=== PATIENT | female | born 1955 | race Caucasian/White ===

== ENCOUNTER 2016-06-13 21:23 | Emergency (ER) | payer OTHER ==
[2016-06-13] MEDS ORDERED: DEXTROSE 5%-0.45% NACL 1,000 ML IV ONE (21:33)
[2016-06-13 21:51] LABS: Basophils % (A) 0 %; CH 22.8; CHCM 28.3; Eosinophils # (A) 0.1 k/uL (0-0.7); Eosinophils % (A) 1 %; HCT 42.9 % (34.0-46.0); HDW 3.74; HGB 12.5 gm/dL (11.4-16.0); Hypochromasia Marked; Luc # (Auto) 0.28; Luc % (Auto) 3; Lymphocytes # (A) 0.9 k/uL (1.0-4.8); Lymphocytes % (A) 9 %; MCH 23.4 pg (25.0-35.0); MCV 80.8 fL (80.0-100.0); Mean Platelet Volume 6.8; Monocytes # (A) 0.5 k/uL (0-1.0); Monocytes % (A) 5 %; Neutrophils # (A) 8.1 k/uL (1.3-7.7); Neutrophils % (A) 81 %; Poikilocytosis Slight; RBC 5.31 m/uL (3.80-5.40); RDW 15.7 % (11.5-15.5); WBC (Perox) 9.88
[2016-06-13 21:53] VITALS: RESP 20
--- NOTE | 2016-06-13 21:55 | XR ---
EXAMINATION TYPE: XR chest 2V DATE OF EXAM: 06/13/2016 9:48 PM COMPARISON: None HISTORY: 61-year-old female with cough and hypoglycemia TECHNIQUE: AP and lateral views FINDINGS: Heart is borderline to mildly enlarged. Diffuse interstitial and vascular prominence. No uzair consol idation or significant pleural effusion. IMPRESSION: Borderline to mild cardiomegaly with interstitial prominence. Correlate to exclude mild CHF. Limited portable exam.
[2016-06-13 21:59] LABS: Calcium 9.3 mg/dL (8.4-10.2); Potassium 5.2 mmol/L (3.5-5.1); Total Bilirubin 0.3 mg/dL (0.2-1.3); Total Protein 6.4 g/dL (6.3-8.2)
--- NOTE | 2016-06-13 22:08 | ED ---
General Adult HPI - General Chief complaint: Recheck/Abnormal Lab/Rx Stated complaint: diabetic problems Time Seen by Provider: 06/13/16 21:27 Source: patient, EMS, RN notes reviewed Mode of arrival: EMS Limitations: no limitations - History of Present Illness Initial comments: Patient is a pleasant 61-year-old female presenting to the emergency Department with low blood sugar. Patient took 35 units of her apidra prior to dinner. After this patient felt lightheaded. Patient took her blood sugar and it was 60. Patient was given a small amount of glucose by EMS. Blood sugar went up to over 100. Patient feels only minimally lightheaded at this time. Patient has had similar symptoms previous a. Patient was just started on a Z-David 2 days ago for upper respiratory symptoms. Patient has had a mild sore throat and cough. - Related Data Home Medications Medication Instructions Recorded Confirmed Atorvastatin Calcium [Lipitor] 1 tab PO DAILY 06/13/16 06/13/16 Gabapentin [Neurontin] 1 tab PO TID 06/13/16 06/13/16 Insulin Glargine [Lantus] 120 unit SQ DAILY 06/13/16 06/13/16 Insulin Glulisine [Apidra] 35 unit SQ BID 06/13/16 06/13/16 Allergies Allergy/AdvReac Type Severity Reaction Status Date / Time Penicillins Allergy Rash/Hives Verified 06/13/16 21:53 Sulfa (Sulfonamide Allergy Rash/Hives Verified 06/13/16 21:53 Antibiotics) Review of Systems ROS Statement: Those systems with pertinent positive or pertinent negative responses have been documented in the HPI. ROS Other: All systems not noted in ROS Statement are negative. Constitutional: Denies: fever Eyes: Denies: eye pain ENT: Reports: throat pain Respiratory: Reports: cough. Denies: dyspnea Cardiovascular: Denies: chest pain Endocrine: Denies: fatigue Gastrointestinal: Denies: abdominal pain Genitourinary: Denies: dysuria Musculoskeletal: Denies: back pain Skin: Denies: rash Neurological: Denies: headache Past Medical History Past Medical History: Diabetes Mellitus, Hyperlipidemia History of Any Multi-Drug Resistant Organisms: None Reported Past Surgical History: Unable to Obtain Past Psychological History: No Psychological Hx Reported Smoking Status: Current every day smoker Past Alcohol Use History: None Reported Past Drug Use History: None Reported General Exam Limitations: no limitations General appearance: alert, in no apparent distress Head exam: Present: atraumatic Eye exam: Present: normal appearance, PERRL, EOMI. Absent: nystagmus ENT exam: Present: normal oropharynx Neck exam: Present: normal inspection Respiratory exam: Present: normal lung sounds bilaterally Cardiovascular Exam: Present: regular rate, normal rhythm GI/Abdominal exam: Present: soft. Absent: tenderness Extremities exam: Present: normal inspection Neurological exam: Present: alert, CN II-XII intact. Absent: motor sensory deficit Expanded Motor strength exam: RUE: 5, LUE: 5, RLE: 5, LLE: 5 Eye Response: (4) open spontaneously Motor Response: (6) obeys commands Verbal Response: (5) oriented Psychiatric exam: Present: normal affect, normal mood Skin exam: Absent: rash Course Vital Signs 06/13/16 06/13/16 21:43 22:38 Temperature 97 F L Pulse Rate 85 81 Respiratory 20 20 Rate Blood Pressure 156/63 156/63 O2 Sat by Pulse 94 L 94 L Oximetry - Reevaluation(s) Reevaluation #1: 06/13/16 22:51 Superficial devitalized skin removed from the proximal foot/ankle region with simple traction. Less than 2 minutes for procedure. EKG Findings - EKG Comments: EKG Findings:: Normal sinus rhythm 77. NC 144. QRS 90. QT 426. QTc 482. Left axis. Normal QRS. No acute ST change. Medical Decision Making - Medical Decision Making Patient examined and resting comfortably in bed. Patient is symptom-free and requests discharge. Patient updated on results and need for follow-up. Patient states she will skip her Lantus tonight. Patient advised she could take a lower dose if her sugar starts rising however if sugar is decreasing then she should hold her Lantus. - Lab Data Result diagrams: 06/13/16 21:38 06/13/16 21:38 Lab Results 06/13/16 06/13/16 06/13/16 Range/Units 21:38 21:38 22:15 WBC 10.0 (3.8-10.6) k/uL RBC 5.31 (3.80-5.40) m/uL Hgb 12.5 (11.4-16.0) gm/dL Hct 42.9 (34.0-46.0) % MCV 80.8 (80.0-100.0) fL MCH 23.4 L (25.0-35.0) pg MCHC 29.0 L (31.0-37.0) g/dL RDW 15.7 H (11.5-15.5) % Plt Count 268 (150-450) k/uL Neutrophils % 81 % Lymphocytes % 9 % Monocytes % 5 % Eosinophils % 1 % Basophils % 0 % Neutrophils # 8.1 H (1.3-7.7) k/uL Lymphocytes # 0.9 L (1.0-4.8) k/uL Monocytes # 0.5 (0-1.0) k/uL Eosinophils # 0.1 (0-0.7) k/uL Basophils # 0.0 (0-0.2) k/uL Hypochromasia Marked Poikilocytosis Slight Sodium 148 H (137-145) mmol/L Potassium 5.2 H (3.5-5.1) mmol/L Chloride 107 (98-107) mmol/L Carbon Dioxide 33 H (22-30) mmol/L Anion Gap 8 mmol/L BUN 18 H (7-17) mg/dL Creatinine 1.20 H (0.52-1.04) mg/dL Est GFR (MDRD) Af Amer 55 (>60 ml/min/1.73 sqM) Est GFR (MDRD) Non-Af 45 (>60 ml/min/1.73 sqM) Glucose 108 H (74-99) mg/dL POC Glucose (mg/dL) 124 H (75-99) mg/dL POC Glu [employer] ID Natividad Henao Calcium 9.3 (8.4-10.2) mg/dL Total Bilirubin 0.3 (0.2-1.3) mg/dL AST 24 (14-36) U/L ALT 31 (9-52) U/L Alkaline Phosphatase 105 (38-126) U/L Total Protein 6.4 (6.3-8.2) g/dL Albumin 3.6 (3.5-5.0) g/dL 06/13/16 Range/Units 23:04 WBC (3.8-10.6) k/uL RBC (3.80-5.40) m/uL Hgb (11.4-16.0) gm/dL Hct (34.0-46.0) % MCV (80.0-100.0) fL MCH (25.0-35.0) pg MCHC (31.0-37.0) g/dL RDW (11.5-15.5) % Plt Count (150-450) k/uL Neutrophils % % Lymphocytes % % Monocytes % % Eosinophils % % Basophils % % Neutrophils # (1.3-7.7) k/uL Lymphocytes # (1.0-4.8) k/uL Monocytes # (0-1.0) k/uL Eosinophils # (0-0.7) k/uL Basophils # (0-0.2) k/uL Hypochromasia Poikilocytosis Sodium (137-145) mmol/L Potassium (3.5-5.1) mmol/L Chloride (98-107) mmol/L Carbon Dioxide (22-30) mmol/L Anion Gap mmol/L BUN (7-17) mg/dL Creatinine (0.52-1.04) mg/dL Est GFR (MDRD) Af Amer (>60 ml/min/1.73 sqM) Est GFR (MDRD) Non-Af (>60 ml/min/1.73 sqM) Glucose (74-99) mg/dL POC Glucose (mg/dL) 196 H (75-99) mg/dL POC Glu [employer] Mechanic Natividad Oliva Calcium (8.4-10.2) mg/dL Total Bilirubin (0.2-1.3) mg/dL AST (14-36) U/L ALT (9-52) U/L Alkaline Phosphatase (38-126) U/L Total Protein (6.3-8.2) g/dL Albumin (3.5-5.0) g/dL - Radiology Data Radiology results: image reviewed (Chest x-ray shows cardiomegaly with interstitial prominence, mild.) Disposition Clinical Impression: Hypoglycemia Disposition: HOME SELF-CARE Condition: Stable Instructions: Hypoglycemia in a Person with Diabetes (ED) Additional Instructions: Please hold or decrease Lantus tonight. Please decrease your regular insulin by 5 units until follow-up on Wednesday with your doctor. Hold your insulin if blood sugar is low. Please check your blood sugar prior to taking insulin. Return for low blood sugar, confusion, weakness, worsening symptoms or other concerns. Referrals: Lilly Ruvalcaba MD [Primary Care Provider] - 1-2 days
[2016-06-13 22:29] LABS: Glucose,Whole Blood 124 mg/dL (75-99)
[2016-06-13 23:05] LABS: Glucose,Whole Blood 196 mg/dL (75-99)
[2016-06-13 23:39] VITALS: BP 140/78; PULSE 80; TEMP 98.4
[2016-06-16 07:58] LABS: Glucose,Whole Blood 88 mg/dL (75-99)
== END 2016-06-13 23:39 | disposition home or self-care (01) ==
LOC: EC 21:23
DX: E11.649 Type 2 diabetes mellitus with hypoglycemia without coma (principal); E78.5 Hyperlipidemia, unspecified; F17.200 Nicotine dependence, unspecified, uncomplicated; Z79.4 Long term (current) use of insulin; Z79.899 Other long term (current) drug therapy; Z88.0 Allergy status to penicillin; Z88.2 Allergy status to sulfonamides
CPT/HCPCS: 36415; 71020; 80053; 85025; 93005; 99285

== ENCOUNTER → 2016-11-25 | Outpatient (CLI) | payer OTHER ==
--- NOTE | 2016-11-26 08:14 | MM ---
Reason for exam: clinical finding. Last mammogram was performed 11 years and 5 months ago. History: Benign stereotactic core biopsy of the right breast, July 10, 2002. Benign stereotactic core biopsy of the left breast, April 19, 2000. Physical Findings: Nurse Summary: 3cm nodule in the right breast at 7 o'clock (nurse dw). MG Diagnostic Mammo w CAD NADIYA Bilateral CC and MLO view(s) were taken. Prior study comparison: July 07, 2005, bilateral screening mammogram w/CAD. June 12, 2002, right breast diagnostic mammogram. Finding: There is an intermediate concern, suspicious 2.2 x 2.7 mm high density, spiculated irregular mass in the right breast. Previous mammotome biopsy in the right breast. New finding since July 07, 2005 and June 12, 2002. These results were verbally communicated with the patient and result sheet given to the patient on 11/25/16. ASSESSMENT: Highly suggestive of malignancy, BI-RAD 5 RECOMMENDATION: Surgical consultation and ultrasound core biopsy of the right breast. Called Dr. Ruvalcaba with mammographic findings and has scheduled an appointment for the patient for 12/07/[address] Bello. Biopsy scheduled for 12/02/16 at 12:20. PRELIMINARY REPORT CALLED AND FAXED TO DR. BELLO ON 11/26/16 /TP.
--- NOTE | 2016-11-26 08:15 | USB ---
Reason for exam: clinical finding. History: Benign stereotactic core biopsy of the right breast, July 10, 2002. Benign stereotactic core biopsy of the left breast, April 19, 2000. US Breast RT Right breast ultrasound includes all four quadrants, the retroareolar region and axilla. Finding demonstrates a 1.9 x 2.8 x 1.7cm irregular, solid, vascular lesion at 4 o'clock. These results were verbally communicated with the patient and result sheet given to the patient on 11/25/16. ASSESSMENT: Highly suggestive of malignancy, BI-RAD 5 RECOMMENDATION: Ultrasound core biopsy of the right breast. Called Dr. Ruvalcaba with mammographic findings and has scheduled an appointment for the patient for 12/07/[address] Bello. Biopsy scheduled for 12/02/16 at 12:20. PRELIMINARY REPORT CALLED AND FAXED TO DR. BELLO ON 11/26/16 /TP.
== END | disposition home or self-care (01) ==
LOC: RADMAMWWP 14:19
PROVIDERS: ATTEND Family Medicine
DX: N63 Unspecified lump in breast (principal); R92.8 Other abnormal and inconclusive findings on diagnostic imaging of breast
CPT/HCPCS: 76641; G0204

== ENCOUNTER → 2016-12-02 | Day surgery (SDC) | payer OTHER ==
[2016-12-02 12:29] VITALS: RESP 16; BMI 38.9
[2016-12-02 14:02] VITALS: BP 174/82; PULSE 90; TEMP 98.8
--- NOTE | 2016-12-02 15:23 | USB ---
EXAMINATION TYPE: US biopsy breast VAD RT DATE OF EXAM: 12/02/2016 CLINICAL HISTORY: R92.8 Abnormal Mammogram. Abnormal ultrasound TECHNIQUE: Ultrasound guided core biopsy of right breast. COMPARISON: 11/25/2016 FINDINGS: The procedure of ultrasound guided core biopsy was explained to the patient. Benefits, alt ernatives, and risks were discussed. An informed consent was then obtained. The patient was placed in supine positioning for imaging and for the procedure. The overlying skin w as prepped and draped in usual sterile fashion. Lidocaine buffered with bicarbonate was used as anes thetic into the skin and subcutaneous tissue up to area of concern in the right breast. A annabella was m kwesi with surgical scalpel. Under ultrasound guidance, a 12-gauge vacuum assisted biopsy gun device was used to obtain 6 core chris ples. Following this, a biopsy clip was left in lesion. The patient tolerated the procedure well without any immediate complication. The patient was kept in the radiology department for short stay after the procedure and then discharged home in stable condi tion. IMPRESSION: Successful, uncomplicated ultrasound guided core biopsy of area of concern in the right b reast, full pathology results to follow.
--- NOTE | 2016-12-02 15:31 | MM ---
EXAMINATION TYPE: MG diagnostic mammo RT wo CAD DATE OF EXAM: 12/02/2016 COMPARISON: NONE HISTORY: Post procedure mammogram for clip placement TECHNIQUE: Craniocaudal and mediolateral views of the right breast were obtained FINDINGS: Metallic clip is within the biopsied mass in the inferior medial aspect right breast. Previ ous biopsy clip is stable in position. IMPRESSION: 1. Successful placement of a core marker at the biopsy site.
== END ==
LOC: RADUSWWP 11:48
PROVIDERS: ATTEND Surgery
DX: C50.911 Malignant neoplasm of unspecified site of right female breast (principal); Z88.0 Allergy status to penicillin; Z88.2 Allergy status to sulfonamides
CPT/HCPCS: 88305; 19083; G0206; A4648

== ENCOUNTER → 2016-12-16 | Outpatient (CLI) | payer OTHER ==
--- NOTE | 2016-12-21 08:51 | USB ---
Reason for exam: clinical finding. History: Patient has history of breast cancer at age 61. Malignant US biopsy breast VAD RT of the right breast, December 02, 2016. Benign stereotactic core biopsy of the right breast, July 10, 2002. Benign stereotactic core biopsy of the left breast, April 19, 2000. US Breast Limited RT Right breast ultrasound demonstrates a 2.4 x 1.5 x 1.2cm oval, thick cortex node at the axilla and a 2.6 x 2.9 x 1.3cm oval, thin cortex node at the axilla. These results were verbally communicated with the patient and result sheet given to the patient on 12/16/16. ASSESSMENT: Suspicious, BI-RAD 4 RECOMMENDATION: Surgical consultation of the right breast. Called with mammographic findings and has scheduled an appointment for the patient for 12/21/16 at 4:[address] Bello. PRELIMINARY REPORT CALLED AND FAXED TO DR. BELLO ON 12/21/16/TP.
== END | disposition home or self-care (01) ==
LOC: RADUSWWP 16:14
PROVIDERS: ATTEND Surgery
DX: Z08 Encounter for follow-up examination after completed treatment for malignant neoplasm (principal); Z85.3 Personal history of malignant neoplasm of breast

== ENCOUNTER → 2017-01-19 | Day surgery (SDC) | payer OTHER ==
[2017-01-19 12:28] VITALS: RESP 16; TEMP 98.5; BMI 43.7
[2017-01-19 13:35] VITALS: BP 157/88; PULSE 86
--- NOTE | 2017-01-19 13:35 | USB ---
EXAMINATION TYPE: US biopsy breast VAD RT DATE OF EXAM: 01/19/2017 CLINICAL HISTORY: C50.911 Breast Cancer. TECHNIQUE: Ultrasound guided core biopsy right axilla COMPARISON: NONE FINDINGS: The procedure of ultrasound guided core biopsy was explained to the patient. Benefits, alternatives, and risks were discussed. An informed consent was then obtained. The patient was placed in supine positioning for imaging and for the procedure. The overlying skin was prepped and draped in usual sterile fashion. Lidocaine was used as anesthetic into the skin and subcutaneous tissue up to area of concern in the right axilla. A annabella was made with surgical scalpel. Under ultrasound guidance, a 12-gauge vacuum assisted biopsy gun device was used to obtain 4 core samples. Following this, a biopsy clip was left in lesion. The patient tolerated the procedure well without any immediate complication. The patient was kept in the radiology department for short stay after the procedure and then discharged home in stable condition. IMPRESSION: Successful, uncomplicated ultrasound guided core biopsy of a thickened cortex lymph node right axilla. Remaining lymph nodes in the region appear to demonstrate fatty hilum. Full pathology results to follow. Pathology Results: Malignant BREAST, RIGHT AXILLA SITE A, CORE BIOPSY: HIGH GRADE INVASIVE DUCTAL CARCINOMA WITH ASSOCIATED LYMPHOID TISSUE, FAVOR LYMPH NODE INVOLVED BY METASTASIS AND FEATURES CONSISTENT WITH LYMPH/VASCULAR INVASION. SEE SURGICAL PATHOLOGY CANCER CASE SUMMARY AND COMMENT. Recommendation Surgical consult of the right breast. CLARA
== END ==
LOC: RADUSWWP 12:04
PROVIDERS: ATTEND Surgery
DX: C79.89 Secondary malignant neoplasm of other specified sites (principal); C50.911 Malignant neoplasm of unspecified site of right female breast; Z88.1 Allergy status to other antibiotic agents; Z88.0 Allergy status to penicillin; Z88.2 Allergy status to sulfonamides
CPT/HCPCS: 88305; 88342; 88341; 76942; 38505; A4648; J2001

== ENCOUNTER → 2017-01-22 | Outpatient (CLI) | payer OTHER ==
[2017-01-22 12:25] LABS: Blood Urea Nitrogen 17 mg/dL (7-17); Non-African American GFR(MDRD) 56 (>60 ml/min/1.73 sqM)
--- NOTE | 2017-01-22 14:44 | CT ---
EXAMINATION TYPE: CT ChestAbdPelvis w con DATE OF EXAM: 01/22/2017 COMPARISON: NONE HISTORY: Breast cancer CT DLP: 2089 mGycm CONTRAST: CT scan of the chest, abdomen and pelvis is performed with Oral Contrast and with IV Contrast, patien t injected with 100 ml mL of Omnipaque 300. CT Chest: LUNGS: The lungs are clear and free of infiltrate or atelectasis. No pulmonary nodule or mass is det ected. No pleural effusion or CT evidence of interstitial lung disease. MEDIASTINUM: Thoracic aorta is of normal caliber. The heart is not enlarged. No evidence for media stinal mass or adenopathy. HILAR STRUCTURES: No evidence for mass. No hilar adenopathy is appreciated. OTHER: Mildly prominent right axillary lymph node. Biopsy proven malignancy right breast. CONTRAST CT ABDOMEN AND PELVIS FINDINGS: LIVER/GB: No calcified gallstones. No space occupying hepatic lesion. Biliary tree is of normal ca liber. PANCREAS: No inflammation. No distinct mass. SPLEEN: No splenic enlargement. No lesion seen. ADRENALS: No nodule. No thickening. KIDNEYS/BLADDER: Atrophic changes of the left kidney. Several lower pole calculi seen involving the l eft kidney measuring up to 1 cm. The right kidney also demonstrates large lower pole calculus measuri ng 1.4 cm. There is a nonobstructing calculus within the right renal pelvis measuring 7.3 mm. There i s mild left-sided hydronephrosis may be related to left UPJ stricture. No renal masses identified. BOWEL: Normal appendix. Normal bowel caliber. No inflammation. Moderate sigmoid diverticulosis with out diverticulitis. GENITAL ORGANS: 10.1 x 8.7 cm cystic mass arising from the right ovary. The ultrasound correlation is advised to exclude the possibility of neoplasm. There is been prior hysterectomy. No left adnexal ma sses appreciated. LYMPH NODES: No greater than 1cm abdominal or pelvic lymph nodes are appreciated. AORTA: No significant abnormality. OSSEOUS STRUCTURES: Degenerative changes lumbar spine. OTHER: No significant additional abnormality is seen. IMPRESSION: 1. No evidence for metastatic disease to the chest abdomen or pelvis. 2. Biopsy-proven malignancy right breast with biopsy proven metastatic lymph node right axilla. 3. Atrophic changes of the left kidney. 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 B ilateral nephrolithiasis without obstructing calculus seen at this time. 4. Large cystic mass arising from the right ovary. Ultrasound correlation advised to exclude possibil ity of neoplasm.
--- NOTE | 2017-01-22 15:13 | NM ---
EXAMINATION TYPE: NM bone scan whole body DATE OF EXAM: 01/22/2017 COMPARISON: CT abdomen pelvis dated 01/22/2017 HISTORY: Breast cancer. Delayed whole-body scanning was performed following the injection of 24.6 mCi Tc 99m MDP. Images acq uired 3 hours post injection. FINDINGS: Generalized uptake within the right breast relates to the patient's known right breast cancer, biopsy proven metastatic to the axilla. No suspicious areas of uptake are seen to indicate osseous metastat ic disease. Symmetric uptake is seen of the joints in the appendicular skeleton such as the knees, acromioclavicu lar joints, and hip joints compatible with underlying arthropathy. Dilatation of the left renal collecting system when correlated with the CT may relate to chronic left ureteropelvic junction obstruction possibly related to underlying stricture as there is severe corti adore renal atrophy. IMPRESSION: 1. No findings suspicious for osseous metastatic disease. 2. Generalized uptake within the right breast related to the patient's known right breast cancer. 3. Symmetric uptake of the joints within the appendicular skeleton, related to underlying arthropathy . 4. Dilatation of the left renal collecting system that may relate to chronic left ureteropelvic junct ion obstruction, possibly underlying stricture.
== END | disposition home or self-care (01) ==
LOC: RADNMMAIN 11:05
PROVIDERS: ATTEND Surgery
DX: C50.911 Malignant neoplasm of unspecified site of right female breast (principal); C77.3 Secondary and unspecified malignant neoplasm of axilla and upper limb lymph nodes; N28.1 Cyst of kidney, acquired; N26.1 Atrophy of kidney (terminal); N83.8 Other noninflammatory disorders of ovary, fallopian tube and broad ligament; N28.89 Other specified disorders of kidney and ureter
CPT/HCPCS: 82565; 84520; 71260; 74177; 36415; 78306; A9503; Q9967

== ENCOUNTER → 2017-02-02 | Outpatient (CLI) | payer OTHER ==
--- NOTE | 2017-02-04 08:53 | ECHOF ---
Referral Reason:Breast Ca C50.311, Pre Chemo Z01.818 MEASUREMENTS -------- HEIGHT: 162.6 cm WEIGHT: 99.8 kg BP: 177/97 RVIDd: 4.8 cm (< 3.3) IVSd: 1.3 cm (0.6 - 1.1) LVIDd: 3.8 cm (3.9 - 5.3) LVPWd: 1.2 cm (0.6 - 1.1) IVSs: 1.5 cm LVIDs: 3.4 cm LVPWs: 1.4 cm LAESV Index (A-L): 9.67 ml/m Ao Diam: 3.4 cm (2.0 - 3.7) AV Cusp: 1.3 cm (1.5 - 2.6) LA Diam: 2.8 cm (2.7 - 3.8) MV EXCURSION: 16.963 mm (> 18.000) MV EF SLOPE: 45 mm/s (70 - 150) EPSS: 0.6 cm MV E Harsha: 0.52 m/s MV DecT: 215 ms MV A Harsha: 0.86 m/s MV E/A Ratio: 0.61 RAP: 15.00 mmHg RVSP: 77.35 mmHg FINDINGS -------- Sinus rhythm. This was a technically adequate study. The left ventricular size is normal. There is mild concentric left ventricular hypertrophy. Overall left ventricular systolic function is normal with, an EF between 55 - 60 %. The right ventricle is severely enlarged. The right ventricular septal wall is flattened in diastole and systole which is consistent with right ventricular volume and pressure overload. Normal LA size by volume 22+/-6 ml/m2. The right atrium is moderately enlarged. Aortic valve is trileaflet and is mildly thickened. There is no evidence of aortic regurgitation. There is no evidence of aortic stenosis. The mitral valve leaflets are mildly thickened. There is trace mitral regurgitation. Severe tricuspid regurgitation present. There is severe pulmonary hypertension. The right ventricular systolic pressure, as measured by Doppler, is 77.35mmHg. The pulmonic valve was not well visualized. The aortic root size is normal. The inferior vena cava is dilated with poor inspiratory collapse which is consistent with estimated right atrial pressure of 20 mmHg. The pericardium is normal. There is a trivial pericardial effusion present. CONCLUSIONS -------- 1. Sinus rhythm. 2. Aortic valve is trileaflet and is mildly thickened. 3. The mitral valve leaflets are mildly thickened. 4. There is trace mitral regurgitation. 5. Severe tricuspid regurgitation present. 6. There is severe pulmonary hypertension. 7. The right ventricular systolic pressure, as measured by Doppler, is 77.35mmHg. 8. The pulmonic valve was not well visualized. 9. The aortic root size is normal. 10. The inferior vena cava is dilated with poor inspiratory collapse which is consistent with estimated right atrial pressure of 20 mmHg. 11. There is a trivial pericardial effusion present. 12. This was a technically adequate study. 13. The left ventricular size is normal. 14. There is mild concentric left ventricular hypertrophy. 15. Overall left ventricular systolic function is normal with, an EF between 55 - 60 %. 16. The right ventricle is severely enlarged. 17. The right ventricular septal wall is flattened in diastole and systole which is consistent with right ventricular volume and pressure overload. 18. Normal LA size by volume 22+/-6 ml/m2. 19. The right atrium is moderately enlarged. RIVET PASSER: Milton Weeks RDCS
== END | disposition home or self-care (01) ==
LOC: RADECHMAIN 15:51
PROVIDERS: ATTEND Internal Medicine Hematology & Oncology
DX: Z01.810 Encounter for preprocedural cardiovascular examination (principal); I08.0 Rheumatic disorders of both mitral and aortic valves; I27.0 Primary pulmonary hypertension; I31.3 Pericardial effusion (noninflammatory); C50.311 Malignant neoplasm of lower-inner quadrant of right female breast
CPT/HCPCS: 93306

== ENCOUNTER 2017-03-08 04:34 | Inpatient (IN) | payer OTHER ==
--- NOTE | 2017-03-08 04:48 | ED ---
SOB HPI - General Stated Complaint: DARREN Time Seen by Provider: 03/08/17 04:37 Source: patient, EMS - History of Present Illness Initial Comments: This patient is a 62-year-old woman who is brought by EMS to be evaluated for a number of symptoms. The patient states that for about 3 days she has not been feeling well. She states that she has been having a lot of nausea that limited her oral intake. She has had a few episodes of vomiting. She is also having generalized fatigue and weakness and tonight she was feeling short of breath. MD Complaint: shortness of breath Onset/Timin -: days(s) Consistency: constant Worsens With: nothing Associated Symptoms: nausea/vomiting - Related Data Home Medications Medication Instructions Recorded Confirmed Atorvastatin Calcium [Lipitor] 20 mg PO HS 06/13/16 03/08/17 Insulin Glulisine [Apidra] 30 unit SQ AC-TID PRN 06/13/16 03/08/17 [id number] 1 - 2 tab PO HS PRN 01/19/17 03/08/17 [Excedrin] HYDROcodone/APAP 5-325MG [Pinckard 1 tab PO Q6H PRN 01/19/17 03/08/17 5-325] Insulin Glargine,Hum.rec.anlog 120 unit SQ HS 03/08/17 03/08/17 [Basaglar Kwikpen U-100] Zolpidem [Ambien] 10 mg PO HS 03/08/17 03/08/17 Allergies Allergy/AdvReac Type Severity Reaction Status Date / Time gentamicin [From Garamycin] Allergy Rash/Hives Verified 03/08/17 07:49 Penicillins Allergy Rash/Hives Verified 03/08/17 07:49 Sulfa (Sulfonamide Allergy Rash/Hives Verified 03/08/17 07:49 Antibiotics) Review of Systems ROS Statement: Those systems with pertinent positive or pertinent negative responses have been documented in the HPI. ROS Other: All systems not noted in ROS Statement are negative. Constitutional: Reports: chills, weakness. Denies: fever Respiratory: Reports: dyspnea. Denies: cough, wheezes Cardiovascular: Denies: chest pain, palpitations, edema, syncope Gastrointestinal: Reports: nausea, vomiting. Denies: abdominal pain, diarrhea, constipation, melena, hematochezia Genitourinary: Denies: dysuria, hematuria Musculoskeletal: Denies: back pain Skin: Denies: rash Neurological: Denies: headache, weakness, numbness Past Medical History Past Medical History: Diabetes Mellitus, Hyperlipidemia, Renal Disease Additional Past Medical History / Comment(s): frequent kidney stones History of Any Multi-Drug Resistant Organisms: None Reported Past Surgical History: Section, Cholecystectomy, Hernia Repair Additional Past Surgical History / Comment(s): x3, multiple lithotripsy Past Anesthesia/Blood Transfusion Reactions: No Reported Reaction Past Psychological History: Anxiety, Depression Smoking Status: Current every day smoker Past Alcohol Use History: None Reported Additional Past Alcohol Use History / Comment(s): 2 PPD PER PT Past Drug Use History: None Reported General Exam General appearance: alert, in no apparent distress Head exam: Present: atraumatic, normocephalic Eye exam: Present: normal appearance ENT exam: Present: mucous membranes dry Respiratory exam: Absent: respiratory distress, wheezes, rales, rhonchi, stridor Cardiovascular Exam: Present: regular rate, normal rhythm, normal heart sounds. Absent: systolic murmur, diastolic murmur, rubs, gallop GI/Abdominal exam: Present: soft. Absent: tenderness, guarding, rebound, mass Extremities exam: Present: normal inspection, normal capillary refill. Absent: pedal edema, calf tenderness Back exam: Present: normal inspection. Absent: CVA tenderness (R), CVA tenderness (L) Neurological exam: Present: alert Skin exam: Present: warm, dry, intact, normal color. Absent: rash Course Vital Signs 03/08/17 03/08/17 03/08/17 04:37 04:49 05:38 Temperature 102 F H 101.4 F H Pulse Rate 100 100 Respiratory 22 24 Rate Blood Pressure 167/79 187/87 O2 Sat by Pulse 77 L 92 L 95 Oximetry 03/08/17 03/08/17 03/08/17 06:06 06:12 07:00 Temperature Pulse Rate 99 99 99 Respiratory 24 Rate Blood Pressure 119/59 O2 Sat by Pulse 70 L Oximetry 03/08/17 03/08/17 07:07 07:18 Temperature Pulse Rate 90 Respiratory 24 Rate Blood Pressure O2 Sat by Pulse 91 L 95 Oximetry Medical Decision Making - Lab Data Result diagrams: 03/08/17 05:19 03/08/17 05:19 Lab Results 03/08/17 03/08/17 03/08/17 Range/Units 05:19 05:19 05:19 WBC 15.0 H (3.8-10.6) k/uL RBC 5.54 H (3.80-5.40) m/uL Hgb 13.0 (11.4-16.0) gm/dL Hct 43.9 (34.0-46.0) % MCV 79.3 L (80.0-100.0) fL MCH 23.4 L (25.0-35.0) pg MCHC 29.5 L (31.0-37.0) g/dL RDW 19.4 H (11.5-15.5) % Plt Count 221 (150-450) k/uL Neutrophils % 86 % Lymphocytes % 7 % Monocytes % 5 % Eosinophils % 1 % Basophils % 0 % Neutrophils # 12.9 H (1.3-7.7) k/uL Lymphocytes # 1.0 (1.0-4.8) k/uL Monocytes # 0.8 (0-1.0) k/uL Eosinophils # 0.1 (0-0.7) k/uL Basophils # 0.1 (0-0.2) k/uL Hypochromasia Moderate Anisocytosis Slight Microcytosis Slight PT (9.0-12.0) sec INR (<1.2) APTT (22.0-30.0) sec D-Dimer (<0.60) mg/L FEU Sodium 135 L (137-145) mmol/L Potassium 4.9 (3.5-5.1) mmol/L Chloride 98 (98-107) mmol/L Carbon Dioxide 27 (22-30) mmol/L Anion Gap 10 mmol/L BUN 33 H (7-17) mg/dL Creatinine 1.20 H (0.52-1.04) mg/dL Est GFR (MDRD) Af Amer 55 (>60 ml/min/1.73 sqM) Est GFR (MDRD) Non-Af 45 (>60 ml/min/1.73 sqM) Glucose 318 H (74-99) mg/dL POC Glucose (mg/dL) (75-99) mg/dL POC Glu Par[employer] Computing Software Engineer ID Plasma Lactic Acid Avery (0.7-2.0) mmol/L Calcium 10.0 (8.4-10.2) mg/dL Magnesium 2.0 (1.6-2.3) mg/dL Total Bilirubin 0.5 (0.2-1.3) mg/dL AST 16 (14-36) U/L ALT 32 (9-52) U/L Alkaline Phosphatase 153 H (38-126) U/L Total Creatine Kinase 54 (30-135) U/L CK-MB (CK-2) 0.8 (0.0-2.4) ng/mL CK-MB (CK-2) Rel Index 1.5 Troponin I 0.040 H* (0.000-0.034) ng/mL NT-Pro-B Natriuret Pep pg/mL Total Protein 6.5 (6.3-8.2) g/dL Albumin 3.5 (3.5-5.0) g/dL Urine Color Urine Appearance (Clear) Urine pH (5.0-8.0) Ur Specific [place] (1.001-1.035) Urine Protein (Negative) Urine Glucose (UA) (Negative) Urine Ketones (Negative) Urine Blood (Negative) Urine Nitrite (Negative) Urine Bilirubin (Negative) Urine Urobilinogen (<2.0) mg/dL Ur Leukocyte Esterase (Negative) Urine RBC (0-5) /hpf Urine WBC (0-5) /hpf Ur Squamous Epith Cells (0-4) /hpf Urine Bacteria (None) /hpf Hyaline Casts (0-2) /lpf Urine Mucus (None) /hpf 03/08/17 03/08/17 03/08/17 Range/Units 05:19 05:19 05:19 WBC (3.8-10.6) k/uL RBC (3.80-5.40) m/uL Hgb (11.4-16.0) gm/dL Hct (34.0-46.0) % MCV (80.0-100.0) fL MCH (25.0-35.0) pg MCHC (31.0-37.0) g/dL RDW (11.5-15.5) % Plt Count (150-450) k/uL Neutrophils % % Lymphocytes % % Monocytes % % Eosinophils % % Basophils % % Neutrophils # (1.3-7.7) k/uL Lymphocytes # (1.0-4.8) k/uL Monocytes # (0-1.0) k/uL Eosinophils # (0-0.7) k/uL Basophils # (0-0.2) k/uL Hypochromasia Anisocytosis Microcytosis PT 11.2 (9.0-12.0) sec INR 1.1 (<1.2) APTT 26.4 (22.0-30.0) sec D-Dimer 0.41 (<0.60) mg/L FEU Sodium (137-145) mmol/L Potassium (3.5-5.1) mmol/L Chloride (98-107) mmol/L Carbon Dioxide (22-30) mmol/L Anion Gap mmol/L BUN (7-17) mg/dL Creatinine (0.52-1.04) mg/dL Est GFR (MDRD) Af Amer (>60 ml/min/1.73 sqM) Est GFR (MDRD) Non-Af (>60 ml/min/1.73 sqM) Glucose (74-99) mg/dL POC Glucose (mg/dL) (75-99) mg/dL POC Glu Parallel Computing Software Engineer ID Plasma Lactic Acid Avery 1.2 (0.7-2.0) mmol/L Calcium (8.4-10.2) mg/dL Magnesium (1.6-2.3) mg/dL Total Bilirubin (0.2-1.3) mg/dL AST (14-36) U/L ALT (9-52) U/L Alkaline Phosphatase (38-126) U/L Total Creatine Kinase (30-135) U/L CK-MB (CK-2) (0.0-2.4) ng/mL CK-MB (CK-2) Rel Index Troponin I (0.000-0.034) ng/mL NT-Pro-B Natriuret Pep 26904 pg/mL Total Protein (6.3-8.2) g/dL Albumin (3.5-5.0) g/dL Urine Color Urine Appearance (Clear) Urine pH (5.0-8.0) Ur Specific [place] (1.001-1.035) Urine Protein (Negative) Urine Glucose (UA) (Negative) Urine Ketones (Negative) Urine Blood (Negative) Urine Nitrite (Negative) Urine Bilirubin (Negative) Urine Urobilinogen (<2.0) mg/dL Ur Leukocyte Esterase (Negative) Urine RBC (0-5) /hpf Urine WBC (0-5) /hpf Ur Squamous Epith Cells (0-4) /hpf Urine Bacteria (None) /hpf Hyaline Casts (0-2) /lpf Urine Mucus (None) /hpf 03/08/17 03/08/17 Range/Units 05:34 06:53 WBC (3.8-10.6) k/uL RBC (3.80-5.40) m/uL Hgb (11.4-16.0) gm/dL Hct (34.0-46.0) % MCV (80.0-100.0) fL MCH (25.0-35.0) pg MCHC (31.0-37.0) g/dL RDW (11.5-15.5) % Plt Count (150-450) k/uL Neutrophils % % Lymphocytes % % Monocytes % % Eosinophils % % Basophils % % Neutrophils # (1.3-7.7) k/uL Lymphocytes # (1.0-4.8) k/uL Monocytes # (0-1.0) k/uL Eosinophils # (0-0.7) k/uL Basophils # (0-0.2) k/uL Hypochromasia Anisocytosis Microcytosis PT (9.0-12.0) sec INR (<1.2) APTT (22.0-30.0) sec D-Dimer (<0.60) mg/L FEU Sodium (137-145) mmol/L Potassium (3.5-5.1) mmol/L Chloride (98-107) mmol/L Carbon Dioxide (22-30) mmol/L Anion Gap mmol/L BUN (7-17) mg/dL Creatinine (0.52-1.04) mg/dL Est GFR (MDRD) Af Amer (>60 ml/min/1.73 sqM) Est GFR (MDRD) Non-Af (>60 ml/min/1.73 sqM) Glucose (74-99) mg/dL POC Glucose (mg/dL) 283 H (75-99) mg/dL POC Glu Parallel Computing Software Engineer ID Brennan, Gwen Plasma Lactic Acid Avery (0.7-2.0) mmol/L Calcium (8.4-10.2) mg/dL Magnesium (1.6-2.3) mg/dL Total Bilirubin (0.2-1.3) mg/dL AST (14-36) U/L ALT (9-52) U/L Alkaline Phosphatase (38-126) U/L Total Creatine Kinase (30-135) U/L CK-MB (CK-2) (0.0-2.4) ng/mL CK-MB (CK-2) Rel Index Troponin I (0.000-0.034) ng/mL NT-Pro-B Natriuret Pep pg/mL Total Protein (6.3-8.2) g/dL Albumin (3.5-5.0) g/dL Urine Color Yellow Urine Appearance Turbid H (Clear) Urine pH 6.0 (5.0-8.0) Ur Specific [place] 1.013 (1.001-1.035) Urine Protein 2+ H (Negative) Urine Glucose (UA) Trace H (Negative) Urine Ketones Trace H (Negative) Urine Blood Moderate H (Negative) Urine Nitrite Negative (Negative) Urine Bilirubin Negative (Negative) Urine Urobilinogen <2.0 (<2.0) mg/dL Ur Leukocyte Esterase Moderate H (Negative) Urine RBC 34 H (0-5) /hpf Urine WBC 6 H (0-5) /hpf Ur Squamous Epith Cells 27 H (0-4) /hpf Urine Bacteria Occasional H (None) /hpf Hyaline Casts 5 H (0-2) /lpf Urine Mucus Rare H (None) /hpf - EKG Data -: EKG Interpreted by De EKG shows normal: sinus rhythm, axis (Left axis deviation), QRS complexes ( Incomplete right bundle branch block) Rate: tachycardia (Rate approximately 106 bpm) Interpretation: other (Possible left atrial enlargement) Disposition Clinical Impression: Congestive heart failure, Pulmonary hypertension Narrative: possible pneumonia Disposition: ADMITTED IP TO THIS [facility] Condition: Poor
--- NOTE | 2017-03-08 05:32 | XR ---
EXAM: XR Chest, 1 View CLINICAL HISTORY: Reason: dyspnea TECHNIQUE: Frontal view of the chest. COMPARISON: 06/13/16. FINDINGS: Lungs: Stable interstitial prominence. Mild basilar opacities, possible atelectasis, infiltrate, or edema. Pleural space: No pneumothorax. Heart: Stable enlarged cardiac silhouette. Mediastinum: Stable. Bones/joints: Stable. IMPRESSION: Stable interstitial prominence. Mild basilar opacities, possible atelectasis, infiltrate, or edema.
[2017-03-08 05:34] LABS: Anisocytosis Slight; Basophils # (A) 0.1 k/uL (0-0.2); Basophils % (A) 0 %; CH 24.3; CHCM 30.7; Eosinophils # (A) 0.1 k/uL (0-0.7); Eosinophils % (A) 1 %; HCT 43.9 % (34.0-46.0); HDW 3.23; Hypochromasia Moderate; Luc # (Auto) 0.17; Luc % (Auto) 1; Lymphocytes % (A) 7 %; MCH 23.4 pg (25.0-35.0); MCHC 29.5 g/dL (31.0-37.0); MCV 79.3 fL (80.0-100.0); Mean Platelet Volume 8.7; Microcytosis Slight; Monocytes # (A) 0.8 k/uL (0-1.0); Monocytes % (A) 5 %; Neutrophils # (A) 12.9 k/uL (1.3-7.7); Neutrophils % (A) 86 %; RBC 5.54 m/uL (3.80-5.40); RDW 19.4 % (11.5-15.5); WBC (Perox) 15.48
[2017-03-08] MEDS ORDERED: ACETAMINOPHEN TAB 325 MG TAB PO STA (05:39)
[2017-03-08] MEDS ORDERED: HYDROmorphone 1 MG/ML 1 ML SYRINGE IVP STA ×2 (05:39→07:36)
[2017-03-08 05:52] LABS: INR 1.1 (<1.2); Partial Thromboplastin Time 26.4 sec (22.0-30.0); Prothrombin Time 11.2 sec (9.0-12.0)
[2017-03-08 05:57] LABS: Potassium 4.9 mmol/L (3.5-5.1); Total Bilirubin 0.5 mg/dL (0.2-1.3); Total Protein 6.5 g/dL (6.3-8.2)
[2017-03-08] MEDS ORDERED: INSULIN REGULAR 100 UNIT/ML VIAL SQ STA (05:59)
[2017-03-08] MEDS ORDERED: IPRATROPIUM-ALBUTEROL 3 ML NEB INHALATION STA (05:59)
[2017-03-08 06:12] LABS: Appearance,Urine Turbid (Clear); Bacteria,Urine Occasional /hpf; Bilirubin,Urine Negative (Negative); Glucose,Urine (UA) Trace (Negative); Ketones,Urine Trace (Negative); Leukocyte Esterase,Urine Moderate (Negative); Mucus,Urine Rare /hpf; Nitrite,Urine Negative (Negative); Particle Count 19833; Protein,Urine 2+ (Negative); RBC,Urine 34 /hpf (0-5); Specific Gravity,Urine 1.013 (1.001-1.035); Squamous Epithelial Cell,Urine 27 /hpf (0-4); UA Billing (MACRO vs. MICRO) MICRO; Urobilinogen,Urine <2.0 mg/dL (<2.0); WBC,Urine 6 /hpf (0-5)
[2017-03-08 06:20] LABS: Creatine Kinase MB 0.8 ng/mL (0.0-2.4)
[2017-03-08 06:34] LABS: Troponin I 0.04 ng/mL (0.000-0.034)
[2017-03-08 06:55] LABS: Glucose,Whole Blood 283 mg/dL (75-99)
[2017-03-08] MEDS ORDERED: FUROSEMIDE 10 MG/ML 4 ML VIAL IV STA (06:57)
[2017-03-08] MEDS ORDERED: NITROGLYCERIN OINT 1 INCH/GM PACKET TOPICAL STA (06:57)
[2017-03-08] MEDS ORDERED: ASPIRIN-ACET-CAFF 250-250-65MG 1 EACH TAB PO PRN (07:01)
[2017-03-08] MEDS ORDERED: GABAPENTIN 300 MG CAP PO PRN (07:01)
[2017-03-08] MEDS ORDERED: AZITHROMYCIN 500 MG TAB PO STA (07:02)
[2017-03-08] MEDS: SODIUM CHLORIDE 0.9% 1,000 ML IV SCH (07:05)
[2017-03-08] MEDS: FUROSEMIDE 10 MG/ML 4 ML VIAL IV SCH ×2 (07:05→17:46)
[2017-03-08] MEDS ORDERED: INSULIN GLARGINE 100 UNIT/ML 10 ML VIAL SQ SCH (09:00)
[2017-03-08] MEDS: NITROGLYCERIN OINT 1 INCH/GM PACKET TOPICAL SCH ×3 (10:52→23:47)
[2017-03-08] MEDS: AZITHROMYCIN 500 MG TAB PO SCH (10:52)
[2017-03-08] MEDS ORDERED: ACETAMINOPHEN TAB 325 MG TAB PO PRN (11:08)
[2017-03-08] MEDS ORDERED: Potassium Replacement Protocol 1 EACH MISC MISCELLANE PRN (11:08)
--- NOTE | 2017-03-08 11:08 | P.HPIM ---
History of Present Illness H&P Date: 03/08/17 Chief Complaint: Shortness of breath This is a 62-year-old female with past medical history noted below significant for morbid obesity, type 2 diabetes mellitus, and tobacco abuse who presented to the hospital with shortness of breath and nonspecific complaints of weakness and nausea. Patient said that her symptoms started couple of days ago and is being getting progressively worse. She said that she has a chronic cough that is usually productive of clear sputum but recently has been productive of more yellowish sputum. She denies fevers or chills. She does not use oxygen at home. No flulike symptoms. She was evaluated in the emergency room and chest x -ray showed evidence of right basilar infiltrate concerning for pneumonia versus atelectasis. She was also noted to have a significantly elevated BNP. She was started on IV Lasix and admitted to telemetry floor. Review of Systems Review of system: 14 points review of systems were obtained and were negative except to what were mentioned in the HPI. Past Medical History Past Medical History: Cancer, Diabetes Mellitus, Hyperlipidemia, Renal Disease Additional Past Medical History / Comment(s): 12/02/16 diagnosed with R breast cancer with lymph node involvement then discovered R kidney mass (think it is benign) and also found cardiac "leaky valve" -which pt states is why she hasn't had any treatment yet for the breast cancer, recently bilateral ankle edema and wt gain-was placed on lasix and had good results then lasix discontinued per pt , IDDM type II, neuropathy bilateral feet at times, frequent kidney stones. History of Any Multi-Drug Resistant Organisms: None Reported Past Surgical History: Section, Cholecystectomy, Hernia Repair, Hysterectomy Additional Past Surgical History / Comment(s): R breast biopsy, x3, cystocscopies, multiple lithotripsies, percutaneous stone removals, double J stents (none in at this time per pt), umbilical hernia repairs x 2. Past Anesthesia/Blood Transfusion Reactions: No Reported Reaction Smoking Status: Current every day smoker - Past Family History Father Family Medical History: Renal Disease Additional Family Medical History / Comment(s): Father of renal failure in his 90's. Mother Family Medical History: COPD Additional Family Medical History / Comment(s): Mother of COPD at the age of 62 yrs. Medications and Allergies Home Medications Medication Instructions Recorded Confirmed Type Atorvastatin Calcium [Lipitor] 20 mg PO HS 06/13/16 03/08/17 History Insulin Glulisine [Apidra] 30 unit SQ AC-TID PRN 06/13/16 03/08/17 History [id number] 1 - 2 tab PO HS PRN 01/19/17 03/08/17 History [Excedrin] HYDROcodone/APAP 5-325MG [Salvo 1 tab PO Q6H PRN 01/19/17 03/08/17 History 5-325] Insulin Glargine,Hum.rec.anlog 120 unit SQ HS 03/08/17 03/08/17 History [Basaglar Kwikpen U-100] Zolpidem [Ambien] 10 mg PO HS 03/08/17 03/08/17 History Allergies Allergy/AdvReac Type Severity Reaction Status Date / Time gentamicin [From Garamycin] Allergy Rash/Hives Verified 03/08/17 07:49 Penicillins Allergy Rash/Hives Verified 03/08/17 07:49 Sulfa (Sulfonamide Allergy Rash/Hives Verified 03/08/17 07:49 Antibiotics) Physical Exam Vitals: Vital Signs Temp Pulse Pulse Resp BP BP Pulse Ox 03/08/17 10:48 98.9 F 94 16 141/64 96 03/08/17 10:24 98.1 F 99 16 166/74 90 L 03/08/17 08:36 99.5 F 88 22 145/75 93 L 03/08/17 07:18 90 24 95 03/08/17 07:07 91 L 03/08/17 07:00 99 24 119/59 70 L 03/08/17 06:12 99 03/08/17 06:06 99 03/08/17 05:38 101.4 F H 100 24 187/87 95 03/08/17 04:49 92 L 03/08/17 04:37 102 F H 100 22 167/79 77 L Intake and Output 03/07/17 03/08/17 03/08/17 22:59 06:59 14:59 Other: Weight 97.522 kg General: The patient is awake and alert, in no distress Eye: there is normal conjunctiva bilaterally. Neck: The neck is supple, there is no JVD. Cardiovascular: Normal S1-S2, no S3-S4, no murmurs. Respiratory: Lungs clear to auscultation bilaterally Gastrointestinal: Abdomen is soft, nontender Musculoskeletal: There is no pedal edema. Neurological:. Speech is normal. Skin: Skin is warm and dry Results CBC & Chem 7: 03/08/17 05:19 03/08/17 05:19 Labs: Abnormal Lab Results - Last 24 Hours (Table) 03/08/17 03/08/17 03/08/17 Range/Units 05:19 05:19 05:19 WBC 15.0 H (3.8-10.6) k/uL RBC 5.54 H (3.80-5.40) m/uL MCV 79.3 L (80.0-100.0) fL MCH 23.4 L (25.0-35.0) pg MCHC 29.5 L (31.0-37.0) g/dL RDW 19.4 H (11.5-15.5) % Neutrophils # 12.9 H (1.3-7.7) k/uL Sodium 135 L (137-145) mmol/L BUN 33 H (7-17) mg/dL Creatinine 1.20 H (0.52-1.04) mg/dL Glucose 318 H (74-99) mg/dL POC Glucose (mg/dL) (75-99) mg/dL Alkaline Phosphatase 153 H (38-126) U/L Troponin I 0.040 H* (0.000-0.034) ng/mL Urine Appearance (Clear) Urine Protein (Negative) Urine Glucose (UA) (Negative) Urine Ketones (Negative) Urine Blood (Negative) Ur Leukocyte Esterase (Negative) Urine RBC (0-5) /hpf Urine WBC (0-5) /hpf Ur Squamous Epith Cells (0-4) /hpf Urine Bacteria (None) /hpf Hyaline Casts (0-2) /lpf Urine Mucus (None) /hpf 03/08/17 03/08/17 Range/Units 05:34 06:53 WBC (3.8-10.6) k/uL RBC (3.80-5.40) m/uL MCV (80.0-100.0) fL MCH (25.0-35.0) pg MCHC (31.0-37.0) g/dL RDW (11.5-15.5) % Neutrophils # (1.3-7.7) k/uL Sodium (137-145) mmol/L BUN (7-17) mg/dL Creatinine (0.52-1.04) mg/dL Glucose (74-99) mg/dL POC Glucose (mg/dL) 283 H (75-99) mg/dL Alkaline Phosphatase (38-126) U/L Troponin I (0.000-0.034) ng/mL Urine Appearance Turbid H (Clear) Urine Protein 2+ H (Negative) Urine Glucose (UA) Trace H (Negative) Urine Ketones Trace H (Negative) Urine Blood Moderate H (Negative) Ur Leukocyte Esterase Moderate H (Negative) Urine RBC 34 H (0-5) /hpf Urine WBC 6 H (0-5) /hpf Ur Squamous Epith Cells 27 H (0-4) /hpf Urine Bacteria Occasional H (None) /hpf Hyaline Casts 5 H (0-2) /lpf Urine Mucus Rare H (None) /hpf Thrombosis Risk Factor Assmnt - Choose All That Apply Any of the Below Risk Factors Present?: Yes Each Factor Represents 1 point: Heart failure (<1month), Obesity (BMI >25) Other Risk Factors: Yes Each Risk Factor Represents 2 Points: Age 61-74 years, Malignancy Other congenital or acquired thrombophilia - If yes, enter type in comment: No Thrombosis Risk Factor Assessment Total Risk Factor Score: 6 Thrombosis Risk Factor Assessment Level: High Risk Assessment and Plan Plan: 1. Suspected bibasilar pneumonia currently on IV ceftriaxone and azithromycin. Pulmonology consulted. Would obtain sputum culture. 2. Suspected heart failure exacerbation with significantly elevated BNP awaiting echocardiogram. Cardiology consulted. 3. Progressive dyspnea 4. Type 2 diabetes mellitus continue home regimen of insulin. 5. DVT prophylaxis with subcu heparin Today, I reviewed her medication list lab work results. Continue current antibiotic regimen. IV diuresis with Lasix as ordered. Repeat lab work in the morning.
[2017-03-08 11:32] LABS: Hemoglobin A1C 7.7 % (4.2-6.1)
[2017-03-08 12:20] LABS: Glucose,Whole Blood 265 mg/dL (75-99)
[2017-03-08] MEDS: ATORVASTATIN 20 MG TAB PO SCH (12:20)
[2017-03-08] MEDS: INSULIN LISPRO (humaLOG) 300 UNIT/3 ML VIAL SQ SCH ×5 (12:20→23:47)
[2017-03-08] MEDS: HYDROcodone/APAP 5-325MG 1 EACH TAB PO PRN ×3 (12:26→23:46)
[2017-03-08 14:11] LABS: Creatine Kinase MB 0.6 ng/mL (0.0-2.4); Troponin I 0.033 ng/mL (0.000-0.034)
--- NOTE | 2017-03-08 14:51 | P.CNPUL ---
History of Present Illness Consult date: 03/08/17 Reason for consult: dyspnea History of present illness: 62-year-old female patient was recently diagnosed having breast cancer with right axillary lymph node involvement. She is in the process of being evaluated for a surgical resection followed by systemic chemotherapy. She came into the hospital yesterday because of worsening shortness of breath. In fact she had multitude of other complaints including generalized weakness and some vague abdominal pain and nausea. She also states that she was in significant fluid overload and she had gained around 15 pounds and she was treated with Lasix. She episodically gets edema in lower extremities bilaterally. As part of investigation for her breast cancer the patient had a CAT scan of the chest abdomen and pelvis that was done in January 2017 and the CAT scan of the chest did not show any acute abnormalities and there was no evidence of any metastatic disease of pleural effusion in the lungs bilaterally. The most recent chest x-ray that was done during this current hospitalization showed no evidence of any pneumonias. The patient has chronic lower extremity edema which on-off gets worse. Echocardiogram that was done in January 2017 showed severe pulmonary hypertension with a PA pressure above 70 mmHg and the patient' s ejection fraction was preserved at 55% without any significant valvular abnormalities. She is a chronic smoker. Probably she has an underlying COPD. She smokes on 2 pack of cigarettes a day and she's been doing that for the past 40 years. Addition, this patient has typical features of sleep breathing disorder/ obstructive sleep apnea. She is currently feeling better. She was given broad- spectrum antibiotics and she is also on Lasix. Review of Systems Constitutional: Reports fatigue, Reports weakness Eyes: denies blurred vision, denies bulging eye, denies decreased vision Ears, nose, mouth and throat: Denies headache, Denies sore throat Cardiovascular: Reports decreased exercise tolerance, Reports dyspnea on exertion, Reports leg edema, Reports shortness of breath, Denies chest pain Respiratory: Reports dyspnea Gastrointestinal: Denies abdominal pain, Denies diarrhea, Denies nausea, Denies vomiting Musculoskeletal: Denies myalgias Musculoskeletal: bilateral: ankle swelling, absent: ankle pain, ankle stiffness Integumentary: Denies pruritus, Denies rash Neurological: Denies numbness, Denies weakness Endocrine: Denies fatigue, Denies weight change Past Medical History Past Medical History: Cancer, Diabetes Mellitus, Hyperlipidemia, Renal Disease Additional Past Medical History / Comment(s): Breast cancer, large cystic mass arising from the right ovary, chronic left UPJ obstruction related to stricture , bilateral nephrolithiasis without obstructing calculus, obesity, severe pulmonary hypertension with PA pressure of around 70 with a normal LV function as reported from the echocardiogram from 02/02/2017, diabetes mellitus, diabetes mellitus type 2, peripheral neuropathy History of Any Multi-Drug Resistant Organisms: None Reported Past Surgical History: Section, Cholecystectomy, Hernia Repair, Hysterectomy Additional Past Surgical History / Comment(s): R breast biopsy, x3, cystocscopies, multiple lithotripsies, percutaneous stone removals, double J stents (none in at this time per pt), umbilical hernia repairs x 2. Past Anesthesia/Blood Transfusion Reactions: No Reported Reaction Smoking Status: Current every day smoker (2 PPD for the past 40 years) - Past Family History Father Family Medical History: Renal Disease Additional Family Medical History / Comment(s): Father of renal failure in his 90's. Mother Family Medical History: COPD Additional Family Medical History / Comment(s): Mother of COPD at the age of 62 yrs. Medications and Allergies Home Medications Medication Instructions Recorded Confirmed Type Atorvastatin Calcium [Lipitor] 20 mg PO HS 06/13/16 03/08/17 History Insulin Glulisine [Apidra] 30 unit SQ AC-TID PRN 06/13/16 03/08/17 History [id number] 1 - 2 tab PO HS PRN 01/19/17 03/08/17 History [Excedrin] HYDROcodone/APAP 5-325MG [[place] 1 tab PO Q6H PRN 01/19/17 03/08/17 History 5-325] Insulin Glargine,Hum.rec.anlog 120 unit SQ HS 03/08/17 03/08/17 History [Basaglar Kwikpen U-100] Zolpidem [Ambien] 10 mg PO HS 03/08/17 03/08/17 History Allergies Allergy/AdvReac Type Severity Reaction Status Date / Time gentamicin [From Garamycin] Allergy Rash/Hives Verified 03/08/17 07:49 Penicillins Allergy Rash/Hives Verified 03/08/17 07:49 Sulfa (Sulfonamide Allergy Rash/Hives Verified 03/08/17 07:49 Antibiotics) Physical Exam Vitals: Vital Signs Temp Pulse Pulse Resp BP BP Pulse Ox 03/08/17 10:48 98.9 F 94 16 141/64 96 03/08/17 10:24 98.1 F 99 16 166/74 90 L 03/08/17 08:36 99.5 F 88 22 145/75 93 L 03/08/17 07:18 90 24 95 03/08/17 07:07 91 L 03/08/17 07:00 99 24 119/59 70 L 03/08/17 06:12 99 03/08/17 06:06 99 03/08/17 05:38 101.4 F H 100 24 187/87 95 03/08/17 04:49 92 L 03/08/17 04:37 102 F H 100 22 167/79 77 L Intake and Output 03/07/17 03/08/17 03/08/17 22:59 06:59 14:59 Other: Weight 97.522 kg Obese, comfortable likely distress.Head exam was generally normal. There was no scleral icterus or corneal arcus. Mucous membranes were moist. Neck is short and supple and the patient is a Mallampati class IV. There is no goiter or neck masses. Lungs sounds are diminished bilaterally especially in the lung bases. No crackles or wheezes or rhonchi. Heart sounds shows accentuation of the second heart sound, without any significant murmurs. Abdomen is soft and there is no direct tenderness or rebound tenderness or guarding. Organs cannot be accurately palpated. Extremities shows trace edema and there is no cyanosis or clubbing.Examination of the skin revealed no evidence of significant rashes, suspicious appearing nevi or other concerning lesions. Neurologically she is awake and alert and there is no focal neurological deficit. Skeletal examination shows no active arthritis or joint swelling or deformity. Results - Laboratory Findings CBC and BMP: 03/08/17 05:19 03/08/17 05:19 PT/INR, D-dimer PT 11.2 sec (9.0-12.0) 03/08/17 05:19 INR 1.1 (<1.2) 03/08/17 05:19 D-Dimer 0.41 mg/L FEU (<0.60) 03/08/17 05:19 Abnormal lab findings: Abnormal Labs 03/08/17 03/08/17 03/08/17 05:19 05:19 05:19 WBC 15.0 H RBC 5.54 H MCV 79.3 L MCH 23.4 L MCHC 29.5 L RDW 19.4 H Neutrophils # 12.9 H Sodium 135 L BUN 33 H Creatinine 1.20 H Glucose 318 H POC Glucose (mg/dL) Hemoglobin A1c Alkaline Phosphatase 153 H Troponin I 0.040 H* Urine Appearance Urine Protein Urine Glucose (UA) Urine Ketones Urine Blood Ur Leukocyte Esterase Urine RBC Urine WBC Ur Squamous Epith Cells Urine Bacteria Hyaline Casts Urine Mucus 03/08/17 03/08/17 03/08/17 05:19 05:34 06:53 WBC RBC MCV MCH MCHC RDW Neutrophils # Sodium BUN Creatinine Glucose POC Glucose (mg/dL) 283 H Hemoglobin A1c 7.7 H Alkaline Phosphatase Troponin I Urine Appearance Turbid H Urine Protein 2+ H Urine Glucose (UA) Trace H Urine Ketones Trace H Urine Blood Moderate H Ur Leukocyte Esterase Moderate H Urine RBC 34 H Urine WBC 6 H Ur Squamous Epith Cells 27 H Urine Bacteria Occasional H Hyaline Casts 5 H Urine Mucus Rare H 03/08/17 12:07 WBC RBC MCV MCH MCHC RDW Neutrophils # Sodium BUN Creatinine Glucose POC Glucose (mg/dL) 265 H Hemoglobin A1c Alkaline Phosphatase Troponin I Urine Appearance Urine Protein Urine Glucose (UA) Urine Ketones Urine Blood Ur Leukocyte Esterase Urine RBC Urine WBC Ur Squamous Epith Cells Urine Bacteria Hyaline Casts Urine Mucus - Diagnostic Findings Chest x-ray: image reviewed Assessment and Plan Plan: Assessment 1 shortness of breath, multifactorial. The patient has COPD and she carries more than [id number] smoking history. In addition she is morbidly obese and has evidence of severe right-sided heart failure/pulmonary hypertension with chronic lower extremities edema. Her heart failure and pulmonary hypertension is probably secondary to her obesity, possible underlying sleep breathing disorder and obstructive sleep apnea that has not been diagnosed officially, and COPD and chronic hypoxic respiratory failure. Doubt pulmonary embolism. Doubt any cardiac cause for right-sided failure including valvular heart disease or ischemic heart disease. She is already feeling better with diuresis. Pneumonia is doubtful 2 morbid obesity with suspected obstructive sleep apnea. 3 COPD 4 [id number] smoking history 5 breast cancer currently under investigation and treatment plan 6 large cystic mass arising from the right ovary, under investigation 7 chronic left UPJ obstruction related to stricture with previous history of bilateral nephrolithiasis without obstructing calculus 8 morbid obesity 9 diabetes mellitus type 2 10 diabetic peripheral neuropathy Plan Agree on diuretics. Likely would need oxygen at home. Likely will need a sleep apnea evaluation. The pulmonary hypertension is most likely secondary to chronic lung disease, obesity and sleep apnea. Antibiotic can be simplified to oral Zithromax and the patient will need a 5 day course. We'll follow.
[2017-03-08 16:50] LABS: Glucose,Whole Blood 101 mg/dL (75-99)
[2017-03-08 17:30] LABS: Creatine Kinase MB 0.6 ng/mL (0.0-2.4)
[2017-03-08 17:32] LABS: Troponin I 0.039 ng/mL (0.000-0.034)
[2017-03-08 20:46] LABS: Glucose,Whole Blood 122 mg/dL (75-99)
[2017-03-08] MEDS: HEPARIN SODIUM,PORCINE 5,000 UNIT/ML 1 ML VIAL SQ SCH (23:49)
--- NOTE | 2017-03-09 05:00 | CONS ---
CONSULTATION Mrs. Sanford is a 62-year-old female who is followed by Dr. Harmon. She has a known history of chronic tobacco use, smokes about 2 packs a day and was found to have a breast malignancy and is undergoing workup for surgical intervention. She presented to the hospital with symptoms of progressive dyspnea, cough, and progressive fatigue. Patient is quite limited in her physical activity. She has significant dyspnea on exertion. She has no significant chest pain. No dizziness. No palpitation. She has occasional peripheral edema. She recently underwent an echocardiogram as an outpatient that revealed a preserved ventricular size and systolic function with severe pulmonary hypertension and severe tricuspid regurgitation. The patient has no prior documented history of ischemic heart disease. Her coronary risk factors are remarkable for diabetes, chronic tobacco use, hypertension, and hyperlipidemia. MEDICATION: At home include insulin, Lipitor 20 mg daily, aspirin. REVIEW OF SYSTEMS: RESPIRATORY SYSTEM: She has severe dyspnea on exertion. She does not use oxygen at home. She has cough and wheezing. GI SYSTEM: She has some nausea. No recent GI bleeding. SYSTEM: No dysuria or hematuria. NERVOUS SYSTEM: No history of stroke or seizure. PHYSICAL EXAMINATION: A 62-year-old female, mildly somnolent, mildly dyspneic. Blood pressure 141/60 with a heart rate in the 90s. HEAD: Normocephalic. EYES: Sclerae nonicteric. NECK: No bruit appreciated. Unable to evaluate jugular venous pressure. LUNGS: Severe decreased air exchange bilaterally with scattered wheezes. HEART: Regular rate and rhythm, S1, S2 with systolic murmur at the left lower sternal border and no rub. ABDOMEN: Soft, obese, nontender. Positive bowel sounds. EXTREMITIES: No significant edema. LAB DATA: Revealed BUN and creatinine 33 and 1.2. NT proBNP of 10,200, troponin 0.04. Her glucose is 318. Hemoglobin A1c 7.7, hemoglobin is 13, white blood cell of 15,000. Her MCV is 79. Her EKG revealed a sinus mechanism, rate of 106 with incomplete right bundle branch block and nonspecific ST-T wave changes. Her chest x-ray shows no acute infiltrate with mild basilar opacities. IMPRESSION: 1. Progressive dyspnea on exertion with an element of congestive heart failure. Patient had a normal systolic function. Could be on the basis of diastolic dysfunction or cor pulmonale, although at this time, I do not see any evidence of significant peripheral edema. 2. Severe chronic obstructive lung disease by physical examination. 3. History of breast cancer. Workup and progress as an outpatient, has been seen by Dr. Bello. 4. Diabetes mellitus. 5. History of hyperlipidemia. RECOMMENDATION: From the cardiac standpoint, I will obtain the blood gases. Patient will be seen by Dr. Pablo regarding her lung status. The elevation of the troponin most likely is related to her lung situation and I have a suspicion that she is chronically hypoxic. She was started on antibiotics for possible infectious process. Depending on her progress, further recommendation will be made. The prognosis is guarded. Thank you for this consult. Will follow with you. MMODL / IJN: [id number] /
[2017-03-09 06:06] LABS: Glucose,Whole Blood 161 mg/dL (75-99)
[2017-03-09 06:34] LABS: Anisocytosis Slight; Basophils # (A) 0.1 k/uL (0-0.2); Basophils % (A) 0 %; CH 24.2; CHCM 30.4; Eosinophils # (A) 0.2 k/uL (0-0.7); Eosinophils % (A) 1 %; HCT 44.6 % (34.0-46.0); HDW 3.16; Hypochromasia Marked; Luc # (Auto) 0.24; Luc % (Auto) 1; Lymphocytes % (A) 6 %; MCH 23.2 pg (25.0-35.0); MCHC 29.1 g/dL (31.0-37.0); MCV 79.8 fL (80.0-100.0); Mean Platelet Volume 8.4; Microcytosis Slight; Monocytes # (A) 0.9 k/uL (0-1.0); Monocytes % (A) 5 %; Neutrophils # (A) 16.4 k/uL (1.3-7.7); Neutrophils % (A) 87 %; RBC 5.59 m/uL (3.80-5.40); RDW 19.2 % (11.5-15.5); WBC 18.8 k/uL (3.8-10.6); WBC (Perox) 18.68
[2017-03-09] MEDS: HYDROcodone/APAP 5-325MG 1 EACH TAB PO PRN ×4 (07:02→23:34)
[2017-03-09 07:04] LABS: Calcium 10.2 mg/dL (8.4-10.2); Potassium 4.2 mmol/L (3.5-5.1)
[2017-03-09] MEDS: FUROSEMIDE 10 MG/ML 4 ML VIAL IV SCH (07:04)
[2017-03-09] MEDS: AZITHROMYCIN 500 MG TAB PO SCH (07:04)
[2017-03-09] MEDS: INSULIN LISPRO (humaLOG) 300 UNIT/3 ML VIAL SQ SCH ×7 (07:05→22:13)
[2017-03-09] MEDS: SODIUM CHLORIDE 0.9% 1,000 ML IV SCH (07:13)
--- NOTE | 2017-03-09 08:33 | CT ---
EXAMINATION TYPE: CT abdomen pelvis wo con DATE OF EXAM: 03/08/2017 COMPARISON: NONE HISTORY: LLQ pain CT DLP: 1112 mGycm Examination of the solid and hollow viscera is limited given the lack of contrast. FINDINGS: LUNG BASES: No evidence for nodule. No evidence for infiltrate. Basilar atelectasis and parenchymal s carring. LIVER/GB: Cholecystectomy clips are in place. No space-occupying hepatic lesion. PANCREAS: No pancreatic mass identified. No inflammatory process seen. SPLEEN: No evidence for splenomegaly. No intrasplenic lesions seen. ADRENALS: No adrenal nodules identified. No evidence for thickening. KIDNEYS: Atrophic changes of the left kidney. Bilateral nephrolithiasis unchanged from prior study. 5 .4 mm Obstructing calculus noted involving the right ureter at the mid sacral level. There is mild ri ght-sided hydronephrosis. Prominence of the left renal pelvis is unchanged. BOWEL: There is evidence of sigmoid diverticulitis with surrounding inflammatory change. There is an adjacent abscess which partially intramural and measures 3.8 x 4.5 cm. No evidence for free air. The remaining colon and small bowel are of normal caliber. Scattered diverticulosis of the colon. Normal appendix identified. Lymph nodes: No evidence for adenopathy greater than 1 cm. Abdominal aorta: Atheromatous changes seen. No evidence for aneurysm. Dense atheromatous change at th e origin of the SMA. Genital organs: Stable right ovarian cystic mass measuring 10.2 cm. Other: No significant abnormality. IMPRESSION: 1. ACUTE SIGMOID DIVERTICULITIS WITH ADJACENT ABSCESS. 2. OBSTRUCTING RIGHT URETERAL CALCULUS AT THE LEVEL OF THE RIGHT MID SACRUM MEASURING 5.4 MM. MILD RI GHT-SIDED HYDRONEPHROSIS. 3. Stable right ovarian cyst.
[2017-03-09] MEDS ORDERED: metroNIDAZOLE-NS PMX 500 MG in SALINE 1 100ML.BAG IVPB SCH (09:15)
[2017-03-09] MEDS: HEPARIN SODIUM,PORCINE 5,000 UNIT/ML 1 ML VIAL SQ SCH ×2 (09:20→22:12)
[2017-03-09] MEDS: NITROGLYCERIN OINT 1 INCH/GM PACKET TOPICAL SCH ×4 (09:21→22:13)
[2017-03-09] MEDS: ATORVASTATIN 20 MG TAB PO SCH (09:23)
[2017-03-09] MEDS ORDERED: LEVOFLOXACIN 500MG-D5W PMX 500 MG in DEXTROSE/WATER 1 100ML.BAG IVPB SCH (09:30)
[2017-03-09 09:45] LABS: Glucose,Whole Blood 284 mg/dL (75-99)
[2017-03-09] MEDS: metroNIDAZOLE 500 MG TAB PO SCH ×3 (11:01→23:33)
[2017-03-09 11:47] LABS: Glucose,Whole Blood 182 mg/dL (75-99)
--- NOTE | 2017-03-09 11:51 | P.PN ---
Subjective Progress Note Date: 03/09/17 Principal diagnosis: COPD exacerbation, right-sided heart failure exacerbation. 62-year-old female patient was recently diagnosed having breast cancer with right axillary lymph node involvement. She is in the process of being evaluated for a surgical resection followed by systemic chemotherapy. She came into the hospital yesterday because of worsening shortness of breath. In fact she had multitude of other complaints including generalized weakness and some vague abdominal pain and nausea. She also states that she was in significant fluid overload and she had gained around 15 pounds and she was treated with Lasix. She episodically gets edema in lower extremities bilaterally. As part of investigation for her breast cancer the patient had a CAT scan of the chest abdomen and pelvis that was done in January 2017 and the CAT scan of the chest did not show any acute abnormalities and there was no evidence of any metastatic disease of pleural effusion in the lungs bilaterally. The most recent chest x-ray that was done during this current hospitalization showed no evidence of any pneumonias. The patient has chronic lower extremity edema which on-off gets worse. Echocardiogram that was done in January 2017 showed severe pulmonary hypertension with a PA pressure above 70 mmHg and the patient' s ejection fraction was preserved at 55% without any significant valvular abnormalities. She is a chronic smoker. Probably she has an underlying COPD. She smokes on 2 pack of cigarettes a day and she's been doing that for the past 40 years. Addition, this patient has typical features of sleep breathing disorder/obstructive sleep apnea. She is currently feeling better. She was given broad-spectrum antibiotics and she is also on Lasix. The patient is seen again today 03/09/2017 in follow-up on the selective care unit. She is awake and alert in no acute distress. She is resting quite comfortably in bed. She is breathing easier today as compared to yesterday. She is maintaining O2 saturations in the low 90s on room air. She's been afebrile. Hemodynamically stable. Blood cultures reveal no growth. White count 18.8. She remains on ceftriaxone and Levaquin. Computed tomography scan of the abdomen and pelvis revealed acute sigmoid diverticulitis with adjacent abscess, obstructing right ureteral calculus at the level of the right mid sacrum measuring 5.4 mm with mild right-sided hydronephrosis. There is also noted stable right ovarian cyst. Objective - Vital Signs Vital signs: Vital Signs Temp 97.9 F 03/09/17 08:20 Pulse 107 H 03/09/17 08:20 Resp 18 03/09/17 08:20 BP 132/74 03/09/17 08:20 Pulse Ox 91 L 03/09/17 08:20 Intake & Output 03/08/17 03/09/17 03/09/17 18:59 06:59 18:59 Intake Total 10 236 Balance 10 236 Weight 95.8 kg 95.8 kg Intake: IV 10 saline flush 10 Oral 236 Other: Voiding Method Toilet # Voids 1 1 # Bowel Movements 1 - Exam Obese, comfortable likely distress.Head exam was generally normal. There was no scleral icterus or corneal arcus. Mucous membranes were moist. Neck is short and supple and the patient is a Mallampati class IV. There is no goiter or neck masses. Lungs sounds are diminished bilaterally especially in the lung bases. No crackles or wheezes or rhonchi. Heart sounds shows accentuation of the second heart sound, without any significant murmurs. Abdomen is soft and there is no direct tenderness or rebound tenderness or guarding. Organs cannot be accurately palpated. Extremities shows trace edema and there is no cyanosis or clubbing.Examination of the skin revealed no evidence of significant rashes, suspicious appearing nevi or other concerning lesions. Neurologically she is awake and alert and there is no focal neurological deficit. Skeletal examination shows no active arthritis or joint swelling or deformity. - Labs CBC & Chem 7: 03/09/17 06:18 03/09/17 06:18 Labs: Abnormal Lab Results - Last 24 Hours (Table) 03/08/17 03/08/17 03/08/17 Range/Units 05:19 12:07 16:44 WBC (3.8-10.6) k/uL RBC (3.80-5.40) m/uL MCV (80.0-100.0) fL MCH (25.0-35.0) pg MCHC (31.0-37.0) g/dL RDW (11.5-15.5) % Neutrophils # (1.3-7.7) k/uL Sodium (137-145) mmol/L Chloride (98-107) mmol/L BUN (7-17) mg/dL Creatinine (0.52-1.04) mg/dL Glucose (74-99) mg/dL POC Glucose (mg/dL) 265 H (75-99) mg/dL Hemoglobin A1c 7.7 H (4.2-6.1) % Troponin I 0.039 H* (0.000-0.034) ng/mL 03/08/17 03/08/17 03/09/17 Range/Units 16:44 20:42 05:59 WBC (3.8-10.6) k/uL RBC (3.80-5.40) m/uL MCV (80.0-100.0) fL MCH (25.0-35.0) pg MCHC (31.0-37.0) g/dL RDW (11.5-15.5) % Neutrophils # (1.3-7.7) k/uL Sodium (137-145) mmol/L Chloride (98-107) mmol/L BUN (7-17) mg/dL Creatinine (0.52-1.04) mg/dL Glucose (74-99) mg/dL POC Glucose (mg/dL) 101 H 122 H 161 H (75-99) mg/dL Hemoglobin A1c (4.2-6.1) % Troponin I (0.000-0.034) ng/mL 03/09/17 03/09/17 03/09/17 Range/Units 06:18 06:18 09:28 WBC 18.8 H (3.8-10.6) k/uL RBC 5.59 H (3.80-5.40) m/uL MCV 79.8 L (80.0-100.0) fL MCH 23.2 L (25.0-35.0) pg MCHC 29.1 L (31.0-37.0) g/dL RDW 19.2 H (11.5-15.5) % Neutrophils # 16.4 H (1.3-7.7) k/uL Sodium 136 L (137-145) mmol/L Chloride 96 L (98-107) mmol/L BUN 33 H (7-17) mg/dL Creatinine 1.20 H (0.52-1.04) mg/dL Glucose 160 H (74-99) mg/dL POC Glucose (mg/dL) 284 H (75-99) mg/dL Hemoglobin A1c (4.2-6.1) % Troponin I (0.000-0.034) ng/mL Microbiology - Last 24 Hours (Table) 03/08/17 05:19 Blood Culture - Preliminary Blood No Growth after 24 hours Assessment and Plan Plan: Assessment 1 shortness of breath, multifactorial. The patient has COPD and she carries more than [id number] smoking history. In addition she is morbidly obese and has evidence of severe right-sided heart failure/pulmonary hypertension with chronic lower extremities edema. Her heart failure and pulmonary hypertension is probably secondary to her obesity, possible underlying sleep breathing disorder and obstructive sleep apnea that has not been diagnosed officially, and COPD and chronic hypoxic respiratory failure. Doubt pulmonary embolism. Doubt any cardiac cause for right-sided failure including valvular heart disease or ischemic heart disease. She is already feeling better with diuresis. Pneumonia is doubtful 2 severe pulmonary hypertension with an RVSP of 77 mmHg. 3 acute exacerbation of COPD 4 [id number] smoking history 5 acute exacerbation of diastolic congestive heart failure 6 acute on chronic hypoxic respiratory failure secondary to above, may require home oxygen. 7 chronic left UPJ obstruction related to stricture with previous history of bilateral nephrolithiasis without obstructing calculus 8 morbid obesity 9 diabetes mellitus type 2 10 diabetic peripheral neuropathy 11 breast cancer currently under investigation and treatment plan 12 large cystic mass arising from the right ovary, under investigation Plan The patient was seen and evaluated by Dr. Pablo. She is improved today as compared to yesterday. We'll continue with her current medications. She would benefit from an outpatient sleep apnea evaluation. We will increase her activity as tolerated. We'll continue to follow. I performed a history and physical examination on the patient. Lung sounds with faint bilateral end expiratory wheeze, some faint crackles in the posterior bases. Diminished. I discussed the assessment and plan of care with my nurse practitioner, Ely Felix. I agree with the above note as dictated.
--- NOTE | 2017-03-09 15:35 | P.GSCN ---
History of Present Illness Consult date: 03/09/17 Reason for Consult: Diverticular abscess History of present illness: Patient presents to the hospital complaining of shortness of breath and abdominal pain. She underwent a CAT scan of the abdomen and pelvis to workup her abdominal pain. On CAT scan she has a 3 cm abscess adjacent to the sigmoid colon likely related to diverticulitis. She has had some loose stools that she states is a chronic problem for her and she takes frequent antidiarrheals. Her white blood cell count went from 15-18. She is on broad-spectrum antibiotics. She does feel better although still having left lower quadrant pain. She is known to Dr. Bello because of a diagnosis of breast cancer. She apparently is in the midst of beginning neoadjuvant chemotherapy. She is felt to be a poor surgical candidate because of her pulmonary disease. Denies rectal bleeding. No history of prior diverticulitis attacks. Review of Systems The patient denies any acute changes in vision or hearing, no dysphagia or odynophagia, no chest pain or shortness of breath, no dysuria or hematuria, no headache, no runny nose, no rectal bleeding or melena, no unexplained weight loss Past Medical History Past Medical History: Cancer, Diabetes Mellitus, Hyperlipidemia, Renal Disease Additional Past Medical History / Comment(s): Breast cancer, large cystic mass arising from the right ovary, chronic left UPJ obstruction related to stricture , bilateral nephrolithiasis without obstructing calculus, obesity, severe pulmonary hypertension with PA pressure of around 70 with a normal LV function as reported from the echocardiogram from 02/02/2017, diabetes mellitus, diabetes mellitus type 2, peripheral neuropathy History of Any Multi-Drug Resistant Organisms: None Reported Past Surgical History: Section, Cholecystectomy, Hernia Repair, Hysterectomy Additional Past Surgical History / Comment(s): R breast biopsy, x3, cystocscopies, multiple lithotripsies, percutaneous stone removals, double J stents (none in at this time per pt), umbilical hernia repairs x 2. Past Anesthesia/Blood Transfusion Reactions: No Reported Reaction Smoking Status: Current every day smoker (2 PPD for the past 40 years) - Past Family History Father Family Medical History: Renal Disease Additional Family Medical History / Comment(s): Father of renal failure in his 90's. Mother Family Medical History: COPD Additional Family Medical History / Comment(s): Mother of COPD at the age of 62 yrs. Medications and Allergies Home Medications Medication Instructions Recorded Confirmed Type Atorvastatin Calcium [Lipitor] 20 mg PO HS 06/13/16 03/08/17 History Insulin Glulisine [Apidra] 30 unit SQ AC-TID PRN 06/13/16 03/08/17 History [id number] 1 - 2 tab PO HS PRN 01/19/17 03/08/17 History [Excedrin] HYDROcodone/APAP 5-325MG [[place] 1 tab PO Q6H PRN 01/19/17 03/08/17 History 5-325] Insulin Glargine,Hum.rec.anlog 120 unit SQ HS 03/08/17 03/08/17 History [Basaglar Kwikpen U-100] Zolpidem [Ambien] 10 mg PO HS 03/08/17 03/08/17 History Allergies Allergy/AdvReac Type Severity Reaction Status Date / Time gentamicin [From Garamycin] Allergy Rash/Hives Verified 03/08/17 07:49 Penicillins Allergy Rash/Hives Verified 03/08/17 07:49 Sulfa (Sulfonamide Allergy Rash/Hives Verified 03/08/17 07:49 Antibiotics) Surgical - Exam Vital Signs Temp Pulse Resp BP Pulse Ox 102 F H 100 22 167/79 77 L 03/08/17 04:37 03/08/17 04:37 03/08/17 04:37 03/08/17 04:37 03/08/17 04:37 Physical exam: General: Well-developed, well-nourished HEENT: Normocephalic, sclerae nonicteric Abdomen: Left lower quadrant tenderness, no rebound or guarding, nondistended Extremities: No edema Neuro: Alert and oriented Results - Labs 03/09/17 06:18 03/09/17 06:18 Abnormal Lab Results - Last 24 Hours (Table) 03/08/17 03/08/17 03/08/17 Range/Units 16:44 16:44 20:42 WBC (3.8-10.6) k/uL RBC (3.80-5.40) m/uL MCV (80.0-100.0) fL MCH (25.0-35.0) pg MCHC (31.0-37.0) g/dL RDW (11.5-15.5) % Neutrophils # (1.3-7.7) k/uL Sodium (137-145) mmol/L Chloride (98-107) mmol/L BUN (7-17) mg/dL Creatinine (0.52-1.04) mg/dL Glucose (74-99) mg/dL POC Glucose (mg/dL) 101 H 122 H (75-99) mg/dL Troponin I 0.039 H* (0.000-0.034) ng/mL 03/09/17 03/09/17 03/09/17 Range/Units 05:59 06:18 06:18 WBC 18.8 H (3.8-10.6) k/uL RBC 5.59 H (3.80-5.40) m/uL MCV 79.8 L (80.0-100.0) fL MCH 23.2 L (25.0-35.0) pg MCHC 29.1 L (31.0-37.0) g/dL RDW 19.2 H (11.5-15.5) % Neutrophils # 16.4 H (1.3-7.7) k/uL Sodium 136 L (137-145) mmol/L Chloride 96 L (98-107) mmol/L BUN 33 H (7-17) mg/dL Creatinine 1.20 H (0.52-1.04) mg/dL Glucose 160 H (74-99) mg/dL POC Glucose (mg/dL) 161 H (75-99) mg/dL Troponin I (0.000-0.034) ng/mL 03/09/17 03/09/17 Range/Units 09:28 11:39 WBC (3.8-10.6) k/uL RBC (3.80-5.40) m/uL MCV (80.0-100.0) fL MCH (25.0-35.0) pg MCHC (31.0-37.0) g/dL RDW (11.5-15.5) % Neutrophils # (1.3-7.7) k/uL Sodium (137-145) mmol/L Chloride (98-107) mmol/L BUN (7-17) mg/dL Creatinine (0.52-1.04) mg/dL Glucose (74-99) mg/dL POC Glucose (mg/dL) 284 H 182 H (75-99) mg/dL Troponin I (0.000-0.034) ng/mL Microbiology - Last 24 Hours (Table) 03/08/17 05:19 Blood Culture - Preliminary Blood No Growth after 24 hours Diabetes panel 03/09/17 Range/Units 06:18 Sodium 136 L (137-145) mmol/L Potassium 4.2 (3.5-5.1) mmol/L Chloride 96 L (98-107) mmol/L Carbon Dioxide 29 (22-30) mmol/L BUN 33 H (7-17) mg/dL Creatinine 1.20 H (0.52-1.04) mg/dL Glucose 160 H (74-99) mg/dL Calcium 10.2 (8.4-10.2) mg/dL Calcium panel 03/09/17 Range/Units 06:18 Calcium 10.2 (8.4-10.2) mg/dL Pituitary panel 03/09/17 Range/Units 06:18 Sodium 136 L (137-145) mmol/L Potassium 4.2 (3.5-5.1) mmol/L Chloride 96 L (98-107) mmol/L Carbon Dioxide 29 (22-30) mmol/L BUN 33 H (7-17) mg/dL Creatinine 1.20 H (0.52-1.04) mg/dL Glucose 160 H (74-99) mg/dL Calcium 10.2 (8.4-10.2) mg/dL Adrenal panel 03/09/17 Range/Units 06:18 Sodium 136 L (137-145) mmol/L Potassium 4.2 (3.5-5.1) mmol/L Chloride 96 L (98-107) mmol/L Carbon Dioxide 29 (22-30) mmol/L BUN 33 H (7-17) mg/dL Creatinine 1.20 H (0.52-1.04) mg/dL Glucose 160 H (74-99) mg/dL Calcium 10.2 (8.4-10.2) mg/dL Assessment and Plan (1) Colonic diverticular abscess Narrative/Plan: Clinical scenario discussed in detail with the patient. Continue broad- spectrum antibiotics. I did discuss the case with interventional radiology and she is a candidate for percutaneous drainage. Dr. Littlejohn and I did discuss a trial of antibiotics with a short interval repeat CAT scan may be of some benefit to try to minimize the risk of colonic fistula formation with a drain placement. The patient is known to Dr. Bello. I discussed this case with her and she will resume coverage tomorrow. I personally will sign off at this point. Status: Acute
--- NOTE | 2017-03-09 15:39 | P.PN ---
Subjective Progress Note Date: 03/09/17 Principal diagnosis: Shortness of breath This is a 62-year-old female who follows regularly with Dr. Hogan in the office. She has a known history of nicotine dependence, was also found to have a breakfast malignancy and is undergoing workup for surgical intervention. She presented to the hospital with symptoms of progressively worsening shortness of breath. Patient also has history of hypertension, hyperlipidemia, and diabetes. Currently on by mouth Lasix. Evening of some abdominal discomfort this morning. Objective - Vital Signs Vital signs: Vital Signs Temp 96.9 F L 03/09/17 12:40 Pulse 101 H 03/09/17 12:40 Resp 18 03/09/17 12:40 BP 140/79 03/09/17 12:40 Pulse Ox 98 03/09/17 12:40 Intake & Output 03/08/17 03/09/17 03/09/17 18:59 06:59 18:59 Intake Total 10 736 Balance 10 736 Weight 95.8 kg 95.8 kg Intake: IV 10 saline flush 10 Oral 736 Other: Voiding Method Toilet # Voids 1 1 # Bowel Movements 1 - Exam PHYSICAL EXAMINATION: HEENT: Head is atraumatic, normocephalic. Pupils equal, round. Neck is supple. There is no elevated jugular venous pressure. HEART EXAMINATION: S1 and S2 1 systolic murmur is heard. CHEST EXAMINATION: Lungs are clear to auscultation and precussion. No chest wall tenderness is noted on palpation or with deep breathing. ABDOMEN: Soft, generalized tenderness . Bowel sounds are heard. No organomegaly noted. EXTREMITIES: 2+ peripheral pulses with no evidence of peripheral edema and no calf tenderness noted. NEUROLOGIC patient is awake, alert and oriented -3. . - Labs CBC & Chem 7: 03/09/17 06:18 03/09/17 06:18 Labs: Abnormal Lab Results - Last 24 Hours (Table) 03/08/17 03/08/17 03/08/17 Range/Units 16:44 16:44 20:42 WBC (3.8-10.6) k/uL RBC (3.80-5.40) m/uL MCV (80.0-100.0) fL MCH (25.0-35.0) pg MCHC (31.0-37.0) g/dL RDW (11.5-15.5) % Neutrophils # (1.3-7.7) k/uL Sodium (137-145) mmol/L Chloride (98-107) mmol/L BUN (7-17) mg/dL Creatinine (0.52-1.04) mg/dL Glucose (74-99) mg/dL POC Glucose (mg/dL) 101 H 122 H (75-99) mg/dL Troponin I 0.039 H* (0.000-0.034) ng/mL 03/09/17 03/09/17 03/09/17 Range/Units 05:59 06:18 06:18 WBC 18.8 H (3.8-10.6) k/uL RBC 5.59 H (3.80-5.40) m/uL MCV 79.8 L (80.0-100.0) fL MCH 23.2 L (25.0-35.0) pg MCHC 29.1 L (31.0-37.0) g/dL RDW 19.2 H (11.5-15.5) % Neutrophils # 16.4 H (1.3-7.7) k/uL Sodium 136 L (137-145) mmol/L Chloride 96 L (98-107) mmol/L BUN 33 H (7-17) mg/dL Creatinine 1.20 H (0.52-1.04) mg/dL Glucose 160 H (74-99) mg/dL POC Glucose (mg/dL) 161 H (75-99) mg/dL Troponin I (0.000-0.034) ng/mL 03/09/17 03/09/17 Range/Units 09:28 11:39 WBC (3.8-10.6) k/uL RBC (3.80-5.40) m/uL MCV (80.0-100.0) fL MCH (25.0-35.0) pg MCHC (31.0-37.0) g/dL RDW (11.5-15.5) % Neutrophils # (1.3-7.7) k/uL Sodium (137-145) mmol/L Chloride (98-107) mmol/L BUN (7-17) mg/dL Creatinine (0.52-1.04) mg/dL Glucose (74-99) mg/dL POC Glucose (mg/dL) 284 H 182 H (75-99) mg/dL Troponin I (0.000-0.034) ng/mL Microbiology - Last 24 Hours (Table) 03/08/17 05:19 Blood Culture - Preliminary Blood No Growth after 24 hours Assessment and Plan (1) Diastolic CHF, acute on chronic Status: Acute (2) COPD exacerbation Status: Acute (3) Breast CA Status: Acute (4) Diabetes Status: Acute (5) HTN (hypertension) Status: Acute (6) Hyperlipemia Status: Acute (7) Cor pulmonale Status: Acute Plan: Cardiology's perspective, we will continue the current patient on her current medication. The elevation of troponin is most likely related to hypoxia. We will follow her along with you now on an as-needed basis only, please don't hesitate with any questions. DNP note has been reviewed, I agree with a documented findings and plan of care. Patient was seen and examined.
[2017-03-09 16:40] LABS: Glucose,Whole Blood 138 mg/dL (75-99)
[2017-03-09 21:01] LABS: Glucose,Whole Blood 292 mg/dL (75-99)
[2017-03-09] MEDS: INSULIN GLARGINE 100 UNIT/ML 10 ML VIAL SQ SCH (22:13)
[2017-03-09] MEDS: ONDANSETRON 4 MG/2 ML VIAL IVP PRN (23:58)
[2017-03-10 05:48] LABS: Glucose,Whole Blood 106 mg/dL (75-99)
[2017-03-10 06:35] LABS: Anisocytosis Slight; Basophils % (A) 0 %; CH 24.1; CHCM 29.9; Eosinophils # (A) 0.1 k/uL (0-0.7); Eosinophils % (A) 1 %; HCT 41.1 % (34.0-46.0); HGB 12.3 gm/dL (11.4-16.0); Hypochromasia Marked; Luc % (Auto) 2; Lymphocytes # (A) 0.8 k/uL (1.0-4.8); Lymphocytes % (A) 5 %; MCH 24.2 pg (25.0-35.0); MCV 80.8 fL (80.0-100.0); Mean Platelet Volume 8.8; Microcytosis Slight; Monocytes % (A) 6 %; Neutrophils # (A) 14.2 k/uL (1.3-7.7); Neutrophils % (A) 86 %; RBC 5.09 m/uL (3.80-5.40); RDW 18.9 % (11.5-15.5); WBC 16.5 k/uL (3.8-10.6); WBC (Perox) 17.57
[2017-03-10 06:48] LABS: Potassium 4.1 mmol/L (3.5-5.1)
[2017-03-10] MEDS: INSULIN LISPRO (humaLOG) 300 UNIT/3 ML VIAL SQ SCH ×7 (07:53→21:33)
[2017-03-10] MEDS: SODIUM CHLORIDE 0.9% 1,000 ML IV SCH (07:54)
[2017-03-10] MEDS ORDERED: LEVOFLOXACIN 250 MG TAB PO SCH (09:00)
[2017-03-10] MEDS: HEPARIN SODIUM,PORCINE 5,000 UNIT/ML 1 ML VIAL SQ SCH ×2 (09:14→21:35)
[2017-03-10] MEDS: metroNIDAZOLE 500 MG TAB PO SCH ×2 (09:14→17:53)
[2017-03-10] MEDS: ATORVASTATIN 20 MG TAB PO SCH (09:14)
[2017-03-10] MEDS: NITROGLYCERIN OINT 1 INCH/GM PACKET TOPICAL SCH ×4 (09:15→21:35)
[2017-03-10] MEDS: HYDROcodone/APAP 5-325MG 1 EACH TAB PO PRN ×2 (09:18→18:00)
[2017-03-10] MEDS: ONDANSETRON 4 MG/2 ML VIAL IVP PRN ×2 (09:18→17:53)
--- NOTE | 2017-03-10 11:10 | P.PN ---
<Ely Felix - Last Filed: 03/10/17 11:01> Subjective Progress Note Date: 03/10/17 Principal diagnosis: COPD exacerbation, right-sided heart failure exacerbation. 62-year-old female patient was recently diagnosed having breast cancer with right axillary lymph node involvement. She is in the process of being evaluated for a surgical resection followed by systemic chemotherapy. She came into the hospital yesterday because of worsening shortness of breath. In fact she had multitude of other complaints including generalized weakness and some vague abdominal pain and nausea. She also states that she was in significant fluid overload and she had gained around 15 pounds and she was treated with Lasix. She episodically gets edema in lower extremities bilaterally. As part of investigation for her breast cancer the patient had a CAT scan of the chest abdomen and pelvis that was done in January 2017 and the CAT scan of the chest did not show any acute abnormalities and there was no evidence of any metastatic disease of pleural effusion in the lungs bilaterally. The most recent chest x-ray that was done during this current hospitalization showed no evidence of any pneumonias. The patient has chronic lower extremity edema which on-off gets worse. Echocardiogram that was done in January 2017 showed severe pulmonary hypertension with a PA pressure above 70 mmHg and the patient' s ejection fraction was preserved at 55% without any significant valvular abnormalities. She is a chronic smoker. Probably she has an underlying COPD. She smokes on 2 pack of cigarettes a day and she's been doing that for the past 40 years. Addition, this patient has typical features of sleep breathing disorder/obstructive sleep apnea. She is currently feeling better. She was given broad-spectrum antibiotics and she is also on Lasix. The patient is seen again today 03/09/2017 in follow-up on the selective care unit. She is awake and alert in no acute distress. She is resting quite comfortably in bed. She is breathing easier today as compared to yesterday. She is maintaining O2 saturations in the low 90s on room air. She's been afebrile. Hemodynamically stable. Blood cultures reveal no growth. White count 18.8. She remains on ceftriaxone and Levaquin. Computed tomography scan of the abdomen and pelvis revealed acute sigmoid diverticulitis with adjacent abscess, obstructing right ureteral calculus at the level of the right mid sacrum measuring 5.4 mm with mild right-sided hydronephrosis. There is also noted stable right ovarian cyst. The patient is seen again today 03/10/2017 in follow-up on the selective care unit. She is currently resting comfortably in bed. She is awake and alert in no acute distress. She denies any worsening shortness of breath, cough or congestion. She continues to require oxygen supplementation to maintain O2 saturations greater than 90%. She's been afebrile. White count 16.5. Blood cultures reveal no growth. She remains on Levaquin and metronidazole. Objective - Vital Signs Vital signs: Vital Signs Temp 97.2 F L 03/10/17 08:00 Pulse 100 03/10/17 08:00 Resp 18 03/10/17 08:00 BP 116/59 03/10/17 08:00 Pulse Ox 92 L 03/10/17 08:00 Intake & Output 03/09/17 03/10/17 03/10/17 18:59 06:59 18:59 Intake Total 1561 Output Total 400 Balance 1161 Weight 95.8 kg Intake: Oral 1561 Output: Urine/Stool Mix 400 Other: Voiding Method Toilet Toilet # Voids 1 2 1 # Bowel Movements 1 - Exam Obese, comfortable likely distress.Head exam was generally normal. There was no scleral icterus or corneal arcus. Mucous membranes were moist. Neck is short and supple and the patient is a Mallampati class IV. There is no goiter or neck masses. Lungs sounds are diminished bilaterally especially in the lung bases. No crackles or wheezes or rhonchi. Heart sounds shows accentuation of the second heart sound, without any significant murmurs. Abdomen is soft and there is no direct tenderness or rebound tenderness or guarding. Organs cannot be accurately palpated. Extremities shows trace edema and there is no cyanosis or clubbing.Examination of the skin revealed no evidence of significant rashes, suspicious appearing nevi or other concerning lesions. Neurologically she is awake and alert and there is no focal neurological deficit. Skeletal examination shows no active arthritis or joint swelling or deformity. - Labs CBC & Chem 7: 03/10/17 06:17 03/10/17 06:17 Labs: Abnormal Lab Results - Last 24 Hours (Table) 03/09/17 03/09/17 03/09/17 Range/Units 11:39 16:38 21:00 WBC (3.8-10.6) k/uL MCH (25.0-35.0) pg MCHC (31.0-37.0) g/dL RDW (11.5-15.5) % Neutrophils # (1.3-7.7) k/uL Lymphocytes # (1.0-4.8) k/uL Sodium (137-145) mmol/L BUN (7-17) mg/dL Creatinine (0.52-1.04) mg/dL POC Glucose (mg/dL) 182 H 138 H 292 H (75-99) mg/dL 03/10/17 03/10/17 03/10/17 Range/Units 05:46 06:17 06:17 WBC 16.5 H (3.8-10.6) k/uL MCH 24.2 L (25.0-35.0) pg MCHC 30.0 L (31.0-37.0) g/dL RDW 18.9 H (11.5-15.5) % Neutrophils # 14.2 H (1.3-7.7) k/uL Lymphocytes # 0.8 L (1.0-4.8) k/uL Sodium 135 L (137-145) mmol/L BUN 35 H (7-17) mg/dL Creatinine 1.14 H (0.52-1.04) mg/dL POC Glucose (mg/dL) 106 H (75-99) mg/dL Microbiology - Last 24 Hours (Table) 03/08/17 05:19 Blood Culture - Preliminary Blood No Growth after 48 hours Assessment and Plan Plan: Assessment 1 shortness of breath, multifactorial. The patient has COPD and she carries more than [id number] smoking history. In addition she is morbidly obese and has evidence of severe right-sided heart failure/pulmonary hypertension with chronic lower extremities edema. Her heart failure and pulmonary hypertension is probably secondary to her obesity, possible underlying sleep breathing disorder and obstructive sleep apnea that has not been diagnosed officially, and COPD and chronic hypoxic respiratory failure. Doubt pulmonary embolism. Doubt any cardiac cause for right-sided failure including valvular heart disease or ischemic heart disease. She is already feeling better with diuresis. Pneumonia is doubtful 2 severe pulmonary hypertension with an RVSP of 77 mmHg. 3 acute exacerbation of COPD 4 [id number] smoking history 5 acute exacerbation of diastolic congestive heart failure 6 acute on chronic hypoxic respiratory failure secondary to above, may require home oxygen. 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 Plan The patient was seen and evaluated by Dr. Pablo. She is improved today as compared to yesterday. We'll continue with her current medications. She will benefit from full pulmonary function testing and 6 minute walk to evaluate her severity of the COPD and to determine if she would tolerate any surgical interventions in regards to the breast cancer. Dr. Pablo had further discussion with Dr. Bello in this regard. She would benefit from an outpatient sleep apnea evaluation. She should continue antibiotics and have an outpatient follow-up computed tomography scan of the abdomen in regards to the sigmoid diverticulitis with adjacent abscess. We will increase her activity as tolerated. We'll continue to follow. I performed a history and physical examination on the patient. Lung sounds are clear. Diminished. I discussed the assessment and plan of care with my nurse practitioner, Ely Felix. I agree with the above note as dictated. <Abdias Pablo - Last Filed: 03/10/17 11:26> Objective - Vital Signs Vital signs: Vital Signs Temp 97.2 F L 03/10/17 08:00 Pulse 100 03/10/17 08:00 Resp 18 03/10/17 08:00 BP 116/59 03/10/17 08:00 Pulse Ox 92 L 03/10/17 08:00 Intake & Output 03/09/17 03/10/17 03/10/17 18:59 06:59 18:59 Intake Total 1561 Output Total 400 Balance 1161 Weight 95.8 kg Intake: Oral 1561 Output: Urine/Stool Mix 400 Other: Voiding Method Toilet Toilet # Voids 1 2 1 # Bowel Movements 1 - Labs CBC & Chem 7: 03/10/17 06:17 03/10/17 06:17 Labs: Abnormal Lab Results - Last 24 Hours (Table) 03/09/17 03/09/17 03/09/17 Range/Units 11:39 16:38 21:00 WBC (3.8-10.6) k/uL MCH (25.0-35.0) pg MCHC (31.0-37.0) g/dL RDW (11.5-15.5) % Neutrophils # (1.3-7.7) k/uL Lymphocytes # (1.0-4.8) k/uL Sodium (137-145) mmol/L BUN (7-17) mg/dL Creatinine (0.52-1.04) mg/dL POC Glucose (mg/dL) 182 H 138 H 292 H (75-99) mg/dL 03/10/17 03/10/17 03/10/17 Range/Units 05:46 06:17 06:17 WBC 16.5 H (3.8-10.6) k/uL MCH 24.2 L (25.0-35.0) pg MCHC 30.0 L (31.0-37.0) g/dL RDW 18.9 H (11.5-15.5) % Neutrophils # 14.2 H (1.3-7.7) k/uL Lymphocytes # 0.8 L (1.0-4.8) k/uL Sodium 135 L (137-145) mmol/L BUN 35 H (7-17) mg/dL Creatinine 1.14 H (0.52-1.04) mg/dL POC Glucose (mg/dL) 106 H (75-99) mg/dL Microbiology - Last 24 Hours (Table) 03/08/17 05:19 Blood Culture - Preliminary Blood No Growth after 48 hours Assessment and Plan Plan: This is a joint evaluation. I tested information mentioned above. I had a discussion with the surgeon, Dr. Bello and I also discussed the case with the radiologist. The findings and abdomen are consistent with a large ovarian cyst on the right and a small abscess in the left probably related to a diverticular complication and small abscess formation. The patient is currently afebrile hemodynamically stable. We thought that there is no need for percutaneous drainage and the patient will be subjected to oral antibiotics. Meanwhile, the patient will need a mastectomy or lumpectomy. She was not found to be a good surgical candidate based on her COPD and pulmonary hypertension. I think she needs to be reevaluated on outpatient basis. She will need a based on pulmonary function test to assess the severity of her obstructive lung disease and the restriction if any. Pulmonary hypertension is secondary in nature which probably is contributing to her chronic dyspnea on respiratory failure. However this may not be a absolute contraindication for this patient to undergo her surgery. This will be reevaluated on outpatient basis and a final recommendation be done today surgeon. Meanwhile, continue antibiotics and will continue to follow.
--- NOTE | 2017-03-10 11:15 | P.PN ---
Subjective Progress Note Date: 03/10/17 Principal diagnosis: Shortness of breath This is a 62-year-old female who follows regularly with Dr. Harmon in the office. She has a known history of nicotine dependence, was also found to have a breast malignancy and is undergoing workup for surgical intervention. She presented to the hospital with symptoms of progressively worsening shortness of breath. Patient also has history of hypertension, hyperlipidemia, and diabetes. Currently on by mouth Lasix. Stable from a cardiac perspective. Objective - Vital Signs Vital signs: Vital Signs Temp 97.2 F L 03/10/17 08:00 Pulse 100 03/10/17 08:00 Resp 18 03/10/17 08:00 BP 116/59 03/10/17 08:00 Pulse Ox 92 L 03/10/17 08:00 Intake & Output 03/09/17 03/10/17 03/10/17 18:59 06:59 18:59 Intake Total 1561 Output Total 400 Balance 1161 Weight 95.8 kg Intake: Oral 1561 Output: Urine/Stool Mix 400 Other: Voiding Method Toilet Toilet # Voids 1 2 1 # Bowel Movements 1 - Exam PHYSICAL EXAMINATION: HEENT: Head is atraumatic, normocephalic. Pupils equal, round. Neck is supple. There is no elevated jugular venous pressure. HEART EXAMINATION: S1 and S2 1 systolic murmur is heard. CHEST EXAMINATION: Lungs are clear to auscultation and precussion. No chest wall tenderness is noted on palpation or with deep breathing. ABDOMEN: Soft, generalized tenderness . Bowel sounds are heard. No organomegaly noted. EXTREMITIES: 2+ peripheral pulses with no evidence of peripheral edema and no calf tenderness noted. NEUROLOGIC patient is awake, alert and oriented -3. . - Labs CBC & Chem 7: 03/10/17 06:17 03/10/17 06:17 Labs: Abnormal Lab Results - Last 24 Hours (Table) 03/09/17 03/09/17 03/09/17 Range/Units 11:39 16:38 21:00 WBC (3.8-10.6) k/uL MCH (25.0-35.0) pg MCHC (31.0-37.0) g/dL RDW (11.5-15.5) % Neutrophils # (1.3-7.7) k/uL Lymphocytes # (1.0-4.8) k/uL Sodium (137-145) mmol/L BUN (7-17) mg/dL Creatinine (0.52-1.04) mg/dL POC Glucose (mg/dL) 182 H 138 H 292 H (75-99) mg/dL 03/10/17 03/10/17 03/10/17 Range/Units 05:46 06:17 06:17 WBC 16.5 H (3.8-10.6) k/uL MCH 24.2 L (25.0-35.0) pg MCHC 30.0 L (31.0-37.0) g/dL RDW 18.9 H (11.5-15.5) % Neutrophils # 14.2 H (1.3-7.7) k/uL Lymphocytes # 0.8 L (1.0-4.8) k/uL Sodium 135 L (137-145) mmol/L BUN 35 H (7-17) mg/dL Creatinine 1.14 H (0.52-1.04) mg/dL POC Glucose (mg/dL) 106 H (75-99) mg/dL Microbiology - Last 24 Hours (Table) 03/08/17 05:19 Blood Culture - Preliminary Blood No Growth after 48 hours Assessment and Plan (1) Diastolic CHF, acute on chronic Status: Acute (2) COPD exacerbation Status: Acute (3) Breast CA Status: Acute (4) Diabetes Status: Acute (5) HTN (hypertension) Status: Acute (6) Hyperlipemia Status: Acute (7) Cor pulmonale Status: Acute Plan: Cardiology's perspective, we will continue the current patient on her current medication. The elevation of troponin is most likely related to hypoxia. Overall stable from a cardiac perspective. We will follow her along with you now on an as-needed basis only, please don't hesitate with any questions. DNP note has been reviewed, I agree with a documented findings and plan of care. Patient was seen and examined.
--- NOTE | 2017-03-10 11:45 | P.PN ---
Subjective Principal diagnosis: Acute diverticulitis .. Patient is complaining of abdominal pain that she relates 5-7 out of 10 in severity. Objective - Vital Signs Vital signs: Vital Signs Temp 97.2 F L 03/10/17 08:00 Pulse 100 03/10/17 08:00 Resp 18 03/10/17 08:00 BP 116/59 03/10/17 08:00 Pulse Ox 92 L 03/10/17 08:00 Intake & Output 03/09/17 03/10/17 03/10/17 18:59 06:59 18:59 Intake Total 1561 Output Total 400 Balance 1161 Weight 95.8 kg Intake: Oral 1561 Output: Urine/Stool Mix 400 Other: Voiding Method Toilet Toilet # Voids 1 2 1 # Bowel Movements 1 - Exam General: The patient is awake and alert, in no distress Eye: there is normal conjunctiva bilaterally. Neck: The neck is supple, there is no JVD. Cardiovascular: Normal S1-S2, no S3-S4, no murmurs. Respiratory: Lungs clear to auscultation bilaterally Gastrointestinal: Abdomen is soft, there is moderate tenderness to palpation skeletal: There is no pedal edema. Neurological:. Speech is normal. Skin: Skin is warm and dry - Labs CBC & Chem 7: 03/10/17 06:17 03/10/17 06:17 Labs: Abnormal Lab Results - Last 24 Hours (Table) 03/09/17 03/09/17 03/09/17 Range/Units 11:39 16:38 21:00 WBC (3.8-10.6) k/uL MCH (25.0-35.0) pg MCHC (31.0-37.0) g/dL RDW (11.5-15.5) % Neutrophils # (1.3-7.7) k/uL Lymphocytes # (1.0-4.8) k/uL Sodium (137-145) mmol/L BUN (7-17) mg/dL Creatinine (0.52-1.04) mg/dL POC Glucose (mg/dL) 182 H 138 H 292 H (75-99) mg/dL 03/10/17 03/10/17 03/10/17 Range/Units 05:46 06:17 06:17 WBC 16.5 H (3.8-10.6) k/uL MCH 24.2 L (25.0-35.0) pg MCHC 30.0 L (31.0-37.0) g/dL RDW 18.9 H (11.5-15.5) % Neutrophils # 14.2 H (1.3-7.7) k/uL Lymphocytes # 0.8 L (1.0-4.8) k/uL Sodium 135 L (137-145) mmol/L BUN 35 H (7-17) mg/dL Creatinine 1.14 H (0.52-1.04) mg/dL POC Glucose (mg/dL) 106 H (75-99) mg/dL Microbiology - Last 24 Hours (Table) 03/08/17 05:19 Blood Culture - Preliminary Blood No Growth after 48 hours Assessment and Plan Plan: 1 acute sigmoid diverticulitis with adjacent abscess: Patient seen and evaluated by general surgery. Awaiting final recommendations. Continue liquid diet. Antibiotic with Levaquin and Flagyl 2 severe pulmonary hypertension 3 acute exacerbation of COPD 4 recently diagnosed breast cancer currently under investigation and treatment plan 5 acute exacerbation of diastolic congestive heart failure 6 acute on chronic hypoxic respiratory failure secondary to above, may require home oxygen. 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 Today, I reviewed her medication list the lab work results. Continue current regimen. Awaiting further recommendation from general surgery. Continue to hold diuresis for now. Patient's overall prognosis is very guarded given multiple comorbidities as above.
[2017-03-10 11:52] LABS: Glucose,Whole Blood 62 mg/dL (75-99)
[2017-03-10 12:19] LABS: Glucose,Whole Blood 62 mg/dL (75-99)
[2017-03-10 12:41] LABS: Glucose,Whole Blood 71 mg/dL (75-99)
--- NOTE | 2017-03-10 12:56 | P.PN ---
<Raissa Whiting - Last Filed: 03/10/17 12:17> Subjective Progress Note Date: 03/10/17 62-year-old female known to Dr. bello for right breast cancer service being seen and examined at the bedside. Patient was tentatively scheduled for MediPort to start chemotherapy this Wednesday. Patient reports that she did go down to [facility] was told she was at increased risk to undergo surgery at that time due to pulmonary issues. Patient did have an echocardiogram done in January 2017 it did show severe pulmonary hypertension with a PA pressure above 70 EF preserved at 55% with no valvular heart disease noted Patient presented this admission with abdominal pain CAT scan of the abdomen pelvis was part of the workup for abdominal pain it did show a 3 cm abscess adjacent to the sigmoid colon likely related to diverticulitis . Patient initially was seen by Dr. Bradford on March 09 and the abscess was felt to be amendable to percutaneous drainage. Patient was placed on IV broad-spectrum antibiotics and surgical care was transferred to Dr. bello service additionally patient has a right ovarian cyst this morning the patient reportedly is experiencing vague abdominal discomfort with persistent nausea no active emesis Currently denying chest pain dizziness or lightheadedness. Patient states breathing feels slightly improved is resting comfortably in bed in no acute distress sats are greater than 90% on supplemental oxygen Objective - Vital Signs Vital signs: Vital Signs Temp 97.2 F L 03/10/17 08:00 Pulse 100 03/10/17 08:00 Resp 18 03/10/17 08:00 BP 116/59 03/10/17 08:00 Pulse Ox 92 L 03/10/17 08:00 Intake & Output 03/09/17 03/10/17 03/10/17 18:59 06:59 18:59 Intake Total 1561 Output Total 400 Balance 1161 Weight 95.8 kg Intake: Oral 1561 Output: Urine/Stool Mix 400 Other: Voiding Method Toilet Toilet # Voids 1 2 1 # Bowel Movements 1 - Exam Physical exam 62-year-old female sitting up in bed talkative does not appear in any acute distress. Lungs posterior diminished at the bases otherwise adequate air movement Heart S1-S2 audible and regular denying chest pain Abdomen states there is slight tenderness to the left lower quadrant soft not distended bowel tones present states no bowel movement reports a nausea sensation no active emesis Extremities no edema noted to the lower extremities - Labs CBC & Chem 7: 03/10/17 06:17 03/10/17 06:17 Labs: Abnormal Lab Results - Last 24 Hours (Table) 03/09/17 03/09/17 03/10/17 Range/Units 16:38 21:00 05:46 WBC (3.8-10.6) k/uL MCH (25.0-35.0) pg MCHC (31.0-37.0) g/dL RDW (11.5-15.5) % Neutrophils # (1.3-7.7) k/uL Lymphocytes # (1.0-4.8) k/uL Sodium (137-145) mmol/L BUN (7-17) mg/dL Creatinine (0.52-1.04) mg/dL POC Glucose (mg/dL) 138 H 292 H 106 H (75-99) mg/dL 03/10/17 03/10/17 03/10/17 Range/Units 06:17 06:17 11:38 WBC 16.5 H (3.8-10.6) k/uL MCH 24.2 L (25.0-35.0) pg MCHC 30.0 L (31.0-37.0) g/dL RDW 18.9 H (11.5-15.5) % Neutrophils # 14.2 H (1.3-7.7) k/uL Lymphocytes # 0.8 L (1.0-4.8) k/uL Sodium 135 L (137-145) mmol/L BUN 35 H (7-17) mg/dL Creatinine 1.14 H (0.52-1.04) mg/dL POC Glucose (mg/dL) 62 L (75-99) mg/dL Microbiology - Last 24 Hours (Table) 03/08/17 05:19 Blood Culture - Preliminary Blood No Growth after 48 hours Assessment and Plan Plan: Impression Present on admission abdominal pain with a CAT scan of the abdomen pelvis showing a 3 cm abscess adjacent to the colon likely due to diverticulitis Recently diagnosed right breast cancer with right axillary lymph node involvement currently being evaluated for surgical resection Echocardiogram January 2017 severe pulmonary hypertension PA pressure above 70mmHG with an EF at 55% active tobacco abuse 2 pack a day greater than 80 year history mordid Obesity BMI 36 COPD acute exacerbation Large cystic mass arising from the right ovary under investigation Type 2 diabetes Diabetic peripheral neuropathy Present on admission shortness of breath multifactorial likely due to COPD with obstructive sleep apnea not ruled out with acute exacerbation diastolic heart failure Chronic hypoxic respiratory failure Acute on chronic diastolic heart failure Mildly elevated troponin likely due to hypoxia no evidence of acute coronary syndrome per cardiology Plan Cardiology's recommendations reviewed appreciated currently no further cardiology recommendations Patient is being worked up for right breast cancer the timing of the surgery to be determined pending pulmonary status Further surgical recommendations pending Defer to admitting service and other consultants of management of other medical issues The above impression and plan of care have been discussed and directed by signing physician. Raissa Whiting nurse practitioner acting as scribe for signing physician. <Kourtney Bello - Last Filed: 03/12/17 07:53> Objective - Vital Signs Vital signs: Vital Signs Temp 98.1 F 03/12/17 03:35 Pulse 90 03/12/17 03:35 Resp 18 03/12/17 03:35 BP 111/57 03/12/17 03:35 Pulse Ox 95 03/12/17 03:35 Intake & Output 03/11/17 03/12/17 03/12/17 18:59 06:59 18:59 Intake Total 100 760 Balance 100 760 Weight 96.7 kg Intake: Intake, IV Titration 160 Amount Sodium Chloride 0.9% 1, 160 000 ml @ 20 mls/hr IV . Q24H [facility] Rx#:[id number] Oral 100 600 Other: Voiding Method Toilet Toilet # Voids 1 - Labs CBC & Chem 7: 03/12/17 06:33 03/12/17 06:33 Labs: Abnormal Lab Results - Last 24 Hours (Table) 03/12/17 03/12/17 Range/Units 06:33 06:33 WBC 15.7 H (3.8-10.6) k/uL MCV 79.7 L (80.0-100.0) fL MCH 23.1 L (25.0-35.0) pg MCHC 29.0 L (31.0-37.0) g/dL RDW 18.8 H (11.5-15.5) % Neutrophils # 13.0 H (1.3-7.7) k/uL Monocytes # 1.1 H (0-1.0) k/uL Sodium 135 L (137-145) mmol/L Chloride 96 L (98-107) mmol/L BUN 36 H (7-17) mg/dL Creatinine 1.34 H (0.52-1.04) mg/dL Microbiology - Last 24 Hours (Table) 03/08/17 05:19 Blood Culture - Preliminary Blood No Growth after 96 hours 03/10/17 14:00 Gram Stain - Final Sputum Sputum Culture - Final Assessment and Plan Plan: Patient examined. Discussed with cardiology and pulmonology. PFT as outpatient. Will discuss with Mary Alice regarding surgery vs. Neoadjuvant therapy
[2017-03-10] MEDS: HYDROmorphone 2 MG/ML 1 ML SYRINGE IVP PRN ×2 (13:00→17:54)
[2017-03-10] MEDS ORDERED: metroNIDAZOLE-NS PMX 500 MG in SALINE 1 100ML.BAG IVPB SCH (16:00)
[2017-03-10 16:52] LABS: Glucose,Whole Blood 117 mg/dL (75-99)
[2017-03-10 21:19] LABS: Glucose,Whole Blood 85 mg/dL (75-99)
[2017-03-10] MEDS: INSULIN GLARGINE 100 UNIT/ML 10 ML VIAL SQ SCH (21:32)
[2017-03-11] MEDS: ONDANSETRON 4 MG/2 ML VIAL IVP PRN ×5 (00:04→23:10)
[2017-03-11] MEDS: HYDROcodone/APAP 5-325MG 1 EACH TAB PO PRN ×2 (00:04→04:21)
[2017-03-11] MEDS: metroNIDAZOLE 500 MG TAB PO SCH ×3 (00:05→16:55)
[2017-03-11 01:18] VITALS: RESP 18
[2017-03-11 06:02] LABS: Glucose,Whole Blood 94 mg/dL (75-99)
[2017-03-11 06:46] LABS: Anisocytosis Slight; Basophils % (A) 0 %; CH 23.3; CHCM 28.4; Eosinophils # (A) 0.1 k/uL (0-0.7); Eosinophils % (A) 1 %; HCT 40.2 % (34.0-46.0); HDW 2.93; HGB 11.9 gm/dL (11.4-16.0); Hypochromasia Marked; Luc # (Auto) 0.43; Luc % (Auto) 3; Lymphocytes # (A) 0.8 k/uL (1.0-4.8); Lymphocytes % (A) 5 %; MCH 24.4 pg (25.0-35.0); MCHC 29.7 g/dL (31.0-37.0); Mean Platelet Volume 6.9; Microcytosis Slight; Monocytes % (A) 6 %; Neutrophils # (A) 13.1 k/uL (1.3-7.7); Neutrophils % (A) 85 %; RDW 17.8 % (11.5-15.5); WBC 15.5 k/uL (3.8-10.6); WBC (Perox) 15.45
[2017-03-11] MEDS: INSULIN LISPRO (humaLOG) 300 UNIT/3 ML VIAL SQ SCH ×7 (06:53→21:08)
[2017-03-11 06:57] LABS: Calcium 9.9 mg/dL (8.4-10.2); Potassium 3.4 mmol/L (3.5-5.1)
[2017-03-11] MEDS ORDERED: LEVOFLOXACIN 500MG-D5W PMX 500 MG in DEXTROSE/WATER 1 100ML.BAG IVPB SCH (09:00)
[2017-03-11] MEDS: SODIUM CHLORIDE 0.9% 1,000 ML IV SCH (09:56)
[2017-03-11] MEDS: HEPARIN SODIUM,PORCINE 5,000 UNIT/ML 1 ML VIAL SQ SCH ×2 (09:57→20:14)
[2017-03-11] MEDS: ATORVASTATIN 20 MG TAB PO SCH (09:57)
[2017-03-11] MEDS: NITROGLYCERIN OINT 1 INCH/GM PACKET TOPICAL SCH ×2 (09:57→12:36)
--- NOTE | 2017-03-11 10:33 | P.PN ---
<HenokSavanaRaissa M - Last Filed: 03/11/17 11:54> Subjective Progress Note Date: 03/11/17 62-year-old female seen and examined at bedside sitting up in bed a harsh nonproductive cough noted denying any chest pain states breathing feels slightly improved. On room air sats are 87% at midnight sats are 91% on 4 L Additionally patient states abdominal discomfort improving passing gas 1 small bowel movement. Reports no nausea vomiting tolerating diet continue to treat the sigmoid 3 cm abscess likely related to diverticulitis with the Levaquin and Flagyl as ordered discuss with the patient the treatment plan. The MediPort will not be done tomorrow will continue to treat the abscess in the sigmoid diverticulitis with antibiotics. Patient will be followed in the outpatient setting to address the right breast cancer and the timing of the treatment once the issues of the diverticulitis are addressed Objective - Vital Signs Vital signs: Vital Signs Temp 97.2 F L 03/11/17 08:45 Pulse 84 03/11/17 08:45 Resp 18 03/11/17 08:45 BP 114/66 03/11/17 08:45 Pulse Ox 87 L 03/11/17 08:45 Intake & Output 03/10/17 03/11/17 03/11/17 18:59 06:59 18:59 Intake Total 478 100 Balance 478 100 Weight 95.8 kg 93.7 kg Intake: Oral 478 100 Other: Voiding Method Toilet Toilet Toilet # Voids 2 2 1 - Exam Physical exam 62-year-old female seen in sitting up in bed talkative pleasant oriented 3 Lungs diminished at the bases posterior upper airways coarse rhonchi no wheezing noted harsh nonproductive cough noted heart S1-S2 audible regular denying chest pain Abdomen slight tenderness left lower quadrant states it's improved no rebound no facial grimacing with palpitation to the abdominal wall soft not distended bowel tones present tolerating diet with no nausea vomiting states passing gas 1 small bowel movement this morning Extremities no edema noted to the upper or lower external - Labs CBC & Chem 7: 03/11/17 06:18 03/11/17 06:18 Labs: Abnormal Lab Results - Last 24 Hours (Table) 03/10/17 03/10/17 03/10/17 Range/Units 11:38 12:07 12:28 WBC (3.8-10.6) k/uL MCH (25.0-35.0) pg MCHC (31.0-37.0) g/dL RDW (11.5-15.5) % Neutrophils # (1.3-7.7) k/uL Lymphocytes # (1.0-4.8) k/uL Sodium (137-145) mmol/L Potassium (3.5-5.1) mmol/L Chloride (98-107) mmol/L BUN (7-17) mg/dL Creatinine (0.52-1.04) mg/dL POC Glucose (mg/dL) 62 L 62 L 71 L (75-99) mg/dL 03/10/17 03/11/17 03/11/17 Range/Units 16:47 06:18 06:18 WBC 15.5 H (3.8-10.6) k/uL MCH 24.4 L (25.0-35.0) pg MCHC 29.7 L (31.0-37.0) g/dL RDW 17.8 H (11.5-15.5) % Neutrophils # 13.1 H (1.3-7.7) k/uL Lymphocytes # 0.8 L (1.0-4.8) k/uL Sodium 135 L (137-145) mmol/L Potassium 3.4 L (3.5-5.1) mmol/L Chloride 97 L (98-107) mmol/L BUN 35 H (7-17) mg/dL Creatinine 1.31 H (0.52-1.04) mg/dL POC Glucose (mg/dL) 117 H (75-99) mg/dL Microbiology - Last 24 Hours (Table) 03/10/17 14:00 Gram Stain - Final Sputum Sputum Culture - Final 03/08/17 05:19 Blood Culture - Preliminary Blood No Growth after 72 hours Assessment and Plan Plan: Impression Present on admission abdominal pain with a CAT scan of the abdomen pelvis showing a 3 cm abscess adjacent to the colon likely due to diverticulitis Recently diagnosed right breast cancer with right axillary lymph node involvement currently being evaluated for surgical resection Echocardiogram January 2017 severe pulmonary hypertension PA pressure above 70mmHG with an EF at 55% active tobacco abuse 2 pack a day greater than 80 year history mordid Obesity BMI 36 COPD acute exacerbation Large cystic mass arising from the right ovary under investigation Type 2 diabetes Diabetic peripheral neuropathy Present on admission shortness of breath multifactorial likely due to COPD with obstructive sleep apnea not ruled out with acute exacerbation diastolic heart failure Chronic hypoxic respiratory failure Acute on chronic diastolic heart failure Mildly elevated troponin likely due to hypoxia no evidence of acute coronary syndrome per cardiology Plan Cardiology's recommendations reviewed appreciated currently no further cardiology recommendations Patient is being worked up for right breast cancer the timing of the surgery to be determined pending pulmonary status MediPort insertion will be on hold not to be done this admissionrow if no contraindication from pulmonary No plan for surgery involving the right breast cancer or MediPort insertion this admission Defer to admitting service and other consultants of management of other medical issues The above impression and plan of care have been discussed and directed by signing physician. Raissa Whiting nurse practitioner acting as scribe for signing physician. <Kourtney Bello - Last Filed: 03/11/17 16:29> Objective - Vital Signs Vital signs: Vital Signs Temp 97.8 F 03/11/17 15:41 Pulse 89 03/11/17 15:41 Resp 18 03/11/17 15:41 BP 120/64 03/11/17 15:41 Pulse Ox 91 L 03/11/17 15:41 Intake & Output 03/10/17 03/11/17 03/11/17 18:59 06:59 18:59 Intake Total 478 100 Balance 478 100 Weight 95.8 kg 93.7 kg Intake: Oral 478 100 Other: Voiding Method Toilet Toilet Toilet # Voids 2 2 1 - Labs CBC & Chem 7: 03/11/17 06:18 03/11/17 06:18 Labs: Abnormal Lab Results - Last 24 Hours (Table) 03/10/17 03/11/17 03/11/17 Range/Units 16:47 06:18 06:18 WBC 15.5 H (3.8-10.6) k/uL MCH 24.4 L (25.0-35.0) pg MCHC 29.7 L (31.0-37.0) g/dL RDW 17.8 H (11.5-15.5) % Neutrophils # 13.1 H (1.3-7.7) k/uL Lymphocytes # 0.8 L (1.0-4.8) k/uL Sodium 135 L (137-145) mmol/L Potassium 3.4 L (3.5-5.1) mmol/L Chloride 97 L (98-107) mmol/L BUN 35 H (7-17) mg/dL Creatinine 1.31 H (0.52-1.04) mg/dL POC Glucose (mg/dL) 117 H (75-99) mg/dL Microbiology - Last 24 Hours (Table) 03/10/17 14:00 Gram Stain - Final Sputum Sputum Culture - Final 03/08/17 05:19 Blood Culture - Preliminary Blood No Growth after 72 hours Assessment and Plan Plan: Patient presenting with sigmoid diverticulitis and small abscess. On IV abx. Poor pulmonary function with pulmonary hypertension, COPD. Her [employer] surgery was cancelled at [facility] as patient was thought to be too high risk. Patient has her 2 mallory positive breast cancer and plan was to start neoadjuvant chemo and she was scheduled for mediport placement on WednesdayMar 12 . However , in lieu of sigmoid diverticultis and active infection, chemotherapy cannot be started. Plan discussed with Dr. Pablo and Dr. Wheat. Pulmonary function test as outpatient and if deemed fit for surgery and general anesthesia , proceed with breast surgery . DIscussed the plan with the patient . CT abd/pelvis in 2 weeks to monitor sigmoid diverticulitis.
[2017-03-11] MEDS ORDERED: POTASSIUM CHLORIDE ER 20 MEQ TAB.ER PO STA (10:35)
--- NOTE | 2017-03-11 10:39 | P.PN ---
Subjective No issues overnight. Objective - Vital Signs Vital signs: Vital Signs Temp 97.2 F L 03/11/17 08:45 Pulse 84 03/11/17 08:45 Resp 18 03/11/17 08:45 BP 114/66 03/11/17 08:45 Pulse Ox 87 L 03/11/17 08:45 Intake & Output 03/10/17 03/11/17 03/11/17 18:59 06:59 18:59 Intake Total 478 100 Balance 478 100 Weight 95.8 kg 93.7 kg Intake: Oral 478 100 Other: Voiding Method Toilet Toilet Toilet # Voids 2 2 1 - Exam General: The patient is awake and alert, in no distress Eye: there is normal conjunctiva bilaterally. Neck: The neck is supple, there is no JVD. Cardiovascular: Normal S1-S2, no S3-S4, no murmurs. Respiratory: Lungs clear to auscultation bilaterally Gastrointestinal: Abdomen is soft, there is moderate tenderness to palpation skeletal: There is no pedal edema. Neurological:. Speech is normal. Skin: Skin is warm and dry - Labs CBC & Chem 7: 03/11/17 06:18 03/11/17 06:18 Labs: Abnormal Lab Results - Last 24 Hours (Table) 03/10/17 03/10/17 03/10/17 Range/Units 11:38 12:07 12:28 WBC (3.8-10.6) k/uL MCH (25.0-35.0) pg MCHC (31.0-37.0) g/dL RDW (11.5-15.5) % Neutrophils # (1.3-7.7) k/uL Lymphocytes # (1.0-4.8) k/uL Sodium (137-145) mmol/L Potassium (3.5-5.1) mmol/L Chloride (98-107) mmol/L BUN (7-17) mg/dL Creatinine (0.52-1.04) mg/dL POC Glucose (mg/dL) 62 L 62 L 71 L (75-99) mg/dL 03/10/17 03/11/17 03/11/17 Range/Units 16:47 06:18 06:18 WBC 15.5 H (3.8-10.6) k/uL MCH 24.4 L (25.0-35.0) pg MCHC 29.7 L (31.0-37.0) g/dL RDW 17.8 H (11.5-15.5) % Neutrophils # 13.1 H (1.3-7.7) k/uL Lymphocytes # 0.8 L (1.0-4.8) k/uL Sodium 135 L (137-145) mmol/L Potassium 3.4 L (3.5-5.1) mmol/L Chloride 97 L (98-107) mmol/L BUN 35 H (7-17) mg/dL Creatinine 1.31 H (0.52-1.04) mg/dL POC Glucose (mg/dL) 117 H (75-99) mg/dL Microbiology - Last 24 Hours (Table) 03/10/17 14:00 Gram Stain - Final Sputum Sputum Culture - Final 03/08/17 05:19 Blood Culture - Preliminary Blood No Growth after 72 hours Assessment and Plan Plan: 1 acute sigmoid diverticulitis with adjacent abscess: Patient seen and evaluated by general surgery. No intervention recommended. Antibiotic with Levaquin and Flagyl 2 severe pulmonary hypertension 3 acute exacerbation of COPD 4 recently diagnosed breast cancer currently under investigation and treatment plan 5 acute exacerbation of diastolic congestive heart failure 6 acute on chronic hypoxic respiratory failure secondary to above, may require home oxygen. 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 Today, I reviewed her medication list the lab work results. Continue current regimen. Plan to resume diuresis before discharge tomorrow. Use [place] [employer] for pain control and discontinue IV pain medication today. Patient's overall prognosis is very guarded given multiple comorbidities as above.
[2017-03-11] MEDS: HYDROcodone/APAP 10-325MG 1 EACH TAB PO PRN ×3 (11:23→23:05)
[2017-03-11] MEDS ORDERED: METHYL SALICYLATE/MENTHOL CREAM 5 OZ TOPICAL PRN (11:46)
--- NOTE | 2017-03-11 11:54 | P.PN ---
Subjective Progress Note Date: 03/11/17 62-year-old female patient was recently diagnosed having breast cancer with right axillary lymph node involvement. She is in the process of being evaluated for a surgical resection followed by systemic chemotherapy. She came into the hospital yesterday because of worsening shortness of breath. In fact she had multitude of other complaints including generalized weakness and some vague abdominal pain and nausea. She also states that she was in significant fluid overload and she had gained around 15 pounds and she was treated with Lasix. She episodically gets edema in lower extremities bilaterally. As part of investigation for her breast cancer the patient had a CAT scan of the chest abdomen and pelvis that was done in January 2017 and the CAT scan of the chest did not show any acute abnormalities and there was no evidence of any metastatic disease of pleural effusion in the lungs bilaterally. The most recent chest x-ray that was done during this current hospitalization showed no evidence of any pneumonias. The patient has chronic lower extremity edema which on-off gets worse. Echocardiogram that was done in January 2017 showed severe pulmonary hypertension with a PA pressure above 70 mmHg and the patient' s ejection fraction was preserved at 55% without any significant valvular abnormalities. She is a chronic smoker. Probably she has an underlying COPD. She smokes on 2 pack of cigarettes a day and she's been doing that for the past 40 years. Addition, this patient has typical features of sleep breathing disorder/obstructive sleep apnea. She is currently feeling better. She was given broad-spectrum antibiotics and she is also on Lasix. The patient is seen again today 03/09/2017 in follow-up on the selective care unit. She is awake and alert in no acute distress. She is resting quite comfortably in bed. She is breathing easier today as compared to yesterday. She is maintaining O2 saturations in the low 90s on room air. She's been afebrile. Hemodynamically stable. Blood cultures reveal no growth. White count 18.8. She remains on ceftriaxone and Levaquin. Computed tomography scan of the abdomen and pelvis revealed acute sigmoid diverticulitis with adjacent abscess, obstructing right ureteral calculus at the level of the right mid sacrum measuring 5.4 mm with mild right-sided hydronephrosis. There is also noted stable right ovarian cyst. The patient is seen again today 03/10/2017 in follow-up on the selective care unit. She is currently resting comfortably in bed. She is awake and alert in no acute distress. She denies any worsening shortness of breath, cough or congestion. She continues to require oxygen supplementation to maintain O2 saturations greater than 90%. She's been afebrile. White count 16.5. Blood cultures reveal no growth. She remains on Levaquin and metronidazole. On 03/11/2017 the patient is being seen in follow-up. Her main complaint is some vague ongoing abdominal discomfort especially in the left lower quadrant. This could be related to her complicated diverticulitis/abscess formation. With a lengthy discussion with the general surgeon and the radiologist. The collection itself is very small and percutaneous drainage may not be of value and we decided to proceed with oral antibiotics. I think she has also a peak seeking behavior as the patient is requesting Demerol which is something that we 'll did not the provided to her. She'll be placed on [place] for pain control. In terms of her breathing, she has no major respiratory distress. Outpatient follow-up will be needed regarding COPD management and risk stratification for this patient for general anesthesia knowing that she will need ultimately a breast surgery which would be either mastectomy or lumpectomy with lymph node dissection. We are in the process of making arrangements patient going home with the next 24 hours on oral antibiotics. She remains on accommodation of Levaquin and Flagyl. No signs of septicemia at this point. Objective - Vital Signs Vital signs: Vital Signs Temp 97.2 F L 03/11/17 08:45 Pulse 84 03/11/17 08:45 Resp 18 03/11/17 08:45 BP 114/66 03/11/17 08:45 Pulse Ox 87 L 03/11/17 08:45 Intake & Output 03/10/17 03/11/17 03/11/17 18:59 06:59 18:59 Intake Total 478 100 Balance 478 100 Weight 95.8 kg 93.7 kg Intake: Oral 478 100 Other: Voiding Method Toilet Toilet Toilet # Voids 2 2 1 - Exam Obese, comfortable likely distress.Head exam was generally normal. There was no scleral icterus or corneal arcus. Mucous membranes were moist. Neck is short and supple and the patient is a Mallampati class IV. There is no goiter or neck masses. Lungs sounds are diminished bilaterally especially in the lung bases. No crackles or wheezes or rhonchi. Heart sounds shows accentuation of the second heart sound, without any significant murmurs. Abdomen is soft and there is no direct tenderness or rebound tenderness or guarding. Organs cannot be accurately palpated. Extremities shows trace edema and there is no cyanosis or clubbing.Examination of the skin revealed no evidence of significant rashes, suspicious appearing nevi or other concerning lesions. Neurologically she is awake and alert and there is no focal neurological deficit. Skeletal examination shows no active arthritis or joint swelling or deformity. - Labs CBC & Chem 7: 03/11/17 06:18 03/11/17 06:18 Labs: Abnormal Lab Results - Last 24 Hours (Table) 03/10/17 03/10/17 03/10/17 Range/Units 11:38 12:07 12:28 WBC (3.8-10.6) k/uL MCH (25.0-35.0) pg MCHC (31.0-37.0) g/dL RDW (11.5-15.5) % Neutrophils # (1.3-7.7) k/uL Lymphocytes # (1.0-4.8) k/uL Sodium (137-145) mmol/L Potassium (3.5-5.1) mmol/L Chloride (98-107) mmol/L BUN (7-17) mg/dL Creatinine (0.52-1.04) mg/dL POC Glucose (mg/dL) 62 L 62 L 71 L (75-99) mg/dL 03/10/17 03/11/17 03/11/17 Range/Units 16:47 06:18 06:18 WBC 15.5 H (3.8-10.6) k/uL MCH 24.4 L (25.0-35.0) pg MCHC 29.7 L (31.0-37.0) g/dL RDW 17.8 H (11.5-15.5) % Neutrophils # 13.1 H (1.3-7.7) k/uL Lymphocytes # 0.8 L (1.0-4.8) k/uL Sodium 135 L (137-145) mmol/L Potassium 3.4 L (3.5-5.1) mmol/L Chloride 97 L (98-107) mmol/L BUN 35 H (7-17) mg/dL Creatinine 1.31 H (0.52-1.04) mg/dL POC Glucose (mg/dL) 117 H (75-99) mg/dL Microbiology - Last 24 Hours (Table) 03/10/17 14:00 Gram Stain - Final Sputum Sputum Culture - Final 03/08/17 05:19 Blood Culture - Preliminary Blood No Growth after 72 hours Assessment and Plan Plan: Assessment 1 shortness of breath, multifactorial. The patient has COPD and she carries more than [id number] smoking history. In addition she is morbidly obese and has evidence of severe right-sided heart failure/pulmonary hypertension with chronic lower extremities edema. Her heart failure and pulmonary hypertension is probably secondary to her obesity, possible underlying sleep breathing disorder and obstructive sleep apnea that has not been diagnosed officially, and COPD and chronic hypoxic respiratory failure. Doubt pulmonary embolism. Doubt any cardiac cause for right-sided failure including valvular heart disease or ischemic heart disease. She is already feeling better with diuresis. Pneumonia is doubtful 2 severe pulmonary hypertension with an RVSP of 77 mmHg. 3 acute exacerbation of COPD 4 [id number] smoking history 5 acute exacerbation of diastolic congestive heart failure 6 acute on chronic hypoxic respiratory failure secondary to above, may require home oxygen. 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 Plan Our plan is essentially the same. No percutaneous drainage or surgical intervention regarding the abdominal findings. The patient will need few weeks of antibiotics with accommodation of Levaquin and Flagyl and that can be done outpatient basis. [place] for pain control. Outpatient pulmonary evaluation regarding COPD and obstructive sleep apnea and her risk for undergoing breast surgery under general anesthesia. I think she would carry an increased risk for pulmonary, occasions no matter what. There is also a cardiac complication of that she has significant degree of secondary pulmonary hypertension.
[2017-03-11 11:58] LABS: Glucose,Whole Blood 93 mg/dL (75-99)
[2017-03-11 16:56] LABS: Glucose,Whole Blood 96 mg/dL (75-99)
[2017-03-11 20:52] LABS: Glucose,Whole Blood 93 mg/dL (75-99)
[2017-03-11] MEDS: INSULIN GLARGINE 100 UNIT/ML 10 ML VIAL SQ SCH (21:08)
[2017-03-12] MEDS: metroNIDAZOLE 500 MG TAB PO SCH ×3 (02:26→16:37)
[2017-03-12] MEDS: HYDROcodone/APAP 10-325MG 1 EACH TAB PO PRN ×2 (05:04→11:09)
[2017-03-12] MEDS: ONDANSETRON 4 MG/2 ML VIAL IVP PRN ×2 (05:07→11:09)
[2017-03-12 06:24] LABS: Glucose,Whole Blood 97 mg/dL (75-99)
[2017-03-12] MEDS: SODIUM CHLORIDE 0.9% 1,000 ML IV SCH (06:25)
[2017-03-12] MEDS: INSULIN LISPRO (humaLOG) 300 UNIT/3 ML VIAL SQ SCH ×4 (06:33→16:36)
[2017-03-12 07:11] LABS: Anisocytosis Slight; Basophils # (A) 0.1 k/uL (0-0.2); Basophils % (A) 0 %; CHCM 30.1; Eosinophils # (A) 0.1 k/uL (0-0.7); Eosinophils % (A) 1 %; HCT 40.3 % (34.0-46.0); HDW 3.07; HGB 11.7 gm/dL (11.4-16.0); Hypochromasia Marked; Luc # (Auto) 0.41; Luc % (Auto) 3; Lymphocytes # (A) 1.1 k/uL (1.0-4.8); Lymphocytes % (A) 7 %; MCH 23.1 pg (25.0-35.0); MCV 79.7 fL (80.0-100.0); Mean Platelet Volume 8.2; Microcytosis Slight; Monocytes # (A) 1.1 k/uL (0-1.0); Monocytes % (A) 7 %; Neutrophils % (A) 83 %; RBC 5.06 m/uL (3.80-5.40); RDW 18.8 % (11.5-15.5); WBC 15.7 k/uL (3.8-10.6); WBC (Perox) 15.12
[2017-03-12 07:33] LABS: Calcium 9.8 mg/dL (8.4-10.2); Potassium 4.3 mmol/L (3.5-5.1)
[2017-03-12 08:14] VITALS: PULSE 87
[2017-03-12] MEDS: HEPARIN SODIUM,PORCINE 5,000 UNIT/ML 1 ML VIAL SQ SCH (08:19)
[2017-03-12] MEDS: ATORVASTATIN 20 MG TAB PO SCH (08:19)
[2017-03-12] MEDS ORDERED: LEVOFLOXACIN 250MG-D5W PMX 250 MG in DEXTROSE/WATER 1 50ML.BAG IVPB SCH (09:00)
[2017-03-12 11:52] LABS: Glucose,Whole Blood 109 mg/dL (75-99)
--- NOTE | 2017-03-12 12:01 | P.DS ---
Providers Date of admission: 03/08/17 06:58 Expected date of discharge: 03/12/17 Attending physician: Kevin Morton Consults: 03/08/17 06:57 Consult Physician Routine Consulting Provider: Charu Willoughby Consult Reason/Comments: CHF exacerbation. Do you want consulting provider notified?: Yes 03/08/17 07:58 Consult Physician Routine Consulting Provider: Wilver Jernigan Consult Reason/Comments: CHF. Pulmonary hypertension Do you want consulting provider notified?: Yes 03/09/17 09:14 Consult Physician Routine Consulting Provider: Kimani Bradford Consult Reason/Comments: abscess Do you want consulting provider notified?: Yes 03/09/17 15:29 Consult Physician Routine Consulting Provider: Kourtney Bello Consult Reason/Comments: Diverticular abscess Do you want consulting provider notified?: Already Contacted Primary care physician: Lilly Ruvalcaba [facility] Course: 1 acute sigmoid diverticulitis with adjacent abscess: Patient seen and evaluated by general surgery. No intervention recommended. Antibiotic with Levaquin and Flagyl for 14 more days. Follow-up with Gen. surgery office 2 severe pulmonary hypertension 3 acute exacerbation of COPD 4 recently diagnosed breast cancer currently under investigation and treatment plan 5 acute exacerbation of diastolic congestive heart failure 6 acute on chronic hypoxic respiratory failure secondary to above, may require home oxygen. 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 Patient Condition at Discharge: Poor Plan - Discharge Summary New Discharge Prescriptions: New Gabapentin [Neurontin] 300 mg PO TID PRN cap PRN Reason: Pain Levofloxacin [Levaquin] 250 mg PO DAILY #14 tab metroNIDAZOLE [Flagyl] 500 mg PO Q8H #42 tab Continue Insulin Glulisine [Apidra] 30 unit SQ AC-TID PRN PRN Reason: Blood Sugar - High Atorvastatin Calcium [Lipitor] 20 mg PO HS HYDROcodone/APAP 5-325MG [[place] 5-325] 1 tab PO Q6H PRN PRN Reason: Pain Cnizwtr-Bmrh-Clvd [id number] [Excedrin] 1 - 2 tab PO HS PRN PRN Reason: Migraine Headache Insulin Glargine,Hum.rec.anlog [Porfirio Mcmillanikpen U-100] 120 unit SQ HS Discontinued Zolpidem [Ambien] 10 mg PO HS Discharge Medication List Atorvastatin Calcium [Lipitor] 20 mg PO HS 06/13/16 [History] Insulin Glulisine [Apidra] 30 unit SQ AC-TID PRN 06/13/16 [History] Ztgmeto-Wkhb-Cxzz [id number] [Excedrin] 1 - 2 tab PO HS PRN 01/19/17 [History] HYDROcodone/APAP 5-325MG [[place] 5-325] 1 tab PO Q6H PRN 01/19/17 [History] Insulin Glargine,Hum.rec.anlog [Basaglar Kwikpen U-100] 120 unit SQ HS 03/08/17 [History] Gabapentin [Neurontin] 300 mg PO TID PRN cap 03/12/17 [Rx] Levofloxacin [Levaquin] 250 mg PO DAILY #14 tab 03/12/17 [Rx] metroNIDAZOLE [Flagyl] 500 mg PO Q8H #42 tab 03/12/17 [Rx] Follow up Appointment(s)/Referral(s): Lilly Ruvalcaba MD [Primary Care Provider] - 1-2 days Kourtney Bello MD [STAFF PHYSICIAN] - 1 Week Patient Instructions/Handouts: Heart Failure (DC) Activity/Diet/Wound Care/Special Instructions: pt prefers afternoon appointments needs taxi home Discharge Disposition: HOME SELF-CARE
--- NOTE | 2017-03-12 12:36 | P.PN ---
Subjective Progress Note Date: 03/12/17 62-year-old female patient was recently diagnosed having breast cancer with right axillary lymph node involvement. She is in the process of being evaluated for a surgical resection followed by systemic chemotherapy. She came into the hospital yesterday because of worsening shortness of breath. In fact she had multitude of other complaints including generalized weakness and some vague abdominal pain and nausea. She also states that she was in significant fluid overload and she had gained around 15 pounds and she was treated with Lasix. She episodically gets edema in lower extremities bilaterally. As part of investigation for her breast cancer the patient had a CAT scan of the chest abdomen and pelvis that was done in January 2017 and the CAT scan of the chest did not show any acute abnormalities and there was no evidence of any metastatic disease of pleural effusion in the lungs bilaterally. The most recent chest x-ray that was done during this current hospitalization showed no evidence of any pneumonias. The patient has chronic lower extremity edema which on-off gets worse. Echocardiogram that was done in January 2017 showed severe pulmonary hypertension with a PA pressure above 70 mmHg and the patient' s ejection fraction was preserved at 55% without any significant valvular abnormalities. She is a chronic smoker. Probably she has an underlying COPD. She smokes on 2 pack of cigarettes a day and she's been doing that for the past 40 years. Addition, this patient has typical features of sleep breathing disorder/obstructive sleep apnea. She is currently feeling better. She was given broad-spectrum antibiotics and she is also on Lasix. The patient is seen again today 03/09/2017 in follow-up on the selective care unit. She is awake and alert in no acute distress. She is resting quite comfortably in bed. She is breathing easier today as compared to yesterday. She is maintaining O2 saturations in the low 90s on room air. She's been afebrile. Hemodynamically stable. Blood cultures reveal no growth. White count 18.8. She remains on ceftriaxone and Levaquin. Computed tomography scan of the abdomen and pelvis revealed acute sigmoid diverticulitis with adjacent abscess, obstructing right ureteral calculus at the level of the right mid sacrum measuring 5.4 mm with mild right-sided hydronephrosis. There is also noted stable right ovarian cyst. The patient is seen again today 03/10/2017 in follow-up on the selective care unit. She is currently resting comfortably in bed. She is awake and alert in no acute distress. She denies any worsening shortness of breath, cough or congestion. She continues to require oxygen supplementation to maintain O2 saturations greater than 90%. She's been afebrile. White count 16.5. Blood cultures reveal no growth. She remains on Levaquin and metronidazole. On 03/11/2017 the patient is being seen in follow-up. Her main complaint is some vague ongoing abdominal discomfort especially in the left lower quadrant. This could be related to her complicated diverticulitis/abscess formation. With a lengthy discussion with the general surgeon and the radiologist. The collection itself is very small and percutaneous drainage may not be of value and we decided to proceed with oral antibiotics. I think she has also a peak seeking behavior as the patient is requesting Demerol which is something that we 'll did not the provided to her. She'll be placed on [place] for pain control. In terms of her breathing, she has no major respiratory distress. Outpatient follow-up will be needed regarding COPD management and risk stratification for this patient for general anesthesia knowing that she will need ultimately a breast surgery which would be either mastectomy or lumpectomy with lymph node dissection. We are in the process of making arrangements patient going home with the next 24 hours on oral antibiotics. She remains on accommodation of Levaquin and Flagyl. No signs of septicemia at this point. On 03/12/2017 I'm seeing this patient for a follow-up.The patient has no respiratory distress. She is been essentially stable. She is conversing. No change in mental status. No abdominal pain. No nausea or vomiting. No side effects and antibiotics. Discharge planning is in progress. The patient is on oral [place] for pain control. No fever. No chills. No sweats. No chest pain. No nausea. No vomiting. No other complaints. Her white cell count is still at 15.7. The patient also has a mild chronic renal insufficiency with a creatinine of 1.3. The rest of the electrodes are all within normal limits. The blood cultures been negative. The sputum culture has also been negative. Objective - Vital Signs Vital signs: Vital Signs Temp 97 F L 03/12/17 08:00 Pulse 87 03/12/17 08:00 Resp 18 03/12/17 08:00 BP 119/62 03/12/17 08:00 Pulse Ox 91 L 03/12/17 08:00 Intake & Output 03/11/17 03/12/17 03/12/17 18:59 06:59 18:59 Intake Total 100 760 Balance 100 760 Weight 96.7 kg Intake: Intake, IV Titration 160 Amount Sodium Chloride 0.9% 1, 160 000 ml @ 20 mls/hr IV . Q24H [facility] Rx#:[id number] Oral 100 600 Other: Voiding Method Toilet Toilet Toilet # Voids 1 1 - Exam Obese, comfortable likely distress.Head exam was generally normal. There was no scleral icterus or corneal arcus. Mucous membranes were moist. Neck is short and supple and the patient is a Mallampati class IV. There is no goiter or neck masses. Lungs sounds are diminished bilaterally especially in the lung bases. No crackles or wheezes or rhonchi. Heart sounds shows accentuation of the second heart sound, without any significant murmurs. Abdomen is soft and there is no direct tenderness or rebound tenderness or guarding. Organs cannot be accurately palpated. Extremities shows trace edema and there is no cyanosis or clubbing.Examination of the skin revealed no evidence of significant rashes, suspicious appearing nevi or other concerning lesions. Neurologically she is awake and alert and there is no focal neurological deficit. Skeletal examination shows no active arthritis or joint swelling or deformity. - Labs CBC & Chem 7: 03/12/17 06:33 03/12/17 06:33 Labs: Abnormal Lab Results - Last 24 Hours (Table) 03/12/17 03/12/17 03/12/17 Range/Units 06:33 06:33 11:48 WBC 15.7 H (3.8-10.6) k/uL MCV 79.7 L (80.0-100.0) fL MCH 23.1 L (25.0-35.0) pg MCHC 29.0 L (31.0-37.0) g/dL RDW 18.8 H (11.5-15.5) % Neutrophils # 13.0 H (1.3-7.7) k/uL Monocytes # 1.1 H (0-1.0) k/uL Sodium 135 L (137-145) mmol/L Chloride 96 L (98-107) mmol/L BUN 36 H (7-17) mg/dL Creatinine 1.34 H (0.52-1.04) mg/dL POC Glucose (mg/dL) 109 H (75-99) mg/dL Microbiology - Last 24 Hours (Table) 03/08/17 05:19 Blood Culture - Preliminary Blood No Growth after 96 hours Assessment and Plan Plan: Assessment 1 shortness of breath, multifactorial. The patient has COPD and she carries more than [id number] smoking history. In addition she is morbidly obese and has evidence of severe right-sided heart failure/pulmonary hypertension with chronic lower extremities edema. Her heart failure and pulmonary hypertension is probably secondary to her obesity, possible underlying sleep breathing disorder and obstructive sleep apnea that has not been diagnosed officially, and COPD and chronic hypoxic respiratory failure. Doubt pulmonary embolism. Doubt any cardiac cause for right-sided failure including valvular heart disease or ischemic heart disease. She is already feeling better with diuresis. Pneumonia is doubtful 2 severe pulmonary hypertension with an RVSP of 77 mmHg. 3 acute exacerbation of COPD 4 48-chyn-cvbq smoking history 5 acute exacerbation of diastolic congestive heart failure 6 acute on chronic hypoxic respiratory failure secondary to above, may require home oxygen. 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 Plan Our plan is essentially the same. No percutaneous drainage or surgical intervention regarding the abdominal findings. The patient will need few weeks of antibiotics with accommodation of Levaquin and Flagyl and that can be done outpatient basis. [place] for pain control. The patient is ambulating. The patient has no active gastrointestinal issues for now. Complete antibiotic course on outpatient basis. I'll be glad to follow-up this patient to assess her pulmonary status, obtain a based upon function test and assess her risk for any postop the pulmonary complications in the future. She will need to follow- up with oncology Dr. Wheat and with radiation oncology Dr. Hatch. She will also need a sleep evaluation at a later stage lung that she has an increased risk of having an underlying sleep apnea. This is based on clinical features. Smoking cessation counseling was again done
[2017-03-12 13:07] VITALS: BP 105/63; TEMP 97.8
[2017-03-12 14:42] VITALS: BMI 36.6
[2017-03-12 16:45] LABS: Glucose,Whole Blood 168 mg/dL (75-99)
== END 2017-03-12 17:30 | disposition home or self-care (01) | DRG 291 ==
LOC: EC 04:34 → 6SEL 06:58
PROVIDERS: ADMIT Internal Medicine; ATTEND Internal Medicine
DX: I13.0 Hypertensive heart and chronic kidney disease with heart failure and stage 1 through stage 4 chronic kidney disease, or unspecified chronic kidney disease (principal); J18.9 Pneumonia, unspecified organism; J96.21 Acute and chronic respiratory failure with hypoxia; K57.20 Diverticulitis of large intestine with perforation and abscess without bleeding; E11.22 Type 2 diabetes mellitus with diabetic chronic kidney disease; I27.81 Cor pulmonale (chronic); I50.33 Acute on chronic diastolic (congestive) heart failure; J44.1 Chronic obstructive pulmonary disease with (acute) exacerbation; N13.2 Hydronephrosis with renal and ureteral calculous obstruction; F17.210 Nicotine dependence, cigarettes, uncomplicated; E78.5 Hyperlipidemia, unspecified; G47.33 Obstructive sleep apnea (adult) (pediatric); E66.01 Morbid (severe) obesity due to excess calories; C50.911 Malignant neoplasm of unspecified site of right female breast; N83.201 Unspecified ovarian cyst, right side; N18.9 Chronic kidney disease, unspecified; E11.42 Type 2 diabetes mellitus with diabetic polyneuropathy; N13.5 Crossing vessel and stricture of ureter without hydronephrosis; Z68.36 Body mass index [BMI] 36.0-36.9, adult; Z79.4 Long term (current) use of insulin; Z88.0 Allergy status to penicillin; Z88.2 Allergy status to sulfonamides; Z88.8 Allergy status to other drugs, medicaments and biological substances; Z79.899 Other long term (current) drug therapy; Z79.891 Long term (current) use of opiate analgesic; Z82.5 Family history of asthma and other chronic lower respiratory diseases; Z71.6 Tobacco abuse counseling; Z90.710 Acquired absence of both cervix and uterus; Z90.49 Acquired absence of other specified parts of digestive tract; Z87.19 Personal history of other diseases of the digestive system; Z87.442 Personal history of urinary calculi; Z79.82 Long term (current) use of aspirin
CPT/HCPCS: 36415; 71010; 74176; 80048; 80053; 81001; 82550; 82553; 83036; 83605; 83735; 83880; 84132; 84484; 85025; 85379; 85610; 85730; 87040; 87070; 87205; 93005; 94640; 94760; 96365; 96375; 99285

== ENCOUNTER → 2017-03-22 | Outpatient (CLI) | payer OTHER ==
[2017-03-22 08:10] LABS: Calcium 9.4 mg/dL (8.4-10.2); Total Bilirubin 0.5 mg/dL (0.2-1.3); Total Protein 6.9 g/dL (6.3-8.2)
[2017-03-22 08:11] LABS: Potassium 5.2 mmol/L (3.5-5.1)
--- NOTE | 2017-03-22 12:20 | CT ---
EXAMINATION TYPE: CT abdomen pelvis wo con DATE OF EXAM: 03/22/2017 HISTORY: Patient complains of LLQ pain. Follow up abscess drainage and tube placement. CT DLP: 855.4 mGycm. Automated Exposure Control for Dose Reduction was Utilized. TECHNIQUE: CT scan of the abdomen and pelvis is performed with oral but without IV contrast. COMPARISON: CT abdomen and pelvis March 13, 2017 FINDINGS: Within the limitations of a non-contrast study, the following observations are made. LUNG BASES: Cardiomegaly is redemonstrated. Prior biopsy inferior left breast mass is outside field-o f-view on current study. LIVER/GB: Cholecystectomy clips are redemonstrated. Liver is somewhat small in size and lobulated in contour, underlying cirrhosis is not excluded. Correlate clinically. PANCREAS: No significant abnormality is seen. SPLEEN: Spleen is mildly enlarged at 12.9 cm on current study coronal image 50 not significant change from prior. ADRENALS: No significant abnormality is seen. KIDNEYS: There is asymmetric cortical thinning and atrophy of left kidney. There is new right double- J ureter stent. There is interval successful fragmentation of right dominant renal calculus with some small residual calcific fragments or stones present. Calculi lower pole level left kidney are redemo nstrated. There is persistent mild/moderate left-sided pyelocaliectasis without hydroureter. BOWEL: The oral contrast does not reach colonic level making evaluation slightly suboptimal. There is no suspicious small or large bowel dilatation. Ligament of Treitz is noted low in position. There ar e scattered colonic diverticula. There is new left pelvic pigtail drainage catheter terminating near axial image 65. Deeper and medial to this there is persistent 3.7 cm focal fluid collection or absces s with some foci of nondependent air identified. Some mild ill-defined surrounded fluid and fat stran ding is present in the left pelvis. GENITAL ORGANS: Uterus is surgically absent. There is persistent 9.2 x 8.8 cm right pelvic mass or ov staci cyst/cystic neoplasm, this is unchanged from January 22, 2017. LYMPH NODES: No greater than 1cm abdominal or pelvic lymph nodes are appreciated. OSSEOUS STRUCTURES: Osseous structures are demineralized. Spine is straightened on sagittal images. T here is disc space narrowing with vacuum disc phenomenon and spurring L4-L5 level. OTHER: There is mild to moderate calcified atherosclerotic change of the infrarenal abdominal aorta. IMPRESSION: 1. Interval placement of left pelvic pigtail drainage catheter. Catheter appears anteriorly displaced from residual fluid collection or abscess. Abscess is slightly diminished in size from prior study. Mild surrounding inflammatory change remains present. 2. Interval placement of right ureter stent and suspected successful lithotripsy. 3. Stable 9.2 cm right ovarian cyst or cystic neoplasm, abnormal finding in postmenopausal female. Ad vise follow-up gynecology oncology consultation if has not been performed. New pigtail catheter was inserted into left pelvic abscess shortly after exam was completed.
== END | disposition home or self-care (01) ==
LOC: RADCTMAIN 07:28
PROVIDERS: ATTEND Surgery
DX: N73.9 Female pelvic inflammatory disease, unspecified (principal); R93.41 Abnormal radiologic findings on diagnostic imaging of renal pelvis, ureter, or bladder; Z96.89 Presence of other specified functional implants; Z96.0 Presence of urogenital implants
CPT/HCPCS: 36415; 74176; 80053

== ENCOUNTER 2017-03-26 13:01 | Day surgery (SDC) | payer OTHER ==
[2017-03-26 13:14] VITALS: RESP 16; TEMP 98.2
[2017-03-26] MEDS ORDERED: ERTAPENEM 1 GM in SODIUM CHLORIDE 0.9% 50 ML IVPB STA (13:20)
[2017-03-26] MEDS ORDERED: LIDOCAINE 2% INJ 20 MG/ML SQ ONE (13:43)
[2017-03-26 14:38] VITALS: BP 112/65; PULSE 99
--- NOTE | 2017-04-12 09:11 | IR ---
PICC LINE PLACEMENT: HISTORY: Infection requiring long-term antibiotic therapy PROCEDURE: Ultrasound and fluoroscopic guidance of PICC line placement. COMPLICATIONS: None ANESTHESIA: 1. 1% Lidocaine locally. FINDINGS/TECHNIQUE: The procedure was explained to the patient. The risks, complications, benefits and alternatives were discussed and any questions were answered. Informed consent was obtained. The patient was placed supine on the fluoroscopic table and prepped and draped in the usual sterile [facility] ion. Utilizing a 21 gauge needle and sonographic and fluoroscopic guidance, access in the vein was achieved and there is placement of a 0.018 guidewire. The vein is patent. A 4-F sheath was placed o rafael the guidewire. The guidewire and dilator were removed and a 4-F. PICC line was placed through th e sheath with the tip at the level of the SVC. The sheath was removed, the catheter was flushed and sutured into position. The patient was stable throughout the procedure and remained stable upon disc harge from the Department of Radiology. The vein puncture was patent under ultrasound. A espinoza scale image was obtained to document patency of the vein punctured. All elements of the maximal barrier technique were utilized. FLUOROSCOPY TIME: 0.2 minutes, one image submitted IMPRESSION: Successful PICC line placement under ultrasound and fluoroscopic guidance.
== END 2017-03-26 14:58 | disposition home or self-care (01) ==
LOC: CATHCVL 13:01
PROVIDERS: ATTEND Radiology Diagnostic Radiology
DX: K65.1 Peritoneal abscess (principal)
CPT/HCPCS: 36569; 76937; 77001; C1751; C1769; J2001; J1335

== ENCOUNTER 2017-04-01 13:04 | Day surgery (SDC) | payer OTHER ==
[2017-04-01 14:30] VITALS: BP 124/69; PULSE 101; RESP 20; TEMP 98.3
== END 2017-04-01 14:00 | disposition home health service (06) ==
LOC: RADPROMAIN 13:04
PROVIDERS: ATTEND Surgery
DX: Z53.9 Procedure and treatment not carried out, unspecified reason (principal)

== ENCOUNTER 2017-04-08 12:54 | Day surgery (SDC) | payer OTHER ==
[2017-04-08 13:46] VITALS: BP 144/83; PULSE 84; RESP 18; TEMP 98.3
== END 2017-04-08 14:45 | disposition home health service (06) ==
LOC: RADPROMAIN 12:54
PROVIDERS: ATTEND Surgery
DX: Z46.82 Encounter for fitting and adjustment of non-vascular catheter (principal)
CPT/HCPCS: 36415; 80048; 85027; 99213

== ENCOUNTER → 2017-04-08 | Outpatient (CLI) | payer OTHER ==
[2017-04-08 16:31] LABS: Anisocytosis Slight; CH 23.5; CHCM 28.8; HCT 43.6 % (34.0-46.0); HDW 3.11; HGB 12.4 gm/dL (11.4-16.0); Hypochromasia Marked; MCH 23.3 pg (25.0-35.0); MCHC 28.4 g/dL (31.0-37.0); MCV 82.1 fL (80.0-100.0); Microcytosis Slight; RDW 17.7 % (11.5-15.5); WBC 7.5 k/uL (3.8-10.6)
[2017-04-08 18:47] LABS: Anion Gap 10 mmol/L; Blood Urea Nitrogen 14 mg/dL (7-17); Calcium 9.6 mg/dL (8.4-10.2); Carbon Dioxide 32 mmol/L (22-30); Chloride 102 mmol/L (98-107); Glucose 92 mg/dL (74-99); Non-African American GFR(MDRD) >60 (>60 ml/min/1.73 sqM); Sodium 144 mmol/L (137-145)
== END ==
LOC: LABPAT 15:31
PROVIDERS: ATTEND Urology
DX: Z01.812 Encounter for preprocedural laboratory examination (principal); E11.9 Type 2 diabetes mellitus without complications; N20.0 Calculus of kidney; R35.0 Frequency of micturition
CPT/HCPCS: 36415; 80048; 85027

== ENCOUNTER 2017-04-15 06:00 | Day surgery (SDC) | payer OTHER ==
[2017-04-12 14:18] VITALS: BMI 34.9
[~2017-04-15 06:00] MED LIST: DEXAMETHASONE SOD PHOSPHATE 10 MG/ML 1 ML VIAL IV ONE; HYDROmorphone 0.5 MG/0.5 ML SYRINGE IVP PRN; LACTATED RINGERS 1,000 ML IV SCH; LEVOFLOXACIN 500MG-D5W PMX 500 MG in DEXTROSE/WATER 1 100ML.BAG IVPB ONE; MIDAZOLAM 2 MG/2 ML VIAL IV PRN; ONDANSETRON 4 MG/2 ML VIAL IVP ONE
[2017-04-15 06:59] LABS: Glucose,Whole Blood 162 mg/dL (75-99)
[2017-04-15] MEDS ORDERED: LACTATED RINGERS 1,000 ML IV ONE (07:00)
[2017-04-15] MEDS ORDERED: LIDOCAINE 1% 20 ML VIAL (10MG/ML) FOR IV START INTRADERMA ONE (07:07)
[2017-04-15] MEDS ORDERED: fentaNYL (PF) 50 MCG/ML 2 ML AMP ONE (07:35)
[2017-04-15] MEDS ORDERED: LIDOCAINE 1% INJ 10MG/ML (20 ML MDV) ONE (07:35)
[2017-04-15] MEDS ORDERED: PROPOFOL 10 MG/ML 20 ML VIAL IV ONE (07:35)
[2017-04-15] MEDS ORDERED: SUCCINYLCHOLINE CHLORIDE 100 MG/5 ML SYR IV ONE (07:35)
[2017-04-15] MEDS ORDERED: MIDAZOLAM 2 MG/2 ML VIAL ONE (07:35)
[2017-04-15] MEDS ORDERED: HYDROmorphone (PF) 1 MG/ML ONE (07:35)
--- NOTE | 2017-04-15 07:51 | XR ---
EXAMINATION TYPE: XR KUB DATE OF EXAM: 04/15/2017 6:35 AM CLINICAL HISTORY: Right-sided nephrolithiasis. TECHNIQUE: Single supine KUB image of the abdomen is obtained. COMPARISON: CT dated 03/22/2017. FINDINGS: Right ureteral stent is in place. Curvilinear calcifications are seen adjacent to the right ureteral stent, which may relate to portions of renal calculi. Left lower pole calculus measuring ap proximately 6 mm is again present. Cholecystectomy has been performed. Left-sided detail drainage cat heter is seen in the left low hemipelvis. Multilevel degenerative changes of the thoracolumbar spine and femoral acetabular joints are noted. Scattered gas is seen in non-distended small bowel loops. Ga s and fecal material is seen in non-distended colon. The lung bases are clear and the osseous structu res are intact. IMPRESSION: 1. Right ureteral stent in place with adjacent curvilinear calcifications, possibly representing stevan ining ureteral calculi. 2. Left hemipelvic pigtail drainage catheter. 3. 6 mm left renal calculus.
[2017-04-15 09:22] VITALS: TEMP 98.6
--- NOTE | 2017-04-15 09:27 | P.OP ---
Date of Procedure: 04/15/17 Preoperative Diagnosis: Right Renal Calculus Postoperative Diagnosis: Same Procedure(s) Performed: Cystoscopy, right ureteral stent removal, right ureteroscopy with Holmium laser lithotripsy Anesthesia: SANDERA Surgeon: Addi Martins Estimated Blood Loss (ml): 0 IV fluids (ml): 500 Pathology: none sent Condition: stable Disposition: PACU Indications for Procedure: The patient is a 62-year-old woman with a diverticular abscess. She was recently found to have a right distal ureteral calculus, along with a right renal calculus. She passed the ureteral calculus, and the renal calculus was partially fragmented via ureteroscopy with laser lithotripsy. She will undergo repeat ureteroscopy with removal of the right renal calculus. Operative Findings: Right renal pelvic calculus, fragmented to completion. Description of Procedure: The patient was taken to the operating room and placed in the dorsolithotomy position, with legs supported in Vishnu stirrups. The external genitalia was prepped and draped sterilely. The 30 lens was used to introduce the 22-[place] Stortz cystoscopic sheath through the urethra and into the bladder under direct vision. The bladder was examined in its entirety. No tumors or foreign bodies were seen. Grasping forceps were used to remove the right ureteral stent along with the cystoscope. A 0.035 inch Glidewire was passed through the stent, and up to the right renal pelvis. The Olympus flexible ureteroscope was passed over the wire, up to the right renal pelvis. The renal pelvis was examined, and the calculus was identified. The 200 micron Holmium laser probe was passed through the ureteroscope, and lithotripsy was performed. Initially, a dusting technique was used. After the calculus fragmented, fragmentation was continued at a higher energy level until all calculus fragments were the size of the laser tip. The ureteroscope was slowly withdrawn under direct vision. No calculi were seen within the ureter, and there was no evidence of ureteral trauma. The patient tolerated the procedure well and was taken to the recovery room in stable condition.
--- NOTE | 2017-04-15 09:27 | FL ---
Fluoroscopy HISTORY: Renal calculus 13 seconds fluoroscopy time supplied to the referring clinician. 1 intraoperative C-arm images docum ent the procedure. See dictated report from urology.
[2017-04-15 09:42] LABS: Glucose,Whole Blood 169 mg/dL (75-99)
[2017-04-15] MEDS ORDERED: LABETALOL 5 MG/ML VIAL MDV IVP ONE ×2 (10:57→11:25)
[2017-04-15 11:00] LABS: Glucose,Whole Blood 194 mg/dL (75-99)
[2017-04-15 12:00] VITALS: BP 156/93; PULSE 88; RESP 16
== END 2017-04-15 12:28 | disposition home or self-care (01) ==
LOC: OR 06:00
PROVIDERS: ATTEND Urology
DX: N20.0 Calculus of kidney (principal); K57.80 Diverticulitis of intestine, part unspecified, with perforation and abscess without bleeding; C77.3 Secondary and unspecified malignant neoplasm of axilla and upper limb lymph nodes; C50.919 Malignant neoplasm of unspecified site of unspecified female breast; I11.0 Hypertensive heart disease with heart failure; I50.9 Heart failure, unspecified; E11.9 Type 2 diabetes mellitus without complications; I83.90 Asymptomatic varicose veins of unspecified lower extremity; E78.00 Pure hypercholesterolemia, unspecified; E66.9 Obesity, unspecified; Z68.43 Body mass index [BMI] 50.0-59.9, adult; D25.9 Leiomyoma of uterus, unspecified; Z87.440 Personal history of urinary (tract) infections; J44.9 Chronic obstructive pulmonary disease, unspecified; M19.90 Unspecified osteoarthritis, unspecified site; Z88.1 Allergy status to other antibiotic agents; Z88.0 Allergy status to penicillin; Z88.2 Allergy status to sulfonamides; Z79.2 Long term (current) use of antibiotics; Z79.891 Long term (current) use of opiate analgesic; Z79.899 Other long term (current) drug therapy; F17.210 Nicotine dependence, cigarettes, uncomplicated
CPT/HCPCS: 74000; 52353; C1769; J2250; J1100; J2405; J1956; J2001; J3010; J1170; J0330; J2704

== ENCOUNTER → 2017-04-23 | Outpatient (CLI) | payer OTHER ==
[2017-04-23 15:19] LABS: Blood Urea Nitrogen 14 mg/dL (7-17); Non-African American GFR(MDRD) 56 (>60 ml/min/1.73 sqM)
[2017-04-23 15:47] VITALS: BP 151/86; PULSE 86; RESP 18; TEMP 98.2
--- NOTE | 2017-04-23 16:50 | CT ---
EXAMINATION TYPE: CT abdomen pelvis w con DATE OF EXAM: 04/23/2017 COMPARISON: Yesterday HISTORY: Follow-up abscess drainage of colon. CT DLP: 1673.00 mGycm Automated exposure control for dose reduction was used. TECHNIQUE: Helical acquisition of images was performed from the lung bases through the pelvis. CONTRAST: Performed with Oral Contrast and with IV Contrast, patient injected with 80 mL of Visipaque 320. FINDINGS: There is mild subsegmental atelectasis at the lung bases. Liver spleen pancreas appear normal. There are clips from cholecystectomy. Bile ducts are not dilated. There is no adrenal mass. There is cortic al thinning on the left kidney. There are large calcifications in the lower pole left kidney. There i s left-sided hydronephrosis. There is no retroperitoneal adenopathy. Abdominal aorta is atheromatous. Appendix appears normal. There is a pigtail drainage catheter on the left lateral side of the mid si gmoid colon. There is a 2.5 cm cavity that contains a small amount of air. There are inflammatory lina nges around the sigmoid colon. There are numerous sigmoid diverticula. Bladder distends smoothly. The re is a thin-walled 9 cm cyst in the pelvis on the right side. This could be arising from the right o vary. Hysterectomy is noted. I see no bony destructive process. CONCLUSION: Drainage catheter appears in good position. The abscess cavity has decreased from 5 cm to 2.5 cm comp ared to CT scan yesterday. I see no complicating process. Changes of diverticulitis. Left renal atrop hy. Multiple left renal calcifications. This could be due to chronic pyelonephritis or chronic obstru ction. Stable large pelvic cyst compared to yesterday. There is clearing of a large calculus in the r ight renal pelvis compared to 03/13/2017. Pelvic cyst is not significantly different than 03/13/2017 exam.
== END | disposition home or self-care (01) ==
LOC: RADCTMAIN 14:46
PROVIDERS: ATTEND Surgery
DX: N26.1 Atrophy of kidney (terminal) (principal); N28.89 Other specified disorders of kidney and ureter; N94.89 Other specified conditions associated with female genital organs and menstrual cycle; C50.311 Malignant neoplasm of lower-inner quadrant of right female breast; Z97.8 Presence of other specified devices
CPT/HCPCS: 82565; 84520; 74177; 36415; Q9967

== ENCOUNTER 2017-05-04 15:44 | Day surgery (SDC) | payer OTHER ==
[2017-05-04 16:01] VITALS: BP 176/90; PULSE 72; RESP 16; TEMP 98
== END 2017-05-04 16:20 | disposition home health service (06) ==
LOC: RADPROMAIN 15:44
PROVIDERS: ATTEND Surgery
DX: Z45.89 Encounter for adjustment and management of other implanted devices (principal)
CPT/HCPCS: 80048; 85025; 85652; 86140; 99213

== ENCOUNTER → 2017-05-11 | Outpatient (CLI) | payer OTHER ==
[2017-05-11 13:44] LABS: Blood Urea Nitrogen 19 mg/dL (7-17)
--- NOTE | 2017-05-11 15:54 | CT ---
EXAMINATION TYPE: CT brain w con DATE OF EXAM: 05/11/2017 COMPARISON: NONE HISTORY: 62-year-old female presurgical evaluation, dizziness CT DLP: 1173.73 mGycm Automated exposure control for dose reduction was used. Technique: CT scan of the head is performed with IV Contrast, patient injected with 100 mL of Omnipaq ue 300. Coronal and sagittal reconstructions performed. FINDINGS: There is no abnormal enhancing mass or midline shift identified. The ventricles and sulci are within normal limits in size. Partially empty sella noted. The globes are intact and the visualized sinuses are clear. IMPRESSION: No abnormal intracranial enhancement identified.
--- NOTE | 2017-05-18 14:24 | ECHOF ---
Referral Reason:[id number] pre surgery MEASUREMENTS -------- HEIGHT: 160.0 cm WEIGHT: 85.3 kg BP: 98/58 RVIDd: 3.0 cm (< 3.3) IVSd: 1.3 cm (0.6 - 1.1) LVIDd: 4.4 cm (3.9 - 5.3) LVPWd: 1.6 cm (0.6 - 1.1) IVSs: 1.9 cm LVIDs: 3.4 cm LVPWs: 1.8 cm LA Diam: 3.3 cm (2.7 - 3.8) Ao Diam: 3.3 cm (2.0 - 3.7) AV Cusp: 1.9 cm (1.5 - 2.6) MV EXCURSION: 15.488 mm (> 18.000) MV EF SLOPE: 80 mm/s (70 - 150) EPSS: 0.6 cm MV E Harsha: 0.67 m/s MV DecT: 239 ms MV A Harsha: 0.93 m/s MV E/A Ratio: 0.72 RAP: 5.00 mmHg RVSP: 51.81 mmHg FINDINGS -------- Sinus rhythm. This was a technically adequate study. The left ventricular size is normal. There is mild concentric left ventricular hypertrophy. Overa ll left ventricular systolic function is normal with, an EF between 55 - 60 %. The right ventricle is normal in size. The left atrial size is normal. The right atrium is normal in size. There is mild aortic valve sclerosis. Mild mitral annular calcification present. Mild tricuspid regurgitation present. There is moderate pulmonary hypertension. The right ventric ular systolic pressure, as measured by Doppler, is 51.81mmHg. Moderate pulmonic regurgitation. The aortic root size is normal. Normal inferior vena cava with normal inspiratory collapse consistent with estimated right atrial pre ssure of 5 mmHg. There is no pericardial effusion. CONCLUSIONS -------- 1. Sinus rhythm. 2. This was a technically adequate study. 3. The left ventricular size is normal. 4. There is mild concentric left ventricular hypertrophy. 5. Overall left ventricular systolic function is normal with, an EF between 55 - 60 %. 6. The right ventricle is normal in size. 7. The left atrial size is normal. 8. The right atrium is normal in size. 9. There is mild aortic valve sclerosis. 10. Mild mitral annular calcification present. 11. Mild tricuspid regurgitation present. 12. There is moderate pulmonary hypertension. 13. The right ventricular systolic pressure, as measured by Doppler, is 51.81mmHg. 14. Moderate pulmonic regurgitation. 15. The aortic root size is normal. 16. Normal inferior vena cava with normal inspiratory collapse consistent with estimated right atrial pressure of 5 mmHg. 17. There is no pericardial effusion. PEDIATRIC ONCOLOGIST: Jaky Hassan RDCS
== END | disposition home or self-care (01) ==
LOC: RADECHMAIN 12:57
PROVIDERS: ATTEND Internal Medicine Critical Care Medicine
DX: Z01.811 Encounter for preprocedural respiratory examination (principal)
CPT/HCPCS: 93306; 82565; 84520; 70460; 36415; Q9967

== ENCOUNTER → 2017-05-21 | Outpatient (CLI) | payer OTHER ==
[2017-05-21 10:19] LABS: Blood Urea Nitrogen 18 mg/dL (7-17); Non-African American GFR(MDRD) >60 (>60 ml/min/1.73 sqM)
--- NOTE | 2017-05-21 22:54 | CT ---
EXAMINATION TYPE: CT abdomen pelvis w con DATE OF EXAM: 05/21/2017 COMPARISON: NONE HISTORY: Patient complains of known abscess with drain placed. Follow up study. CT DLP: 1237.7 mGycm CONTRAST: CT scan of the abdomen and pelvis is performed with Oral Contrast and with IV Contrast, patient injec jon with 100 mL of Omnipaque 300. FINDINGS: LUNG BASES-: No visible nodule. No infiltrate. LIVER/GB: Cholecystectomy clips are in place. No space occupying hepatic lesion. Biliary tree is o f normal caliber. PANCREAS: No inflammation. No distinct mass. SPLEEN: No splenic enlargement. No lesion seen. ADRENALS: No nodule. No thickening. KIDNEYS/BLADDER: Left renal parenchymal thinning and multiple cysts. Prominence of the left renal col lecting system without obstructing calculus. Multiple calculi lower pole left kidney. BOWEL: Left lower quadrant drainage catheter has been pulled back with its distal tip not residing wi thin the abscess. Diverticular Abscess has recurred and now measures 3.5 x 2.5 cm. GENITAL ORGANS: Large right ovarian cystic mass persists. LYMPH NODES: No greater than 1cm abdominal or pelvic lymph nodes are appreciated. AORTA: No significant abnormality. OSSEOUS STRUCTURES: No significant abnormality is seen. OTHER: No significant additional abnormality is seen. IMPRESSION: 1. Recurrence of diverticular abscess. Drainage catheter has been pulled back and does not reside wit hin the abscess at this time.
== END | disposition home or self-care (01) ==
LOC: RADCTMAIN 09:24
PROVIDERS: ATTEND Surgery
DX: K57.80 Diverticulitis of intestine, part unspecified, with perforation and abscess without bleeding (principal)
CPT/HCPCS: 82565; 84520; 74177; Q9967

== ENCOUNTER → 2017-05-21 | Day surgery (SDC) | payer OTHER | LOC: RADPROMAIN 09:34 | PROVIDERS: ATTEND Radiology Diagnostic Radiology | DX: K65.1 Peritoneal abscess (principal) ==

== ENCOUNTER 2017-05-28 10:29 | Observation (INO) | payer OTHER ==
[~2017-05-28 10:29] MED LIST changes: +ALPRAZolam 0.5 MG TAB PO PRN; -DEXAMETHASONE SOD PHOSPHATE 10 MG/ML 1 ML VIAL IV ONE; -HYDROmorphone 0.5 MG/0.5 ML SYRINGE IVP PRN; -LACTATED RINGERS 1,000 ML IV SCH; -LEVOFLOXACIN 500MG-D5W PMX 500 MG in DEXTROSE/WATER 1 100ML.BAG IVPB ONE; -MIDAZOLAM 2 MG/2 ML VIAL IV PRN; -ONDANSETRON 4 MG/2 ML VIAL IVP ONE; +ONDANSETRON 4 MG/2 ML VIAL IVP PRN; +Pre Op ABX Message 1 EACH MISC MISCELLANE ONE
[2017-05-28 12:40] LABS: Glucose,Whole Blood 221 mg/dL (75-99)
[2017-05-28] MEDS: LACTATED RINGERS 1,000 ML IV SCH ×2 (12:43→19:26)
[2017-05-28] MEDS ORDERED: LIDOCAINE 1% 20 ML VIAL (10MG/ML) FOR IV START INTRADERMA ONE (12:44)
[2017-05-28] MEDS ORDERED: HEPARIN SODIUM,PORCINE 5,000 UNIT/ML 1 ML VIAL SQ ONE (12:56)
[2017-05-28] MEDS ORDERED: ePHEDrine SULFATE/0.9% NACL/PF 50 MG/5 ML SYRINGE IV ONE (13:45)
[2017-05-28] MEDS ORDERED: ceFAZolin 1,000 MG VIAL ONE (13:45)
[2017-05-28] MEDS ORDERED: SUCCINYLCHOLINE CHLORIDE 100 MG/5 ML SYR IV ONE (13:45)
[2017-05-28] MEDS ORDERED: KETOROLAC 30 MG/ML 1 ML VIAL ONE (13:45)
[2017-05-28] MEDS ORDERED: LIDOCAINE 1% INJ 10MG/ML (20 ML MDV) ONE (13:45)
[2017-05-28] MEDS ORDERED: PROPOFOL 10 MG/ML 20 ML VIAL IV ONE (13:45)
[2017-05-28] MEDS ORDERED: MIDAZOLAM 2 MG/2 ML VIAL ONE (13:45)
[2017-05-28] MEDS ORDERED: fentaNYL (PF) 50 MCG/ML 2 ML AMP ONE (13:45)
[2017-05-28] MEDS ORDERED: BUPIVACAINE-EPI 0.5%-1:200,000 10 ML VIAL SQ ONE ×2 (15:09)
[2017-05-28] MEDS ORDERED: HEPARIN SODIUM,PORCINE 100 UNIT/ML 5 ML VIAL IV ONE ×2 (15:09)
[2017-05-28] MEDS ORDERED: HYDROcodone/APAP 5-325MG 1 EACH TAB PO PRN (16:59)
--- NOTE | 2017-05-28 17:02 | P.OP ---
Date of Procedure: 05/28/17 Preoperative Diagnosis: Right breast invasive cancer with axillary lymph node metastasis , ER+, MO+, Her2 mallory + COPD Chronic nicotine dependence Cor pulmonale Complicated sigmoid diverticulitis S/P CT guided drainage Right Ovarian mass Recurrent kidney stones Postoperative Diagnosis: Same Procedure(s) Performed: Right breast lumpectomy Insertion of Biosorb 4x3 cm Right axillary lymph node dissection Left IJ mediport insertion 8French under sonosite and fluoroscopy Removal of PICC line Implants: 4x3 cm Biosorb 8 Chinese single lumen Xcela port Anesthesia: DEL, local Surgeon: Kourtney Bello Palliative Care Nurse #1: Joan Rodríguez Estimated Blood Loss (ml): 15 Pathology: other Condition: stable Disposition: PACU Indications for Procedure: 62 years old female with palpable right breast mass at 5 o'clock position with biopsy-proven invasive breast cancer, ER positive, MO positive, HER-2/mallory positive with metastasis to axillary lymph nodes. Neoadjuvant chemotherapy was planned but could not be initiated secondary to patient's multiple comorbid conditions including recurrent sigmoid diverticulitis with abscess requiring CT- guided drainage and IV antibiotics. Patient has multiple comorbid conditions including COPD, cor pulmonale, large right ovarian mass, recurrent kidney stones . Patient continues to smoke cigarettes and history of noncompliance. She was treated with neoadjuvant hormonal therapy while being treated for diverticulitis. Informed consent obtained and patient elected to undergo right breast lumpectomy with insertion of BioSorb and axillary lymph node dissection Operative Findings: Patient had severe ptsosis of breasts . Hence , skin overlying the palpable lump including nipple and area were excised and sent for specimen radiograph. The tip was identified in the radiograph. Proceeded with axillary lymph node dissection since known axillary metastases and unable to initiate neoadjuvant therapy Description of Procedure: The patient was brought to the operating room and placed in supine position with both arms out. IV sedation was given as per anesthesia team. The right breast was prepped using ChloraPrep. Sterile drapes were applied. A timeout was performed to verify correct patient, correct procedure and correct side. Patient was confirmed to receive perioperative IV antibiotics, heparin 5000 units subcutaneous injection for DVT prophylaxis and bilateral SCDs. A 4x3 cm elliptical skin incision was made overlying the palpable right breast mass including the nipple and areola.Superior and inferior subcutaneous flaps were raised i. A 4 cm circumferential breast tissue was removed upto chest wall.The specimen was then labeled with different colors as per the protocol. It was sent off as a specimen for pathology. The resulting defect was irrigated with normal saline and checked for hemostasis. The defect measured 3 x 4 x 4 cm. a 4 x 3 cm BioSorb was sutured in the cavity. A HAILEY drain was left in the cavity. This was closed in 3 layers using interrupted sutures of 3-0 Vicryl followed by running subcuticular stitches of 4-0 Monocryl. Dermabond skin glue was applied. The sponge, instrument and needle count were correct a2 . Phone formation received during surgery that the area of concern along with the clip was included in the specimen. The right axillary skin incision was extended from the lateral edge of the pectoralis major muscle to the anterior edge of the latissimus dorsi muscle. Flaps were raised cephalad and caudad to the estimated level of the axillary vein superiorly and the edge of the pectoralis major medially using electrocautery. The clavicopectoral fascia was then incised along the edge of the pectoralis major and the pectoralis major and minor were freed from the surrounding fat and nicole tissue. No blue dye or radioactive isotope signal could be obtained in the left axilla. There were 3 lymph nodes identified in the left axilla lateral to pectoralis minor muscle . Dissection progressed first under pectoralis major and then under the pectoralis minor muscle. The pectoralis muscles were retracted medially with a Arias retractor. The medial pectoral neurovascular bundle was identified and preserved. The level II nicole tissue deep to the pectoralis minor was included in the dissection. The axillary vein was also identified and cleared of overlying fat. The first branch off the axillary vein was clamped, divided and tied with 2-0 silk ties. Thoracodorsal nerve was then identified deep to the ligated vein and preserved the long thoracic nerve was identified along the edge of the latissimus dorsi on the chest wall and preserved. The remaining nicole tissue between these nerves was then carefully removed, taking care to protect the nerves. The specimen was then sent to pathology. The cavity was irrigated with normal saline. A HAILEY drain was left in the cavity and sutured to the skin. The neck area was prepped and redraped An ultrasound was performed of the left neck to identify the carotid artery and internal jugular vein. The internal jugular vein was compressible and patent . Photodocumentation was made. Local anesthetic was infiltrated to create a field block. Seldinger technique was used and the left internal jugular vein was accessed under direct ultrasound guidance. There was good backflow of dark venous blood. The guidewire was inserted and fluoroscopic images obtained to confirm the tip in SVC. The needle was removed followed by insertion of a dilator peel-away sheath. Local anesthetic was infiltrated along the inferior aspect of the left clavicle. A 2.5 cm skin incision was made and dissection was carried up to the pectoralis major muscle. A pocket was created for the port. The catheter tubing was connected to the port using the conector after flushing both the port and the catheter with normal saline. The tunneling device was connected to the end of the catheter and after placement of the port in the subcutaneous pocket the tunneling device was passed from the lower incision to the counter incision in the neck. The catheter was measured at the junction of SVC and right atrium. The inner cannula of the peel-away sheath was removed and catheter was gradually inserted. The peel-away sheath was gradually removed. Fluoroscopic image confirmed the tip of the catheter at the junction of SVC and right atrium. There was no kink, fold or torsion of the catheter and the port. The [place] needle was used to access the port and easy backflow was obtained. This was flushed with 10 mL of normal saline and 10 mL of Hep-Lock was inserted. The skin incision was closed in 3 layers using 3-0 Vicryl interrupted stitches and a running suture of 4-0 Monocryl. Counter incision in the neck was also closed using 3-0 Vicryl followed by 4-0 Monocryl. Dermabond skin glue was applied followed by Telfa and Tegaderm dressing. The sponge, instrument and needle count were correctx 2 Patient tolerated the procedure well and was taken to post anesthesia care unit in stable condition Final chest x-ray showed the tip of the catheter in SVC and no pneumothorax. Final Pathologic Diagnosis A. 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 DCIS FOCALLY INVOLVES THE BLUE INKED ( ANTERIOR) MARGIN AND IS LESS THAN 1 MM FROM THE BLACK INKED (SUPERIOR) MARGIN. INVASIVE CARCINOMA MUCH LESS THAN 1 MM FROM THE BLUE INKED (ANTERIOR) MARGIN. SEE SURGICAL PATHOLOGY CANCER CASE SUMMARY AND COMMENT. B. RIGHT AXILLARY CONTENTS: EIGHT LYMPH NODES, THREE NODES POSITIVE FOR METASTATIC CARCINOMA (3 OF 8 NODES POSITIVE FOR METASTASIS). SEE SURGICAL PATHOLOGY CANCER CASE SUMMARY. Notes SURGICAL PATHOLOGY CANCER CASE SUMMARY - INVASIVE CARCINOMA OF THE BREAST Specimen Identification Procedure: Excision (less than total mastectomy). Specimen Laterality: Right. Tumor Size: Greatest dimension of invasive carcinoma measures 2.2 cm. Histologic Type of Invasive Carcinoma: Invasive carcinoma of no special type ( ductal, not otherwise specified). Histologic Grade (Danitza Histologic Score): Glandular (Acinar)/Tubular Differentiation: Score 3. Nuclear Pleomorphism: Score 3. Mitotic Rate: Score 2. Overall Grade: Grade 3 (total score 8). Ductal Carcinoma In Situ (DCIS) : DCIS is present in specimen, negative for Extensive intraductal component (EIC). Nuclear Grade: Grade 3 (high). Margins: Invasive carcinoma: Margins negative for invasive ductal carcinoma. Invasive carcinoma closely approaches the blue inked/anterior margin (tumor much less than 1 mm from the anterior margin). DCIS: DCIS focally involves the blue inked/anterior margin and is less than 1 mm from the black inked/superior margin. Other margins negative. See comment. Regional Lymph Nodes: Number of lymph nodes with macrometastases (>2mm): 3. Number of lymph nodes with micrometastases (>0.2 mm to 2 mm and/or >200 cells): 0. Number of lymph nodes with isolated tumor cells (less than or equal to 0.2 mm and less than or equal to 200 cells): 0. Size of largest metastatic deposit: 1.1 cm. External Extension: Present. Number of Lymph Nodes Examined: Total of 8. Lymphovascular Invasion: Present. Pathologic Stage Classification (pTNM, AJCC 8th Edition): Primary Tumor: Tumor greater than 20 mm but less than or equal to 50 mm in greatest dimension (pT2). Regional Lymph Nodes: Metastases in 1 to 3 axillary lymph nodes, at least one metastasis larger than 2.0 mm (pN1a). Distant Metastasis: Not applicable. Additional Pathologic Findings: Previous biopsy related changes and scar. Ancillary Studies: ER, MO, and HER2/Mallory studies were performed on the previous core biopsy ([id number]). COMMENT: In block A2 there is a focus of DCIS and invasive carcinoma near the anterior margin. The DCIS appears to extend to the margin, though immediately adjacent to the margin the DCIS is severely cauterized and distorted. CK 5/6 and Calponin immunoperoxidase stains performed on block A2 highlight a myoepithelial layer surrounding the atypical cauterized cellular focus extending to the margin. The epithelial cells in this focus are immunohistochemically positive for CK7 and negative for CK 5/6. The staining results confirm DCIS focally involves the anterior margin. All stains were evaluated with appropriate controls.
--- NOTE | 2017-05-28 17:29 | XR ---
EXAMINATION TYPE: XR chest 1V confirm line [facility] DATE OF EXAM: 05/28/2017 COMPARISON: NONE HISTORY: 05/04/2017 TECHNIQUE: Single frontal view of the chest is obtained. FINDINGS: The heart is enlarged. Left sided Mediport terminates in the superior vena cava, appropriately placed. Scattered areas of li near left midlung and bibasilar subsegmental atelectasis are seen. No postprocedural pneumothorax. No te is made of right axillary clips within the soft tissues. No pleural effusion. Again note that the known 4 mm pulmonary nodules not visualized radiographically and should be followed by CT as describe d on the previous chest radiograph. IMPRESSION: Interval insertion of a right-sided Mediport without pneumothorax. Bilateral scattered a reas of subsegmental atelectasis.
[2017-05-28] MEDS: HYDROmorphone 0.5 MG/0.5 ML SYRINGE IVP PRN ×2 (17:30→17:43)
[2017-05-28] MEDS ORDERED: ONDANSETRON 4 MG/2 ML VIAL IVP ONE (17:38)
[2017-05-28] MEDS: HYDROmorphone 1 MG/ML 1 ML SYRINGE IVP ONE ×2 (18:23→18:44)
[2017-05-28 18:35] LABS: Glucose,Whole Blood 253 mg/dL (75-99)
[2017-05-28] MEDS ORDERED: INSULIN ASPART 100 UNIT/ML 1 ML 10 ML VIAL SQ ONE (18:40)
[2017-05-28] MEDS: SODIUM CHLORIDE 0.9% 1,000 ML IV SCH (19:27)
[2017-05-28 20:09] VITALS: BMI 36.1
[2017-05-29] MEDS: ONDANSETRON 4 MG/2 ML VIAL IVP PRN ×2 (01:22→11:39)
[2017-05-29] MEDS: NICOTINE 21MG/24HR PATCH TRANSDERM SCH ×3 (01:45→11:44)
[2017-05-29] MEDS: HYDROmorphone 1 MG/ML 1 ML SYRINGE IVP PRN ×2 (01:45→11:35)
[2017-05-29] MEDS: HEPARIN SODIUM,PORCINE 5,000 UNIT/ML 1 ML VIAL SQ SCH ×3 (01:49→15:04)
[2017-05-29] MEDS: metroNIDAZOLE 250 MG TABLET PO SCH ×2 (06:20→14:21)
[2017-05-29 07:31] LABS: Anisocytosis Slight; Basophils % (A) 0 %; Eosinophils # (A) 0.1 k/uL (0-0.7); Eosinophils % (A) 2 %; HCT 34.5 % (34.0-46.0); HGB 10.6 gm/dL (11.4-16.0); Hypochromasia Moderate; Lymphocytes # (A) 1.1 k/uL (1.0-4.8); Lymphocytes % (A) 12 %; MCH 24.8 pg (25.0-35.0); MCHC 30.9 g/dL (31.0-37.0); MCV 80.4 fL (80.0-100.0); Mean Platelet Volume 8.7; Microcytosis Slight; Monocytes # (A) 0.5 k/uL (0-1.0); Monocytes % (A) 6 %; Neutrophils # (A) 7.1 k/uL (1.3-7.7); Neutrophils % (A) 79 %; Platelet Count 216 k/uL (150-450); RBC 4.29 m/uL (3.80-5.40); RDW 17.7 % (11.5-15.5)
[2017-05-29] MEDS: SODIUM CHLORIDE 0.9% 1,000 ML IV SCH (07:39)
[2017-05-29 07:43] LABS: ALT 32 U/L (9-52); AST 13 U/L (14-36); Albumin 2.9 g/dL (3.5-5.0); Alkaline Phosphatase 116 U/L (38-126); Anion Gap 9 mmol/L; Blood Urea Nitrogen 22 mg/dL (7-17); Calcium 9.8 mg/dL (8.4-10.2); Carbon Dioxide 30 mmol/L (22-30); Chloride 100 mmol/L (98-107); Glucose 177 mg/dL (74-99); Potassium 4.4 mmol/L (3.5-5.1); Sodium 139 mmol/L (137-145); Total Bilirubin 0.3 mg/dL (0.2-1.3); Total Protein 5.7 g/dL (6.3-8.2)
[2017-05-29] MEDS ORDERED: LEVOFLOXACIN 750 MG TAB PO SCH (09:00)
--- NOTE | 2017-05-29 12:28 | P.PN ---
Subjective Progress Note Date: 05/29/17 Patient is postop day #1 from a lumpectomy and axillary node dissection. She has a history of diverticular disease and we are waiting recommendation from infectious disease as to what antibiotic she is to go home on. The patient is doing well postoperatively. She denies abdominal pain at this time. Objective - Vital Signs Vital signs: Vital Signs Temp 97.6 F 05/29/17 07:00 Pulse 76 05/29/17 07:00 Resp 14 05/29/17 07:00 BP 133/68 05/29/17 07:00 Pulse Ox 97 05/29/17 07:00 Intake & Output 05/28/17 05/29/17 05/29/17 18:59 06:59 18:59 Intake Total 1300 900 Output Total 20 40 Balance 1280 900 -40 Weight 92.5 kg Intake: IV 1300 Intake, IV Titration 900 Amount Sodium Chloride 0.9% 1, 900 000 ml @ 75 mls/hr IV . [id number] TAYLER Rx#:[id number] Output: Drainage 40 Right Chest 40 Estimated Blood Loss 20 Other: Voiding Method Toilet # Voids 1 - Constitutional General appearance: Present: obese - Respiratory Respiratory: bilateral: CTA - Cardiovascular Rhythm: regular Heart sounds: normal: S1, S2 - Gastrointestinal General gastrointestinal: Present: normal bowel sounds, soft - Integumentary Integumentary Comment(s): Incisions clean and dry/ dressing changed and Donovan wrap reapplied HAILEY drainage serous - Labs CBC & Chem 7: 05/29/17 06:33 05/29/17 06:33 Labs: Abnormal Lab Results - Last 24 Hours (Table) 05/28/17 05/28/17 05/29/17 Range/Units 12:19 18:33 06:33 Hgb 10.6 L (11.4-16.0) gm/dL MCH 24.8 L (25.0-35.0) pg MCHC 30.9 L (31.0-37.0) g/dL RDW 17.7 H (11.5-15.5) % BUN (7-17) mg/dL Glucose (74-99) mg/dL POC Glucose (mg/dL) 221 H 253 H (75-99) mg/dL AST (14-36) U/L Total Protein (6.3-8.2) g/dL Albumin (3.5-5.0) g/dL 05/29/ Range/Units 06:33 Hgb (11.4-16.0) gm/dL MCH (25.0-35.0) pg MCHC (31.0-37.0) g/dL RDW (11.5-15.5) % BUN 22 H (7-17) mg/dL Glucose 177 H (74-99) mg/dL POC Glucose (mg/dL) (75-99) mg/dL AST 13 L (14-36) U/L Total Protein 5.7 L (6.3-8.2) g/dL Albumin 2.9 L (3.5-5.0) g/dL Assessment and Plan Assessment: Impression/plan: 1. Patient stable postop day #1 2. History of diverticular disease awaiting infectious disease recommendation for antibiotics Plan: 1. Discharge home after seen by medicine and infectious disease
--- NOTE | 2017-05-29 12:29 | P.DS ---
Providers Date of admission: 05/29/17 03:35 Attending physician: Kourtney Bello Consults: 05/28/17 08:44 Consult Physician Routine Consulting Provider: Gui Reyes Consult Reason/Comments: antibiotics management sigmoid diverticulitis Do you want consulting provider notified?: Yes 05/28/17 08:47 Consult Physician Routine Consulting Provider: Johnathon Holland Consult Reason/Comments: medical management Do you want consulting provider notified?: Yes Primary care physician: Stated None Plan - Discharge Summary Discharge Rx Participant: Yes New Discharge Prescriptions: New Docusate [Colace] 100 mg PO BID #30 capsule Hydrocodone/Acetaminophen [[place] 5-325] 1 each PO Q6HR PRN #30 tab PRN Reason: Pain No Action Insulin Glulisine [Apidra] 30 unit SQ AC-TID PRN PRN Reason: Blood Sugar - High Atorvastatin Calcium [Lipitor] 20 mg PO HS HYDROcodone/APAP 5-325MG [[place] 5-325] 1 tab PO Q6H PRN PRN Reason: Pain Insulin Glargine,Hum.rec.anlog [Basaglar Kwikpen U-100] 120 unit SQ HS Zolpidem [Ambien] 10 mg PO HS Prochlorperazine [Compazine] 10 mg PO Q8H Anastrozole [Arimidex] 1 mg PO DAILY Ertapenem [INVanz] 1 gm IVPB Q24H Discharge Medication List Atorvastatin Calcium [Lipitor] 20 mg PO HS 06/13/16 [History] Insulin Glulisine [Apidra] 30 unit SQ AC-TID PRN 06/13/16 [History] HYDROcodone/APAP 5-325MG [[place] 5-325] 1 tab PO Q6H PRN 01/19/17 [History] Insulin Glargine,Hum.rec.anlog [Basaglar Kwikpen U-100] 120 unit SQ HS 03/08/17 [History] Zolpidem [Ambien] 10 mg PO HS 04/12/17 [History] Anastrozole [Arimidex] 1 mg PO DAILY 05/20/17 [History] Ertapenem [INVanz] 1 gm IVPB Q24H 05/20/17 [History] Prochlorperazine [Compazine] 10 mg PO Q8H 05/20/17 [History] Docusate [Colace] 100 mg PO BID #30 capsule 05/28/17 [Rx] Hydrocodone/Acetaminophen [[place] 5-325] 1 each PO Q6HR PRN #30 tab 05/28/17 [Rx] Follow up Appointment(s)/Referral(s): Kourtney Bello MD [STAFF PHYSICIAN] - 06/02/17 [facility], [NON-STAFF] - 06/01/17 (Home Care contacted and they plan on making a visit on wednesday.) Activity/Diet/Wound Care/Special Instructions: Diabetic diet. No heavy lifting more than 10 lbs for 6 weeks post surgery . HAILEY drain care - Empty drains and monitor HAILEY output every 24 hrs [facility] [phone] Discharge Disposition: HOME WITH HOME HEALTH SERVICES
--- NOTE | 2017-05-29 13:40 | P.HPIM ---
History of Present Illness H&P Date: 05/29/17 Patient is a 62-year-old female urgent of Dr. Ruvalcaba who was admitted to [facility] by Dr. Bello and underwent right breast lumpectomy, medical consultation was requested for management while hospitalized. Patient was diagnosed with acute diverticulitis with abscess about 2 months ago he has been maintained on IV antibiotic Invanz 1 g every 24 hours at home, she had a PICC line which was removed during this admission, a left subclavian port was inserted. Consultation from Dr. Reyes was requested for reevaluation of diverticulitis and abscess. Patient was also recently diagnosed with congestive heart failure She has a known history of insulin-dependent diabetes mellitus, history of hypertension, history of hyperlipidemia. Clinically patient is doing well she is complaining of pain in the lower abdomen , she is complaining of pain at her breast surgical site, otherwise no complaints There is no fever or chills no cough no chest pain or shortness of breath no nausea or vomiting and no diarrhea She does not know how to access her new port. Past Medical History Past Medical History: Cancer, Heart Failure, Diabetes Mellitus, Eye Disorder, Hyperlipidemia, Renal Disease, Syncope Additional Past Medical History / Comment(s): Breast cancer, large cystic mass arising from the right ovary, chronic left UPJ obstruction related to stricture , bilateral nephrolithiasis without obstructing calculus, obesity, severe pulmonary hypertension with PA pressure of around 70 with a normal LV function as reported from the echocardiogram from 02/02/2017, diabetes mellitus, diabetes mellitus type 2, peripheral neuropathy, abdominal abscess with drainage tube. History of Any Multi-Drug Resistant Organisms: None Reported Past Surgical History: Section, Cholecystectomy, Hernia Repair, Hysterectomy Additional Past Surgical History / Comment(s): R breast biopsy, x3, cystocscopies, multiple lithotripsies, percutaneous stone removals, double J stents (none in at this time per pt), umbilical hernia repairs x 2. Past Anesthesia/Blood Transfusion Reactions: No Reported Reaction Smoking Status: Current every day smoker - Past Family History Father Family Medical History: Renal Disease Additional Family Medical History / Comment(s): Father of renal failure in his 90's. Mother Family Medical History: COPD Additional Family Medical History / Comment(s): Mother of COPD at the age of 62 yrs. Medications and Allergies Home Medications Medication Instructions Recorded Confirmed Type Atorvastatin Calcium [Lipitor] 20 mg PO HS 06/13/16 05/29/17 History Insulin Glulisine [Apidra] 30 unit SQ AC-TID PRN 06/13/16 05/29/17 History HYDROcodone/APAP 5-325MG [[place] 1 tab PO Q6H PRN 01/19/17 05/29/17 History 5-325] Insulin Glargine,Hum.rec.anlog 120 unit SQ HS 03/08/17 05/29/17 History [Basaglar Kwikpen U-100] Zolpidem [Ambien] 10 mg PO HS 04/12/17 05/29/17 History Anastrozole [Arimidex] 1 mg PO DAILY 05/20/17 05/29/17 History Ertapenem [INVanz] 1 gm IVPB Q24H 05/20/17 05/29/17 History Prochlorperazine [Compazine] 10 mg PO Q8H 05/20/17 05/29/17 History Docusate [Colace] 100 mg PO BID #30 capsule 05/28/17 Rx Hydrocodone/Acetaminophen [[place] 1 each PO Q6HR PRN #30 tab 05/28/17 Rx 5-325] Allergies Allergy/AdvReac Type Severity Reaction Status Date / Time gentamicin [From Garamycin] Allergy Rash/Hives Verified 05/28/17 11:45 Penicillins Allergy Rash/Hives Verified 05/28/17 11:45 Sulfa (Sulfonamide Allergy Rash/Hives Verified 05/28/17 11:45 Antibiotics) morphine AdvReac Nausea Verified 05/28/17 11:45 Physical Exam Vitals: Vital Signs Temp Pulse Resp BP Pulse Ox 05/29/17 07:00 97.6 F 76 14 133/68 97 05/29/17 01:15 98.1 F 67 16 152/73 92 L 05/28/17 21:50 65 147/77 05/28/17 21:47 66 132/70 05/28/17 20:30 65 145/79 05/28/17 20:15 64 149/80 05/28/17 20:00 62 141/81 05/28/17 19:45 63 147/74 05/28/17 19:30 65 135/72 05/28/17 19:00 98.0 F 65 16 125/68 92 L 05/28/17 18:45 66 16 134/71 95 05/28/17 18:30 65 16 137/69 96 05/28/17 18:15 69 16 151/72 96 05/28/17 18:00 65 16 148/68 96 05/28/17 17:45 65 16 151/70 96 05/28/17 17:30 68 16 151/73 95 05/28/17 17:15 66 16 154/73 95 05/28/17 17:11 97.2 F L 75 16 167/77 99 Intake and Output 05/28/17 05/29/17 05/29/17 22:59 06:59 14:59 Intake Total 675 675 600 Output Total 40 Balance 675 675 560 Intake: IV 450 Intake, IV Titration 225 675 600 Amount Sodium Chloride 0.9% 1, 225 675 600 000 ml @ 75 mls/hr IV . [id number] TAYLER Rx#:[id number] Output: Drainage 40 Right Chest 40 Other: Voiding Method Toilet Toilet # Voids 2 Weight 92.5 kg HEENT head normocephalic and atraumatic neck supple no JVD no goiter no lymphadenopathy Chest is clear to auscultation no crackles no wheezing Cardiac exam reveals regular heart sounds no gallops no murmurs Abdomen is soft no organomegaly with normal bowel sounds significant tenderness in the left lower quadrant Extremity exam reveals no edema no cyanosis or clubbing Results CBC & Chem 7: 05/29/17 06:33 05/29/17 06:33 Labs: Abnormal Lab Results - Last 24 Hours (Table) 05/28/17 05/29/17 05/29/17 Range/Units 18:33 06:33 06:33 Hgb 10.6 L (11.4-16.0) gm/dL MCH 24.8 L (25.0-35.0) pg MCHC 30.9 L (31.0-37.0) g/dL RDW 17.7 H (11.5-15.5) % BUN 22 H (7-17) mg/dL Glucose 177 H (74-99) mg/dL POC Glucose (mg/dL) 253 H (75-99) mg/dL AST 13 L (14-36) U/L Total Protein 5.7 L (6.3-8.2) g/dL Albumin 2.9 L (3.5-5.0) g/dL Thrombosis Risk Factor Assmnt - Choose All That Apply Any of the Below Risk Factors Present?: Yes Each Factor Represents 1 point: Obesity (BMI >25) Other Risk Factors: Yes Each Risk Factor Represents 2 Points: Age 61-74 years, Major surgery, Malignancy Thrombosis Risk Factor Assessment Total Risk Factor Score: 7 Thrombosis Risk Factor Assessment Level: High Risk Assessment and Plan Plan: #1 admitted for right breast lumpectomy #2 underlying history of acute diverticulitis with abscess pain and on Invanz will resume Invanz 1 g daily eating input from Dr. Reyes #3 underlying history of congestive heart failure, likely diastolic echocardiogram done on 05/11/2017 reveals an ejection fraction of 55-60% #4 underlying history of hypertension #5 underlying history of hyperlipidemia Medically patient is stable awaiting infectious disease input Will follow during this admission
[2017-05-29 14:53] LABS: Glucose,Whole Blood 258 mg/dL (75-99)
[2017-05-29 14:58] VITALS: BP 148/71; PULSE 93; RESP 16; TEMP 98.6
--- NOTE | 2017-05-29 19:11 | P.CONS ---
History of Present Illness - Reason for Consult Consult date: 05/29/17 - Chief Complaint breast cancer - History of Present Illness 62-year-old female was a very complex recent past medical history which includes right breast carcinoma recently diagnosed as well as a large cystic mass from the right ovary resulting in an obstructive process. She also had bilateral nephrolithiasis with calculi. She had difficulty with acute diverticulitis and abscess and has been treated with intravenous antibiotic therapy since that time. She finally was stabilized and is now presented for her right lumpectomy. Drains are putting the place. She is being readied for discharge to home and request about antibiotic therapy was made. She's feeling somewhat better. Pain control is improved now that she is actually taking some pain medication. Many family members are present and are very supportive. She does look forward to going home. She denying fevers chills rigors or sweats. And did have significant pain to her right breast area which is now improving with oral pain medication. Denying of any acute difficulties. His tolerated the intravenous antibiotic therapy well and is not having nausea, constipation diarrhea denies other intermittent troubles. Review of Systems patient has had significant fatigue and malaise but abdominal pain has improved HEENT:Denies headache or acute visual change. Denies sinus or mouth discomforts. Denies neck stiffness or pain. Denies significant oral cavity pain. Denies difficulty on swallowing. Lungs: Denies significant shortness of breath, cough, sputum production, or hemoptysis. Cardiovascular: Denies significant shortness of breath, chest pain, chest wall pain, orthopnea, dyspnea on exertion, syncope Gastrointestinal:Denies nausea, vomiting, diarrhea, constipation, hematemesis, melena, hematochezia. denies diarrhea and no abdominal pain at this time. Musculoskeletal: denies significant myalgias or arthralgias. No new joint swelling. Denies new back pain. Skin: Recent surgery to the right breast. Drains in place. Serosanguineous material is noted. Neuro: Denies headache or visual change. Denies any new onset weakness or difficulty with ambulation. Denies falls or seizures. Psychiatric:Denies anxiety or depression. Endocrine: Does have fatigue and has had some weight loss because she is not eating well. Does state that she's been heavy and is okay with weight loss. Past Medical History Past Medical History: Cancer, Heart Failure, Diabetes Mellitus, Eye Disorder, Hyperlipidemia, Renal Disease, Syncope Additional Past Medical History / Comment(s): Breast cancer, large cystic mass arising from the right ovary, chronic left UPJ obstruction related to stricture , bilateral nephrolithiasis without obstructing calculus, obesity, severe pulmonary hypertension with PA pressure of around 70 with a normal LV function as reported from the echocardiogram from 02/02/2017, diabetes mellitus, diabetes mellitus type 2, peripheral neuropathy, abdominal abscess with drainage tube. History of Any Multi-Drug Resistant Organisms: None Reported Past Surgical History: Section, Cholecystectomy, Hernia Repair, Hysterectomy Additional Past Surgical History / Comment(s): R breast biopsy, x3, cystocscopies, multiple lithotripsies, percutaneous stone removals, double J stents (none in at this time per pt), umbilical hernia repairs x 2. Past Anesthesia/Blood Transfusion Reactions: No Reported Reaction Additional Psychological History / Comment(s): and lives with her . Ongoing tobacco use attempting to stop. No significant alcohol use. No experience. no animal exposures no travel history Smoking Status: Current every day smoker - Past Family History Father Family Medical History: Renal Disease Additional Family Medical History / Comment(s): Father of renal failure in his 90's. Mother Family Medical History: COPD Additional Family Medical History / Comment(s): Mother of COPD at the age of 62 yrs. Medications and Allergies Home Medications and Allergies Comment(s): please refer to the current medication list. Home Medications Medication Instructions Recorded Confirmed Type Atorvastatin Calcium [Lipitor] 20 mg PO HS 06/13/16 05/29/17 History Insulin Glulisine [Apidra] 30 unit SQ AC-TID PRN 06/13/16 05/29/17 History HYDROcodone/APAP 5-325MG [[place] 1 tab PO Q6H PRN 01/19/17 05/29/17 History 5-325] Insulin Glargine,Hum.rec.anlog 120 unit SQ HS 03/08/17 05/29/17 History [Basaglar Kwikpen U-100] Zolpidem [Ambien] 10 mg PO HS 04/12/17 05/29/17 History Anastrozole [Arimidex] 1 mg PO DAILY 05/20/17 05/29/17 History Ertapenem [INVanz] 1 gm IVPB Q24H 05/20/17 05/29/17 History Prochlorperazine [Compazine] 10 mg PO Q8H 05/20/17 05/29/17 History Docusate [Colace] 100 mg PO BID #30 capsule 05/28/17 Rx Hydrocodone/Acetaminophen [[place] 1 each PO Q6HR PRN #30 tab 05/28/17 Rx 5-325] Allergies Allergy/AdvReac Type Severity Reaction Status Date / Time gentamicin [From Garamycin] Allergy Rash/Hives Verified 05/28/17 11:45 Penicillins Allergy Rash/Hives Verified 05/28/17 11:45 Sulfa (Sulfonamide Allergy Rash/Hives Verified 05/28/17 11:45 Antibiotics) morphine AdvReac Nausea Verified 05/28/17 11:45 Physical Exam Vitals: Vital Signs Temp Pulse Pulse Resp BP BP Pulse Ox 05/29/17 14:30 98.6 F 93 16 148/71 92 L 05/29/17 07:00 97.6 F 76 14 133/68 97 05/29/17 01:15 98.1 F 67 16 152/73 92 L 05/28/17 21:50 65 147/77 05/28/17 21:47 66 132/70 05/28/17 20:30 65 145/79 05/28/17 20:15 64 149/80 05/28/17 20:00 62 141/81 05/28/17 19:45 63 147/74 05/28/17 19:30 65 135/72 Intake and Output 05/29/17 05/29/17 05/29/17 06:59 14:59 22:59 Intake Total 675 600 Output Total 40 Balance 675 560 Intake: Intake, IV Titration 675 600 Amount Sodium Chloride 0.9% 1, 675 600 000 ml @ 75 mls/hr IV . [id number] [facility] Rx#:[id number] Output: Drainage 40 Right Chest 40 Other: Voiding Method Toilet # Voids 2 pleasant 62-year-old woman who is in no acute distress. Was having some pain but is under much better control with oral pain medication. No fevers are noted. HEENT: Anicteric conjunctiva are pink and moist nasal mucosa grossly intact without significant lesions, there is no thrush. Neck: The neck is supple without significant lymphadenopathy or thyromegaly. Lungs: Good bilateral air entry without significant crackles or wheezing. There is no significant bronchial sounds. There is no egophony or dullness. Heart: Regular rate and rhythm with an audible S1-S2, no S3 soft S4. There is no significant murmur click or rub, PMI was nondisplaced. Abdomen: mildly obese,Positive bowel sounds soft has only minimal tenderness in the right lower quadrant, without palpable masses or organomegaly. There was no guarding or rebound. Extremities: The upper extremities have excellent pulses they are symmetric, no significant petechiae or telangiectasia. No splinter hemorrhages were noted. The lower extremities are free from significant edema. The peripheral pulses were 2+ and symmetric. with witness present the right anterior chest was evaluated. No significant breakthrough drainage is noted from the surgical intervention. Drains are in place with serosanguineous drainage. Neuro: Awake alert oriented to person place and time. There are no acute new gross focal sensory motor deficits. Results CBC & Chem 7: 05/29/17 06:33 05/29/17 06:33 Labs: Abnormal Lab Results - Last 24 Hours (Table) 05/29/17 05/29/17 05/29/17 Range/Units 06:33 06:33 14:49 Hgb 10.6 L (11.4-16.0) gm/dL MCH 24.8 L (25.0-35.0) pg MCHC 30.9 L (31.0-37.0) g/dL RDW 17.7 H (11.5-15.5) % BUN 22 H (7-17) mg/dL Glucose 177 H (74-99) mg/dL POC Glucose (mg/dL) 258 H (75-99) mg/dL AST 13 L (14-36) U/L Total Protein 5.7 L (6.3-8.2) g/dL Albumin 2.9 L (3.5-5.0) g/dL Laboratory Results WBC 9.0 k/uL (3.8-10.6) 05/29/17 06:33 RBC 4.29 m/uL (3.80-5.40) 05/29/17 06:33 Hgb 10.6 gm/dL (11.4-16.0) L 05/29/17 06:33 Hct 34.5 % (34.0-46.0) 05/29/17 06:33 MCV 80.4 fL (80.0-100.0) 05/29/17 06:33 MCH 24.8 pg (25.0-35.0) L 05/29/17 06:33 MCHC 30.9 g/dL (31.0-37.0) L 05/29/17 06:33 RDW 17.7 % (11.5-15.5) H 05/29/17 06:33 Plt Count 216 k/uL (150-450) 05/29/17 06:33 Neutrophils % 79 % 05/29/17 06:33 Lymphocytes % 12 % 05/29/17 06:33 Monocytes % 6 % 05/29/17 06:33 Eosinophils % 2 % 05/29/17 06:33 Basophils % 0 % 05/29/17 06:33 Neutrophils # 7.1 k/uL (1.3-7.7) 05/29/17 06:33 Lymphocytes # 1.1 k/uL (1.0-4.8) 05/29/17 06:33 Monocytes # 0.5 k/uL (0-1.0) 05/29/17 06:33 Eosinophils # 0.1 k/uL (0-0.7) 05/29/17 06:33 Basophils # 0.0 k/uL (0-0.2) 05/29/17 06:33 Hypochromasia Moderate 05/29/17 06:33 Anisocytosis Slight 05/29/17 06:33 Microcytosis Slight 05/29/17 06:33 Sodium 139 mmol/L (137-145) 05/29/17 06:33 Potassium 4.4 mmol/L (3.5-5.1) 05/29/17 06:33 Chloride 100 mmol/L (98-107) 05/29/17 06:33 Carbon Dioxide 30 mmol/L (22-30) 05/29/17 06:33 Anion Gap 9 mmol/L 05/29/17 06:33 BUN 22 mg/dL (7-17) H 05/29/17 06:33 Creatinine 1.00 mg/dL (0.52-1.04) 05/29/17 06:33 Est GFR (MDRD) Af Amer >60 (>60 ml/min/1.73 sqM) 05/29/17 06:33 Est GFR (MDRD) Non-Af 56 (>60 ml/min/1.73 sqM) 05/29/17 06:33 Glucose 177 mg/dL (74-99) H 05/29/17 06:33 POC Glucose (mg/dL) 258 mg/dL (75-99) H 05/29/17 14:49 POC Glu Wound Care Coordinator ID Kelsey Jules 05/29/17 14:49 Calcium 9.8 mg/dL (8.4-10.2) 05/29/17 06:33 Total Bilirubin 0.3 mg/dL (0.2-1.3) 05/29/17 06:33 AST 13 U/L (14-36) L 05/29/17 06:33 ALT 32 U/L (9-52) 05/29/17 06:33 Alkaline Phosphatase 116 U/L (38-126) 05/29/17 06:33 Total Protein 5.7 g/dL (6.3-8.2) L 05/29/17 06:33 Albumin 2.9 g/dL (3.5-5.0) L 05/29/17 06:33 Assessment and Plan (1) Breast CA Narrative/Plan: 62 woman presents to Hospital for her elective lumpectomy for right breast carcinoma. Surgery is gone well and she is recovering at this time postoperatively. Surgery is ready for discharge to home. She will complete 7 days of Invanz at home to complete the treatment of her significant intra- abdominal infection. Medications are present. Home care will access her Infuse -a-Port that has been placed since her PICC line is now removed. Continue ongoing supportive care. Follow up with her surgeon and be happy to follow her in the office as per prior scheduled appointment for follow-up of her intra- abdominal abscess. fortunately she is doing very well at this point in time and would expect her to have completion of her antibiotic therapy in a week. Status: Acute Code(s): C50.919 - MALIGNANT NEOPLASM OF UNSP SITE OF UNSPECIFIED FEMALE BREAST SNOMED Code(s): 125453624 (2) COPD (chronic obstructive pulmonary disease) Status: Acute Code(s): J44.9 - CHRONIC OBSTRUCTIVE PULMONARY DISEASE, UNSPECIFIED SNOMED Code(s): 44175847 (3) Type 2 diabetes mellitus Status: Acute Code(s): E11.9 - TYPE 2 DIABETES MELLITUS WITHOUT COMPLICATIONS SNOMED Code(s): 59371905 (4) Colonic diverticular abscess Status: Acute Code(s): K57.20 - DVTRCLI OF LG INT W PERFORATION AND ABSCESS W/ O BLEEDING SNOMED Code(s): 329717584
--- NOTE | 2017-06-01 08:42 | MM ---
EXAMINATION TYPE: MG surgical specimen RT DATE OF EXAM: 05/28/2017 COMPARISON: 12/02/2016 CLINICAL HISTORY: History of high-grade invasive ductal right breast cancer. TECHNIQUE: Surgical excision of area of concern in the right breast, likely palpable as no needle loc alization was performed prior to the procedure. FINDINGS: Dense spiculated mass and coil-shaped biopsy marker are identified in specimen mammogram o n the single submitted specimen radiograph. IMPRESSION: Specimen radiograph from surgical excision of a known high-grade invasive right-sided tata joshua carcinoma without needle localization therefore this mass was likely palpable. A spiculated dense mass containing a coil-shaped biopsy marker is contained in the specimen radiograph. Full pathology results to follow.
--- NOTE | 2017-06-01 11:09 | FL ---
EXAMINATION TYPE: FL guided central line placement DATE OF EXAM: 05/28/2017 CLINICAL HISTORY: Mediport placement TECHNIQUE: Fluoroscopy. COMPARISON: None. FINDINGS/IMPRESSION: Fluoroscopic guidance was provided during procedure performed by Dr. Bello. A total of 13 seconds of fluoroscopic time was utilized during the procedure and 1 spot images was ac quired demonstrating partial visualization of an endotracheal tube and left-sided Mediport.
== END 2017-05-29 18:09 | disposition home health service (06) ==
LOC: OR 10:29 → 3SUR 17:11 → OR 05-29 03:35 → 3SUR 05-29 03:35
PROVIDERS: ADMIT Surgery; ATTEND Surgery
DX: C50.311 Malignant neoplasm of lower-inner quadrant of right female breast (principal); C77.3 Secondary and unspecified malignant neoplasm of axilla and upper limb lymph nodes; Z17.0 Estrogen receptor positive status [ER+]; J44.9 Chronic obstructive pulmonary disease, unspecified; K57.20 Diverticulitis of large intestine with perforation and abscess without bleeding; I27.29 Other secondary pulmonary hypertension; I11.0 Hypertensive heart disease with heart failure; I50.9 Heart failure, unspecified; E78.5 Hyperlipidemia, unspecified; I27.81 Cor pulmonale (chronic); G89.29 Other chronic pain; Z91.14 Patient's other noncompliance with medication regimen; E11.42 Type 2 diabetes mellitus with diabetic polyneuropathy; N83.9 Noninflammatory disorder of ovary, fallopian tube and broad ligament, unspecified; N20.0 Calculus of kidney; E66.01 Morbid (severe) obesity due to excess calories; Z68.41 Body mass index [BMI] 40.0-44.9, adult; H57.9 Unspecified disorder of eye and adnexa; N13.5 Crossing vessel and stricture of ureter without hydronephrosis; F17.210 Nicotine dependence, cigarettes, uncomplicated; Z79.4 Long term (current) use of insulin; Z79.811 Long term (current) use of aromatase inhibitors; Z79.2 Long term (current) use of antibiotics; Z79.899 Other long term (current) drug therapy; Z88.0 Allergy status to penicillin; Z88.2 Allergy status to sulfonamides; Z88.5 Allergy status to narcotic agent; Z88.8 Allergy status to other drugs, medicaments and biological substances; Z82.5 Family history of asthma and other chronic lower respiratory diseases; Z84.1 Family history of disorders of kidney and ureter
CPT/HCPCS: 19302; 36561; 80053; 85025; 88342; 88307; 88341; 77001; 76098; G0378; C1788; A4648; J2250; J1644 ×2; J1642; J2405 ×2; J0690; J2001; J3010; J1885; J1170 ×3; J0330; J2704

== ENCOUNTER 2017-06-16 07:43 | Day surgery (SDC) | payer OTHER ==
[2017-06-15 14:16] VITALS: BMI 32.5
[~2017-06-16 07:43] MED LIST changes: -ALPRAZolam 0.5 MG TAB PO PRN; +DEXAMETHASONE SOD PHOSPHATE 10 MG/ML 1 ML VIAL IV ONE; +HEPARIN SODIUM,PORCINE 5,000 UNIT/ML 1 ML VIAL SQ ONE; +LACTATED RINGERS 1,000 ML IV ONE; +LIDOCAINE 1% 20 ML VIAL (10MG/ML) FOR IV START INTRADERMA PRN; +ONDANSETRON 4 MG/2 ML VIAL IVP ONE; -ONDANSETRON 4 MG/2 ML VIAL IVP PRN; +SCOPOLAMINE 1.5MG/72HR PATCH TRANSDERM ONE
[2017-06-16 08:17] VITALS: RESP 16
[2017-06-16] MEDS ORDERED: MIDAZOLAM 2 MG/2 ML VIAL IV ONE (08:18)
[2017-06-16 08:24] LABS: Glucose,Whole Blood 124 mg/dL (75-99)
[2017-06-16] MEDS ORDERED: CLINDAMYCIN 600 MG in DEXTROSE 5% IN WATER 50 ML IVPB STA ×2 (08:30)
[2017-06-16] MEDS ORDERED: PROPOFOL 10 MG/ML 20 ML VIAL IV ONE (08:35)
[2017-06-16] MEDS ORDERED: LIDOCAINE 1% INJ 10MG/ML (20 ML MDV) ONE (08:35)
[2017-06-16] MEDS ORDERED: MIDAZOLAM 2 MG/2 ML VIAL ONE (08:35)
[2017-06-16] MEDS ORDERED: SUCCINYLCHOLINE CHLORIDE VIAL 200 MG/10 ML VIAL IV ONE (08:35)
[2017-06-16] MEDS ORDERED: ePHEDrine SULFATE/0.9% NACL/PF 50 MG/5 ML SYRINGE IV ONE (08:35)
[2017-06-16] MEDS ORDERED: fentaNYL (PF) 50 MCG/ML 2 ML AMP ONE (08:35)
[2017-06-16] MEDS ORDERED: BUPIVACAINE-EPI 0.5%-1:200,000 10 ML VIAL SQ ONE ×2 (10:12)
[2017-06-16 10:40] VITALS: TEMP 97.3
[2017-06-16] MEDS: HYDROmorphone 1 MG/ML 1 ML SYRINGE IVP ONE ×2 (10:51→11:01)
[2017-06-16] MEDS ORDERED: HYDROcodone/APAP 5-325MG 1 EACH TAB PO ONE (12:12)
[2017-06-16] MEDS ORDERED: ALBUTEROL NEBULIZED 2.5 MG/3 ML INHALATION STA (12:46)
[2017-06-16 13:28] VITALS: BP 136/74; PULSE 98
--- NOTE | 2017-06-16 14:14 | P.OP ---
Date of Procedure: 06/23/17 Preoperative Diagnosis: Right breast invasive cancer with axillary lymph node metastasis , ER+, NC+, Her2 mallory + COPD Chronic nicotine dependence Cor pulmonale Complicated sigmoid diverticulitis S/P CT guided drainage Right Ovarian mass Recurrent kidney stones Postoperative Diagnosis: Right breast invasive cancer with axillary lymph node metastasis , ER+, NC+, Her2 mallory + COPD Chronic nicotine dependence Cor pulmonale Complicated sigmoid diverticulitis S/P CT guided drainage Right Ovarian mass Recurrent kidney stones Procedure(s) Performed: Right breast lumpectomy re- excisiom Insertion of Biosorb 4x4 cm Implants: 4x4 cm Biosorb Anesthesia: DEL Surgeon: Kourtney Bello Pathology: other Condition: stable Disposition: PACU Description of Procedure: 62 years old female underwent right breast lumpectomy and ALND for biopsy- proven invasive breast cancer, ER positive, NC positive, HER-2/mallory positive with metastasis to axillary lymph nodes. Neoadjuvant chemotherapy was planned but could not be initiated secondary to patient's multiple comorbid conditions including recurrent sigmoid diverticulitis with abscess requiring CT-guided drainage and IV antibiotics. Patient has multiple comorbid conditions including COPD, cor pulmonale, large right ovarian mass, recurrent kidney stones . Informed consent obtained and patient elected to undergo right breast lumpectomy reexcision with insertion of BioSorb for close superior and anterior margins The patient was brought to the operating room and placed in supine position with both arms out. IV sedation was given as per anesthesia team. The right breast was prepped using ChloraPrep. Sterile drapes were applied. A timeout was performed to verify correct patient, correct procedure and correct side. Patient was confirmed to receive perioperative IV antibiotics and heparin 5000 units subcutaneous injection was given for DVT prophylaxis and bilateral SCDs were placed. The prior incision along right breast was incised and deepened through breast tissue till biozorb was encountered. The surrounding tissue was well incorporated in the biozorb. The superior and anterior rim was taken off along with the biozorb and sent off as a specimen for pathology. The resulting defect was irrigated with normal saline and checked for hemostasis. Excess skin along with breast tissue was also excised and marked with sutures and sent as additional anterior margin. The defect measured 8x 5 x 7 cm. A 4 x 4 cm Biozorb was sutured in the cavity. A HAILEY drain was left in the cavity. This was closed in 3 layers using interrupted sutures of 3-0 Vicryl followed by running subcuticular stitches of 4-0 Monocryl. Dermabond skin glue was applied. The sponge, instrument and needle count were correct x2 . Patient tolerated the procedure well and was taken to PACU inm stable condition Final Pathologic Diagnosis A. RIGHT BREAST TISSUE (RE-EXCISION LUMPECTOMY): CHANGES CONSISTENT WITH PREVOUS BIOPSY, WITH FAT NECROSIS, FOREIGN BODY GRANULOMATOUS REACTION, CENTRAL CYSTIC CHANGE AND PROLIFERATIVE FIBROCYSTIC CHANGES; WITH NO RESIDUAL MALIGNANCY IDENTIFIED (SEE NOTES). B. SKIN AND SUBCUTANEOUS TISSUE FROM ANTERIOR MARGIN (EXCISION): CHANGES CONSISTENT WITH PREVIOUS BIOPSY, WITH FAT NECROSIS, FOREIGN BODY GRANULOMATOUS REACTION, MILD FIBROSIS AND PROLIFERATIVE FIBROCYSTIC CHANGES; WITH NO RESIDUAL MALIGNANCY IDENTIFIED.
== END 2017-06-16 14:05 | disposition home health service (06) ==
LOC: OR 07:43
PROVIDERS: ATTEND Surgery
DX: N64.1 Fat necrosis of breast (principal); N60.31 Fibrosclerosis of right breast; K57.20 Diverticulitis of large intestine with perforation and abscess without bleeding; N20.0 Calculus of kidney; N83.9 Noninflammatory disorder of ovary, fallopian tube and broad ligament, unspecified; J44.9 Chronic obstructive pulmonary disease, unspecified; I27.81 Cor pulmonale (chronic); I50.9 Heart failure, unspecified; F17.210 Nicotine dependence, cigarettes, uncomplicated; E78.5 Hyperlipidemia, unspecified; E11.9 Type 2 diabetes mellitus without complications; Z79.4 Long term (current) use of insulin; N19 Unspecified kidney failure; Z79.811 Long term (current) use of aromatase inhibitors; Z79.891 Long term (current) use of opiate analgesic; Z79.899 Other long term (current) drug therapy; Z88.6 Allergy status to analgesic agent; Z88.0 Allergy status to penicillin; Z88.2 Allergy status to sulfonamides; Z88.1 Allergy status to other antibiotic agents
CPT/HCPCS: 94640; 88307; 19301; A4648; J2250; J0330; J1644; J1100; J2405; J2001; J3010; J1170; J2704

== ENCOUNTER → 2017-07-30 | Outpatient (CLI) | payer OTHER ==
--- NOTE | 2017-07-30 17:53 | US ---
EXAMINATION TYPE: US abdomen limited DATE OF EXAM: 07/30/2017 COMPARISON: CT CLINICAL HISTORY: R10.82 Abd Pain, Breast Ca C50. Patient developed a palpable area in LLQ, no tenderness, some redness and swelling. Anterior is a hypoechoic ovoid structure measuring 1.1 x 0.7 x 1.3 cm with internal hyperechoic foci (probable air) with a tract that moves to the left. Inferior to this is another hypoechoic area measu ring 6 to 8 cm in transverse, this area is hypervascular. Possible abscess vs other etiology. IMPRESSION: There are 2 complex areas in the area of concern in the left lower quadrant. These appea r to be communicating with a tract between the 2 lesions. The larger measures 6 x 2cm. The smaller me asures 13 x 8 mm with probably some small air bubbles. The appearance is nonspecific. I would conside r both abscess and hematoma.
== END | disposition home or self-care (01) ==
LOC: RADUSMAIN 16:19
PROVIDERS: ATTEND Internal Medicine Hematology & Oncology
DX: R19.04 Left lower quadrant abdominal swelling, mass and lump (principal); C50.311 Malignant neoplasm of lower-inner quadrant of right female breast
CPT/HCPCS: 76705

== ENCOUNTER → 2017-10-29 | Outpatient (CLI) | payer OTHER ==
--- NOTE | 2017-10-29 16:36 | CT ---
EXAMINATION TYPE: CT ChestAbdPelvis w con DATE OF EXAM: 10/29/2017 COMPARISON: 06/30/2017 HISTORY: Breast cancer, observe for mets. CT DLP: 2274 mGycm. Automated Exposure Control for Dose Reduction was Utilized. CONTRAST: CT scan of the thorax, abdomen and pelvis is performed with IV Contrast, patient injected with 80 mL of Isovue M300. FINDINGS: LUNGS: The previously seen 4 mm left lower lobe pulmonary nodule on series 4 image 43 appears slightl y smaller than on the prior examination measures approximately 3 mm. On the prior exam this is also n oted. The smaller than on the exam of 05/19/2017. Linear scarring in the lingula is redemonstrated. D ependent filling defect within the bronchus intermedius likely represents mucus plugging as this was seen nondependently on the prior exam in this location. Endobronchial neoplasm with not changed posit ion. No new pulmonary nodules or focal consolidations are noted. Subsegmental atelectasis is again se en of the lingula consistent mediastinal border. MEDIASTINUM: There are no greater than 1 cm hilar or mediastinal lymph nodes. No pericardial effusi on is seen. Moderate three-vessel coronary artery calcifications are seen. OTHER: Postsurgical and posttherapy changes are seen of the right breast. LIVER/GB: No significant abnormality is appreciated. Gallbladder is surgically absent. No new focal h epatic lesions are appreciated. PANCREAS: No significant abnormality is seen. No ductal dilatation. SPLEEN: No significant abnormality is seen. No splenomegaly. ADRENALS: No significant abnormality is seen. No nodularity or thickening. KIDNEYS: Again there is left-sided cortical renal atrophy greater than right with 2 mm nonobstructing right upper pole renal calculus and 2 mm nonobstructing right lower pole renal calculus. On the left there is chronic ureteropelvic junction obstruction that could relate to stricture with uroepithelia l thickening on the left and severe hydronephrosis. Left lower pole nonobstructing calculi measuring 1.7 cm together with punctate 2 mm left midpole nonobstructing calculus also seen. BOWEL: Sequela of chronic diverticulitis is again noted. Numerous colonic diverticula are seen. The p reviously noted irregular fluid collection against the submucosal surface of the sigmoid colon is sma ller than on the prior but does contain residual foci of air and measures approximately 1.7 x 1.9 cm, previously measuring 2.5 x 1.5 cm. Again there is improved degree of fat stranding. Persistent fasci al thickening is noted. GENITAL ORGANS: There is a similar appearing large right cystic adnexal lesion measuring up to 8.8 x 9.1 cm. No new internal septations or mural nodules are seen. Uterus appears surgically absent. LYMPH NODES: No greater than 1cm abdominal or pelvic lymph nodes are appreciated. OSSEOUS STRUCTURES: There is redemonstration of diffuse osseous demineralization. Multifocal osseous metastasis are seen within the ribs, thoracic spine, lumbar spine, sacrum, and iliac bones. The large st lesion within the T8 vertebral body as seen on the prior exam is similar in size. Overall degree o f osseous metastasis is unchanged. IMPRESSION: 1. Stable appearing osseous metastatic disease with no new evidence of visceral metastasis within the chest, abdomen, or pelvis. 4 mm left lower lobe pulmonary nodule continues to appear slightly smalle r than on the prior exam of 06/30/2017 (on that exam this nodule also appears slightly smaller than on the prior of 05/19/2017). 2. Improving sequela of chronic diverticulitis and previous encapsulated perforation. 3. Unchanged right ovarian cystic lesion. Further evaluation with MR could again be performed as this is atypical in a postmenopausal female.
--- NOTE | 2017-10-30 11:28 | ECHOF ---
Referral Reason:C50.311 Breast Cancer, Z03.89 Observe for Mets MEASUREMENTS -------- HEIGHT: 162.6 cm WEIGHT: 88.9 kg BP: 210/87 RVIDd: 3.5 cm (< 3.3) IVSd: 1.3 cm (0.6 - 1.1) LVIDd: 5.0 cm (3.9 - 5.3) LVPWd: 1.4 cm (0.6 - 1.1) IVSs: 1.9 cm LVIDs: 3.5 cm LVPWs: 1.6 cm LA Diam: 3.9 cm (2.7 - 3.8) LAESV Index (A-L): 24.71 ml/m Ao Diam: 3.4 cm (2.0 - 3.7) AV Cusp: 2.1 cm (1.5 - 2.6) MV EXCURSION: 15.857 mm (> 18.000) MV EF SLOPE: 72 mm/s (70 - 150) EPSS: 0.6 cm MV E Harsha: 0.82 m/s MV DecT: 280 ms MV A Harsha: 0.83 m/s MV E/A Ratio: 0.99 RAP: 5.00 mmHg RVSP: 39.58 mmHg FINDINGS -------- Sinus rhythm. This was a technically adequate study. The left ventricular size is normal. There is moderate concentric left ventricular hypertrophy. O verall left ventricular systolic function is normal with, an EF between 55 - 60 %. The right ventricle is mildly enlarged. Normal LA size by volume 22+/-6 ml/m2. The right atrium is normal in size. There is mild aortic valve sclerosis. Mild mitral regurgitation is present. Mild tricuspid regurgitation present. There is mild pulmonary hypertension. The right ventricular systolic pressure, as measured by Doppler, is 39.58mmHg. Moderate pulmonic regurgitation. The aortic root size is normal. Normal inferior vena cava with normal inspiratory collapse consistent with estimated right atrial pre ssure of 5 mmHg. There is no pericardial effusion. CONCLUSIONS -------- 1. Sinus rhythm. 2. This was a technically adequate study. 3. The left ventricular size is normal. 4. There is moderate concentric left ventricular hypertrophy. 5. Overall left ventricular systolic function is normal with, an EF between 55 - 60 %. 6. The right ventricle is mildly enlarged. 7. Normal LA size by volume 22+/-6 ml/m2. 8. The right atrium is normal in size. 9. There is mild aortic valve sclerosis. 10. Mild mitral regurgitation is present. 11. Mild tricuspid regurgitation present. 12. There is mild pulmonary hypertension. 13. The right ventricular systolic pressure, as measured by Doppler, is 39.58mmHg. 14. Moderate pulmonic regurgitation. 15. The aortic root size is normal. 16. Normal inferior vena cava with normal inspiratory collapse consistent with estimated right atrial pressure of 5 mmHg. 17. There is no pericardial effusion. MANAGER FINANCIAL REPORTING: Jaky Hassan RDCS
== END ==
LOC: RADCTMAIN 13:18
PROVIDERS: ATTEND Internal Medicine Hematology & Oncology
DX: C50.311 Malignant neoplasm of lower-inner quadrant of right female breast (principal); Z92.21 Personal history of antineoplastic chemotherapy; C78.1 Secondary malignant neoplasm of mediastinum; R91.1 Solitary pulmonary nodule; K57.32 Diverticulitis of large intestine without perforation or abscess without bleeding; N83.201 Unspecified ovarian cyst, right side
CPT/HCPCS: 93306; 82565; 84520; 71260; 74177; 36415; Q9967

== ENCOUNTER → 2018-03-18 | Outpatient (CLI) | payer MEDICARE, OTHER ==
--- NOTE | 2018-03-19 07:54 | ECHOF ---
Referral Reason:C50.311 breast cancer, Z03.89 MEASUREMENTS -------- HEIGHT: 160.0 cm WEIGHT: 90.7 kg BP: RVIDd: 3.7 cm (< 3.3) IVSd: 1.3 cm (0.6 - 1.1) LVIDd: 4.6 cm (3.9 - 5.3) LVPWd: 1.3 cm (0.6 - 1.1) IVSs: 1.6 cm LVIDs: 3.4 cm LVPWs: 1.6 cm LAESV Index (A-L): 19.96 ml/m Ao Diam: 3.4 cm (2.0 - 3.7) AV Cusp: 2.0 cm (1.5 - 2.6) LA Diam: 3.4 cm (2.7 - 3.8) MV EXCURSION: 14.751 mm (> 18.000) MV EF SLOPE: 33 mm/s (70 - 150) EPSS: 0.6 cm MV E Harsha: 0.58 m/s MV DecT: 245 ms MV A Harsha: 0.83 m/s MV E/A Ratio: 0.70 RAP: 5.00 mmHg RVSP: 57.45 mmHg FINDINGS -------- Sinus rhythm. This was a technically adequate study. The left ventricular size is normal. There is mild concentric left ventricular hypertrophy. Overa ll left ventricular systolic function is low-normal with, an EF between 50 - 55 %. The right ventricle is mild to moderately enlarged. Normal LA size by volume 22+/-6 ml/m2. RA appears enlarged. Aortic valve is trileaflet and is mildly thickened. There is no evidence of aortic regurgitation. There is no evidence of aortic stenosis. The mitral valve leaflets are mildly thickened. Mild mitral regurgitation is present. Nouc-sm-fachruik tricuspid regurgitation present. There is moderate pulmonary hypertension. The r ight ventricular systolic pressure, as measured by Doppler, is 57.45mmHg. Moderate pulmonic regurgitation. The aortic root size is normal. IVC Not well visulized. There is no pericardial effusion. CONCLUSIONS -------- 1. Sinus rhythm. 2. This was a technically adequate study. 3. The left ventricular size is normal. 4. There is mild concentric left ventricular hypertrophy. 5. Overall left ventricular systolic function is low-normal with, an EF between 50 - 55 %. 6. The right ventricle is mild to moderately enlarged. 7. Normal LA size by volume 22+/-6 ml/m2. 8. RA appears enlarged. 9. Aortic valve is trileaflet and is mildly thickened. 10. The mitral valve leaflets are mildly thickened. 11. Mild mitral regurgitation is present. 12. Osaz-zu-jwuntweg tricuspid regurgitation present. 13. There is moderate pulmonary hypertension. 14. The right ventricular systolic pressure, as measured by Doppler, is 57.45mmHg. 15. Moderate pulmonic regurgitation. 16. The aortic root size is normal. 17. IVC Not well visulized. 18. There is no pericardial effusion. EDUCATIONAL RECRUITER: Milton Miller RDCS
--- NOTE | 2018-03-19 22:00 | CT ---
EXAMINATION TYPE: CT ChestAbdPelvis w con DATE OF EXAM: 03/18/2018 COMPARISON: 10/29/2017 and 06/30/2017 HISTORY: 63-year-old female follow-up Breast CA TECHNIQUE: Contiguous axial scanning of the chest, abdomen, and pelvis performed with IV Contrast, pa tient injected with 100 mL of Isovue 300. Delayed images through the kidneys were obtained. Coronal/s agittal reconstructions performed. CT DLP: 1931.9 mGycm Automated exposure control for dose reduction was used. FINDINGS: Chest: Heart normal size without pericardial effusion. Coronary vessel calcifications are present in remarka ble for coronary. Aorta normal caliber with mild atelectatic arch calcifications and conventional arch vessel branching anatomy. Left anterior chest wall injection port with catheter tip at the upper SVC. Large caliber to the main right and left pulmonary arteries at 2.6 cm suggesting underlying pulmonary arterial hypertension. Postsurgical changes of right sided lumpectomy with axillary node dissection. Residual linear densiti es are present here suggesting scar tissue. Breast deformity relating to the lumpectomy is noted. There is prominent indentation inferiorly and s uspected underlying bibasilar device which continues to have some central fluid but no also prominent , increased central air. Unable to exclude a fistulous communication to the skin surface, follow axia l images 28 through 30. Also, refer to sagittal image 28. No thoracic lymphadenopathy by CT size criteria. Evaluation of the lung shows mild bronchial wall thickening likely chronic bronchitis. There is a 4 m m triangular-shaped area of nodularity and along the posterior wall of the right mainstem bronchus th at is new from prior. There is a similar area along the anterior wall of the bronchus intermedius on the 06/30/2017 exam suggesting strandy adherent mucus and debris. Hazy and strandy atelectasis at the lung bases. The patient's tiny posterior right basilar pulmonary nodule is now stable at 4 mm. No new pulmonary n odules are no consolidation or pleural effusion. ABDOMEN: Early arterial phase imaging limiting assessment of the liver. There may be underlying fatty infiltra tion. Tiny hiatal hernia. Portal venous system is patent. Cholecystectomy clips. No biliary ductal dilatation. Multiple cortical defects within the kidneys suggesting sequela of prior vascular or infectious insul t. Approximately 3 punctate nonobstructive 1 mm calculi in the right kidney. Underlying cysts are present in the left kidney, unchanged. Some layering calculi with aggregate dime nsion of up to 1.8 cm. There is moderate left hydronephrosis with some urothelial thickening but abru pt caliber change at the UPJ. The degree of collecting system distention is slightly increased. Moderate atherosclerotic calcifications of the abdominal aorta and iliac arteries. No dilated small bowel, free fluid, or free air. No mesenteric or retroperitoneal lymphadenopathy. Slight hazy appearance around the pancreatic tail, refer to axial image 64. Correlation can be made w ith alkaline phosphatase and bilirubin levels. Scattered colonic diverticulosis with mild to moderate overall stool. Redemonstrated moderate circumferential wall thickening especially along the mid sigmoid with a relat ively similar contained peridiverticular abscess on the left containing a small amount of air and jamil suring 2.5 x 1.7 cm Left ovary not clearly seen. Right ovary is visualized. Uterus surgically absent. Exophytic large cystic lesion from the right ovary measures 9.3 cm, unchanged. Obvious pelvic lymphad enopathy. Bones: Multifocal areas of sclerosis adjacent to the superior left pubic ramus, sacrum, right iliac bone, an d scattered sclerotic foci throughout the spine, ribs, and sternum as well as the right scapula are u nchanged. IMPRESSION: 1. STATUS POST RIGHT SIDED LUMPECTOMY AND AXILLARY NODE DISSECTION. BIOZORB DEVICE AT THE LUMPECTOMY SITE CONTAINS LESS FLUID BUT INCREASING AIR. NOTE THAT THERE MAY BE A FISTULOUS TRACT THAT HAS DEVELO PED EXTENDING FROM THE DEVICE TO THE SKIN SURFACE OF THE OVERLYING INFERIOR BREAST DEFORMITY. 2. STABLE OSTEOSCLEROTIC METASTASES, SUSPECT TREATED BONE METASTASES. ALSO, STABLE 4 MM LEFT BASILAR PULMONARY NODULE. NO NEW METASTATIC DISEASE SEEN. 3. SLIGHT HAZINESS AROUND THE PANCREATIC TAIL IS NEW AND MAY BE TECHNICAL. CORRELATE WITH AMYLASE AND LIPASE TO EXCLUDE MILD ACUTE PANCREATITIS. 4. CHRONIC SIGMOID DIVERTICULITIS WITH STABLE 2.5 CM ENCAPSULATED LEFT PERIDIVERTICULAR ABSCESS. 5. SLIGHT INCREASED MODERATE LEFT-SIDED HYDRONEPHROSIS. CALIBER CHANGE AT THE UPJ MAY REPRESENT A UPJ STRICTURE. UROTHELIAL THICKENING SUGGESTS UNDERLYING INFLAMMATION. CORRELATE TO EXCLUDE UTI. 6. STABLE LARGE 9.3 CM RIGHT ADNEXAL CYSTIC LESION, POSSIBLE CYSTIC EPITHELIAL OVARIAN NEOPLASM, THOU GH BENIGN NEOPLASM IS FAVORED. FURTHER WORKUP AND INDICATED.
== END | disposition home or self-care (01) ==
LOC: RADECHMAIN 15:25
PROVIDERS: ATTEND Internal Medicine Hematology & Oncology
DX: Z01.818 Encounter for other preprocedural examination (principal); C50.311 Malignant neoplasm of lower-inner quadrant of right female breast; C79.51 Secondary malignant neoplasm of bone; R91.1 Solitary pulmonary nodule; K57.32 Diverticulitis of large intestine without perforation or abscess without bleeding; N13.30 Unspecified hydronephrosis; N83.8 Other noninflammatory disorders of ovary, fallopian tube and broad ligament; K63.0 Abscess of intestine; N32.89 Other specified disorders of bladder; R93.5 Abnormal findings on diagnostic imaging of other abdominal regions, including retroperitoneum; Z88.0 Allergy status to penicillin; Z88.2 Allergy status to sulfonamides; Z90.11 Acquired absence of right breast and nipple
CPT/HCPCS: 93306; 82565; 84520; 71260; 74177; 36415; Q9967

== ENCOUNTER 2018-04-01 04:06 | Inpatient (IN) | payer MEDICARE, OTHER ==
[2018-04-01] MEDS ORDERED: SODIUM CHLORIDE 0.9% 1,000 ML IV STA (04:29)
--- NOTE | 2018-04-01 04:39 | ED ---
Abdominal Pain HPI - General Chief Complaint: Abdominal Pain Stated Complaint: Abd Pain Time Seen by Provider: 04/01/18 04:14 Source: patient, EMS Mode of arrival: EMS Limitations: no limitations - History of Present Illness Initial Comments: Rosi is a 63-year-old female with a history of metastatic breast cancer with known metastases to her spine currently undergoing chemotherapy. Patient presents the emergency department today for evaluation of abdominal pain and distention which is progressively worsened over the course of the week. Patient states that earlier in the week she began having some abdominal pain which seems to be centered in the epigastrium radiating to her back and bilateral flanks. Pain is associated with nausea, decreased appetite and a single episode of vomiting earlier in the week. Patient reports she hasn't been eating or drinking well due to the abdominal discomfort. She states her last bowel movement was 4 days ago. Patient states that she feels as though her abdomen is becoming distended. Patient also states that she feels that her abdomen is so distended that she's having trouble breathing. Patient is a cigarette smoker and states that she's been told I doctors that she has COPD but that she doesn't believe she does. - Related Data Home Medications Medication Instructions Recorded Confirmed Atorvastatin Calcium [Lipitor] 20 mg PO HS 06/13/16 04/01/18 Zolpidem [Ambien] 10 mg PO HS 04/12/17 04/01/18 Anastrozole [Arimidex] 1 mg PO DAILY 05/20/17 04/01/18 Prochlorperazine [Compazine] 10 mg PO Q8H PRN 05/20/17 04/01/18 Cholecalciferol (Vitamin D3) 2,000 unit PO DAILY 04/01/18 04/01/18 [Vitamin D3] Cranberry Fruit Extract [Cranberry] 200 mg PO DAILY 04/01/18 04/01/18 Hydrocodone/Acetaminophen [[place] 1 tab PO Q6HR PRN 04/01/18 04/01/18 5-325] Insulin Glargine,Hum.rec.anlog 70 unit SQ HS 04/01/18 04/01/18 [Basaglar Kwikpen U-100] Multivitamins, Thera [Multivitamin 1 tab PO DAILY 04/01/18 04/01/18 (formulary)] Allergies Allergy/AdvReac Type Severity Reaction Status Date / Time gentamicin [From Garamycin] Allergy Rash/Hives Verified 04/01/18 07:37 Penicillins Allergy Rash/Hives Verified 04/01/18 07:37 Sulfa (Sulfonamide Allergy Rash/Hives Verified 04/01/18 07:37 Antibiotics) morphine AdvReac Nausea Verified 04/01/18 07:37 Review of Systems ROS Statement: Those systems with pertinent positive or pertinent negative responses have been documented in the HPI. ROS Other: All systems not noted in ROS Statement are negative. Past Medical History Past Medical History: Cancer (Breast with mets to spine. Lumpectomy 2017, undergoing chemo 2018), Heart Failure, COPD, Diabetes Mellitus, Hyperlipidemia Additional Past Medical History / Comment(s): KIDNEY STONES, CATARACT LEFT EYE History of Any Multi-Drug Resistant Organisms: None Reported Past Surgical History: Section, Cholecystectomy, Hernia Repair, Hysterectomy Additional Past Surgical History / Comment(s): R breast biopsy, x3, cystocscopies, multiple lithotripsies, percutaneous stone removals, double J stents (none in at this time per pt), umbilical hernia repairs x 2. CATARACT SURGERY RIGHT EYE , RIGHT LUMPECTOMY 2017, [employer]IPORT PLACEMENT Past Anesthesia/Blood Transfusion Reactions: No Reported Reaction Past Psychological History: Anxiety, Depression Smoking Status: Current every day smoker - Past Family History Father Family Medical History: Renal Disease Additional Family Medical History / Comment(s): Father of renal failure in his 90's. Mother Family Medical History: COPD Additional Family Medical History / Comment(s): Mother of COPD at the age of 62 yrs. Sister(s) Family Medical History: Cancer Additional Family Medical History / Comment(s): BREAST CANCER Brother(s) Family Medical History: Cancer General Exam - General Exam Comments Initial Comments: Physical Exam GENERAL: Chronically ill-appearing 63-year-old female appears older than stated age, smells strongly of tobacco smoke HENT: Normocephalic, Atraumatic. EYES: Cataract left eye PULMONARY: Rishabh decreased respiratory excursion, slight expiratory wheezing CARDIOVASCULAR: There is a regular rate and rhythm without any murmurs gallops or rubs. ABDOMEN: Soft, minimal tenderness, distended abdomen healed surgical scars on abdomen consistent with open cholecystectomy SKIN: Nonhealing wound on the inferior portion of the right breast with serous sanguinous drainage noted Irritation in her bilateral breasts consistent with candidal infection : Deferred NEUROLOGIC: Patient is alert and oriented x3. Moving all extremities spontaneously MUSCULOSKELETAL: Normal extremities with adequate strength and full range of motion. No lower extremity swelling or edema. No calf tenderness. PSYCHIATRIC: Normal psychiatric evaluation. Limitations: no limitations Limitations: no limitations Course Vital Signs 04/01/18 04:15 Temperature 99.2 F Pulse Rate 71 Respiratory 16 Rate Blood Pressure 119/63 O2 Sat by Pulse 92 L Oximetry Medical Decision Making - Medical Decision Making The patient was seen and evaluated, history is obtained from the patient seems to have a limited understanding of her complex medical history. She states that she had breast cancer but no longer does. She states that she is undergoing chemotherapy. Upon further prop probing she states that she's been told she had spots in her spine from the cancer. She states that she's been told recently that those are shrinking. Patient metastases to be a heavy tobacco smoker. She states that she's been told that she has COPD but she doesn't take any medications and she doesn't believe that she has it. The patient did not attend her regularly scheduled chemotherapy this week because she was feeling unwell had her chemotherapy rescheduled for next Labs and imaging were ordered, given the patient's history of cancer, oxygen saturation of only 91% and reported shortness of breath in addition to abdominal and cardiac labs I will order a d-dimer D-dimer was mildly elevated and a computed tomography scan was ordered Computed tomography scan suggestive of worsening metastatic disease, likely new metastases in the liver. No acute findings in the pancreas. This time I'll plan to admit the patient for abdominal pain, worsening metastatic disease. Patient care discussed with Dr. Morton who accepts admission with consult to oncology - Lab Data Result diagrams: 04/01/18 04:15 04/01/18 04:15 Lab Results 04/01/18 04/01/18 04/01/18 Range/Units 04:15 04:15 04:15 WBC 9.3 (3.8-10.6) k/uL RBC 4.42 (3.80-5.40) m/uL Hgb 12.1 (11.4-16.0) gm/dL Hct 38.2 (34.0-46.0) % MCV 86.5 (80.0-100.0) fL MCH 27.3 (25.0-35.0) pg MCHC 31.5 (31.0-37.0) g/dL RDW 15.3 (11.5-15.5) % Plt Count 266 (150-450) k/uL Neutrophils % 65 % Lymphocytes % 25 % Monocytes % 5 % Eosinophils % 3 % Basophils % 1 % Neutrophils # 6.0 (1.3-7.7) k/uL Lymphocytes # 2.3 (1.0-4.8) k/uL Monocytes # 0.5 (0-1.0) k/uL Eosinophils # 0.3 (0-0.7) k/uL Basophils # 0.0 (0-0.2) k/uL PT (9.0-12.0) sec INR (<1.2) APTT (22.0-30.0) sec D-Dimer (<0.60) mg/L FEU Sodium 137 (137-145) mmol/L Potassium 4.5 (3.5-5.1) mmol/L Chloride 104 (98-107) mmol/L Carbon Dioxide 24 (22-30) mmol/L Anion Gap 9 mmol/L BUN 30 H (7-17) mg/dL Creatinine 1.04 (0.52-1.04) mg/dL Est GFR (CKD-EPI)AfAm 65 (>60 ml/min/1.73 sqM) Est GFR (CKD-EPI)NonAf 57 (>60 ml/min/1.73 sqM) Glucose 238 H (74-99) mg/dL Calcium 10.1 (8.4-10.2) mg/dL Total Bilirubin 0.5 (0.2-1.3) mg/dL AST 33 (14-36) U/L ALT 25 (9-52) U/L Alkaline Phosphatase 104 (38-126) U/L Total Creatine Kinase 27 L (30-135) U/L CK-MB (CK-2) <0.2 (0.0-2.4) ng/mL CK-MB (CK-2) Rel Index Troponin I <0.012 (0.000-0.034) ng/mL Total Protein 6.8 (6.3-8.2) g/dL Albumin 3.6 (3.5-5.0) g/dL Amylase 70 (30-110) U/L Lipase 572 H (23-300) U/L 04/01/18 Range/Units 04:15 WBC (3.8-10.6) k/uL RBC (3.80-5.40) m/uL Hgb (11.4-16.0) gm/dL Hct (34.0-46.0) % MCV (80.0-100.0) fL MCH (25.0-35.0) pg MCHC (31.0-37.0) g/dL RDW (11.5-15.5) % Plt Count (150-450) k/uL Neutrophils % % Lymphocytes % % Monocytes % % Eosinophils % % Basophils % % Neutrophils # (1.3-7.7) k/uL Lymphocytes # (1.0-4.8) k/uL Monocytes # (0-1.0) k/uL Eosinophils # (0-0.7) k/uL Basophils # (0-0.2) k/uL PT 9.3 (9.0-12.0) sec INR 0.9 (<1.2) APTT 23.8 (22.0-30.0) sec D-Dimer 0.68 H (<0.60) mg/L FEU Sodium (137-145) mmol/L Potassium (3.5-5.1) mmol/L Chloride (98-107) mmol/L Carbon Dioxide (22-30) mmol/L Anion Gap mmol/L BUN (7-17) mg/dL Creatinine (0.52-1.04) mg/dL Est GFR (CKD-EPI)AfAm (>60 ml/min/1.73 sqM) Est GFR (CKD-EPI)NonAf (>60 ml/min/1.73 sqM) Glucose (74-99) mg/dL Calcium (8.4-10.2) mg/dL Total Bilirubin (0.2-1.3) mg/dL AST (14-36) U/L ALT (9-52) U/L Alkaline Phosphatase (38-126) U/L Total Creatine Kinase (30-135) U/L CK-MB (CK-2) (0.0-2.4) ng/mL CK-MB (CK-2) Rel Index Troponin I (0.000-0.034) ng/mL Total Protein (6.3-8.2) g/dL Albumin (3.5-5.0) g/dL Amylase (30-110) U/L Lipase (23-300) U/L Disposition Clinical Impression: Pancreatitis, COPD (chronic obstructive pulmonary disease), Breast CA, Cancer associated pain Disposition: ADMITTED IP TO THIS HOSP Referrals: Lilly Ruvalcaba MD [Primary Care Provider] - 1-2 days
--- NOTE | 2018-04-01 04:56 | XR ---
EXAMINATION TYPE: XR KUB DATE OF EXAM: 04/01/2018 COMPARISON: 04/15/2017 HISTORY: Abdominal pain TECHNIQUE: 2 views upright FINDINGS: There is no sign of intestinal obstruction or pneumoperitoneum. Fecal pattern is normal. Th ere are surgical clips over the right breast. There are clips at the right upper quadrant consistent with cholecystectomy. There is thoracolumbar levoscoliosis. I see no definite renal calculus. IMPRESSION: Nonacute abdomen. There is removal of the ureteral stent and drainage catheter compared t o old exam.
[2018-04-01 05:16] LABS: Basophils % (A) 1 %; Eosinophils # (A) 0.3 k/uL (0-0.7); Eosinophils % (A) 3 %; HCT 38.2 % (34.0-46.0); HGB 12.1 gm/dL (11.4-16.0); Lymphocytes # (A) 2.3 k/uL (1.0-4.8); Lymphocytes % (A) 25 %; MCH 27.3 pg (25.0-35.0); MCHC 31.5 g/dL (31.0-37.0); MCV 86.5 fL (80.0-100.0); Mean Platelet Volume 7.9; Monocytes # (A) 0.5 k/uL (0-1.0); Monocytes % (A) 5 %; Neutrophils % (A) 65 %; Platelet Count 266 k/uL (150-450); RBC 4.42 m/uL (3.80-5.40); RDW 15.3 % (11.5-15.5); WBC 9.3 k/uL (3.8-10.6)
[2018-04-01 05:29] LABS: Albumin 3.6 g/dL (3.5-5.0); Calcium 10.1 mg/dL (8.4-10.2); Total Bilirubin 0.5 mg/dL (0.2-1.3); Total Protein 6.8 g/dL (6.3-8.2)
[2018-04-01 05:42] LABS: INR 0.9 (<1.2); Partial Thromboplastin Time 23.8 sec (22.0-30.0); Prothrombin Time 9.3 sec (9.0-12.0)
[2018-04-01 05:47] LABS: Potassium 4.5 mmol/L (3.5-5.1)
[2018-04-01 05:50] LABS: Creatine Kinase 27 U/L (30-135); D-Dimer 0.68 mg/L FEU (<0.60)
[2018-04-01 06:03] LABS: Creatine Kinase MB <0.2 ng/mL (0.0-2.4); Troponin I <0.012 ng/mL (0.000-0.034)
[2018-04-01] MEDS ORDERED: ONDANSETRON 4 MG/2 ML VIAL IVP STA (07:03)
[2018-04-01] MEDS ORDERED: MORPHINE SULFATE 4 MG/ML SYRINGE IVP STA (07:03)
--- NOTE | 2018-04-01 07:22 | CT ---
EXAM: CT Angiography Chest With Intravenous Contrast CLINICAL HISTORY: ITS.REASON CT Reason: HYPOXIA, sob, METASTATIC BREAST ca TECHNIQUE: Axial computed tomographic angiography images of the chest with intravenous contrast using pulmonary embolism protocol. CTDI is 13.8 mGy and DLP is not available mGy-cm. This CT exam was performed using one or more of the following dose reduction techniques: automated exposure control, adjustment of the mA and/or kV according to patient size, and/or use of iterative reconstruction technique. MIP reconstructed images were created and reviewed. COMPARISON: CT chest dated 03/18/2018. FINDINGS: Pulmonary arteries: Dilatation of the main pulmonary artery to 3.5 cm suggestive of pulmonary artery hypertension. Aorta: No acute findings. No thoracic aortic aneurysm. Lungs: Unchanged 3 mm solid pulmonary nodule along left major fissure (series 406 image 39). Pleural space: Unremarkable. No significant effusion. No pneumothorax. Heart: Unremarkable. No cardiomegaly. No significant pericardial effusion. No evidence of RV dysfunction. Bones/joints: Numerous unchanged osseous metastases within the axial and appendicular skeleton. No acute fracture. No dislocation. Soft tissues: Postoperative changes in the right breast with a small air and fluid collection measuring up to 2.5 x 1.1 cm. Lymph nodes: Unremarkable. No enlarged lymph nodes. IMPRESSION: 1. No evidence of pulmonary embolism. 2. Dilatation of the main pulmonary artery to 3.5 cm suggestive of pulmonary artery hypertension. 3. Postoperative changes in the right breast with a small air and fluid collection measuring up to 2.5 x 1.1 cm. This is nonspecific. 4. Unchanged 3 mm solid pulmonary nodule along left major fissure (series 406 image 39). 5. Numerous unchanged osseous metastases within the axial and appendicular skeleton.
[2018-04-01] MEDS ORDERED: HYDROcodone/APAP 5-325MG 1 EACH TAB PO PRN (07:29)
[2018-04-01] MEDS ORDERED: NALOXONE 0.4 MG/ML 1 ML VIAL IV PRN (07:29)
[2018-04-01] MEDS ORDERED: DOCUSATE 100 MG CAP PO PRN (07:31)
--- NOTE | 2018-04-01 07:32 | CT ---
EXAM: CT Abdomen and Pelvis With Intravenous Contrast CLINICAL HISTORY: ITS.REASON CT Reason: Pain, NAUSEA, abdominal distention, TECHNIQUE: Axial computed tomography images of the abdomen and pelvis with intravenous contrast. CTDI is 13.8 mGy and DLP is unknown mGy-cm. This CT exam was performed using one or more of the following dose reduction techniques: automated exposure control, adjustment of the mA and/or kV according to patient size, and/or use of iterative reconstruction technique. COMPARISON: CT abdomen pelvis dated 03/18/2018. FINDINGS: Lung bases: Unremarkable. No mass. No consolidation. ABDOMEN: Liver: Multiple subcapsular low-attenuation foci within the right hepatic lobe measuring up to 12 mm are indeterminate and were not present on the October exam. Questionable subtle low-attenuation 2.2 cm lesion in the liver (series 51 image 12). Gallbladder and bile ducts: Prior cholecystectomy. No ductal dilation. Pancreas: Unremarkable. No evidence of mass. No ductal dilation. Spleen: Unremarkable. No splenomegaly. Adrenals: Unremarkable. No mass. Kidneys and ureters: Reidentified atrophic left kidney with dilated calyces and collecting system and wall thickening likely representing chronic obstruction. There are multiple layering calculi within the lower pole calyces. The ureters not dilated. Multiple 1-2 mm nonobstructing right renal calculi. Right renal cortical scarring. Stomach and bowel: Reidentified diverticulosis with an unchanged small walled off presumed perforation lateral to the sigmoid colon measuring approximately 2.8 x 1.9 cm. There is mild adjacent inflammatory change. The appearance is unchanged. There is no evidence of drainable abscess. No obstruction. No mucosal thickening. PELVIS: Appendix: No findings to suggest acute appendicitis. Bladder: Unremarkable. No evidence of mass. Reproductive: Unremarkable as visualized. ABDOMEN and PELVIS: Intraperitoneal space: Unchanged large 7.9 cm cystic focus in the right hemipelvis. No free air. No significant fluid collection. Bones/joints: Reidentified numerous sclerotic metastases within the axial and appendicular skeleton. Soft tissues: Unremarkable. Vasculature: Unremarkable. No abdominal aortic aneurysm. Lymph nodes: Unremarkable. No enlarged lymph nodes. IMPRESSION: 1. Reidentified numerous sclerotic metastases within the axial and appendicular skeleton. 2. Multiple subcapsular low-attenuation foci within the right hepatic lobe measuring up to 12 mm are indeterminate and were not present on the October exam. The differential includes subcapsular cysts and metastases. 3. Questionable subtle low-attenuation 2.2 cm lesion in the liver (series 51 image 12). This may represent a metastasis. 4. Unchanged large 7.9 cm cystic focus in the right hemipelvis. This is indeterminate and can be further characterized with ultrasound. 5. Reidentified diverticulosis with an unchanged small walled off presumed perforation lateral to the sigmoid colon measuring approximately 2.8 x 1.9 cm. There is mild adjacent inflammatory change. The appearance is unchanged. There is no evidence of drainable abscess.
[2018-04-01] MEDS: ONDANSETRON 4 MG/2 ML VIAL IVP PRN ×2 (10:39→23:28)
[2018-04-01] MEDS: HYDROmorphone 1 MG/ML 1 ML SYRINGE IVP PRN ×3 (10:40→23:27)
--- NOTE | 2018-04-01 10:53 | P.HPIM ---
History of Present Illness H&P Date: 04/01/18 Chief Complaint: Abdominal pain This is a 63-year-old female patient of Dr. Siddiqui. Patient presented to the emergency room with complaints of abdominal pain patient states that the abdominal pain and discussion have become worse over the past week. Patient states pain is in her mid epigastric area that radiates to flanks and to back. Patient has been experiencing nausea and decreased appetite. Patient states she has not had emesis. Patient denies diarrhea. Patient has a known past medical history of metastatic breast cancer with known metastasis to her spine. Patient states she was diagnosed one year prior and has been undergoing chemo chemotherapy. Most recent chemotherapy 3 weeks prior. Additional medical history includes COPD, diabetes mellitus, hyperlipidemia, high failure, anxiety, depression and nicotine dependence. Patient also complaining of drainage from right breast lumpectomy site. Patient states this has been occurring for multiple months. Patient did show Dr. Wheat her oncologist and he referred her to Dr. naidu. Patient states she is to see Dr. naidu next week. Lipase elevated at 572 on admission. D-dimer also elevated at 0.68. KUB of abdomen completed showing nonacute abdomen. There is removal of the ureteral stent and drainage catheter compared to old exam. CT of abdomen and pelvis completed showing reidentified numerous sclerotic metastases within the axial and appendicular skeleton. Multiple subcapsular low-attenuation foci within the right hepatic lobe measuring up to 12 mm are indeterminate and were not present on October exam. Questionable subtle low attenuation 2.2 cm lesion in the whether this may represent metastasis. Unchanged large 7.9 cm cystic focus in the right hemipelvis. This is indeterminate and can be further characterized with ultrasound. CT completed showing no evidence of pulmonary embolism. Dilation of the main pulmonary artery 3.5 cm suggestive of pulmonary artery hypertension. Postoperative changes in the right breast with small and fluid collection measuring up to 2.5-1.1 cm. Unchanged 3 mm solid pulmonary nodule along with left major fissure. Numerous unchanged osseous metastasis within the axial and appendicular skeleton. Dr. Wheat has been consulted for oncology services. Dilaudid and Zofran have been added. Review of Systems please refer to HPI otherwise unremarkable Past Medical History Past Medical History: Cancer (Breast with mets to spine. Lumpectomy 2017, undergoing chemo 2018), Heart Failure, COPD, Diabetes Mellitus, Hyperlipidemia Additional Past Medical History / Comment(s): KIDNEY STONES, CATARACT LEFT EYE History of Any Multi-Drug Resistant Organisms: None Reported Past Surgical History: Section, Cholecystectomy, Hernia Repair, Hysterectomy Additional Past Surgical History / Comment(s): R breast biopsy, x3, cystocscopies, multiple lithotripsies, percutaneous stone removals, double J stents (none in at this time per pt), umbilical hernia repairs x 2. CATARACT SURGERY RIGHT EYE , RIGHT LUMPECTOMY 2017, MEDIPORT PLACEMENT Past Anesthesia/Blood Transfusion Reactions: No Reported Reaction Past Psychological History: Anxiety, Depression Smoking Status: Current every day smoker - Past Family History Father Family Medical History: Renal Disease Additional Family Medical History / Comment(s): Father of renal failure in his 90's. Mother Family Medical History: COPD Additional Family Medical History / Comment(s): Mother of COPD at the age of 62 yrs. Sister(s) Family Medical History: Cancer Additional Family Medical History / Comment(s): BREAST CANCER Brother(s) Family Medical History: Cancer Medications and Allergies Home Medications Medication Instructions Recorded Confirmed Type Atorvastatin Calcium [Lipitor] 20 mg PO HS 06/13/16 04/01/18 History Zolpidem [Ambien] 10 mg PO HS 04/12/17 04/01/18 History Anastrozole [Arimidex] 1 mg PO DAILY 05/20/17 04/01/18 History Prochlorperazine [Compazine] 10 mg PO Q8H PRN 05/20/17 04/01/18 History Cholecalciferol (Vitamin D3) 2,000 unit PO DAILY 04/01/18 04/01/18 History [Vitamin D3] Cranberry Fruit Extract [Cranberry] 200 mg PO DAILY 04/01/18 04/01/18 History Hydrocodone/Acetaminophen [[place] 1 tab PO Q6HR PRN 04/01/18 04/01/18 History 5-325] Insulin Glargine,Hum.rec.anlog 70 unit SQ HS 04/01/18 04/01/18 History [Basaglar Kwikpen U-100] Multivitamins, Thera [Multivitamin 1 tab PO DAILY 04/01/18 04/01/18 History (formulary)] Allergies Allergy/AdvReac Type Severity Reaction Status Date / Time gentamicin [From Garamycin] Allergy Rash/Hives Verified 04/01/18 07:37 Penicillins Allergy Rash/Hives Verified 04/01/18 07:37 Sulfa (Sulfonamide Allergy Rash/Hives Verified 04/01/18 07:37 Antibiotics) morphine AdvReac Nausea Verified 04/01/18 07:37 Physical Exam Vitals: Vital Signs Temp Pulse Resp BP Pulse Ox 04/01/18 07:56 96 04/01/18 07:46 70 18 128/68 91 L 04/01/18 07:30 133/73 04/01/18 04:30 119/63 89 L 04/01/18 04:15 99.2 F 71 16 119/63 92 L Intake and Output 03/31/18 04/01/18 04/01/18 22:59 06:59 14:59 Other: Weight 90.718 kg Head normocephalic Neck supple Lungs clear to auscultation bilaterally no wheezing or crackles Heart regular rate and rhythm S1-S2, no rub or gallop Abdomen is distended and tender to mid epigastric area. Extremities no edema Neuro alert and orientated to 3 Right breast mid dime size opening. Site did not appear red or infected. Per patient site does have drainage. Results CBC & Chem 7: 04/01/18 04:15 04/01/18 04:15 Labs: Abnormal Lab Results - Last 24 Hours (Table) 04/01/18 04/01/18 04/01/18 Range/Units 04:15 04:15 04:15 D-Dimer 0.68 H (<0.60) mg/L FEU BUN 30 H (7-17) mg/dL Glucose 238 H (74-99) mg/dL Total Creatine Kinase 27 L (30-135) U/L Lipase 572 H (23-300) U/L Assessment and Plan Assessment: 1. Abdominal pain with nausea. Amylase of any. Lipase is 572. CT of abdomen and pelvis completed showing reidentified numerous sclerotic metastasis within the axial and appendicular skeleton. Multiple subcapsular low attenuated foci within the right hepatic lobe measuring up to 12 mm indeterminate present on the October exam. The differential includes subcapsular cyst or metastasis. Questionable subtle low attenuated 2.2 cm lesion in the liver this may represent metastasis. Unchanged large 7.9 cm focus right hemipelvis this is indeterminate between further characterized with ultrasound. Reidentified diverticulosis with on unchanged small walled off presumed perforated greenish in lateral to the sigmoid colon measuring proximally 2.81.9 cm this is mild adjacent inflammatory change the appearance is unchanged there is no evidence of drainable abscess. Oncology services have been consulted. Patient has Dilaudid for pain control. Zofran for nausea. 2. History of breast cancer with metastasis. Patient states she was diagnosed one year prior. Chemotherapy 3 weeks prior. Awaiting oncology consult 3.. History of lumpectomy. Patient states lumpectomy site has been draining for the past few months. CTA completed Postoperative changes in the right breast with a small air and fluid collection measuring up to 2.5-1.1 cm. 4. History of diabetes mellitus. Home meds resumed. Sliding scale insulin ordered. A1c ordered 5. History of nicotine dependence. Patient states she smokes 1 pack of cigarettes per day. Patient educated greater than 3 minuntes on smoking cessation. Nicotine patch has been ordered 6. Chronic Diastolic heart failure. 7. History of essential hypertension 8. History of hyperlipidemia 9. Elevated d-dimer. D-dimer 0.68. CTA completed showing no evidence of pulmonary embolism. Dilation the main pulmonary artery to 3.5 cm suggestive pulmonary artery hypertension. Postoperative changes in the right breast with a small air and fluid collection measuring up to 2.5-1.1 cm. Unchanged 3 mm solid pulmonary nodule along left major fissure. Numerous unchanged osseous metastases within the axial and appendicular skeleton. DVT prophylaxis Lovenox. GI prophylaxis Protonix Awaiting oncology consult. AM labs have been ordered. Time with Patient: Greater than 30 (Greater than 60% of the total time spent in counseling and coordination of care. I performed an examination of the patient and discussed their management with the Nurse Practitioner. I have reviewed the Nurse Practitioner's notes and agree with the documented findings and plan of care)
[2018-04-01 11:36] LABS: Glucose,Whole Blood 139 mg/dL (75-99)
[2018-04-01] MEDS: ANASTROZOLE 1 MG TAB PO SCH (13:37)
[2018-04-01] MEDS: 0.9% NACL WITH KCL 20 MEQ/L 1,000 ML IV SCH ×2 (13:42→17:25)
[2018-04-01] MEDS: INSULIN ASPART 100 UNIT/ML 1 ML 10 ML VIAL SQ SCH ×3 (13:42→21:14)
[2018-04-01 16:41] LABS: Glucose,Whole Blood 152 mg/dL (75-99)
[2018-04-01] MEDS: PROCHLORPERAZINE 5 MG TAB PO PRN (17:37)
[2018-04-01] MEDS ORDERED: VANCOMYCIN IV PER PHARMACY 1 EACH MISC MISCELLANE PRN (18:19)
--- NOTE | 2018-04-01 18:37 | P.GSCN ---
History of Present Illness Consult date: 04/01/18 Reason for Consult: Right breast wound History of present illness: 63-year-old female with history of known right breast cancer. Patient underwent previous lumpectomy 1-1.[address] Bello. Patient has known skeletal metastasis and on recent CAT scan may have liver metastasis. Patient presents with complaints of abdominal pain and distention along with shortness of breath. He did have episodes of vomiting. Describes abdominal bloating. CAT scan also demonstrates a possible small pericolonic abscess in the left lower quadrant. We were consulted to evaluate her lumpectomy site. Review of Systems The patient denies any acute changes in vision or hearing, no dysphagia or odynophagia, no chest pain or shortness of breath, no dysuria or hematuria, no headache, no runny nose, no rectal bleeding or melena, no unexplained weight loss Past Medical History Past Medical History: Cancer (Breast with mets to spine. Lumpectomy 2017, undergoing chemo 2018), Heart Failure, COPD, Diabetes Mellitus, Hyperlipidemia Additional Past Medical History / Comment(s): KIDNEY STONES, CATARACT LEFT EYE History of Any Multi-Drug Resistant Organisms: None Reported Past Surgical History: Section, Cholecystectomy, Hernia Repair, Hysterectomy Additional Past Surgical History / Comment(s): R breast biopsy, x3, cystocscopies, multiple lithotripsies, percutaneous stone removals, double J stents (none in at this time per pt), umbilical hernia repairs x 2. CATARACT SURGERY RIGHT EYE , RIGHT LUMPECTOMY 2017, MEDIPORT PLACEMENT Past Anesthesia/Blood Transfusion Reactions: No Reported Reaction Past Psychological History: Anxiety, Depression Smoking Status: Current every day smoker - Past Family History Father Family Medical History: Renal Disease Additional Family Medical History / Comment(s): Father of renal failure in his 90's. Mother Family Medical History: COPD Additional Family Medical History / Comment(s): Mother of COPD at the age of 62 yrs. Sister(s) Family Medical History: Cancer Additional Family Medical History / Comment(s): BREAST CANCER Brother(s) Family Medical History: Cancer Medications and Allergies Home Medications Medication Instructions Recorded Confirmed Type Atorvastatin Calcium [Lipitor] 20 mg PO HS 06/13/16 04/01/18 History Zolpidem [Ambien] 10 mg PO HS 04/12/17 04/01/18 History Anastrozole [Arimidex] 1 mg PO DAILY 05/20/17 04/01/18 History Prochlorperazine [Compazine] 10 mg PO Q8H PRN 05/20/17 04/01/18 History Cholecalciferol (Vitamin D3) 2,000 unit PO DAILY 04/01/18 04/01/18 History [Vitamin D3] Cranberry Fruit Extract [Cranberry] 200 mg PO DAILY 04/01/18 04/01/18 History Hydrocodone/Acetaminophen [[place] 1 tab PO Q6HR PRN 04/01/18 04/01/18 History 5-325] Insulin Glargine,Hum.rec.anlog 70 unit SQ HS 04/01/18 04/01/18 History [Basaglar Kwikpen U-100] Multivitamins, Thera [Multivitamin 1 tab PO DAILY 04/01/18 04/01/18 History (formulary)] Allergies Allergy/AdvReac Type Severity Reaction Status Date / Time gentamicin [From Garamycin] Allergy Rash/Hives Verified 04/01/18 07:37 Penicillins Allergy Rash/Hives Verified 04/01/18 07:37 Sulfa (Sulfonamide Allergy Rash/Hives Verified 04/01/18 07:37 Antibiotics) morphine AdvReac Nausea Verified 04/01/18 07:37 Surgical - Exam Vital Signs Temp Pulse Resp BP Pulse Ox 99.2 F 71 16 119/63 92 L 04/01/18 04:15 04/01/18 04:15 04/01/18 04:15 04/01/18 04:15 04/01/18 04:15 Physical exam: General: Well-developed, well-nourished HEENT: Normocephalic, sclerae nonicteric Right breast wound measures approximately 6 x 6 mm with some seropurulent drainage noted, no adenopathy Abdomen: Mild distention, mild diffuse tenderness Extremities: No edema Neuro: Alert and oriented Results - Labs 04/01/18 04:15 04/01/18 04:15 Abnormal Lab Results - Last 24 Hours (Table) 04/01/18 04/01/18 04/01/18 Range/Units 04:15 04:15 04:15 D-Dimer 0.68 H (<0.60) mg/L FEU BUN 30 H (7-17) mg/dL Glucose 238 H (74-99) mg/dL POC Glucose (mg/dL) (75-99) mg/dL Total Creatine Kinase 27 L (30-135) U/L Lipase 572 H (23-300) U/L 04/01/18 04/01/18 Range/Units 11:35 16:39 D-Dimer (<0.60) mg/L FEU BUN (7-17) mg/dL Glucose (74-99) mg/dL POC Glucose (mg/dL) 139 H 152 H (75-99) mg/dL Total Creatine Kinase (30-135) U/L Lipase (23-300) U/L Diabetes panel 04/01/18 Range/Units 04:15 Sodium 137 (137-145) mmol/L Potassium 4.5 (3.5-5.1) mmol/L Chloride 104 (98-107) mmol/L Carbon Dioxide 24 (22-30) mmol/L BUN 30 H (7-17) mg/dL Creatinine 1.04 (0.52-1.04) mg/dL Glucose 238 H (74-99) mg/dL Calcium 10.1 (8.4-10.2) mg/dL AST 33 (14-36) U/L ALT 25 (9-52) U/L Alkaline Phosphatase 104 (38-126) U/L Total Protein 6.8 (6.3-8.2) g/dL Albumin 3.6 (3.5-5.0) g/dL Calcium panel 04/01/18 Range/Units 04:15 Calcium 10.1 (8.4-10.2) mg/dL Albumin 3.6 (3.5-5.0) g/dL Pituitary panel 04/01/18 Range/Units 04:15 Sodium 137 (137-145) mmol/L Potassium 4.5 (3.5-5.1) mmol/L Chloride 104 (98-107) mmol/L Carbon Dioxide 24 (22-30) mmol/L BUN 30 H (7-17) mg/dL Creatinine 1.04 (0.52-1.04) mg/dL Glucose 238 H (74-99) mg/dL Calcium 10.1 (8.4-10.2) mg/dL Adrenal panel 04/01/18 Range/Units 04:15 Sodium 137 (137-145) mmol/L Potassium 4.5 (3.5-5.1) mmol/L Chloride 104 (98-107) mmol/L Carbon Dioxide 24 (22-30) mmol/L BUN 30 H (7-17) mg/dL Creatinine 1.04 (0.52-1.04) mg/dL Glucose 238 H (74-99) mg/dL Calcium 10.1 (8.4-10.2) mg/dL Total Bilirubin 0.5 (0.2-1.3) mg/dL AST 33 (14-36) U/L ALT 25 (9-52) U/L Alkaline Phosphatase 104 (38-126) U/L Total Protein 6.8 (6.3-8.2) g/dL Albumin 3.6 (3.5-5.0) g/dL Assessment and Plan (1) Breast CA Narrative/Plan: Discussed the management of the patient's right breast wound with her in detail. Would recommend surgical debridement of the wound track with deep tissue biopsy. Would allow wound to heal by secondary intention at that time. Continue workup of the patient's primary symptoms at this time however. Would anticipate surgical intervention on the right breast to occur as an outpatient. Continue antibiotics per infectious disease. We'll follow with you. Current Visit: Yes Status: Acute Code(s): C50.919 - MALIGNANT NEOPLASM OF UNSP SITE OF UNSPECIFIED FEMALE BREAST SNOMED Code(s): 665462802
[2018-04-01 18:43] LABS: Hemoglobin A1C 11.3 % (4.0-6.0)
[2018-04-01] MEDS ORDERED: VANCOMYCIN 1,750 MG in SODIUM CHLORIDE 0.9% 500 ML 500 ML IVPB ONE (19:00)
--- NOTE | 2018-04-01 19:23 | P.CONS ---
History of Present Illness - Reason for Consult Consult date: 04/01/18 Metastatic Breast Cancer triple positive Requesting physician: Zaida Swift - Chief Complaint Abdominal Pain - History of Present Illness This is a very nice lady who originally presented with palpable right breast mass for about 6 months duration,diagnostic mammograms and left breast U/S done in which revealed a 2.8cm suspicious solid mass at 4 o'clock right breast,core biopsy done on 12/02/2016 was positive for high grade invasive carcinoma,ER/IL strongly positive and HER2/JASPAL positive (3+). U/S of right axilla revealed 2 suspicious right axillary nodes,core biopsy on was positive for metastatic carcinoma. CT scan of chest/abdomen/pelvis done on 01/22/2017 revealed 10cm cystic mass arising from right ovary,otherwise negative,bone scan was negative for metastatic disease. The patient delayed medical care,she previoulsy cancelled Appt with me on 2 occaisons,she finally agreed to see me and to have further work up. Echocardiogram done in revealed severe pulmonary hypertension, was referred to [facility] to evaluate to ovarain lesion but no surgery done due to severe pulminaty hypertension but it was felt to be benign lesion. She had multiple hospital admissions ,for CHF,for diverticulits and intra abdominal abscess. Since there was a delay in systemic therapy,she was started on arimidex end of . On 05/28/2017,she had right breast lumpectomy and axillary nodes resection, pathology revealed grade 3,invasive ductal carcinoma,2.2cm,3/8 nodes were positive for macrometastasis,margins were psoitive and she had re excision on . Repeat echocardiogram on 06/30/2017 revealed EF of 60%. Repeat CT scan of chest/abdomen/pelvis on 06/30/2017 revealed new diffuse osseous metastasis,improvement in her abdominal abscess. On 07/30/2017,U/S of abdomen revealed possibly seroma,less likely abscess. On 08/02/2017,she started herceptin every 3 weeks and zometa and she continued on arimidex (her PS and multiple co-morbidities did not permit taxane/herceptin) On 10/29/[address] scan of chest/abdomen/pelvis revealed stable osseous lesions. On 10/29/2017 repeat echocardiogram revealed normal and stable EF. On 03/18/[address] scan of chest/abdomen/pelvis revealed stable disease. On 03/18/2018 repeat echocardiogram revealed stable EF of 50-55% Status Post 11th cycle of Herceptin. She also remains on Zometa (recently changed to every 3 months, and daily arimidex. Primary Oncologist Dr. Mary Alice daniel is a very nice lady who presented with palpable right breast mass for about 6 months duration,diagnostic mammograms and left breast U/S done in which revealed a 2.8cm suspicious solid mass at 4 o'clock right breast,core biopsy done on 12/02/2016 was positive for high grade invasive carcinoma,ER/IL strongly positive and HER2/JASPAL positive (3+). U/S of right axilla revealed 2 suspicious right axillary nodes,core biopsy on was positive for metastatic carcinoma. CT scan of chest/abdomen/pelvis done on 01/22/2017 revealed 10cm cystic mass arising from right ovary,otherwise negative,bone scan was negative for metastatic disease. The patient delayed medical care,she previoulsy cancelled Appt with me on 2 occaisons,she finally agreed to see me and to have further work up. Echocardiogram done in revealed severe pulmonary hypertension, was referred to [facility] to evaluate to ovarain lesion but no surgery done due to severe pulminaty hypertension but it was felt to be benign lesion. She had multiple hospital admissions ,for CHF,for diverticulits and intra abdominal abscess. Since there was a delay in systemic therapy,she was started on arimidex end of . On 05/28/2017,she had right breast lumpectomy and axillary nodes resection, pathology revealed grade 3,invasive ductal carcinoma,2.2cm,3/8 nodes were positive for macrometastasis,margins were psoitive and she had re excision on . Repeat echocardiogram on 06/30/2017 revealed EF of 60%. Repeat CT scan of chest/abdomen/pelvis on 06/30/2017 revealed new diffuse osseous metastasis,improvement in her abdominal abscess. On 07/30/2017,U/S of abdomen revealed possibly seroma,less likely abscess. On 08/02/2017,she started herceptin every 3 weeks and zometa and she continued on arimidex (her PS and multiple co-morbidities did not permit taxane/herceptin) On 10/29/[address] scan of chest/abdomen/pelvis revealed stable osseous lesions. On 10/29/2017 repeat echocardiogram revealed normal and stable EF. On 03/18/[address] scan of chest/abdomen/pelvis revealed stable disease. On 03/18/2018 repeat echocardiogram revealed stable EF of 50-55% She is recently status POst 11th cycle of q3week Herceptin, and continues on [id number] ZOmeta and daily arimidex, primary oncologist Dr. Wheat She presented to the emergency department with complaints of abdominal pain that persisted and worsened over the past week. She states she has had a decreased appetite, therefore has not moved bowels in a few days due to lack of po intake. She denied nausea although she did have episodes of non-bloody emesis during initial presentation. She describes the pain around abdominal girth, bilateral to mid epigastric area, with increased feeling of bloating. Denies fevers, dysuria, headaches. Does admit to some shortness of breath as she feels her abdomen is feeling full/bloated and difficult to take a deep breath in. CT Scan demonstrated a possible small pericolonic abscess in the left lower quadrant. We were consulted to evaluate her lumpectomy site. Review of Systems A 14 point review of systems assessed and completed and all negative except HPI Past Medical History Past Medical History: Cancer (Breast with mets to spine. Lumpectomy 2017, undergoing chemo 2018), Heart Failure, COPD, Diabetes Mellitus, Hyperlipidemia Additional Past Medical History / Comment(s): KIDNEY STONES, CATARACT LEFT EYE History of Any Multi-Drug Resistant Organisms: None Reported Past Surgical History: Section, Cholecystectomy, Hernia Repair, Hysterectomy Additional Past Surgical History / Comment(s): R breast biopsy, x3, cystocscopies, multiple lithotripsies, percutaneous stone removals, double J stents (none in at this time per pt), umbilical hernia repairs x 2. CATARACT SURGERY RIGHT EYE , RIGHT LUMPECTOMY 2017, MEDIPORT PLACEMENT Past Anesthesia/Blood Transfusion Reactions: No Reported Reaction Past Psychological History: Anxiety, Depression Smoking Status: Current every day smoker - Past Family History Father Family Medical History: Renal Disease Additional Family Medical History / Comment(s): Father of renal failure in his 90's. Mother Family Medical History: COPD Additional Family Medical History / Comment(s): Mother of COPD at the age of 62 yrs. Sister(s) Family Medical History: Cancer Additional Family Medical History / Comment(s): BREAST CANCER Brother(s) Family Medical History: Cancer Medications and Allergies Home Medications Medication Instructions Recorded Confirmed Type Atorvastatin Calcium [Lipitor] 20 mg PO HS 06/13/16 04/01/18 History Zolpidem [Ambien] 10 mg PO HS 04/12/17 04/01/18 History Anastrozole [Arimidex] 1 mg PO DAILY 05/20/17 04/01/18 History Prochlorperazine [Compazine] 10 mg PO Q8H PRN 05/20/17 04/01/18 History Cholecalciferol (Vitamin D3) 2,000 unit PO DAILY 04/01/18 04/01/18 History [Vitamin D3] Cranberry Fruit Extract [Cranberry] 200 mg PO DAILY 04/01/18 04/01/18 History Hydrocodone/Acetaminophen [[place] 1 tab PO Q6HR PRN 04/01/18 04/01/18 History 5-325] Insulin Glargine,Hum.rec.anlog 70 unit SQ HS 04/01/18 04/01/18 History [Basaglar Kwikpen U-100] Multivitamins, Thera [Multivitamin 1 tab PO DAILY 04/01/18 04/01/18 History (formulary)] Allergies Allergy/AdvReac Type Severity Reaction Status Date / Time gentamicin [From Garamycin] Allergy Rash/Hives Verified 04/01/18 07:37 Penicillins Allergy Rash/Hives Verified 04/01/18 07:37 Sulfa (Sulfonamide Allergy Rash/Hives Verified 04/01/18 07:37 Antibiotics) morphine AdvReac Nausea Verified 04/01/18 07:37 Physical Exam Vitals: Vital Signs Temp Pulse Pulse Resp BP BP Pulse Ox 04/01/18 12:10 97.5 F L 65 17 128/75 96 04/01/18 07:56 96 04/01/18 07:46 70 18 128/68 91 L 04/01/18 07:30 133/73 04/01/18 04:30 119/63 89 L 04/01/18 04:15 99.2 F 71 16 119/63 92 L Intake and Output 04/01/18 04/01/18 04/01/18 06:59 14:59 22:59 Intake Total 240 Balance 240 Intake: Oral 240 Other: # Voids 1 Weight 90.718 kg 90.718 kg 90.718 kg General: Well-developed, well-nourished, No acute distress, alert HEENT: Normocephalic, sclerae nonicteric, non-traumatic, no oral thrush, mucus membranes dry Lymph: no cerval or axillary adenopathy Skin: Right breast with wound serous/purulent drainage noted, approx subcentimeter in size Abdomen: Mild distention, mild diffuse tenderness, Bowel sounds to ausculation Lungs: Diminished bilateral lower lobes, scattered expiratory wheezes, which cleared with cough, no rhonchi or crackles noted Heart: RRR, S1S2 Extremities: No edema Neuro: Alert and oriented, non focal neurological exam Results CBC & Chem 7: 04/01/18 04:15 04/01/18 04:15 Labs: Abnormal Lab Results - Last 24 Hours (Table) 04/01/18 04/01/18 04/01/18 Range/Units 04:15 04:15 04:15 D-Dimer 0.68 H (<0.60) mg/L FEU BUN 30 H (7-17) mg/dL Glucose 238 H (74-99) mg/dL POC Glucose (mg/dL) (75-99) mg/dL Hemoglobin A1c (4.0-6.0) % Total Creatine Kinase 27 L (30-135) U/L Lipase 572 H (23-300) U/L 04/01/18 04/01/18 04/01/18 Range/Units 04:15 11:35 16:39 D-Dimer (<0.60) mg/L FEU BUN (7-17) mg/dL Glucose (74-99) mg/dL POC Glucose (mg/dL) 139 H 152 H (75-99) mg/dL Hemoglobin A1c 11.3 H (4.0-6.0) % Total Creatine Kinase (30-135) U/L Lipase (23-300) U/L CT scan - abdomen: report reviewed CT scan - chest: report reviewed CT scan - pelvis: report reviewed Assessment and Plan Plan: CT Chest, Abdomen and Pelvis:showing reidentified numerous sclerotic metastases within the axial and appendicular skeleton. Multiple subcapsular low- attenuation foci within the right hepatic lobe measuring up to 12 mm are indeterminate and were not present on October exam. Questionable subtle low attenuation 2.2 cm lesion in the whether this may represent metastasis. Unchanged large 7.9 cm cystic focus in the right hemipelvis. no evidence of pulmonary embolism. Postoperative changes in the right breast with small and fluid collection measuring up to 2.5-1.1 cm. Unchanged 3 mm solid pulmonary nodule along with left major fissure. Numerous unchanged osseous metastasis within the axial and appendicular skeleton. Assessment and Recommendations: 1. Metastatic Breast Cancer - Bone, Possible Liver - Triple Positive - Follows with Dr. Wheat as outpatient and current treatment with q3week Herceptin (last on 03/09/18), q3 month Zometa, and arimidex daily - Follow-up with Dr. Wheat as outpatient regarding outpatient treatment recommendations 2. Persistent Abdominal Pain with Associated Vomiting - Likely secondary to acute pancreatitis, inflammatory changes - Bowel rest, slow advancement of diet, pain and antiemetic regimen - Improved on current pain and antiemetic regimen 3. Right Breast Lumpectomy Site with open area, serous purulent drainage: - Was referred to Dr. Bradford as outpatient, although appointment was scheduled for next week - Dr. Bradford is following while inpatient 4. Multiple Co-morbidities Including Diabetes Mellitus, Diabetic Neuropathy, COPD, Hyperlipidema, Nicoteine dependence - Per Primary Team Plan/Onc Recs: - Continue with supportive care for acute abdominal pain, likely a result of pancreatitis, inflammatory changes. - Bowel regimen secondary to no BM in 5 days and now on narcotics for pain management - Continue outpatient oncologic care per Dr. Wheat after discharge - Gen Surg Recs regarding open wound to Right Breast Lumpectomy site, likely outpatient intervention Thank You for allowing us to follow along with you on this patient.
[2018-04-01 19:49] LABS: Appearance,Urine Cloudy (Clear); Bilirubin,Urine Negative (Negative); Blood,Urine Small (Negative); Color,Urine Yellow; Glucose,Urine (UA) Negative (Negative); Ketones,Urine Negative (Negative); Leukocyte Esterase,Urine Large (Negative); Nitrite,Urine Negative (Negative); PH, Urine 5.5 (5.0-8.0); Protein,Urine 2+ (Negative); Specific Gravity,Urine 1.032 (1.001-1.035); Squamous Epithelial Cell,Urine 2 /hpf (0-4); Urobilinogen,Urine <2.0 mg/dL (<2.0); WBC,Urine >182 /hpf (0-5)
[2018-04-01 20:30] LABS: Glucose,Whole Blood 173 mg/dL (75-99)
[2018-04-01] MEDS ORDERED: ZOLPIDEM 10 MG TAB PO PRN (21:00)
[2018-04-01] MEDS: ATORVASTATIN 20 MG TAB PO SCH (21:13)
[2018-04-01] MEDS: INSULIN DETEMIR 100 UNIT/ML 10 ML VIAL SQ SCH (21:14)
--- NOTE | 2018-04-01 23:14 | P.CONS ---
History of Present Illness - Reason for Consult Consult date: 04/01/18 - Chief Complaint shortness of breath - History of Present Illness 62-year-old female was a very complex recent past medical history which includes right breast carcinoma recently diagnosed as well as a large cystic mass from the right ovary resulting in an obstructive process. She also had bilateral nephrolithiasis with calculi. She had difficulty with acute diverticulitis and abscess and has been treated with intravenous antibiotic therapy since that time. the patient was stabilized and eventuallytaken to the operating room for the lumpectomy. The patient does have a long-standing history of lung disease who presents now with severe shortness of breath and exacerbation of COPD. However center that the right breast lesion at the lumpectomy site has never healed. She is being seen by general surgery with plans for a excisional biopsy to the site to evaluate any residual cancer. This is concerning given her history of known metastatic disease. Infectious disease consultation regarding antibiotic therapy and wound care. She wishes been some ongoing drainage and some purulent drainage was found today. She denying high-grade fevers chills rigors or sweats but feels poorly because of her shortness of breath which is fortunately improving today. Review of Systems HEENT:Denies headache or acute visual change. Denies sinus or mouth discomforts. Denies neck stiffness or pain. Denies significant oral cavity pain. Denies difficulty on swallowing. Lungs: her severe shortness of breath is now improved since admission,she relates to little sputum production and has no hemoptysis Cardiovascular: denies chest pain, chest wall pain, orthopnea, or syncope has dyspnea on exertion Gastrointestinal:Denies nausea, vomiting, diarrhea, constipation, hematemesis, melena, hematochezia. No no significant change of bowel habit noticed. Musculoskeletal: denies significant myalgias or arthralgias. No new joint swelling. Denies new back pain. Skin: right breast lesion as per the HPI Neuro: Denies headache or visual change. Denies any new onset weakness or difficulty with ambulation. Denies falls or seizures. Psychiatric:Denies anxiety or depression. Endocrine: Denies significant fatigue, denies significant weight loss or weight gain. Past Medical History Past Medical History: Cancer (Breast with mets to spine. Lumpectomy 2017, undergoing chemo 2018), Heart Failure, COPD, Diabetes Mellitus, Hyperlipidemia Additional Past Medical History / Comment(s): KIDNEY STONES, CATARACT LEFT EYE History of Any Multi-Drug Resistant Organisms: None Reported Past Surgical History: Section, Cholecystectomy, Hernia Repair, Hysterectomy Additional Past Surgical History / Comment(s): R breast biopsy, x3, cystocscopies, multiple lithotripsies, percutaneous stone removals, double J stents (none in at this time per pt), umbilical hernia repairs x 2. CATARACT SURGERY RIGHT EYE , RIGHT LUMPECTOMY 2017, [employer]IPORT PLACEMENT Past Anesthesia/Blood Transfusion Reactions: No Reported Reaction Past Psychological History: Anxiety, Depression Additional Psychological History / Comment(s): and lives with her . Ongoing tobacco use attempting to stop. No significant alcohol use. No experience. no animal exposures no travel history Smoking Status: Current every day smoker - Past Family History Father Family Medical History: Renal Disease Additional Family Medical History / Comment(s): Father of renal failure in his 90's. Mother Family Medical History: COPD Additional Family Medical History / Comment(s): Mother of COPD at the age of 62 yrs. Sister(s) Family Medical History: Cancer Additional Family Medical History / Comment(s): BREAST CANCER Brother(s) Family Medical History: Cancer Medications and Allergies Home Medications and Allergies Comment(s): Current Medications Hydrocodone Bitart/Acetaminophen ([place] 5-325) 1 each PO Q4HR PRN PRN Reason: Moderate Pain Anastrozole (Arimidex) 1 mg PO DAILY [facility] Last Admin: 04/01/18 13:37 Dose: Not Given Atorvastatin Calcium (Lipitor) 20 mg PO HS [facility] Last Admin: 04/01/18 21:13 Dose: 20 mg Docusate Sodium (Colace) 100 mg PO BID PRN PRN Reason: Constipation Enoxaparin Sodium (Lovenox) 40 mg SQ DAILY [facility] Hydromorphone HCl (Dilaudid) 1 mg IVP Q3HR PRN PRN Reason: Severe Pain Last Admin: 04/01/18 18:40 Dose: 1 mg Potassium Chloride/Sodium Chloride (Ns-Kcl 20 Meq/L Iv Solution) 1,000 mls @ 150 mls/hr IV .Q6H40M [facility] Last Admin: 04/01/18 17:25 Dose: Not Given Vancomycin HCl 1,500 mg/ (Sodium Chloride) 250 mls @ 125 mls/hr IVPB Q18H [facility] Insulin Aspart (Novolog) 0 unit SQ ACHS [facility]; Protocol Last Admin: 04/01/18 21:14 Dose: 2 unit Insulin Detemir (Levemir) 70 unit SQ HS [facility] Last Admin: 04/01/18 21:14 Dose: 70 unit Naloxone HCl (Narcan) 0.2 mg IV Q2M PRN PRN Reason: Opioid Reversal Nicotine (Habitrol 14mg/24hr Patch) 1 patch TRANSDERM DAILY [facility] Ondansetron HCl (Zofran) 4 mg IVP Q8HR PRN PRN Reason: Nausea And Vomiting Last Admin: 04/01/18 10:39 Dose: 4 mg Pantoprazole Sodium (Protonix) 40 mg IVP DAILY [facility] Prochlorperazine Maleate (Compazine) 5 mg PO Q8HR PRN PRN Reason: Nausea And Vomiting Last Admin: 04/01/18 17:37 Dose: 5 mg Zolpidem Tartrate (Ambien) 10 mg PO HS PRN PRN Reason: Insomnia Home Medications Medication Instructions Recorded Confirmed Type Atorvastatin Calcium [Lipitor] 20 mg PO HS 06/13/16 04/01/18 History Zolpidem [Ambien] 10 mg PO HS 04/12/17 04/01/18 History Anastrozole [Arimidex] 1 mg PO DAILY 05/20/17 04/01/18 History Prochlorperazine [Compazine] 10 mg PO Q8H PRN 05/20/17 04/01/18 History Cholecalciferol (Vitamin D3) 2,000 unit PO DAILY 04/01/18 04/01/18 History [Vitamin D3] Cranberry Fruit Extract [Cranberry] 200 mg PO DAILY 04/01/18 04/01/18 History Hydrocodone/Acetaminophen [[place] 1 tab PO Q6HR PRN 04/01/18 04/01/18 History 5-325] Insulin Glargine,Hum.rec.anlog 70 unit SQ HS 04/01/18 04/01/18 History [Basaglar Kwikpen U-100] Multivitamins, Thera [Multivitamin 1 tab PO DAILY 04/01/18 04/01/18 History (formulary)] Allergies Allergy/AdvReac Type Severity Reaction Status Date / Time gentamicin [From Garamycin] Allergy Rash/Hives Verified 04/01/18 07:37 Penicillins Allergy Rash/Hives Verified 04/01/18 07:37 Sulfa (Sulfonamide Allergy Rash/Hives Verified 04/01/18 07:37 Antibiotics) morphine AdvReac Nausea Verified 04/01/18 07:37 Physical Exam Vitals: Vital Signs Temp Pulse Pulse Resp BP BP Pulse Ox 04/01/18 21:00 98.3 F 69 18 125/58 94 L 04/01/18 12:10 97.5 F L 65 17 128/75 96 04/01/18 07:56 96 04/01/18 07:46 70 18 128/68 91 L 04/01/18 07:30 133/73 04/01/18 04:30 119/63 89 L 04/01/18 04:15 99.2 F 71 16 119/63 92 L Intake and Output 04/01/18 04/01/18 04/01/18 06:59 14:59 22:59 Intake Total 240 Balance 240 Intake: Oral 240 Other: # Voids 1 1 Weight 90.718 kg 90.718 kg 90.718 kg HEENT: Anicteric conjunctiva are pink and moist nasal mucosa grossly intact without significant lesions, there is no thrush. Neck: The neck is supple without significant lymphadenopathy or thyromegaly. Lungs: Symmetrical air entry is noted. Expiratory wheezes are scattered no uzair bronchial sounds are noted Heart: Regular rate and rhythm with an audible S1-S2, no S3 no S4. There is no significant murmur click or rub, PMI was nondisplaced. Abdomen: Positive bowel sounds soft and nontender without palpable masses or organomegaly. There was no guarding or rebound. Extremities: The upper extremities have excellent pulses they are symmetric, no significant petechiae or telangiectasia. No splinter hemorrhages were noted. The lower extremities are free from significant edema. The peripheral pulses were 2+ and symmetric. Neuro: Awake alert oriented to person place and time. There are no acute new gross focal sensory motor deficits. Results CBC & Chem 7: 04/01/18 04:15 04/01/18 04:15 Labs: Abnormal Lab Results - Last 24 Hours (Table) 04/01/18 04/01/18 04/01/18 Range/Units 04:15 04:15 04:15 D-Dimer 0.68 H (<0.60) mg/L FEU BUN 30 H (7-17) mg/dL Glucose 238 H (74-99) mg/dL POC Glucose (mg/dL) (75-99) mg/dL Hemoglobin A1c (4.0-6.0) % Total Creatine Kinase 27 L (30-135) U/L Lipase 572 H (23-300) U/L Urine Appearance (Clear) Urine Protein (Negative) Urine Blood (Negative) Ur Leukocyte Esterase (Negative) Urine WBC (0-5) /hpf Urine WBC Clumps (None) /hpf 04/01/18 04/01/18 04/01/18 Range/Units 04:15 11:35 16:39 D-Dimer (<0.60) mg/L FEU BUN (7-17) mg/dL Glucose (74-99) mg/dL POC Glucose (mg/dL) 139 H 152 H (75-99) mg/dL Hemoglobin A1c 11.3 H (4.0-6.0) % Total Creatine Kinase (30-135) U/L Lipase (23-300) U/L Urine Appearance (Clear) Urine Protein (Negative) Urine Blood (Negative) Ur Leukocyte Esterase (Negative) Urine WBC (0-5) /hpf Urine WBC Clumps (None) /hpf 04/01/18 04/01/18 Range/Units 19:30 20:29 D-Dimer (<0.60) mg/L FEU BUN (7-17) mg/dL Glucose (74-99) mg/dL POC Glucose (mg/dL) 173 H (75-99) mg/dL Hemoglobin A1c (4.0-6.0) % Total Creatine Kinase (30-135) U/L Lipase (23-300) U/L Urine Appearance Cloudy H (Clear) Urine Protein 2+ H (Negative) Urine Blood Small H (Negative) Ur Leukocyte Esterase Large H (Negative) Urine WBC >182 H (0-5) /hpf Urine WBC Clumps Many H (None) /hpf Laboratory Results WBC 9.3 k/uL (3.8-10.6) 04/01/18 04:15 RBC 4.42 m/uL (3.80-5.40) 04/01/18 04:15 Hgb 12.1 gm/dL (11.4-16.0) 04/01/18 04:15 Hct 38.2 % (34.0-46.0) 04/01/18 04:15 MCV 86.5 fL (80.0-100.0) 04/01/18 04:15 MCH 27.3 pg (25.0-35.0) 04/01/18 04:15 MCHC 31.5 g/dL (31.0-37.0) 04/01/18 04:15 RDW 15.3 % (11.5-15.5) 04/01/18 04:15 Plt Count 266 k/uL (150-450) 04/01/18 04:15 Neutrophils % 65 % 04/01/18 04:15 Lymphocytes % 25 % 04/01/18 04:15 Monocytes % 5 % 04/01/18 04:15 Eosinophils % 3 % 04/01/18 04:15 Basophils % 1 % 04/01/18 04:15 Neutrophils # 6.0 k/uL (1.3-7.7) 04/01/18 04:15 Lymphocytes # 2.3 k/uL (1.0-4.8) 04/01/18 04:15 Monocytes # 0.5 k/uL (0-1.0) 04/01/18 04:15 Eosinophils # 0.3 k/uL (0-0.7) 04/01/18 04:15 Basophils # 0.0 k/uL (0-0.2) 04/01/18 04:15 PT 9.3 sec (9.0-12.0) 04/01/18 04:15 INR 0.9 (<1.2) 04/01/18 04:15 APTT 23.8 sec (22.0-30.0) 04/01/18 04:15 D-Dimer 0.68 mg/L FEU (<0.60) H 04/01/18 04:15 Sodium 137 mmol/L (137-145) 04/01/18 04:15 Potassium 4.5 mmol/L (3.5-5.1) 04/01/18 04:15 Chloride 104 mmol/L (98-107) 04/01/18 04:15 Carbon Dioxide 24 mmol/L (22-30) 04/01/18 04:15 Anion Gap 9 mmol/L 04/01/18 04:15 BUN 30 mg/dL (7-17) H 04/01/18 04:15 Creatinine 1.04 mg/dL (0.52-1.04) 04/01/18 04:15 Est GFR (CKD-EPI)AfAm 65 (>60 ml/min/1.73 sqM) 04/01/18 04:15 Est GFR (CKD-EPI)NonAf 57 (>60 ml/min/1.73 sqM) 04/01/18 04:15 Glucose 238 mg/dL (74-99) H 04/01/18 04:15 POC Glucose (mg/dL) 173 mg/dL (75-99) H 04/01/18 20:29 POC Glu [employer]ation [employer]ant ID Jocy Munoz 04/01/18 20:[address] Glu mg/dL 278 04/01/18 04:15 Hemoglobin A1c 11.3 % (4.0-6.0) H 04/01/18 04:15 Calcium 10.1 mg/dL (8.4-10.2) 04/01/18 04:15 Total Bilirubin 0.5 mg/dL (0.2-1.3) 04/01/18 04:15 AST 33 U/L (14-36) 04/01/18 04:15 ALT 25 U/L (9-52) 04/01/18 04:15 Alkaline Phosphatase 104 U/L (38-126) 04/01/18 04:15 Total Creatine Kinase 27 U/L (30-135) L 04/01/18 04:15 CK-MB (CK-2) <0.2 ng/mL (0.0-2.4) 04/01/18 04:15 CK-MB (CK-2) Rel Index 04/01/18 04:15 Troponin I <0.012 ng/mL (0.000-0.034) 04/01/18 04:15 Total Protein 6.8 g/dL (6.3-8.2) 04/01/18 04:15 Albumin 3.6 g/dL (3.5-5.0) 04/01/18 04:15 Amylase 70 U/L (30-110) 04/01/18 04:15 Lipase 572 U/L (23-300) H 04/01/18 04:15 Urine Color Yellow 04/01/18 19:30 Urine Appearance Cloudy (Clear) H 04/01/18 19:30 Urine pH 5.5 (5.0-8.0) 04/01/18 19:30 Ur Specific [place] 1.032 (1.001-1.035) 04/01/18 19:30 Urine Protein 2+ (Negative) H 04/01/18 19:30 Urine Glucose (UA) Negative (Negative) 04/01/18 19:30 Urine Ketones Negative (Negative) 04/01/18 19:30 Urine Blood Small (Negative) H 04/01/18 19:30 Urine Nitrite Negative (Negative) 04/01/18 19:30 Urine Bilirubin Negative (Negative) 04/01/18 19: Urine Urobilinogen <2.0 mg/dL (<2.0) 04/01/18 19:30 Ur Leukocyte Esterase Large (Negative) H 04/01/18 19:30 Urine WBC >182 /hpf (0-5) H 04/01/18 19:30 Urine WBC Clumps Many /hpf (None) H 04/01/18 19:30 Ur Squamous Epith Cells 2 /hpf (0-4) 04/01/18 19:30 Assessment and Plan (1) COPD (chronic obstructive pulmonary disease) Current Visit: Yes Status: Acute Code(s): J44.9 - CHRONIC OBSTRUCTIVE PULMONARY DISEASE, UNSPECIFIED SNOMED Code(s): 53929201 (2) Breast carcinoma Current Visit: Yes Status: Acute Code(s): C50.919 - MALIGNANT NEOPLASM OF UNSP SITE OF UNSPECIFIED FEMALE BREAST SNOMED Code(s): 584283077 (3) Skin ulcer of female breast Narrative/Plan: 63-year-old female presents to hospital with an exacerbation of her underlying COPD with significant shortness of breath and cough. No uzair pneumonia was found and is responding to current breathing treatments and oxygen therapy. X-rays without significant pneumonic infiltration. The lumpectomy site in the right breast continues to have evidence of an open ulceration that has some scant purulent drainage at this time. This is sent for aerobic and anaerobic cultures at this time. Antibiotic therapy with vancomycin was initiated given her penicillin and sulfa ALLERGIES. The case has been discussed with the general surgeon and there are plans for excisional biopsy of this site which will give us further pathology and culture data. Concerns to residual cancer at that site given the nonhealing nature and evidence of some underlying metastatic disease. Local wound care with the therahoney product she'll be utilized to be changed daily for now. If it dries being utilized to help with the moisture in the inframammary location bilaterally Current Visit: Yes Status: Acute Code(s): N61.1 - ABSCESS OF THE BREAST AND NIPPLE SNOMED Code(s): 946608533
[2018-04-02] MEDS: 0.9% NACL WITH KCL 20 MEQ/L 1,000 ML IV SCH ×5 (01:59→20:44)
[2018-04-02] MEDS: HYDROmorphone 1 MG/ML 1 ML SYRINGE IVP PRN ×4 (02:40→19:26)
[2018-04-02] MEDS: VANCOMYCIN 1,500 MG in SODIUM CHLORIDE 0.9% 250 ML IVPB SCH (06:05)
[2018-04-02 07:03] LABS: Glucose,Whole Blood 43 mg/dL (75-99)
[2018-04-02] MEDS: INSULIN ASPART 100 UNIT/ML 1 ML 10 ML VIAL SQ SCH ×4 (07:06→20:46)
[2018-04-02 07:14] LABS: Glucose,Whole Blood 58 mg/dL (75-99)
[2018-04-02 07:19] LABS: Basophils % (A) 0 %; Eosinophils # (A) 0.3 k/uL (0-0.7); Eosinophils % (A) 3 %; HCT 36.3 % (34.0-46.0); HGB 11.5 gm/dL (11.4-16.0); Hypochromasia Slight; Lymphocytes # (A) 1.9 k/uL (1.0-4.8); Lymphocytes % (A) 20 %; MCH 27.6 pg (25.0-35.0); MCHC 31.7 g/dL (31.0-37.0); MCV 87.2 fL (80.0-100.0); Mean Platelet Volume 7.3; Monocytes # (A) 0.5 k/uL (0-1.0); Monocytes % (A) 6 %; Neutrophils # (A) 6.5 k/uL (1.3-7.7); Neutrophils % (A) 69 %; Platelet Count 254 k/uL (150-450); RBC 4.16 m/uL (3.80-5.40); RDW 15.2 % (11.5-15.5); WBC 9.4 k/uL (3.8-10.6)
[2018-04-02 07:25] LABS: Albumin 3.3 g/dL (3.5-5.0); Calcium 9.2 mg/dL (8.4-10.2); Total Bilirubin 0.1 mg/dL (0.2-1.3); Total Protein 6.2 g/dL (6.3-8.2)
[2018-04-02 07:42] LABS: Glucose,Whole Blood 62 mg/dL (75-99)
[2018-04-02 07:58] LABS: Glucose,Whole Blood 85 mg/dL (75-99)
[2018-04-02] MEDS ORDERED: DEXTROSE 5% IN WATER 1,000 ML IV ONE (08:25)
[2018-04-02] MEDS: ANASTROZOLE 1 MG TAB PO SCH (09:42)
[2018-04-02] MEDS: PANTOPRAZOLE 40 MG/10 ML VIAL IVP SCH (09:42)
[2018-04-02] MEDS: NICOTINE 14MG/24HR PATCH TRANSDERM SCH (09:42)
[2018-04-02] MEDS: ENOXAPARIN 40 MG/0.4 ML SYRINGE SQ SCH (09:42)
[2018-04-02 11:15] LABS: Glucose,Whole Blood 198 mg/dL (75-99)
--- NOTE | 2018-04-02 13:07 | P.PN ---
Subjective Progress Note Date: 04/02/18 Principal diagnosis: Right breast wound Patient without new complaints. Still with some vague abdominal pain. Drainage from the breast unchanged. No fevers. Objective - Vital Signs Vital signs: Vital Signs Temp 97.6 F 04/02/18 07:18 Pulse 76 04/02/18 07:18 Resp 18 04/02/18 07:18 BP 128/79 04/02/18 07:18 Pulse Ox 97 04/02/18 07:18 Intake & Output 04/01/18 04/02/18 04/02/18 18:59 06:59 18:59 Intake Total 240 1575 Balance 240 1575 Weight 90.718 kg 95 kg Intake: Intake, IV Titration 1275 Amount 0.9% NaCl with KCl 20 Meq 525 /l 1,000 ml @ 150 mls/hr IV .Q6H40M [facility] Rx#: [id number] Vancomycin 1,500 mg In 750 Sodium Chloride 0.9% 250 ml @ 125 mls/hr IVPB Q18H [facility] Rx#:[id number] Oral 240 300 Other: Voiding Method Toilet Toilet # Voids 1 1 - Exam Right breast wound with minimal tenderness, no erythema, serous drainage noted - Labs CBC & Chem 7: 04/02/18 06:32 04/02/18 07:04 Labs: Abnormal Lab Results - Last 24 Hours (Table) 04/01/18 04/01/18 04/01/18 Range/Units 04:15 16:39 19:30 Chloride (98-107) mmol/L BUN (7-17) mg/dL Glucose (74-99) mg/dL POC Glucose (mg/dL) 152 H (75-99) mg/dL Hemoglobin A1c 11.3 H (4.0-6.0) % Total Bilirubin (0.2-1.3) mg/dL Total Protein (6.3-8.2) g/dL Albumin (3.5-5.0) g/dL Urine Appearance Cloudy H (Clear) Urine Protein 2+ H (Negative) Urine Blood Small H (Negative) Ur Leukocyte Esterase Large H (Negative) Urine WBC >182 H (0-5) /hpf Urine WBC Clumps Many H (None) /hpf 04/01/18 04/02/18 04/02/18 Range/Units 20:29 07:02 07:04 Chloride 112 H (98-107) mmol/L BUN 24 H (7-17) mg/dL Glucose 35 L* (74-99) mg/dL POC Glucose (mg/dL) 173 H 43 L (75-99) mg/dL Hemoglobin A1c (4.0-6.0) % Total Bilirubin 0.1 L (0.2-1.3) mg/dL Total Protein 6.2 L (6.3-8.2) g/dL Albumin 3.3 L (3.5-5.0) g/dL Urine Appearance (Clear) Urine Protein (Negative) Urine Blood (Negative) Ur Leukocyte Esterase (Negative) Urine WBC (0-5) /hpf Urine WBC Clumps (None) /hpf 04/02/18 04/02/18 04/02/18 Range/Units 07:13 07:30 11:13 Chloride (98-107) mmol/L BUN (7-17) mg/dL Glucose (74-99) mg/dL POC Glucose (mg/dL) 58 L 62 L 198 H (75-99) mg/dL Hemoglobin A1c (4.0-6.0) % Total Bilirubin (0.2-1.3) mg/dL Total Protein (6.3-8.2) g/dL Albumin (3.5-5.0) g/dL Urine Appearance (Clear) Urine Protein (Negative) Urine Blood (Negative) Ur Leukocyte Esterase (Negative) Urine WBC (0-5) /hpf Urine WBC Clumps (None) /hpf Microbiology - Last 24 Hours (Table) 04/01/18 17:41 Gram Stain - Preliminary Breast - Right Wound Culture - Preliminary 04/01/18 04:15 Blood Culture - Preliminary Blood No Growth after 24 hours 04/01/18 17:41 Anaerobic Culture - Preliminary Breast - Right Assessment and Plan (1) Breast CA Narrative/Plan: Continue local wound care. Antibiotics per infectious disease. We'll sign off. Patient will follow-up with me as an outpatient to further discuss options regarding the right breast wound. Current Visit: Yes Status: Acute Code(s): C50.919 - MALIGNANT NEOPLASM OF UNSP SITE OF UNSPECIFIED FEMALE BREAST SNOMED Code(s): 746491739
--- NOTE | 2018-04-02 17:09 | P.PN ---
Subjective Progress Note Date: 04/02/18 This is a 63-year-old female patient of Dr. Ruvalcaba. Patient presented to the emergency room with complaints of abdominal pain patient states that the abdominal pain and discussion have become worse over the past week. Patient states pain is in her mid epigastric area that radiates to flanks and to back. Patient has been experiencing nausea and decreased appetite. Patient states she has not had emesis. Patient denies diarrhea. Patient has a known past medical history of metastatic breast cancer with known metastasis to her spine. Patient states she was diagnosed one year prior and has been undergoing chemo chemotherapy. Most recent chemotherapy 3 weeks prior. Additional medical history includes COPD, diabetes mellitus, hyperlipidemia, high failure, anxiety, depression and nicotine dependence. Patient also complaining of drainage from right breast lumpectomy site. Patient states this has been occurring for multiple months. Patient did show Dr. Wheat her oncologist and he referred her to Dr. naidu. Patient states she is to see Dr. naidu next week. Lipase elevated at 572 on admission. D-dimer also elevated at 0.68. KUB of abdomen completed showing nonacute abdomen. There is removal of the ureteral stent and drainage catheter compared to old exam. CT of abdomen and pelvis completed showing reidentified numerous sclerotic metastases within the axial and appendicular skeleton. Multiple subcapsular low-attenuation foci within the right hepatic lobe measuring up to 12 mm are indeterminate and were not present on October exam. Questionable subtle low attenuation 2.2 cm lesion in the whether this may represent metastasis. Unchanged large 7.9 cm cystic focus in the right hemipelvis. This is indeterminate and can be further characterized with ultrasound. CT completed showing no evidence of pulmonary embolism. Dilation of the main pulmonary artery 3.5 cm suggestive of pulmonary artery hypertension. Postoperative changes in the right breast with small and fluid collection measuring up to 2.5-1.1 cm. Unchanged 3 mm solid pulmonary nodule along with left major fissure. Numerous unchanged osseous metastasis within the axial and appendicular skeleton. Dr. Wheat has been consulted for oncology services. Dilaudid and Zofran have been added. 2017 patient is alert and oriented 3 in no apparent distress, there is no fever or chills no headache or dizziness no chest pain no shortness of breath no cough no palpitation there is no nausea or vomiting patient has abdominal pain and is receiving Dilaudid with good control of her pain there is no urinary symptoms Objective - Vital Signs Vital signs: Vital Signs Temp 98.1 F 04/02/18 13:00 Pulse 67 04/02/18 13:00 Resp 17 04/02/18 13:00 BP 143/71 04/02/18 13:00 Pulse Ox 96 04/02/18 13:00 Intake & Output 04/01/18 04/02/18 04/02/18 18:59 06:59 18:59 Intake Total 240 1575 Balance 240 1575 Weight 90.718 kg 95 kg 95 kg Intake: Intake, IV Titration 1275 Amount 0.9% NaCl with KCl 20 Meq 525 /l 1,000 ml @ 150 mls/hr IV .Q6H40M [facility] Rx#: [id number] Vancomycin 1,500 mg In 750 Sodium Chloride 0.9% 250 ml @ 125 mls/hr IVPB Q18H [facility] Rx#:[id number] Oral 240 300 Other: Voiding Method Toilet Toilet # Voids 1 1 3 - Exam Head normocephalic and atraumatic Neck supple no JVD no goiter Lungs clear to auscultation bilaterally no wheezing or crackles Heart regular rate and rhythm S1-S2, no rub or gallop Abdomen is distended and tender to mid epigastric area. Extremities no edema no cyanosis or clubbing Neuro alert and orientated to 3 - Labs CBC & Chem 7: 04/02/18 06:32 04/02/18 07:04 Labs: Abnormal Lab Results - Last 24 Hours (Table) 04/01/18 04/01/18 04/01/18 Range/Units 04:15 19:30 20:29 Chloride (98-107) mmol/L BUN (7-17) mg/dL Glucose (74-99) mg/dL POC Glucose (mg/dL) 173 H (75-99) mg/dL Hemoglobin A1c 11.3 H (4.0-6.0) % Total Bilirubin (0.2-1.3) mg/dL Total Protein (6.3-8.2) g/dL Albumin (3.5-5.0) g/dL Urine Appearance Cloudy H (Clear) Urine Protein 2+ H (Negative) Urine Blood Small H (Negative) Ur Leukocyte Esterase Large H (Negative) Urine WBC >182 H (0-5) /hpf Urine WBC Clumps Many H (None) /hpf 04/02/18 04/02/18 04/02/18 Range/Units 07:02 07:04 07:13 Chloride 112 H (98-107) mmol/L BUN 24 H (7-17) mg/dL Glucose 35 L* (74-99) mg/dL POC Glucose (mg/dL) 43 L 58 L (75-99) mg/dL Hemoglobin A1c (4.0-6.0) % Total Bilirubin 0.1 L (0.2-1.3) mg/dL Total Protein 6.2 L (6.3-8.2) g/dL Albumin 3.3 L (3.5-5.0) g/dL Urine Appearance (Clear) Urine Protein (Negative) Urine Blood (Negative) Ur Leukocyte Esterase (Negative) Urine WBC (0-5) /hpf Urine WBC Clumps (None) /hpf 04/02/18 04/02/18 Range/Units 07:30 11:13 Chloride (98-107) mmol/L BUN (7-17) mg/dL Glucose (74-99) mg/dL POC Glucose (mg/dL) 62 L 198 H (75-99) mg/dL Hemoglobin A1c (4.0-6.0) % Total Bilirubin (0.2-1.3) mg/dL Total Protein (6.3-8.2) g/dL Albumin (3.5-5.0) g/dL Urine Appearance (Clear) Urine Protein (Negative) Urine Blood (Negative) Ur Leukocyte Esterase (Negative) Urine WBC (0-5) /hpf Urine WBC Clumps (None) /hpf Microbiology - Last 24 Hours (Table) 04/01/18 17:41 Gram Stain - Preliminary Breast - Right Wound Culture - Preliminary 04/01/18 04:15 Blood Culture - Preliminary Blood No Growth after 24 hours 04/01/18 17:41 Anaerobic Culture - Preliminary Breast - Right Assessment and Plan Plan: 1. Abdominal pain with nausea. Amylase of any. Lipase is 572. CT of abdomen and pelvis completed showing reidentified numerous sclerotic metastasis within the axial and appendicular skeleton. Multiple subcapsular low attenuated foci within the right hepatic lobe measuring up to 12 mm indeterminate present on the October exam. The differential includes subcapsular cyst or metastasis. Questionable subtle low attenuated 2.2 cm lesion in the liver this may represent metastasis. Unchanged large 7.9 cm focus right hemipelvis this is indeterminate between further characterized with ultrasound. Reidentified diverticulosis with on unchanged small walled off presumed perforated greenish in lateral to the sigmoid colon measuring proximally 2.81.9 cm this is mild adjacent inflammatory change the appearance is unchanged there is no evidence of drainable abscess. Oncology services have been consulted. Patient has Dilaudid for pain control. Zofran for nausea. 2. History of breast cancer with metastasis. Patient states she was diagnosed one year prior. Chemotherapy 3 weeks prior. Awaiting oncology consult 3.. History of lumpectomy. Patient states lumpectomy site has been draining for the past few months. CTA completed Postoperative changes in the right breast with a small air and fluid collection measuring up to 2.5-1.1 cm. 4. History of diabetes mellitus. Home meds resumed. Sliding scale insulin ordered. A1c ordered 5. History of nicotine dependence. Patient states she smokes 1 pack of cigarettes per day. Patient educated greater than 3 minuntes on smoking cessation. Nicotine patch has been ordered 6. Chronic Diastolic heart failure. 7. History of essential hypertension 8. History of hyperlipidemia 9. Elevated d-dimer. D-dimer 0.68. CTA completed showing no evidence of pulmonary embolism. Dilation the main pulmonary artery to 3.5 cm suggestive pulmonary artery hypertension. Postoperative changes in the right breast with a small air and fluid collection measuring up to 2.5-1.1 cm. Unchanged 3 mm solid pulmonary nodule along left major fissure. Numerous unchanged osseous metastases within the axial and appendicular skeleton. DVT prophylaxis Lovenox. GI prophylaxis Protonix
[2018-04-02 17:26] LABS: Glucose,Whole Blood 208 mg/dL (75-99)
--- NOTE | 2018-04-02 17:50 | P.PN ---
Subjective Progress Note Date: 04/02/18 62-year-old female was a very complex recent past medical history which includes right breast carcinoma recently diagnosed as well as a large cystic mass from the right ovary resulting in an obstructive process. She also had bilateral nephrolithiasis with calculi. She had difficulty with acute diverticulitis and abscess and has been treated with intravenous antibiotic therapy since that time. the patient was stabilized and eventuallytaken to the operating room for the lumpectomy. The patient does have a long-standing history of lung disease who presents now with severe shortness of breath and exacerbation of COPD. However center that the right breast lesion at the lumpectomy site has never healed. She is being seen by general surgery with plans for a excisional biopsy to the site to evaluate any residual cancer. This is concerning given her history of known metastatic disease. Infectious disease consultation regarding antibiotic therapy and wound care. The breast has revealed some ongoing drainage and some purulent drainage was found today. She denying high-grade fevers chills rigors or sweats but feels poorly because of her shortness of breath which is fortunately improving today. 04/02/2018 patient continued feels somewhat poorly, mostly complaining of ongoing abdominal pain she relates is due to her pancreatitis. She relates that she has excellent appetite and cannot which he more food. Abdominal pains better than admission. She's having no new pain at the breast. Objective - Vital Signs Vital signs: Vital Signs Temp 98.1 F 04/02/18 13:00 Pulse 67 04/02/18 13:00 Resp 17 04/02/18 13:00 BP 143/71 04/02/18 13:00 Pulse Ox 96 04/02/18 13:00 Intake & Output 04/01/18 04/02/18 04/02/18 18:59 06:59 18:59 Intake Total 240 1575 Balance 240 1575 Weight 90.718 kg 95 kg 95 kg Intake: Intake, IV Titration 1275 Amount 0.9% NaCl with KCl 20 Meq 525 /l 1,000 ml @ 150 mls/hr IV .Q6H40M [facility] Rx#: [id number] Vancomycin 1,500 mg In 750 Sodium Chloride 0.9% 250 ml @ 125 mls/hr IVPB Q18H [facility] Rx#:[id number] Oral 240 300 Other: Voiding Method Toilet Toilet # Voids 1 1 3 - Exam HEENT: Anicteric conjunctiva are pink and moist nasal mucosa grossly intact without significant lesions, there is no thrush. Neck: The neck is supple without significant lymphadenopathy or thyromegaly. Lungs: Symmetrical air entry is noted. Expiratory wheezes are scattered no uzair bronchial sounds are noted Heart: Regular rate and rhythm with an audible S1-S2, no S3 no S4. There is no significant murmur click or rub, PMI was nondisplaced. Abdomen: Positive bowel sounds soft and nontender without palpable masses or organomegaly. There was no guarding or rebound. Extremities: The upper extremities have excellent pulses they are symmetric, no significant petechiae or telangiectasia. No splinter hemorrhages were noted. The lower extremities are free from significant edema. The peripheral pulses were 2+ and symmetric. Neuro: Awake alert oriented to person place and time. There are no acute new gross focal sensory motor deficits. The right breast was evaluated with the nurse present and there is only a scant amount of drainage noted today. It is not very tender on exam. - Labs CBC & Chem 7: 04/02/18 06:32 04/02/18 07:04 Labs: Abnormal Lab Results - Last 24 Hours (Table) 04/01/18 04/01/18 04/01/18 Range/Units 04:15 19:30 20:29 Chloride (98-107) mmol/L BUN (7-17) mg/dL Glucose (74-99) mg/dL POC Glucose (mg/dL) 173 H (75-99) mg/dL Hemoglobin A1c 11.3 H (4.0-6.0) % Total Bilirubin (0.2-1.3) mg/dL Total Protein (6.3-8.2) g/dL Albumin (3.5-5.0) g/dL Urine Appearance Cloudy H (Clear) Urine Protein 2+ H (Negative) Urine Blood Small H (Negative) Ur Leukocyte Esterase Large H (Negative) Urine WBC >182 H (0-5) /hpf Urine WBC Clumps Many H (None) /hpf 04/02/18 04/02/18 04/02/18 Range/Units 07:02 07:04 07:13 Chloride 112 H (98-107) mmol/L BUN 24 H (7-17) mg/dL Glucose 35 L* (74-99) mg/dL POC Glucose (mg/dL) 43 L 58 L (75-99) mg/dL Hemoglobin A1c (4.0-6.0) % Total Bilirubin 0.1 L (0.2-1.3) mg/dL Total Protein 6.2 L (6.3-8.2) g/dL Albumin 3.3 L (3.5-5.0) g/dL Urine Appearance (Clear) Urine Protein (Negative) Urine Blood (Negative) Ur Leukocyte Esterase (Negative) Urine WBC (0-5) /hpf Urine WBC Clumps (None) /hpf 04/02/18 04/02/18 04/02/18 Range/Units 07:30 11:13 17:25 Chloride (98-107) mmol/L BUN (7-17) mg/dL Glucose (74-99) mg/dL POC Glucose (mg/dL) 62 L 198 H 208 H (75-99) mg/dL Hemoglobin A1c (4.0-6.0) % Total Bilirubin (0.2-1.3) mg/dL Total Protein (6.3-8.2) g/dL Albumin (3.5-5.0) g/dL Urine Appearance (Clear) Urine Protein (Negative) Urine Blood (Negative) Ur Leukocyte Esterase (Negative) Urine WBC (0-5) /hpf Urine WBC Clumps (None) /hpf Microbiology - Last 24 Hours (Table) 04/01/18 17:41 Gram Stain - Preliminary Breast - Right Wound Culture - Preliminary 04/01/18 04:15 Blood Culture - Preliminary Blood No Growth after 24 hours 04/01/18 17:41 Anaerobic Culture - Preliminary Breast - Right Laboratory Results WBC 9.4 k/uL (3.8-10.6) 04/02/18 06:32 RBC 4.16 m/uL (3.80-5.40) 04/02/18 06:32 Hgb 11.5 gm/dL (11.4-16.0) 04/02/18 06:32 Hct 36.3 % (34.0-46.0) 04/02/18 06:32 MCV 87.2 fL (80.0-100.0) 04/02/18 06:32 MCH 27.6 pg (25.0-35.0) 04/02/18 06:32 MCHC 31.7 g/dL (31.0-37.0) 04/02/18 06:32 RDW 15.2 % (11.5-15.5) 04/02/18 06:32 Plt Count 254 k/uL (150-450) 04/02/18 06:32 Neutrophils % 69 % 04/02/18 06:32 Lymphocytes % 20 % 04/02/18 06:32 Monocytes % 6 % 04/02/18 06:32 Eosinophils % 3 % 04/02/18 06:32 Basophils % 0 % 04/02/18 06:32 Neutrophils # 6.5 k/uL (1.3-7.7) 04/02/18 06:32 Lymphocytes # 1.9 k/uL (1.0-4.8) 04/02/18 06:32 Monocytes # 0.5 k/uL (0-1.0) 04/02/18 06:32 Eosinophils # 0.3 k/uL (0-0.7) 04/02/18 06:32 Basophils # 0.0 k/uL (0-0.2) 04/02/18 06:32 Hypochromasia Slight 04/02/18 06:32 PT 9.3 sec (9.0-12.0) 04/01/18 04:15 INR 0.9 (<1.2) 04/01/18 04:15 APTT 23.8 sec (22.0-30.0) 04/01/18 04:15 D-Dimer 0.68 mg/L FEU (<0.60) H 04/01/18 04:15 Sodium 141 mmol/L (137-145) 04/02/18 07:04 Potassium 4.0 mmol/L (3.5-5.1) 04/02/18 07:04 Chloride 112 mmol/L (98-107) H 04/02/18 07:04 Carbon Dioxide 22 mmol/L (22-30) 04/02/18 07:04 Anion Gap 7 mmol/L 04/02/18 07:04 BUN 24 mg/dL (7-17) H 04/02/18 07:04 Creatinine 0.97 mg/dL (0.52-1.04) 04/02/18 07:04 Est GFR (CKD-EPI)AfAm 71 (>60 ml/min/1.73 sqM) 04/02/18 07:04 Est GFR (CKD-EPI)NonAf 62 (>60 ml/min/1.73 sqM) 04/02/18 07:04 Glucose 35 mg/dL (74-99) L* 04/02/18 07:04 POC Glucose (mg/dL) 208 mg/dL (75-99) H 04/02/18 17:25 POC Glu Patient Care Provider James Prabhakar 04/02/18 17:[address] Glu mg/dL 278 04/01/18 04:15 Hemoglobin A1c 11.3 % (4.0-6.0) H 04/01/18 04:15 Calcium 9.2 mg/dL (8.4-10.2) 04/02/18 07:04 Total Bilirubin 0.1 mg/dL (0.2-1.3) L 04/02/18 07:04 AST 35 U/L (14-36) 04/02/18 07:04 ALT 36 U/L (9-52) 04/02/18 07:04 Alkaline Phosphatase 112 U/L (38-126) 04/02/18 07:04 Total Creatine Kinase 27 U/L (30-135) L 04/01/18 04:15 CK-MB (CK-2) <0.2 ng/mL (0.0-2.4) 04/01/18 04:15 CK-MB (CK-2) Rel Index 04/01/18 04:15 Troponin I <0.012 ng/mL (0.000-0.034) 04/01/18 04:15 Total Protein 6.2 g/dL (6.3-8.2) L 04/02/18 07:04 Albumin 3.3 g/dL (3.5-5.0) L 04/02/18 07:04 Amylase 59 U/L (30-110) 04/02/18 07:04 Lipase 275 U/L (23-300) 04/02/18 07:04 Urine Color Yellow 04/01/18 19:30 Urine Appearance Cloudy (Clear) H 04/01/18 19:30 Urine pH 5.5 (5.0-8.0) 04/01/18 19:30 Ur Specific [place] 1.032 (1.001-1.035) 04/01/18 19:30 Urine Protein 2+ (Negative) H 04/01/18 19:30 Urine Glucose (UA) Negative (Negative) 04/01/18 19:30 Urine Ketones Negative (Negative) 04/01/18 19:30 Urine Blood Small (Negative) H 04/01/18 19:30 Urine Nitrite Negative (Negative) 04/01/18 19:30 Urine Bilirubin Negative (Negative) 04/01/18 19:30 Urine Urobilinogen <2.0 mg/dL (<2.0) 04/01/18 19:30 Ur Leukocyte Esterase Large (Negative) H 04/01/18 19:30 Urine WBC >182 /hpf (0-5) H 04/01/18 19:30 Urine WBC Clumps Many /hpf (None) H 04/01/18 19:30 Ur Squamous Epith Cells 2 /hpf (0-4) 04/01/18 19:30 Microbiology 04/01/18 17:41 Breast - Right Gram Stain - Preliminary 04/01/18 17:41 Breast - Right Wound Culture - Preliminary 04/01/18 04:15 Blood Blood Culture - Preliminary No Growth after 24 hours 04/01/18 17:41 Breast - Right Anaerobic Culture - Preliminary Assessment and Plan (1) COPD (chronic obstructive pulmonary disease) Current Visit: Yes Status: Acute Code(s): J44.9 - CHRONIC OBSTRUCTIVE PULMONARY DISEASE, UNSPECIFIED SNOMED Code(s): 53614895 (2) Breast carcinoma Current Visit: Yes Status: Acute Code(s): C50.919 - MALIGNANT NEOPLASM OF UNSP SITE OF UNSPECIFIED FEMALE BREAST SNOMED Code(s): 222493025 (3) Skin ulcer of female breast Narrative/Plan: 63-year-old female presents to hospital with an exacerbation of her underlying COPD with significant shortness of breath and cough. No uzair pneumonia was found and is responding to current breathing treatments and oxygen therapy. X-rays without significant pneumonic infiltration. The lumpectomy site in the right breast continues to have evidence of an open ulceration that has some scant purulent drainage at this time. This is sent for aerobic and anaerobic cultures at this time. Antibiotic therapy with vancomycin was initiated given her penicillin and sulfa ALLERGIES. The case has been discussed with the general surgeon and there are plans for excisional biopsy of this site which will give us further pathology and culture data. Concerns to residual cancer at that site given the nonhealing nature and evidence of some underlying metastatic disease. Local wound care with the therahoney product she'll be utilized to be changed daily for now. If it dries being utilized to help with the moisture in the inframammary location bilaterally 04/02/2018 reveals the patient to be feeling somewhat better. She relates that her shortness of breath fortunately is improved. Doing well with oxygen therapy. She was having severe abdominal pain and also apparently admission and this is now much improved but not completely resolved. She relates that she has no history of pancreatitis. Amylase and lipase are currently normal. Asking for the staff to call the general surgeon to see if her diet can be advanced. It is now related that the surgical debridement or core biopsy to the breast will be performed as an outpatient. Culture is pending this will then determine the course of antibiotic therapy at the time of discharge pending the further surgical intervention. Current Visit: Yes Status: Acute Code(s): N61.1 - ABSCESS OF THE BREAST AND NIPPLE SNOMED Code(s): 577454712
[2018-04-02] MEDS: ONDANSETRON 4 MG/2 ML VIAL IVP PRN (19:26)
[2018-04-02 20:24] LABS: Glucose,Whole Blood 232 mg/dL (75-99)
[2018-04-02] MEDS: INSULIN DETEMIR 100 UNIT/ML 10 ML VIAL SQ SCH (20:46)
[2018-04-02] MEDS: ATORVASTATIN 20 MG TAB PO SCH (20:47)
[2018-04-03] MEDS: HYDROmorphone 1 MG/ML 1 ML SYRINGE IVP PRN ×5 (00:31→20:54)
[2018-04-03] MEDS: VANCOMYCIN 1,500 MG in SODIUM CHLORIDE 0.9% 250 ML IVPB SCH ×2 (00:32→17:25)
[2018-04-03 02:10] LABS: Glucose,Whole Blood 223 mg/dL (75-99)
[2018-04-03] MEDS: 0.9% NACL WITH KCL 20 MEQ/L 1,000 ML IV SCH ×3 (04:20→20:56)
[2018-04-03 06:51] LABS: Glucose,Whole Blood 179 mg/dL (75-99)
[2018-04-03] MEDS: INSULIN ASPART 100 UNIT/ML 1 ML 10 ML VIAL SQ SCH ×4 (07:37→20:56)
[2018-04-03] MEDS: ENOXAPARIN 40 MG/0.4 ML SYRINGE SQ SCH (07:38)
[2018-04-03] MEDS: NICOTINE 14MG/24HR PATCH TRANSDERM SCH (07:38)
[2018-04-03] MEDS: ANASTROZOLE 1 MG TAB PO SCH (07:38)
[2018-04-03] MEDS: PANTOPRAZOLE 40 MG/10 ML VIAL IVP SCH (07:38)
[2018-04-03 09:21] LABS: Basophils % (A) 0 %; Eosinophils # (A) 0.3 k/uL (0-0.7); Eosinophils % (A) 4 %; HCT 33.1 % (34.0-46.0); HGB 10.5 gm/dL (11.4-16.0); Hypochromasia Slight; Lymphocytes # (A) 1.6 k/uL (1.0-4.8); Lymphocytes % (A) 24 %; MCHC 31.6 g/dL (31.0-37.0); MCV 88.7 fL (80.0-100.0); Mean Platelet Volume 7.8; Monocytes # (A) 0.4 k/uL (0-1.0); Monocytes % (A) 6 %; Neutrophils # (A) 4.2 k/uL (1.3-7.7); Neutrophils % (A) 63 %; Platelet Count 175 k/uL (150-450); RBC 3.73 m/uL (3.80-5.40); RDW 15.3 % (11.5-15.5); WBC 6.7 k/uL (3.8-10.6)
[2018-04-03 09:34] LABS: ALT 30 U/L (9-52); AST 22 U/L (14-36); Albumin 2.7 g/dL (3.5-5.0); Alkaline Phosphatase 102 U/L (38-126); Anion Gap 5 mmol/L; Blood Urea Nitrogen 18 mg/dL (7-17); Calcium 8.1 mg/dL (8.4-10.2); Carbon Dioxide 21 mmol/L (22-30); Chloride 115 mmol/L (98-107); Glucose 186 mg/dL (74-99); Sodium 141 mmol/L (137-145); Total Bilirubin <0.1 mg/dL (0.2-1.3); Total Protein 5.4 g/dL (6.3-8.2)
[2018-04-03] MEDS: ONDANSETRON 4 MG/2 ML VIAL IVP PRN ×2 (09:40→20:54)
[2018-04-03 11:14] LABS: Glucose,Whole Blood 219 mg/dL (75-99)
[2018-04-03 17:06] LABS: Glucose,Whole Blood 301 mg/dL (75-99)
[2018-04-03 20:17] LABS: Glucose,Whole Blood 406 mg/dL (75-99)
[2018-04-03] MEDS: ATORVASTATIN 20 MG TAB PO SCH (20:55)
[2018-04-03] MEDS: INSULIN DETEMIR 100 UNIT/ML 10 ML VIAL SQ SCH (20:56)
[2018-04-04] MEDS: 0.9% NACL WITH KCL 20 MEQ/L 1,000 ML IV SCH (01:56)
[2018-04-04 01:59] LABS: Glucose,Whole Blood 218 mg/dL (75-99)
[2018-04-04] MEDS: HYDROmorphone 1 MG/ML 1 ML SYRINGE IVP PRN ×4 (01:59→20:08)
[2018-04-04 06:57] LABS: Glucose,Whole Blood 162 mg/dL (75-99)
[2018-04-04] MEDS: INSULIN ASPART 100 UNIT/ML 1 ML 10 ML VIAL SQ SCH ×4 (08:07→20:11)
[2018-04-04] MEDS: ENOXAPARIN 40 MG/0.4 ML SYRINGE SQ SCH (08:12)
[2018-04-04] MEDS: ANASTROZOLE 1 MG TAB PO SCH (08:13)
[2018-04-04] MEDS: PANTOPRAZOLE 40 MG/10 ML VIAL IVP SCH (08:14)
[2018-04-04] MEDS: NICOTINE 14MG/24HR PATCH TRANSDERM SCH (08:15)
[2018-04-04] MEDS: ONDANSETRON 4 MG/2 ML VIAL IVP PRN ×2 (08:25→20:08)
[2018-04-04 09:22] LABS: Albumin 2.9 g/dL (3.5-5.0); Calcium 8.7 mg/dL (8.4-10.2); Potassium 5.2 mmol/L (3.5-5.1); Total Bilirubin 0.1 mg/dL (0.2-1.3); Total Protein 5.8 g/dL (6.3-8.2)
[2018-04-04 09:29] LABS: Basophils % (A) 0 %; Eosinophils # (A) 0.3 k/uL (0-0.7); Eosinophils % (A) 4 %; HCT 33.6 % (34.0-46.0); HGB 10.9 gm/dL (11.4-16.0); Hypochromasia Slight; Lymphocytes # (A) 1.3 k/uL (1.0-4.8); Lymphocytes % (A) 19 %; MCH 28.2 pg (25.0-35.0); MCHC 32.3 g/dL (31.0-37.0); MCV 87.3 fL (80.0-100.0); Mean Platelet Volume 7.8; Monocytes # (A) 0.4 k/uL (0-1.0); Monocytes % (A) 6 %; Neutrophils # (A) 4.8 k/uL (1.3-7.7); Neutrophils % (A) 69 %; Platelet Count 186 k/uL (150-450); RBC 3.85 m/uL (3.80-5.40); RDW 15.4 % (11.5-15.5)
--- NOTE | 2018-04-04 10:42 | P.CONS ---
History of Present Illness - Reason for Consult Consult date: 04/02/18 Abdominal pain, pancreatitis Requesting physician: Kevin Morton - Chief Complaint Abdominal pain - History of Present Illness Pleasant 63-year-old female with multiple medical comorbidities including recent treatment for acute diverticulitis with a cold of perforation requiring antibiotic treatment and management by the infectious disease service, right breast cancer with metastases to the spine who presented with complaints of abdominal pain. The patient reported epigastric abdominal pain with radiation into her back which was described as severe in intensity. She feels that the pain had been present for approximately one week prior to presentation. She reports that the pain was worse with eating. She had associated nausea and decreased appetite. She reports that she was somewhat constipated but after admission had multiple loose bowel movements. On admission the patient was found to have an elevated lipase of 572 and had a computed tomography scan with multiple findings including a walled off perforation of the sigmoid diverticulosis, multiple subcapsular lesions found in the right liver and a additional 2.2 cm liver lesion as well as multiple lesions of the spine suggestive of metastases. Since coming to the hospital the patient reports that she is feeling symptomatically better. Her last colonoscopy was approximately 6 years ago. Review of Systems REVIEW OF SYSTEMS: CONSTITUTIONAL: Denies any fevers, chills, weight change or fatigue. CARDIOVASCULAR: Denies any chest pain, palpitations high or low blood pressures RESPIRATORY: Denies any shortness of breath, hemoptysis or cough. GENITOURINARY: No dysuria or hematuria. MUSCULOSKELETAL: No weakness reported. SKIN: Denies any new rashes or lesions, jaundice or pallor. PSYCHIATRIC: Denies any depression or anxiety. NEUROLOGY: Denies headache, denies any new focal deficits. EARS/NOSE/THROAT: No recent hearing change, congestion, nasal discharge or sore throat. EYES: No pain in eyes, discharge or change in vision. GASTROINTESTINAL: As per HPI. Past Medical History Past Medical History: Cancer (Breast with mets to spine. Lumpectomy 2017, undergoing chemo 2018), Heart Failure, COPD, Diabetes Mellitus, Hyperlipidemia Additional Past Medical History / Comment(s): KIDNEY STONES, CATARACT LEFT EYE History of Any Multi-Drug Resistant Organisms: None Reported Past Surgical History: Section, Cholecystectomy, Hernia Repair, Hysterectomy Additional Past Surgical History / Comment(s): R breast biopsy, x3, cystocscopies, multiple lithotripsies, percutaneous stone removals, double J stents (none in at this time per pt), umbilical hernia repairs x 2. CATARACT SURGERY RIGHT EYE , RIGHT LUMPECTOMY 2017, MEDIPORT PLACEMENT Past Anesthesia/Blood Transfusion Reactions: No Reported Reaction Past Psychological History: Anxiety, Depression Additional Psychological History / Comment(s): and lives with her . Ongoing tobacco use attempting to stop. No significant alcohol use. No experience. no animal exposures no travel history Smoking Status: Current every day smoker - Past Family History Father Family Medical History: Renal Disease Additional Family Medical History / Comment(s): Father of renal failure in his 90's. Mother Family Medical History: COPD Additional Family Medical History / Comment(s): Mother of COPD at the age of 62 yrs. Sister(s) Family Medical History: Cancer Additional Family Medical History / Comment(s): BREAST CANCER Brother(s) Family Medical History: Cancer Medications and Allergies Home Medications Medication Instructions Recorded Confirmed Type Atorvastatin Calcium [Lipitor] 20 mg PO HS 06/13/16 04/01/18 History Zolpidem [Ambien] 10 mg PO HS 04/12/17 04/01/18 History Anastrozole [Arimidex] 1 mg PO DAILY 05/20/17 04/01/18 History Prochlorperazine [Compazine] 10 mg PO Q8H PRN 05/20/17 04/01/18 History Cholecalciferol (Vitamin D3) 2,000 unit PO DAILY 04/01/18 04/01/18 History [Vitamin D3] Cranberry Fruit Extract [Cranberry] 200 mg PO DAILY 04/01/18 04/01/18 History Hydrocodone/Acetaminophen [[place] 1 tab PO Q6HR PRN 04/01/18 04/01/18 History 5-325] Insulin Glargine,Hum.rec.anlog 70 unit SQ HS 04/01/18 04/01/18 History [Basaglar Kwikpen U-100] Multivitamins, Thera [Multivitamin 1 tab PO DAILY 04/01/18 04/01/18 History (formulary)] Allergies Allergy/AdvReac Type Severity Reaction Status Date / Time gentamicin [From Garamycin] Allergy Rash/Hives Verified 04/01/18 07:37 Penicillins Allergy Rash/Hives Verified 04/01/18 07:37 Sulfa (Sulfonamide Allergy Rash/Hives Verified 04/01/18 07:37 Antibiotics) morphine AdvReac Nausea Verified 04/01/18 07:37 Physical Exam Vitals: Vital Signs Temp Pulse Resp BP Pulse Ox 04/02/18 13:00 98.1 F 67 17 143/71 96 04/02/18 07:18 97.6 F 76 18 128/79 97 04/01/18 21:00 98.3 F 69 18 125/58 94 L Intake and Output 04/02/18 04/02/18 04/02/18 06:59 14:59 22:59 Intake Total 1575 Balance 1575 Intake: Intake, IV Titration 1275 Amount 0.9% NaCl with KCl 20 Meq 525 /l 1,000 ml @ 150 mls/hr IV .Q6H40M [facility] Rx#: [id number] Vancomycin 1,500 mg In 750 Sodium Chloride 0.9% 250 ml @ 125 mls/hr IVPB Q18H [facility] Rx#:[id number] Oral 300 Other: Voiding Method Toilet Toilet # Voids 1 3 Weight 95 kg 95 kg On physical examination, patient appears comfortable in no apparent distress. HEAD: Normocephalic, atraumatic. EYES: No scleral icterus. No conjunctival injection. MOUTH: No lesions, tongue midline. NECK: Trachea midline, no gross abnormalities. CHEST: Clear to auscultation with no wheezing or rhonchi appreciated. HEART: Regular rate and rhythm. ABDOMEN: Soft, obese and distended with mild tenderness to deep palpation. Bowel sounds are positive. No organomegaly. No guarding or rigidity. EXTREMITIES: No pedal edema. SKIN: No rashes, no jaundice. NEUROLOGIC: Alert and oriented x3. No focal deficits. Results CBC & Chem 7: 04/04/18 08:38 04/04/18 08:38 Labs: Abnormal Lab Results - Last 24 Hours (Table) 04/02/18 04/02/18 04/02/18 Range/Units 07:02 07:04 07:13 Chloride 112 H (98-107) mmol/L BUN 24 H (7-17) mg/dL Glucose 35 L* (74-99) mg/dL POC Glucose (mg/dL) 43 L 58 L (75-99) mg/dL Total Bilirubin 0.1 L (0.2-1.3) mg/dL Total Protein 6.2 L (6.3-8.2) g/dL Albumin 3.3 L (3.5-5.0) g/dL 04/02/18 04/02/18 04/02/18 Range/Units 07:30 11:13 17:25 Chloride (98-107) mmol/L BUN (7-17) mg/dL Glucose (74-99) mg/dL POC Glucose (mg/dL) 62 L 198 H 208 H (75-99) mg/dL Total Bilirubin (0.2-1.3) mg/dL Total Protein (6.3-8.2) g/dL Albumin (3.5-5.0) g/dL 04/02/18 Range/Units 20:23 Chloride (98-107) mmol/L BUN (7-17) mg/dL Glucose (74-99) mg/dL POC Glucose (mg/dL) 232 H (75-99) mg/dL Total Bilirubin (0.2-1.3) mg/dL Total Protein (6.3-8.2) g/dL Albumin (3.5-5.0) g/dL Microbiology - Last 24 Hours (Table) 04/01/18 17:41 Gram Stain - Preliminary Breast - Right Wound Culture - Preliminary Strep agalactiae - (group b) 04/01/18 04:15 Blood Culture - Preliminary Blood No Growth after 24 hours 04/01/18 17:41 Anaerobic Culture - Preliminary Breast - Right CT scan - abdomen: report reviewed (CT abdomen with multiple findings including walled off sigmoid perforation, multiple subcapsular right hepatic lesions suggestive of cysts versus metastases, a 2.2 cm liver lesion, multiple lesions of the axial spine suggestive of metastases ) Assessment and Plan (1) Pancreatitis Narrative/Plan: Patient presenting with abdominal pain consistent with pancreatitis and elevated lipase on presentation. Currently feeling better with symptomatic treatment. Current Visit: Yes Status: Acute Code(s): K85.90 - ACUTE PANCREATITIS WITHOUT NECROSIS OR INFECTION, UNSP SNOMED Code(s): 56333171 (2) Liver lesion Narrative/Plan: Multiple cysts seen in the subcapsular region of the right liver which were not seen on previous computed tomography scan, in the setting of metastatic breast cancer this is highly suggestive of metastases. In addition a 2.2 cm liver lesion is also noted. If confirmation of metastases will slip box changer can consider interventional radiology for CT-guided biopsy, however if no change in management by tissue confirmation in the setting of breast cancer which is already metastasized to the spine then can continue treatment plan. Current Visit: Yes Status: Acute Code(s): K76.9 - LIVER DISEASE, UNSPECIFIED SNOMED Code(s): 402043259 (3) Breast carcinoma Narrative/Plan: Metastatic breast cancer. Current Visit: Yes Status: Acute Code(s): C50.919 - MALIGNANT NEOPLASM OF UNSP SITE OF UNSPECIFIED FEMALE BREAST SNOMED Code(s): 687729788 (4) Abscess of sigmoid colon due to diverticulitis Narrative/Plan: Recent treatment of sigmoid diverticulitis with abscess with IV antibiotics, current CT suggests a contained walled off perforation without evidence of abscess seen. Current Visit: No Status: Acute Code(s): K57.20 - DVTRCLI OF LG INT W PERFORATION AND ABSCESS W/O BLEEDING SNOMED Code(s): 1321264492478949 Plan: Supportive care Okay for diet as tolerated Continue IV fluid hydration Continue pain management CT findings highly suggestive of metastatic cancer to the liver, can consider IR for CT-guided biopsy if this will change the patient's current management, otherwise continue treatment per the oncology service Thank you for allowing us to participate in the care of this patient we will continue to follow
[2018-04-04] MEDS ORDERED: VANCOMYCIN TROUGH DUE 1 EACH MISC MISCELLANE ONE (11:00)
--- NOTE | 2018-04-04 11:21 | P.PN ---
Subjective Progress Note Date: 04/04/18 This is a 63-year-old female patient of Dr. Ruvalcaba. Patient presented to the emergency room with complaints of abdominal pain patient states that the abdominal pain and discussion have become worse over the past week. Patient states pain is in her mid epigastric area that radiates to flanks and to back. Patient has been experiencing nausea and decreased appetite. Patient states she has not had emesis. Patient denies diarrhea. Patient has a known past medical history of metastatic breast cancer with known metastasis to her spine. Patient states she was diagnosed one year prior and has been undergoing chemo chemotherapy. Most recent chemotherapy 3 weeks prior. Additional medical history includes COPD, diabetes mellitus, hyperlipidemia, high failure, anxiety, depression and nicotine dependence. Patient also complaining of drainage from right breast lumpectomy site. Patient states this has been occurring for multiple months. Patient did show Dr. Wheat her oncologist and he referred her to Dr. naidu. Patient states she is to see Dr. naidu next week. Lipase elevated at 572 on admission. D-dimer also elevated at 0.68. KUB of abdomen completed showing nonacute abdomen. There is removal of the ureteral stent and drainage catheter compared to old exam. CT of abdomen and pelvis completed showing reidentified numerous sclerotic metastases within the axial and appendicular skeleton. Multiple subcapsular low-attenuation foci within the right hepatic lobe measuring up to 12 mm are indeterminate and were not present on October exam. Questionable subtle low attenuation 2.2 cm lesion in the whether this may represent metastasis. Unchanged large 7.9 cm cystic focus in the right hemipelvis. This is indeterminate and can be further characterized with ultrasound. CT completed showing no evidence of pulmonary embolism. Dilation of the main pulmonary artery 3.5 cm suggestive of pulmonary artery hypertension. Postoperative changes in the right breast with small and fluid collection measuring up to 2.5-1.1 cm. Unchanged 3 mm solid pulmonary nodule along with left major fissure. Numerous unchanged osseous metastasis within the axial and appendicular skeleton. Dr. Wheat has been consulted for oncology services. Dilaudid and Zofran have been added. 2017 patient is alert and oriented 3 in no apparent distress, there is no fever or chills no headache or dizziness no chest pain no shortness of breath no cough no palpitation there is no nausea or vomiting patient has abdominal pain and is receiving Dilaudid with good control of her pain there is no urinary symptoms On 04/04/2018 patient is alert and oriented 3. Patient is fatigued at this time. Patient denies chest pain or shortness of breath. Patient is still complaining of occasional abdominal pain and receiving Dilaudid for good pain control time. Patient denies any urinary burning or frequency. Objective - Vital Signs Vital signs: Vital Signs Temp 97.6 F 04/04/18 05:00 Pulse 70 04/04/18 08:00 Resp 18 04/04/18 08:00 BP 133/82 04/04/18 05:00 Pulse Ox 92 L 04/04/18 05:00 Intake & Output 04/03/18 04/04/18 04/04/18 18:59 06:59 18:59 Intake Total 2490 Balance 2490 Weight 101 kg 101 kg Intake: Intake, IV Titration 1350 Amount 0.9% NaCl with KCl 20 Meq 1350 /l 1,000 ml @ 150 mls/hr IV .Q6H40M [facility] Rx#: [id number] Oral 1140 Other: Voiding Method Toilet Toilet Toilet # Voids 2 1 1 - Exam Head normocephalic and atraumatic Neck supple no JVD no goiter Lungs clear to auscultation bilaterally no wheezing or crackles Heart regular rate and rhythm S1-S2, no rub or gallop Abdomen is distended and tender to mid epigastric area. Extremities no edema no cyanosis or clubbing Neuro alert and orientated to 3 - Labs CBC & Chem 7: 04/04/18 08:38 04/04/18 08:38 Labs: Abnormal Lab Results - Last 24 Hours (Table) 04/03/18 04/03/18 04/03/18 Range/Units 11:13 17:05 20:09 Hgb (11.4-16.0) gm/dL Hct (34.0-46.0) % Potassium (3.5-5.1) mmol/L Chloride (98-107) mmol/L Carbon Dioxide (22-30) mmol/L BUN (7-17) mg/dL Glucose (74-99) mg/dL POC Glucose (mg/dL) 219 H 301 H 406 H (75-99) mg/dL Total Bilirubin (0.2-1.3) mg/dL Total Protein (6.3-8.2) g/dL Albumin (3.5-5.0) g/dL 04/04/18 04/04/18 04/04/18 Range/Units 01:57 06:56 08:38 Hgb 10.9 L (11.4-16.0) gm/dL Hct 33.6 L (34.0-46.0) % Potassium (3.5-5.1) mmol/L Chloride (98-107) mmol/L Carbon Dioxide (22-30) mmol/L BUN (7-17) mg/dL Glucose (74-99) mg/dL POC Glucose (mg/dL) 218 H 162 H (75-99) mg/dL Total Bilirubin (0.2-1.3) mg/dL Total Protein (6.3-8.2) g/dL Albumin (3.5-5.0) g/dL 04/04/18 Range/Units 08:38 Hgb (11.4-16.0) gm/dL Hct (34.0-46.0) % Potassium 5.2 H (3.5-5.1) mmol/L Chloride 115 H (98-107) mmol/L Carbon Dioxide 20 L (22-30) mmol/L BUN 18 H (7-17) mg/dL Glucose 162 H (74-99) mg/dL POC Glucose (mg/dL) (75-99) mg/dL Total Bilirubin 0.1 L (0.2-1.3) mg/dL Total Protein 5.8 L (6.3-8.2) g/dL Albumin 2.9 L (3.5-5.0) g/dL Microbiology - Last 24 Hours (Table) 04/01/18 04:15 Blood Culture - Preliminary Blood No Growth after 72 hours 04/01/18 17:41 Gram Stain - Final Breast - Right Wound Culture - Final Strep agalactiae - (group b) Assessment and Plan Assessment: 1. Abdominal pain with nausea. Amylase of any. Lipase is 572. CT of abdomen and pelvis completed showing reidentified numerous sclerotic metastasis within the axial and appendicular skeleton. Multiple subcapsular low attenuated foci within the right hepatic lobe measuring up to 12 mm indeterminate present on the October exam. The differential includes subcapsular cyst or metastasis. Questionable subtle low attenuated 2.2 cm lesion in the liver this may represent metastasis. Unchanged large 7.9 cm focus right hemipelvis this is indeterminate between further characterized with ultrasound. Reidentified diverticulosis with on unchanged small walled off presumed perforated greenish in lateral to the sigmoid colon measuring proximally 2.81.9 cm this is mild adjacent inflammatory change the appearance is unchanged there is no evidence of drainable abscess. Oncology services have been consulted. Patient has Dilaudid for pain control. Zofran for nausea. Per GI services be continue supportive care and diet as tolerated. Consider IR for CT-guided biopsy if this will change patient's current management per GI services 2. History of breast cancer with metastasis. Patient states she was diagnosed one year prior. Chemotherapy 3 weeks prior. Oncology services thoracic breast cancer to bone and possible liver patient follows outpatient with Dr. Wheat 3.. History of lumpectomy. Patient states lumpectomy site has been draining for the past few months. CTA completed Postoperative changes in the right breast with a small air and fluid collection measuring up to 2.5-1.1 cm. Per surgical services continue local wound care. No surgical intervention at this time will follow-up outpatient to discuss options regarding the right breast wound. Per infectious disease cultures currently pending and this will determine the course of antibiotic therapy at the time of discharge. Patient currently on ankle myosin 4. History of diabetes mellitus. Home meds resumed. Sliding scale insulin ordered. A1c 11.3 5. History of nicotine dependence. Patient states she smokes 1 pack of cigarettes per day. Patient educated greater than 3 minuntes on smoking cessation. Nicotine patch has been ordered 6. Chronic Diastolic heart failure. 7. History of essential hypertension 8. History of hyperlipidemia 9. Elevated d-dimer. D-dimer 0.68. CTA completed showing no evidence of pulmonary embolism. Dilation the main pulmonary artery to 3.5 cm suggestive pulmonary artery hypertension. Postoperative changes in the right breast with a small air and fluid collection measuring up to 2.5-1.1 cm. Unchanged 3 mm solid pulmonary nodule along left major fissure. Numerous unchanged osseous metastases within the axial and appendicular skeleton. DVT prophylaxis Lovenox. GI prophylaxis Protonix I performed an examination of the patient and discussed their management with the Nurse Practitioner. I have reviewed the Nurse Practitioner's notes and agree with the documented findings and plan of care
[2018-04-04 11:23] LABS: Glucose,Whole Blood 217 mg/dL (75-99)
[2018-04-04] MEDS: VANCOMYCIN 1,500 MG in SODIUM CHLORIDE 0.9% 250 ML IVPB SCH (12:07)
--- NOTE | 2018-04-04 13:22 | P.PN ---
Subjective Progress Note Date: 04/03/18 This is a 63-year-old female patient of Dr. Ruvalcaba. Patient presented to the emergency room with complaints of abdominal pain patient states that the abdominal pain and discussion have become worse over the past week. Patient states pain is in her mid epigastric area that radiates to flanks and to back. Patient has been experiencing nausea and decreased appetite. Patient states she has not had emesis. Patient denies diarrhea. Patient has a known past medical history of metastatic breast cancer with known metastasis to her spine. Patient states she was diagnosed one year prior and has been undergoing chemo chemotherapy. Most recent chemotherapy 3 weeks prior. Additional medical history includes COPD, diabetes mellitus, hyperlipidemia, high failure, anxiety, depression and nicotine dependence. Patient also complaining of drainage from right breast lumpectomy site. Patient states this has been occurring for multiple months. Patient did show Dr. Wheat her oncologist and he referred her to Dr. naidu. Patient states she is to see Dr. naidu next week. Lipase elevated at 572 on admission. D-dimer also elevated at 0.68. KUB of abdomen completed showing nonacute abdomen. There is removal of the ureteral stent and drainage catheter compared to old exam. CT of abdomen and pelvis completed showing reidentified numerous sclerotic metastases within the axial and appendicular skeleton. Multiple subcapsular low-attenuation foci within the right hepatic lobe measuring up to 12 mm are indeterminate and were not present on October exam. Questionable subtle low attenuation 2.2 cm lesion in the whether this may represent metastasis. Unchanged large 7.9 cm cystic focus in the right hemipelvis. This is indeterminate and can be further characterized with ultrasound. CT completed showing no evidence of pulmonary embolism. Dilation of the main pulmonary artery 3.5 cm suggestive of pulmonary artery hypertension. Postoperative changes in the right breast with small and fluid collection measuring up to 2.5-1.1 cm. Unchanged 3 mm solid pulmonary nodule along with left major fissure. Numerous unchanged osseous metastasis within the axial and appendicular skeleton. Dr. Wheat has been consulted for oncology services. Dilaudid and Zofran have been added. 2017 patient is alert and oriented 3 in no apparent distress, there is no fever or chills no headache or dizziness no chest pain no shortness of breath no cough no palpitation there is no nausea or vomiting patient has abdominal pain and is receiving Dilaudid with good control of her pain there is no urinary symptoms On 04/03/2018 patient is alert and oriented in no apparent distress there is no complaints at this time no fever or chills no headache or dizziness no chest pain no shortness of breath no cough no abdominal pain and no urinary symptoms, she is maintained on IV vancomycin she was evaluated by Dr. Reyes infectious disease Objective - Vital Signs Vital signs: Vital Signs Temp 98.2 F 04/03/18 13:00 Pulse 67 04/03/18 13:00 Resp 16 04/03/18 13:00 BP 121/78 04/03/18 13:00 Pulse Ox 93 L 04/03/18 13:00 Intake & Output 04/03/18 04/03/18 04/04/18 06:59 18:59 06:59 Intake Total Balance Weight Intake: Intake, IV Titration Amount 0.9% NaCl with KCl 20 Meq /l 1,000 ml @ 150 mls/hr IV .Q6H40M [facility] Rx#: [id number] Vancomycin 1,500 mg In Sodium Chloride 0.9% 250 ml @ 125 mls/hr IVPB Q18H [facility] Rx#:[id number] Other: Voiding Method Toilet # Voids 2 - Exam Head normocephalic and atraumatic Neck supple no JVD no goiter Lungs clear to auscultation bilaterally no wheezing or crackles Heart regular rate and rhythm S1-S2, no rub or gallop Abdomen is distended and tender to mid epigastric area. Extremities no edema no cyanosis or clubbing Neuro alert and orientated to 3 - Labs CBC & Chem 7: 04/03/18 08:58 04/03/18 08:58 Labs: Abnormal Lab Results - Last 24 Hours (Table) 04/02/18 04/03/18 04/03/18 Range/Units 20:23 02:08 06:49 RBC (3.80-5.40) m/uL Hgb (11.4-16.0) gm/dL Hct (34.0-46.0) % Chloride (98-107) mmol/L Carbon Dioxide (22-30) mmol/L BUN (7-17) mg/dL Glucose (74-99) mg/dL POC Glucose (mg/dL) 232 H 223 H 179 H (75-99) mg/dL Calcium (8.4-10.2) mg/dL Total Bilirubin (0.2-1.3) mg/dL Total Protein (6.3-8.2) g/dL Albumin (3.5-5.0) g/dL 04/03/18 04/03/18 04/03/18 Range/Units 08:58 08:58 11:13 RBC 3.73 L (3.80-5.40) m/uL Hgb 10.5 L (11.4-16.0) gm/dL Hct 33.1 L (34.0-46.0) % Chloride 115 H (98-107) mmol/L Carbon Dioxide 21 L (22-30) mmol/L BUN 18 H (7-17) mg/dL Glucose 186 H (74-99) mg/dL POC Glucose (mg/dL) 219 H (75-99) mg/dL Calcium 8.1 L (8.4-10.2) mg/dL Total Bilirubin <0.1 L (0.2-1.3) mg/dL Total Protein 5.4 L (6.3-8.2) g/dL Albumin 2.7 L (3.5-5.0) g/dL 04/03/18 Range/Units 17:05 RBC (3.80-5.40) m/uL Hgb (11.4-16.0) gm/dL Hct (34.0-46.0) % Chloride (98-107) mmol/L Carbon Dioxide (22-30) mmol/L BUN (7-17) mg/dL Glucose (74-99) mg/dL POC Glucose (mg/dL) 301 H (75-99) mg/dL Calcium (8.4-10.2) mg/dL Total Bilirubin (0.2-1.3) mg/dL Total Protein (6.3-8.2) g/dL Albumin (3.5-5.0) g/dL Microbiology - Last 24 Hours (Table) 04/01/18 17:41 Gram Stain - Final Breast - Right Wound Culture - Final Strep agalactiae - (group b) 04/01/18 04:15 Blood Culture - Preliminary Blood No Growth after 48 hours Assessment and Plan Plan: 1. Abdominal pain with nausea. Amylase of any. Lipase is 572. CT of abdomen and pelvis completed showing reidentified numerous sclerotic metastasis within the axial and appendicular skeleton. Multiple subcapsular low attenuated foci within the right hepatic lobe measuring up to 12 mm indeterminate present on the October exam. The differential includes subcapsular cyst or metastasis. Questionable subtle low attenuated 2.2 cm lesion in the liver this may represent metastasis. Unchanged large 7.9 cm focus right hemipelvis this is indeterminate between further characterized with ultrasound. Reidentified diverticulosis with on unchanged small walled off presumed perforated greenish in lateral to the sigmoid colon measuring proximally 2.81.9 cm this is mild adjacent inflammatory change the appearance is unchanged there is no evidence of drainable abscess. Oncology services have been consulted. Patient has Dilaudid for pain control. Zofran for nausea. 2. History of breast cancer with metastasis. Patient states she was diagnosed one year prior. Chemotherapy 3 weeks prior. Awaiting oncology consult 3.. History of lumpectomy. Patient states lumpectomy site has been draining for the past few months. CTA completed Postoperative changes in the right breast with a small air and fluid collection measuring up to 2.5-1.1 cm. 4. History of diabetes mellitus. Home meds resumed. Sliding scale insulin ordered. A1c ordered 5. History of nicotine dependence. Patient states she smokes 1 pack of cigarettes per day. Patient educated greater than 3 minuntes on smoking cessation. Nicotine patch has been ordered 6. Chronic Diastolic heart failure. 7. History of essential hypertension 8. History of hyperlipidemia 9. Elevated d-dimer. D-dimer 0.68. CTA completed showing no evidence of pulmonary embolism. Dilation the main pulmonary artery to 3.5 cm suggestive pulmonary artery hypertension. Postoperative changes in the right breast with a small air and fluid collection measuring up to 2.5-1.1 cm. Unchanged 3 mm solid pulmonary nodule along left major fissure. Numerous unchanged osseous metastases within the axial and appendicular skeleton. DVT prophylaxis Lovenox. GI prophylaxis Protonix
--- NOTE | 2018-04-04 13:30 | P.PN ---
Subjective Progress Note Date: 04/04/18 Principal diagnosis: Right breast infection Pt seen today in f/u, she is feeling better, starting to eat, no fever, nausea, vomiting. Exacerbated pain is currently managed with dilaudid, pt has chronic back pain managed by PCP. Objective - Vital Signs Vital signs: Vital Signs Temp 97.9 F 04/04/18 12:30 Pulse 58 L 04/04/18 12:30 Resp 16 04/04/18 12:30 BP 133/63 04/04/18 12:30 Pulse Ox 96 04/04/18 12:30 Intake & Output 04/03/18 04/04/18 04/04/18 18:59 06:59 18:59 Intake Total 2490 Balance 2490 Weight 101 kg 101 kg Intake: Intake, IV Titration 1350 Amount 0.9% NaCl with KCl 20 Meq 1350 /l 1,000 ml @ 150 mls/hr IV .Q6H40M [facility] Rx#: [id number] Oral 1140 Other: Voiding Method Toilet Toilet Toilet # Voids 2 1 1 - Constitutional General appearance: Present: cooperative, no acute distress, obese - EENT Eyes: Present: anicteric sclerae - Respiratory Respiratory: bilateral: CTA - Cardiovascular Rhythm: regular Heart sounds: normal: S1, S2 - Peripheral edema leg Peripheral Edema: bilateral: None - Gastrointestinal General gastrointestinal: Present: normal bowel sounds, soft. Absent: absent bowel sounds, decreased bowel sounds, distended, hepatomegaly, hyperactive bowel sounds, organomegaly, rigid, scaphoid, splenomegaly, tenderness, umbilical hernia, ventral hernia - Integumentary Integumentary: Present: normal - Neurologic Neurologic: Absent: focal deficits - Musculoskeletal Musculoskeletal: Present: strength equal bilaterally - Psychiatric Psychiatric: Present: A&O x's 3, appropriate affect, intact judgment & insight - Labs CBC & Chem 7: 04/04/18 08:38 04/04/18 08:38 Labs: Abnormal Lab Results - Last 24 Hours (Table) 04/03/18 04/03/18 04/04/18 Range/Units 17:05 20:09 01:57 Hgb (11.4-16.0) gm/dL Hct (34.0-46.0) % Potassium (3.5-5.1) mmol/L Chloride (98-107) mmol/L Carbon Dioxide (22-30) mmol/L BUN (7-17) mg/dL Glucose (74-99) mg/dL POC Glucose (mg/dL) 301 H 406 H 218 H (75-99) mg/dL Total Bilirubin (0.2-1.3) mg/dL Total Protein (6.3-8.2) g/dL Albumin (3.5-5.0) g/dL 04/04/18 04/04/18 04/04/18 Range/Units 06:56 08:38 08:38 Hgb 10.9 L (11.4-16.0) gm/dL Hct 33.6 L (34.0-46.0) % Potassium 5.2 H (3.5-5.1) mmol/L Chloride 115 H (98-107) mmol/L Carbon Dioxide 20 L (22-30) mmol/L BUN 18 H (7-17) mg/dL Glucose 162 H (74-99) mg/dL POC Glucose (mg/dL) 162 H (75-99) mg/dL Total Bilirubin 0.1 L (0.2-1.3) mg/dL Total Protein 5.8 L (6.3-8.2) g/dL Albumin 2.9 L (3.5-5.0) g/dL 04/04/18 Range/Units 11:22 Hgb (11.4-16.0) gm/dL Hct (34.0-46.0) % Potassium (3.5-5.1) mmol/L Chloride (98-107) mmol/L Carbon Dioxide (22-30) mmol/L BUN (7-17) mg/dL Glucose (74-99) mg/dL POC Glucose (mg/dL) 217 H (75-99) mg/dL Total Bilirubin (0.2-1.3) mg/dL Total Protein (6.3-8.2) g/dL Albumin (3.5-5.0) g/dL Microbiology - Last 24 Hours (Table) 04/01/18 04:15 Blood Culture - Preliminary Blood No Growth after 72 hours 04/01/18 17:41 Gram Stain - Final Breast - Right Wound Culture - Final Strep agalactiae - (group b) Assessment and Plan (1) Pancreatitis Narrative/Plan: Pt reason for admission. Exacerbation of chronic back pain secondary to pancreatitis. I did not recommend any changes in pain medications at this time until acute pain from pancreatitis is resolved. Pt will continue to use her prescribed pain medications at home and f/u with PCP for chronic back pain. Current Visit: Yes Status: Acute Priority: High Code(s): K85.90 - ACUTE PANCREATITIS WITHOUT NECROSIS OR INFECTION, UNSP SNOMED Code(s): 87190895 (2) Breast carcinoma Narrative/Plan: Metastatic, triple positive. Most recent images show stable disease. Pt will continue oral arimidex and complete 1 year of herceptin. Pt will keep current f /u. Current Visit: Yes Status: Chronic Priority: Medium Code(s): C50.919 - MALIGNANT NEOPLASM OF UNSP SITE OF UNSPECIFIED FEMALE BREAST SNOMED Code(s): 275262922 (3) Chronic back pain Narrative/Plan: Pt will f/u with PCP for monitoring of back pain and resolution of exacerbated pain to baseline. Current Visit: Yes Status: Chronic Priority: Medium Code(s): M54.9 - DORSALGIA, UNSPECIFIED; G89.29 - OTHER CHRONIC PAIN SNOMED Code(s): 424295754 Plan: Right breast wound. ID and Surgery going to f/u with pt. Abx and topical treatments prescribed. Pt will see Surgeon and further resection may be considered.
[2018-04-04 16:43] LABS: Glucose,Whole Blood 334 mg/dL (75-99)
[2018-04-04 20:05] LABS: Glucose,Whole Blood 442 mg/dL (75-99)
[2018-04-04] MEDS: ATORVASTATIN 20 MG TAB PO SCH (20:12)
[2018-04-04] MEDS: INSULIN DETEMIR 100 UNIT/ML 10 ML VIAL SQ SCH (20:51)
[2018-04-05] MEDS: HYDROmorphone 1 MG/ML 1 ML SYRINGE IVP PRN ×2 (01:37→08:47)
[2018-04-05 06:58] LABS: Glucose,Whole Blood 242 mg/dL (75-99)
[2018-04-05 08:09] LABS: Basophils % (A) 0 %; Eosinophils # (A) 0.3 k/uL (0-0.7); Eosinophils % (A) 4 %; HCT 31.3 % (34.0-46.0); HGB 10.2 gm/dL (11.4-16.0); Hypochromasia Slight; Lymphocytes # (A) 1.5 k/uL (1.0-4.8); Lymphocytes % (A) 21 %; MCHC 32.5 g/dL (31.0-37.0); MCV 86.2 fL (80.0-100.0); Mean Platelet Volume 7.3; Monocytes # (A) 0.4 k/uL (0-1.0); Monocytes % (A) 6 %; Neutrophils # (A) 4.5 k/uL (1.3-7.7); Neutrophils % (A) 65 %; Platelet Count 183 k/uL (150-450); RBC 3.63 m/uL (3.80-5.40); RDW 15.1 % (11.5-15.5); WBC 6.8 k/uL (3.8-10.6)
[2018-04-05 08:28] LABS: ALT 26 U/L (9-52); AST 17 U/L (14-36); Albumin 2.6 g/dL (3.5-5.0); Alkaline Phosphatase 93 U/L (38-126); Anion Gap 4 mmol/L; Blood Urea Nitrogen 19 mg/dL (7-17); Calcium 9.2 mg/dL (8.4-10.2); Carbon Dioxide 22 mmol/L (22-30); Chloride 114 mmol/L (98-107); Glucose 201 mg/dL (74-99); Sodium 140 mmol/L (137-145); Total Bilirubin <0.1 mg/dL (0.2-1.3); Total Protein 5.4 g/dL (6.3-8.2)
[2018-04-05] MEDS: PANTOPRAZOLE 40 MG/10 ML VIAL IVP SCH (08:33)
[2018-04-05] MEDS: INSULIN ASPART 100 UNIT/ML 1 ML 10 ML VIAL SQ SCH ×4 (08:33→21:24)
[2018-04-05] MEDS: NICOTINE 14MG/24HR PATCH TRANSDERM SCH (08:33)
[2018-04-05] MEDS: ENOXAPARIN 40 MG/0.4 ML SYRINGE SQ SCH (08:33)
[2018-04-05] MEDS: ANASTROZOLE 1 MG TAB PO SCH (08:33)
[2018-04-05] MEDS: ONDANSETRON 4 MG/2 ML VIAL IVP PRN (08:46)
--- NOTE | 2018-04-05 11:14 | P.PN ---
Subjective Progress Note Date: 04/05/18 This is a 63-year-old female patient of Dr. Ruvalcaba. Patient presented to the emergency room with complaints of abdominal pain patient states that the abdominal pain and discussion have become worse over the past week. Patient states pain is in her mid epigastric area that radiates to flanks and to back. Patient has been experiencing nausea and decreased appetite. Patient states she has not had emesis. Patient denies diarrhea. Patient has a known past medical history of metastatic breast cancer with known metastasis to her spine. Patient states she was diagnosed one year prior and has been undergoing chemo chemotherapy. Most recent chemotherapy 3 weeks prior. Additional medical history includes COPD, diabetes mellitus, hyperlipidemia, high failure, anxiety, depression and nicotine dependence. Patient also complaining of drainage from right breast lumpectomy site. Patient states this has been occurring for multiple months. Patient did show Dr. Wheat her oncologist and he referred her to Dr. naidu. Patient states she is to see Dr. naidu next week. Lipase elevated at 572 on admission. D-dimer also elevated at 0.68. KUB of abdomen completed showing nonacute abdomen. There is removal of the ureteral stent and drainage catheter compared to old exam. CT of abdomen and pelvis completed showing reidentified numerous sclerotic metastases within the axial and appendicular skeleton. Multiple subcapsular low-attenuation foci within the right hepatic lobe measuring up to 12 mm are indeterminate and were not present on October exam. Questionable subtle low attenuation 2.2 cm lesion in the whether this may represent metastasis. Unchanged large 7.9 cm cystic focus in the right hemipelvis. This is indeterminate and can be further characterized with ultrasound. CT completed showing no evidence of pulmonary embolism. Dilation of the main pulmonary artery 3.5 cm suggestive of pulmonary artery hypertension. Postoperative changes in the right breast with small and fluid collection measuring up to 2.5-1.1 cm. Unchanged 3 mm solid pulmonary nodule along with left major fissure. Numerous unchanged osseous metastasis within the axial and appendicular skeleton. Dr. Wheat has been consulted for oncology services. Dilaudid and Zofran have been added. 2017 patient is alert and oriented 3 in no apparent distress, there is no fever or chills no headache or dizziness no chest pain no shortness of breath no cough no palpitation there is no nausea or vomiting patient has abdominal pain and is receiving Dilaudid with good control of her pain there is no urinary symptoms On 04/04/2018 patient is alert and oriented 3. Patient is fatigued at this time. Patient denies chest pain or shortness of breath. Patient is still complaining of occasional abdominal pain and receiving Dilaudid for good pain control time. Patient denies any urinary burning or frequency. On 04/05/2018 patient is alert and oriented 3. Patient is seeing some improvement with pain but still requiring IV Dilaudid for adequate pain control at this time. Patient denies chest pain or shortness of breath. Patient denies any urinary burning or frequency. She denies nausea vomiting or diarrhea Objective - Vital Signs Vital signs: Vital Signs Temp 98.4 F 04/05/18 05:00 Pulse 57 L 04/05/18 05:00 Resp 17 04/05/18 05:00 BP 130/69 04/05/18 05:00 Pulse Ox 93 L 04/05/18 05:00 Intake & Output 04/04/18 04/05/18 04/05/18 18:59 06:59 18:59 Intake Total 690 Balance 690 Weight 101 kg 102.6 kg Intake: IV 10 saline flush 10 Oral 680 Other: Voiding Method Toilet Toilet # Voids 3 2 # Bowel Movements 1 - Exam Head normocephalic and atraumatic Neck supple no JVD no goiter Lungs clear to auscultation bilaterally no wheezing or crackles Heart regular rate and rhythm S1-S2, no rub or gallop Abdomen is distended and tender to mid epigastric area. Extremities no edema no cyanosis or clubbing Neuro alert and orientated to 3 - Labs CBC & Chem 7: 04/05/18 07:40 04/05/18 07:40 Labs: Abnormal Lab Results - Last 24 Hours (Table) 04/04/18 04/04/18 04/04/18 Range/Units 11:22 16:42 20:02 RBC (3.80-5.40) m/uL Hgb (11.4-16.0) gm/dL Hct (34.0-46.0) % Chloride (98-107) mmol/L BUN (7-17) mg/dL Glucose (74-99) mg/dL POC Glucose (mg/dL) 217 H 334 H 442 H (75-99) mg/dL Total Bilirubin (0.2-1.3) mg/dL Total Protein (6.3-8.2) g/dL Albumin (3.5-5.0) g/dL 04/05/18 04/05/18 04/05/18 Range/Units 06:56 07:40 07:40 RBC 3.63 L (3.80-5.40) m/uL Hgb 10.2 L (11.4-16.0) gm/dL Hct 31.3 L (34.0-46.0) % Chloride 114 H (98-107) mmol/L BUN 19 H (7-17) mg/dL Glucose 201 H (74-99) mg/dL POC Glucose (mg/dL) 242 H (75-99) mg/dL Total Bilirubin <0.1 L (0.2-1.3) mg/dL Total Protein 5.4 L (6.3-8.2) g/dL Albumin 2.6 L (3.5-5.0) g/dL Microbiology - Last 24 Hours (Table) 04/01/18 04:15 Blood Culture - Preliminary Blood No Growth after 96 hours 04/01/18 17:41 Anaerobic Culture - Preliminary Breast - Right Anaerobic Gram Positive Cocci Assessment and Plan Assessment: 1. Abdominal pain with nausea. Amylase of any. Lipase is 572. CT of abdomen and pelvis completed showing reidentified numerous sclerotic metastasis within the axial and appendicular skeleton. Multiple subcapsular low attenuated foci within the right hepatic lobe measuring up to 12 mm indeterminate present on the October exam. The differential includes subcapsular cyst or metastasis. Questionable subtle low attenuated 2.2 cm lesion in the liver this may represent metastasis. Unchanged large 7.9 cm focus right hemipelvis this is indeterminate between further characterized with ultrasound. Reidentified diverticulosis with on unchanged small walled off presumed perforated greenish in lateral to the sigmoid colon measuring proximally 2.81.9 cm this is mild adjacent inflammatory change the appearance is unchanged there is no evidence of drainable abscess. Oncology services have been consulted. Patient has Dilaudid for pain control. Zofran for nausea. Per GI services be continue supportive care and diet as tolerated. Consider IR for CT-guided biopsy if this will change patient's current management per GI services 2. History of breast cancer with metastasis. Patient states she was diagnosed one year prior. Chemotherapy 3 weeks prior. Oncology services thoracic breast cancer to bone and possible liver patient follows outpatient with Dr. Wheat 3.. History of lumpectomy. Patient states lumpectomy site has been draining for the past few months. CTA completed Postoperative changes in the right breast with a small air and fluid collection measuring up to 2.5-1.1 cm. Per surgical services continue local wound care. No surgical intervention at this time will follow-up outpatient to discuss options regarding the right breast wound. Per infectious disease cultures currently pending and this will determine the course of antibiotic therapy at the time of discharge. Patient currently on vanocomycin. Right breast positive for strep aglactiae. Infectious disease following. 4. History of diabetes mellitus. Home meds resumed. Sliding scale insulin ordered. A1c 11.3 5. History of nicotine dependence. Patient states she smokes 1 pack of cigarettes per day. Patient educated greater than 3 minuntes on smoking cessation. Nicotine patch has been ordered 6. Chronic Diastolic heart failure. 7. History of essential hypertension 8. History of hyperlipidemia 9. Elevated d-dimer. D-dimer 0.68. CTA completed showing no evidence of pulmonary embolism. Dilation the main pulmonary artery to 3.5 cm suggestive pulmonary artery hypertension. Postoperative changes in the right breast with a small air and fluid collection measuring up to 2.5-1.1 cm. Unchanged 3 mm solid pulmonary nodule along left major fissure. Numerous unchanged osseous metastases within the axial and appendicular skeleton. DVT prophylaxis Lovenox. GI prophylaxis Protonix I performed an examination of the patient and discussed their management with the Nurse Practitioner. I have reviewed the Nurse Practitioner's notes and agree with the documented findings and plan of care
[2018-04-05 11:15] LABS: Glucose,Whole Blood 208 mg/dL (75-99)
[2018-04-05] MEDS: VANCOMYCIN 1,500 MG in SODIUM CHLORIDE 0.9% 250 ML IVPB SCH (12:08)
[2018-04-05] MEDS: HYDROcodone/APAP 7.5-325MG 1 EACH TAB PO PRN ×2 (14:40→21:27)
[2018-04-05] MEDS: PROCHLORPERAZINE 5 MG TAB PO PRN (16:02)
[2018-04-05 17:18] LABS: Glucose,Whole Blood 358 mg/dL (75-99)
[2018-04-05 20:08] LABS: Glucose,Whole Blood 433 mg/dL (75-99)
[2018-04-05] MEDS: INSULIN DETEMIR 100 UNIT/ML 10 ML VIAL SQ SCH (21:24)
[2018-04-05] MEDS: ATORVASTATIN 20 MG TAB PO SCH (21:24)
--- NOTE | 2018-04-06 01:10 | P.PN ---
Subjective Progress Note Date: 04/05/18 Principal diagnosis: Pancreatitis, metastatic breast cancer Tolerating her diet and reporting decreased abdominal pain. No nausea or vomiting. No melena, hematochezia, hematemesis. Objective - Vital Signs Vital signs: Vital Signs Temp 97.1 F L 04/05/18 21:00 Pulse 56 L 04/05/18 21:00 Resp 18 04/05/18 21:00 BP 131/66 04/05/18 21:00 Pulse Ox 92 L 04/05/18 21:00 Intake & Output 04/05/18 04/05/18 04/06/18 06:59 18:59 06:59 Intake Total 690 250 150 Balance 690 250 150 Weight 102.6 kg Intake: IV 10 saline flush 10 Intake, IV Titration 250 Amount Vancomycin 1,500 mg In 250 Sodium Chloride 0.9% 250 ml @ 125 mls/hr IVPB Q24H [facility] Rx#:[id number] Oral 680 150 Other: Voiding Method Toilet # Voids 2 - Exam On physical examination, patient appears comfortable in no apparent distress. HEAD: Normocephalic, atraumatic. EYES: No scleral icterus. No conjunctival injection. MOUTH: No lesions, tongue midline. NECK: Trachea midline, no gross abnormalities. CHEST: Clear to auscultation with no wheezing or rhonchi appreciated. HEART: Regular rate and rhythm. ABDOMEN: Soft, obese. Bowel sounds are positive. No organomegaly. No guarding or rigidity. EXTREMITIES: No pedal edema. SKIN: No rashes, no jaundice. NEUROLOGIC: Alert and oriented x3. No focal deficits. - Labs CBC & Chem 7: 04/05/18 07:40 04/05/18 07:40 Labs: Abnormal Lab Results - Last 24 Hours (Table) 04/05/18 04/05/18 04/05/18 Range/Units 06:56 07:40 07:40 RBC 3.63 L (3.80-5.40) m/uL Hgb 10.2 L (11.4-16.0) gm/dL Hct 31.3 L (34.0-46.0) % Chloride 114 H (98-107) mmol/L BUN 19 H (7-17) mg/dL Glucose 201 H (74-99) mg/dL POC Glucose (mg/dL) 242 H (75-99) mg/dL Total Bilirubin <0.1 L (0.2-1.3) mg/dL Total Protein 5.4 L (6.3-8.2) g/dL Albumin 2.6 L (3.5-5.0) g/dL 04/05/18 04/05/18 04/05/18 Range/Units 11:03 17:16 20:06 RBC (3.80-5.40) m/uL Hgb (11.4-16.0) gm/dL Hct (34.0-46.0) % Chloride (98-107) mmol/L BUN (7-17) mg/dL Glucose (74-99) mg/dL POC Glucose (mg/dL) 208 H 358 H 433 H (75-99) mg/dL Total Bilirubin (0.2-1.3) mg/dL Total Protein (6.3-8.2) g/dL Albumin (3.5-5.0) g/dL Microbiology - Last 24 Hours (Table) 04/01/18 04:15 Blood Culture - Preliminary Blood No Growth after 96 hours 04/01/18 17:41 Anaerobic Culture - Preliminary Breast - Right Anaerobic Gram Positive Cocci Assessment and Plan (1) Pancreatitis Narrative/Plan: Patient presenting with abdominal pain consistent with pancreatitis and elevated lipase on presentation. Currently feeling better with symptomatic treatment. Current Visit: Yes Status: Acute Priority: High Code(s): K85.90 - ACUTE PANCREATITIS WITHOUT NECROSIS OR INFECTION, UNSP SNOMED Code(s): 23924302 (2) Liver lesion Narrative/Plan: Multiple cysts seen in the subcapsular region of the right liver which were not seen on previous computed tomography scan, in the setting of metastatic breast cancer this is highly suggestive of metastases. In addition a 2.2 cm liver lesion is also noted. If confirmation of metastases will international exchange coordinator can consider interventional radiology for CT-guided biopsy, however if no change in management by tissue confirmation in the setting of breast cancer which is already metastasized to the spine then can continue treatment plan. Current Visit: Yes Status: Acute Code(s): K76.9 - LIVER DISEASE, UNSPECIFIED SNOMED Code(s): 747627461 (3) Breast carcinoma Narrative/Plan: Metastatic breast cancer. Current Visit: Yes Status: Chronic Priority: Medium Code(s): C50.919 - MALIGNANT NEOPLASM OF UNSP SITE OF UNSPECIFIED FEMALE BREAST SNOMED Code(s): 949387531 (4) Abscess of sigmoid colon due to diverticulitis Narrative/Plan: Recent treatment of sigmoid diverticulitis with abscess with IV antibiotics, current CT suggests a contained walled off perforation without evidence of abscess seen. Current Visit: No Status: Acute Code(s): K57.20 - DVTRCLI OF LG INT W PERFORATION AND ABSCESS W/O BLEEDING SNOMED Code(s): 3026283455532999 Plan: Supportive care Okay for diet as tolerated Continue IV fluid hydration Continue pain management CT findings highly suggestive of metastatic cancer to the liver, can consider IR for CT-guided biopsy if this will change the patient's current management, otherwise continue treatment per the oncology service Thank you for allowing us to participate in the care of this patient we will continue to follow
[2018-04-06 01:34] LABS: Glucose,Whole Blood 360 mg/dL (75-99)
[2018-04-06 07:03] LABS: Glucose,Whole Blood 253 mg/dL (75-99)
[2018-04-06] MEDS: PANTOPRAZOLE 40 MG/10 ML VIAL IVP SCH (07:49)
[2018-04-06] MEDS: ANASTROZOLE 1 MG TAB PO SCH (07:50)
[2018-04-06] MEDS: ENOXAPARIN 40 MG/0.4 ML SYRINGE SQ SCH (07:50)
[2018-04-06] MEDS: INSULIN ASPART 100 UNIT/ML 1 ML 10 ML VIAL SQ SCH ×2 (07:50→12:42)
[2018-04-06] MEDS: NICOTINE 14MG/24HR PATCH TRANSDERM SCH (07:50)
[2018-04-06 08:27] LABS: Basophils % (A) 1 %; Eosinophils # (A) 0.2 k/uL (0-0.7); Eosinophils % (A) 4 %; HCT 32.9 % (34.0-46.0); HGB 10.8 gm/dL (11.4-16.0); Hypochromasia Slight; Lymphocytes # (A) 1.5 k/uL (1.0-4.8); Lymphocytes % (A) 25 %; MCH 28.4 pg (25.0-35.0); MCHC 32.7 g/dL (31.0-37.0); MCV 86.7 fL (80.0-100.0); Mean Platelet Volume 7.4; Monocytes # (A) 0.4 k/uL (0-1.0); Monocytes % (A) 6 %; Neutrophils # (A) 3.8 k/uL (1.3-7.7); Neutrophils % (A) 62 %; Platelet Count 195 k/uL (150-450); RDW 15.1 % (11.5-15.5); WBC 6.1 k/uL (3.8-10.6)
[2018-04-06 08:42] LABS: Albumin 2.9 g/dL (3.5-5.0); Calcium 9.7 mg/dL (8.4-10.2); Potassium 4.9 mmol/L (3.5-5.1); Total Bilirubin 0.1 mg/dL (0.2-1.3); Total Protein 5.8 g/dL (6.3-8.2)
[2018-04-06 10:55] LABS: Glucose,Whole Blood 292 mg/dL (75-99)
[2018-04-06] MEDS: VANCOMYCIN 1,500 MG in SODIUM CHLORIDE 0.9% 250 ML IVPB SCH (11:33)
[2018-04-06 11:36] VITALS: BP 155/65; PULSE 67; RESP 20; TEMP 98
[2018-04-06 14:35] VITALS: BMI 40.0
--- NOTE | 2018-04-06 15:03 | P.DS ---
Providers Date of admission: 04/01/18 07:29 Expected date of discharge: 04/06/18 Attending physician: Kevin Morton Consults: 04/01/18 07:30 Consult Physician Routine Consulting Provider: Lisandro Wheat Consult Reason/Comments: established patient Do you want consulting provider notified?: Yes 04/01/18 11:38 Consult Physician Routine Consulting Provider: Kimani Bradford Consult Reason/Comments: lumpectomy site Do you want consulting provider notified?: Yes 04/01/18 11:40 Consult Physician Routine Consulting Provider: uGi Reyes Consult Reason/Comments: lumpectomy site Do you want consulting provider notified?: Yes 04/01/18 11:45 Consult Physician Routine Consulting Provider: Samantha Harmon Consult Reason/Comments: elevated lipase Do you want consulting provider notified?: Yes Primary care physician: Lilly Ruvalcaba Hospital Course: Discharge diagnosis 1. Abdominal pain with nausea. Amylase 59. Lipase is 572. CT of abdomen and pelvis completed showing reidentified numerous sclerotic metastasis within the axial and appendicular skeleton. Multiple subcapsular low attenuated foci within the right hepatic lobe measuring up to 12 mm indeterminate present on the October exam. The differential includes subcapsular cyst or metastasis. Questionable subtle low attenuated 2.2 cm lesion in the liver this may represent metastasis. Unchanged large 7.9 cm focus right hemipelvis this is indeterminate between further characterized with ultrasound. Reidentified diverticulosis with on unchanged small walled off presumed perforated greenish in lateral to the sigmoid colon measuring proximally 2.81.9 cm this is mild adjacent inflammatory change the appearance is unchanged there is no evidence of drainable abscess. Oncology services have been consulted. Patient has Dilaudid for pain control. Zofran for nausea. Per GI services be continue supportive care and diet as tolerated. Consider IR for CT-guided biopsy if this will change patient's current management per GI services 2. History of breast cancer with metastasis. Patient states she was diagnosed one year prior. Chemotherapy 3 weeks prior. Oncology services thoracic breast cancer to bone and possible liver patient follows outpatient with Dr. Wheat . Discussed case with Kylah RUIZ per oncology services. Will consider outpatient liver biopsy once infection in right breast is cleared. Patient will follow-up outpatient with oncology services. 3.. History of lumpectomy. Patient states lumpectomy site has been draining for the past few months. CTA completed Postoperative changes in the right breast with a small air and fluid collection measuring up to 2.5-1.1 cm. Per surgical services continue local wound care. No surgical intervention at this time will follow-up outpatient to discuss options regarding the right breast wound. Per infectious disease cultures currently pending and this will determine the course of antibiotic therapy at the time of discharge. Patient currently on vanocomycin. Right breast positive for strep aglactiae. Per infectious disease patient will be discharged home on Moxifloxacin. Patient to follow-up outpatient with Dr. naidu for further surgical evaluation 4. History of diabetes mellitus. Home meds resumed. Sliding scale insulin ordered. A1c 11.3 5. History of nicotine dependence. Patient states she smokes 1 pack of cigarettes per day. Patient educated greater than 3 minuntes on smoking cessation. Nicotine patch has been ordered 6. Chronic Diastolic heart failure. 7. History of essential hypertension 8. History of hyperlipidemia 9. Elevated d-dimer. D-dimer 0.68. CTA completed showing no evidence of pulmonary embolism. Dilation the main pulmonary artery to 3.5 cm suggestive pulmonary artery hypertension. Postoperative changes in the right breast with a small air and fluid collection measuring up to 2.5-1.1 cm. Unchanged 3 mm solid pulmonary nodule along left major fissure. Numerous unchanged osseous metastases within the axial and appendicular skeleton. 10. 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 Hemoglobin 10.8. Patient to follow- up closely with PCP and oncology services Hospital Course This is a 63-year-old female patient of Dr. Ruvalcaba. Patient presented to the emergency room with complaints of abdominal pain patient states that the abdominal pain and discussion have become worse over the past week. Patient states pain is in her mid epigastric area that radiates to flanks and to back. Patient has been experiencing nausea and decreased appetite. Patient states she has not had emesis. Patient denies diarrhea. Patient has a known past medical history of metastatic breast cancer with known metastasis to her spine. Patient states she was diagnosed one year prior and has been undergoing chemo chemotherapy. Most recent chemotherapy 3 weeks prior. Additional medical history includes COPD, diabetes mellitus, hyperlipidemia, high failure, anxiety, depression and nicotine dependence. Patient also complaining of drainage from right breast lumpectomy site. Patient states this has been occurring for multiple months. Patient did show Dr. Wheat her oncologist and he referred her to Dr. naidu. Patient states she is to see Dr. naidu next week. Lipase elevated at 572 on admission. D-dimer also elevated at 0.68. KUB of abdomen completed showing nonacute abdomen. There is removal of the ureteral stent and drainage catheter compared to old exam. CT of abdomen and pelvis completed showing reidentified numerous sclerotic metastases within the axial and appendicular skeleton. Multiple subcapsular low-attenuation foci within the right hepatic lobe measuring up to 12 mm are indeterminate and were not present on October exam. Questionable subtle low attenuation 2.2 cm lesion in the whether this may represent metastasis. Unchanged large 7.9 cm cystic focus in the right hemipelvis. This is indeterminate and can be further characterized with ultrasound. CT completed showing no evidence of pulmonary embolism. Dilation of the main pulmonary artery 3.5 cm suggestive of pulmonary artery hypertension. Postoperative changes in the right breast with small and fluid collection measuring up to 2.5-1.1 cm. Unchanged 3 mm solid pulmonary nodule along with left major fissure. Numerous unchanged osseous metastasis within the axial and appendicular skeleton. Dr. Wheat has been consulted for oncology services. Dilaudid and Zofran have been added. 2017 patient is alert and oriented 3 in no apparent distress, there is no fever or chills no headache or dizziness no chest pain no shortness of breath no cough no palpitation there is no nausea or vomiting patient has abdominal pain and is receiving Dilaudid with good control of her pain there is no urinary symptoms On 04/04/2018 patient is alert and oriented 3. Patient is fatigued at this time. Patient denies chest pain or shortness of breath. Patient is still complaining of occasional abdominal pain and receiving Dilaudid for good pain control time. Patient denies any urinary burning or frequency. On 04/05/2018 patient is alert and oriented 3. Patient is seeing some improvement with pain but still requiring IV Dilaudid for adequate pain control at this time. Patient denies chest pain or shortness of breath. Patient denies any urinary burning or frequency. She denies nausea vomiting or diarrhea On 04/06/2018 patient is alert and oriented 3. Patient states that she is eager to go home. Pain is adequately controlled with increased dose of [place] at this time. Discussed case with Kylah RUIZ per oncology service in regards to liver lesion. Per oncology will address outpatient for liver biopsy once infection of right breast is cleared. Discussed case with infectious disease Dr. Reyes patient will be DC'd home on moxifloxacin and patient is to follow- up with Dr. naidu for further surgical evaluation of right breast. Patient also advised to follow-up closely with PCP. At this time patient denies chest pain or shortness breath. Patient denies nausea vomiting or diarrhea. Patient denies any urinary frequency I performed an examination of the patient and discussed their management with the Nurse Practitioner. I have reviewed the Nurse Practitioner's notes and agree with the documented findings and plan of care Patient Condition at Discharge: Stable Plan - Discharge Summary Discharge Rx Participant: No New Discharge Prescriptions: New Moxifloxacin HCl 400 mg PO DAILY #10 tab HYDROcodone/APAP 7.5-325MG [[place] 7.5-325] 1 each PO Q6H PRN 3 Days #12 tab PRN Reason: Pain Continue Atorvastatin Calcium [Lipitor] 20 mg PO HS Zolpidem [Ambien] 10 mg PO HS Prochlorperazine [Compazine] 10 mg PO Q8H PRN PRN Reason: Nausea Anastrozole [Arimidex] 1 mg PO DAILY Cholecalciferol (Vitamin D3) [Vitamin D3] 2,000 unit PO DAILY Multivitamins, Thera [Multivitamin (formulary)] 1 tab PO DAILY Insulin Glargine,Hum.rec.anlog [Basaglar Kwikpen U-100] 70 unit SQ HS Cranberry Fruit Extract [Cranberry] 200 mg PO DAILY Discontinued Hydrocodone/Acetaminophen [[place] 5-325] 1 tab PO Q6HR PRN PRN Reason: Pain Discharge Medication List Atorvastatin Calcium [Lipitor] 20 mg PO HS 06/13/16 [History] Zolpidem [Ambien] 10 mg PO HS 04/12/17 [History] Anastrozole [Arimidex] 1 mg PO DAILY 05/20/17 [History] Prochlorperazine [Compazine] 10 mg PO Q8H PRN 05/20/17 [History] Cholecalciferol (Vitamin D3) [Vitamin D3] 2,000 unit PO DAILY 04/01/18 [History] Cranberry Fruit Extract [Cranberry] 200 mg PO DAILY 04/01/18 [History] Insulin Glargine,Hum.rec.anlog [Basaglar Kwikpen U-100] 70 unit SQ HS 04/01/18 [ History] Multivitamins, Thera [Multivitamin (formulary)] 1 tab PO DAILY 04/01/18 [History ] HYDROcodone/APAP 7.5-325MG [[place] 7.5-325] 1 each PO Q6H PRN 3 Days #12 tab 12/15 [Rx] Moxifloxacin HCl 400 mg PO DAILY #10 tab 04/06/18 [Rx] Follow up Appointment(s)/Referral(s): Lilly Ruvalcaba MD [Primary Care Provider] - 1-2 days Guevara Villareal MD [STAFF PHYSICIAN] - 1 Week Kimani Bradford MD [Medical Doctor] - 1 Week Activity/Diet/Wound Care/Special Instructions: Diet diabetic Activity as tolerated Patient to follow-up outpatient with oncology services for further plan of care. Patient to follow-up with Dr. naidu for surgical evaluation Discharge Disposition: HOME SELF-CARE
[2018-04-06 17:32] LABS: Glucose,Whole Blood 374 mg/dL (75-99)
--- NOTE | 2018-04-06 21:12 | P.PN ---
Subjective Progress Note Date: 04/06/18 62-year-old female was a very complex recent past medical history which includes right breast carcinoma recently diagnosed as well as a large cystic mass from the right ovary resulting in an obstructive process. She also had bilateral nephrolithiasis with calculi. She had difficulty with acute diverticulitis and abscess and has been treated with intravenous antibiotic therapy since that time. the patient was stabilized and eventuallytaken to the operating room for the lumpectomy. The patient does have a long-standing history of lung disease who presents now with severe shortness of breath and exacerbation of COPD. However center that the right breast lesion at the lumpectomy site has never healed. She is being seen by general surgery with plans for a excisional biopsy to the site to evaluate any residual cancer. This is concerning given her history of known metastatic disease. Infectious disease consultation regarding antibiotic therapy and wound care. The breast has revealed some ongoing drainage and some purulent drainage was found today. She denying high-grade fevers chills rigors or sweats but feels poorly because of her shortness of breath which is fortunately improving today. 04/02/2018 patient continued feels somewhat poorly, mostly complaining of ongoing abdominal pain she relates is due to her pancreatitis. She relates that she has excellent appetite and cannot which he more food. Abdominal pains better than admission. She's having no new pain at the breast. 04/06/2018 reveals the patient to be Improved, abdominal pain is steadily better. Eating relatively well. Toward going home. Denies significant new pain to the right breast. No new amounts of drainage. He was seen by multiple consultants and will be following up closely with her oncologist in her surgeon for further biopsy of the breast in the future. Objective - Vital Signs Vital signs: Vital Signs Temp 98 F 04/06/18 11:34 Pulse 67 04/06/18 11:34 Resp 20 04/06/18 11:34 BP 155/65 04/06/18 11:34 Pulse Ox 97 04/06/18 11:34 Intake & Output 04/06/18 04/06/18 04/07/18 06:59 18:59 06:59 Intake Total 300 Balance 300 Weight 102.5 kg 102.5 kg Intake: Oral 300 Other: Voiding Method Toilet # Voids 1 2 - Exam HEENT: Anicteric conjunctiva are pink and moist nasal mucosa grossly intact without significant lesions, there is no thrush. Neck: The neck is supple without significant lymphadenopathy or thyromegaly. Lungs: Symmetrical air entry is noted. Expiratory wheezes are scattered no uzair bronchial sounds are noted Heart: Regular rate and rhythm with an audible S1-S2, no S3 no S4. There is no significant murmur click or rub, PMI was nondisplaced. Abdomen: Positive bowel sounds soft and nontender without palpable masses or organomegaly. There was no guarding or rebound. Extremities: The upper extremities have excellent pulses they are symmetric, no significant petechiae or telangiectasia. No splinter hemorrhages were noted. The lower extremities are free from significant edema. The peripheral pulses were 2+ and symmetric. Neuro: Awake alert oriented to person place and time. There are no acute new gross focal sensory motor deficits. The right breast was evaluated with the nurse present and there is only a scant amount of drainage noted today. It is not very tender on exam. - Labs CBC & Chem 7: 04/06/18 08:09 04/06/18 08:09 Labs: Abnormal Lab Results - Last 24 Hours (Table) 04/06/18 04/06/18 04/06/18 Range/Units 01:13 07:01 08:09 Hgb 10.8 L (11.4-16.0) gm/dL Hct 32.9 L (34.0-46.0) % Chloride (98-107) mmol/L Carbon Dioxide (22-30) mmol/L BUN (7-17) mg/dL Creatinine (0.52-1.04) mg/dL Glucose (74-99) mg/dL POC Glucose (mg/dL) 360 H 253 H (75-99) mg/dL Total Bilirubin (0.2-1.3) mg/dL Total Protein (6.3-8.2) g/dL Albumin (3.5-5.0) g/dL 04/06/18 04/06/18 04/06/18 Range/Units 08:09 10:53 17:21 Hgb (11.4-16.0) gm/dL Hct (34.0-46.0) % Chloride 112 H (98-107) mmol/L Carbon Dioxide 19 L (22-30) mmol/L BUN 23 H (7-17) mg/dL Creatinine 1.06 H (0.52-1.04) mg/dL Glucose 226 H (74-99) mg/dL POC Glucose (mg/dL) 292 H 374 H (75-99) mg/dL Total Bilirubin 0.1 L (0.2-1.3) mg/dL Total Protein 5.8 L (6.3-8.2) g/dL Albumin 2.9 L (3.5-5.0) g/dL Microbiology - Last 24 Hours (Table) 04/01/18 04:15 Blood Culture - Preliminary Blood No Growth after 120 hours 04/01/18 17:41 Anaerobic Culture - Final Breast - Right Anaerobic Gram Positive Cocci Anaerobic Gram Positive Cocci#2 Anaerobic Gm Negative Bacilli Anaerobic Gm Negative Bacilli#2 Anaerobic Gm Positive Bacill Laboratory Results WBC 6.1 k/uL (3.8-10.6) 04/06/18 08:09 RBC 3.80 m/uL (3.80-5.40) 04/06/18 08:09 Hgb 10.8 gm/dL (11.4-16.0) L 04/06/18 08:09 Hct 32.9 % (34.0-46.0) L 04/06/18 08:09 MCV 86.7 fL (80.0-100.0) 04/06/18 08:09 MCH 28.4 pg (25.0-35.0) 04/06/18 08:09 MCHC 32.7 g/dL (31.0-37.0) 04/06/18 08:09 RDW 15.1 % (11.5-15.5) 04/06/18 08:09 Plt Count 195 k/uL (150-450) 04/06/18 08:09 Neutrophils % 62 % 04/06/18 08:09 Lymphocytes % 25 % 04/06/18 08:09 Monocytes % 6 % 04/06/18 08:09 Eosinophils % 4 % 04/06/18 08:09 Basophils % 1 % 04/06/18 08:09 Neutrophils # 3.8 k/uL (1.3-7.7) 04/06/18 08:09 Lymphocytes # 1.5 k/uL (1.0-4.8) 04/06/18 08:09 Monocytes # 0.4 k/uL (0-1.0) 04/06/18 08:09 Eosinophils # 0.2 k/uL (0-0.7) 04/06/18 08:09 Basophils # 0.0 k/uL (0-0.2) 04/06/18 08:09 Hypochromasia Slight 04/06/18 08:09 PT 9.3 sec (9.0-12.0) 04/01/18 04:15 INR 0.9 (<1.2) 04/01/18 04:15 APTT 23.8 sec (22.0-30.0) 04/01/18 04:15 D-Dimer 0.68 mg/L FEU (<0.60) H 04/01/18 04:15 Sodium 138 mmol/L (137-145) 04/06/18 08:09 Potassium 4.9 mmol/L (3.5-5.1) 04/06/18 08:09 Chloride 112 mmol/L (98-107) H 04/06/18 08:09 Carbon Dioxide 19 mmol/L (22-30) L 04/06/18 08:09 Anion Gap 7 mmol/L 04/06/18 08:09 BUN 23 mg/dL (7-17) H 04/06/18 08:09 Creatinine 1.06 mg/dL (0.52-1.04) H 04/06/18 08:09 Est GFR (CKD-EPI)AfAm 64 (>60 ml/min/1.73 sqM) 04/06/18 08:09 Est GFR (CKD-EPI)NonAf 55 (>60 ml/min/1.73 sqM) 04/06/18 08:09 Glucose 226 mg/dL (74-99) H 04/06/18 08:09 POC Glucose (mg/dL) 374 mg/dL (75-99) H 04/06/18 17:21 POC Glu Showroom Executive Director ID Melodie Anthony 04/06/18 17:[address] Glu mg/dL 278 04/01/18 04:15 Hemoglobin A1c 11.3 % (4.0-6.0) H 04/01/18 04:15 Calcium 9.7 mg/dL (8.4-10.2) 04/06/18 08:09 Total Bilirubin 0.1 mg/dL (0.2-1.3) L 11/07/18 08:09 AST 18 U/L (14-36) 04/06/18 08:09 ALT 25 U/L (9-52) 04/06/18 08:09 Alkaline Phosphatase 97 U/L (38-126) 04/06/18 08:09 Total Creatine Kinase 27 U/L (30-135) L 04/01/18 04:15 CK-MB (CK-2) <0.2 ng/mL (0.0-2.4) 04/01/18 04:15 CK-MB (CK-2) Rel Index 04/01/18 04:15 Troponin I <0.012 ng/mL (0.000-0.034) 04/01/18 04:15 Total Protein 5.8 g/dL (6.3-8.2) L 04/06/18 08:09 Albumin 2.9 g/dL (3.5-5.0) L 04/06/18 08:09 Amylase 59 U/L (30-110) 04/02/18 07:04 Lipase 275 U/L (23-300) 04/02/18 07:04 Urine Color Yellow 04/01/18 19:30 Urine Appearance Cloudy (Clear) H 04/01/18 19:30 Urine pH 5.5 (5.0-8.0) 04/01/18 19:30 Ur Specific Abernathy 1.032 (1.001-1.035) 04/01/18 19:30 Urine Protein 2+ (Negative) H 04/01/18 19:30 Urine Glucose (UA) Negative (Negative) 04/01/18 19:30 Urine Ketones Negative (Negative) 04/01/18 19:30 Urine Blood Small (Negative) H 04/01/18 19:30 Urine Nitrite Negative (Negative) 04/01/18 19:30 Urine Bilirubin Negative (Negative) 04/01/18 19:30 Urine Urobilinogen <2.0 mg/dL (<2.0) 04/01/18 19:30 Ur Leukocyte Esterase Large (Negative) H 04/01/18 19:30 Urine WBC >182 /hpf (0-5) H 04/01/18 19:30 Urine WBC Clumps Many /hpf (None) H 04/01/18 19:30 Ur Squamous Epith Cells 2 /hpf (0-4) 04/01/18 19:30 Vancomycin Trough 22.0 ug/mL 04/04/18 11:34 Microbiology 04/01/18 04:15 Blood Blood Culture - Preliminary No Growth after 120 hours 04/01/18 17:41 Breast - Right Anaerobic Culture - Final Anaerobic Gram Positive Cocci Anaerobic Gram Positive Cocci#2 Anaerobic Gm Negative Bacilli Anaerobic Gm Negative Bacilli#2 Anaerobic Gm Positive Bacill 04/01/18 17:41 Breast - Right Gram Stain - Final 04/01/18 17:41 Breast - Right Wound Culture - Final Strep agalactiae - (group b) Assessment and Plan (1) COPD (chronic obstructive pulmonary disease) Status: Acute Code(s): J44.9 - CHRONIC OBSTRUCTIVE PULMONARY DISEASE, UNSPECIFIED SNOMED Code(s): 71938355 (2) Breast carcinoma Status: Chronic Priority: Medium Code(s): C50.919 - MALIGNANT NEOPLASM OF UNSP SITE OF UNSPECIFIED FEMALE BREAST SNOMED Code(s): 582829286 (3) Skin ulcer of female breast Narrative/Plan: 63-year-old female presents to hospital with an exacerbation of her underlying COPD with significant shortness of breath and cough. No uzair pneumonia was found and is responding to current breathing treatments and oxygen therapy. X-rays without significant pneumonic infiltration. The lumpectomy site in the right breast continues to have evidence of an open ulceration that has some scant purulent drainage at this time. This is sent for aerobic and anaerobic cultures at this time. Antibiotic therapy with vancomycin was initiated given her penicillin and sulfa ALLERGIES. The case has been discussed with the general surgeon and there are plans for excisional biopsy of this site which will give us further pathology and culture data. Concerns to residual cancer at that site given the nonhealing nature and evidence of some underlying metastatic disease. Local wound care with the therahoney product she'll be utilized to be changed daily for now. If it dries being utilized to help with the moisture in the inframammary location bilaterally 04/02/2018 reveals the patient to be feeling somewhat better. She relates that her shortness of breath fortunately is improved. Doing well with oxygen therapy. She was having severe abdominal pain and also apparently admission and this is now much improved but not completely resolved. She relates that she has no history of pancreatitis. Amylase and lipase are currently normal. Asking for the staff to call the general surgeon to see if her diet can be advanced. It is now related that the surgical debridement or core biopsy to the breast will be performed as an outpatient. Culture is pending this will then determine the course of antibiotic therapy at the time of discharge pending the further surgical intervention. 04/06/2018 patient is now much improved and is being ready for discharge to home. The abdominal pain is improved and she be following up with gastroenterology and her oncologist after discharge. The changes have been found on the most recent computed tomography scan. Concern to potential progressive metastatic disease. The patient also has a breast lesion that has a polymicrobial culture for which moxifloxacin has been sent to her pharmacy for treatment. She'll follow-up with surgeon for that appears to be a further biopsy to the site to determine if there is any residual cancer in that area. If surgery has further concerns she can be sent to the office for further follow-up. Status: Acute Code(s): N61.1 - ABSCESS OF THE BREAST AND NIPPLE SNOMED Code( s): 358355484
[2018-04-07] MEDS ORDERED: PANTOPRAZOLE 40 MG TABLET PO SCH (07:30)
[2018-04-07] MEDS ORDERED: VANCOMYCIN TROUGH DUE 1 EACH MISC MISCELLANE ONE (11:00)
== END 2018-04-06 17:30 | disposition home or self-care (01) | DRG 439 ==
LOC: EC 04:06 → 3NMEDONC 07:29
PROVIDERS: ADMIT Internal Medicine; ATTEND Internal Medicine
DX: K85.90 Acute pancreatitis without necrosis or infection, unspecified (principal); C79.51 Secondary malignant neoplasm of bone; I50.32 Chronic diastolic (congestive) heart failure; J44.1 Chronic obstructive pulmonary disease with (acute) exacerbation; C78.7 Secondary malignant neoplasm of liver and intrahepatic bile duct; Z68.41 Body mass index [BMI] 40.0-44.9, adult; D63.0 Anemia in neoplastic disease; E11.40 Type 2 diabetes mellitus with diabetic neuropathy, unspecified; E78.5 Hyperlipidemia, unspecified; F17.210 Nicotine dependence, cigarettes, uncomplicated; F32.9 Major depressive disorder, single episode, unspecified; F41.9 Anxiety disorder, unspecified; G89.3 Neoplasm related pain (acute) (chronic); I11.0 Hypertensive heart disease with heart failure; I27.20 Pulmonary hypertension, unspecified; R79.1 Abnormal coagulation profile; H26.9 Unspecified cataract; R91.1 Solitary pulmonary nodule; K57.30 Diverticulosis of large intestine without perforation or abscess without bleeding; G89.29 Other chronic pain; M54.9 Dorsalgia, unspecified; E66.9 Obesity, unspecified; L98.499 Non-pressure chronic ulcer of skin of other sites with unspecified severity; Z17.0 Estrogen receptor positive status [ER+]; Z79.811 Long term (current) use of aromatase inhibitors; Z79.4 Long term (current) use of insulin; Z79.899 Other long term (current) drug therapy; Z88.1 Allergy status to other antibiotic agents; Z88.0 Allergy status to penicillin; Z88.2 Allergy status to sulfonamides; Z88.5 Allergy status to narcotic agent; Z90.49 Acquired absence of other specified parts of digestive tract; Z87.442 Personal history of urinary calculi; Z98.41 Cataract extraction status, right eye; Z96.1 Presence of intraocular lens; Z85.3 Personal history of malignant neoplasm of breast; Z80.3 Family history of malignant neoplasm of breast; Z83.6 Family history of other diseases of the respiratory system; Z84.1 Family history of disorders of kidney and ureter
CPT/HCPCS: 36415; 71275; 74018; 74177; 80053; 80202; 81001; 82150; 82550; 82553; 83036; 83690; 84484; 85025; 85379; 85610; 85730; 87040; 87070; 87075; 87205; 96361; 96374; 96375; 99285

== ENCOUNTER → 2018-06-08 | Outpatient (CLI) | payer MEDICARE, OTHER ==
--- NOTE | 2018-06-09 09:48 | CT ---
EXAMINATION TYPE: CT ChestAbdPelvis w con DATE OF EXAM: 06/08/2018 COMPARISON: CT abdomen and pelvis April 01, 2018. CTA chest same date. Older CTs. HISTORY: F/U breast CA diagnosed late 2016. CT DLP: 2009 mGycm. Automated Exposure Control for Dose Reduction was Utilized. CONTRAST: CT scan of the thorax, abdomen and pelvis is performed with oral and with IV Contrast, patient inject ed with 80 mL of Isovue 300. FINDINGS: LUNGS: Previously visualized posterior 4 mm left lateral pulmonary nodule continues to be stable in s ize axial image 41. There is nonspecific 2 mm nodular opacity right upper lobe axial image 21 not july les seen on prior studies that can be followed. Similar small 1 to 2 mm foci left lower lobe for ref erence axial image 44 posteriorly are noted and can be followed. Focal prominent pleural chest wall f at axial image 36 bilaterally is incidentally noted. No new suspicious greater than 4 mm nodules or m asses are identified. No pleural effusion or pneumothorax is seen. MEDIASTINUM: There are no greater than 1 cm hilar or mediastinal lymph nodes. No cardiomegaly or pe ricardial effusion is seen. Coronary artery calcification is present moderate to severe in the LAD w hich is noted marker for coronary artery disease. Enlarged main pulmonary artery is stable measuring 3.2 cm at bifurcation axial image 23. OTHER: There is redemonstration of surgical change to the right breast with persistent inferior left chest wall flap, surgical skin clips, curvilinear fluid density, this continues to decrease in size c onsistent with resolving seroma and developing scar. Cannot exclude fistula tract to the inferior lef t. Underlying desired surgical device also may be present similar to prior. Right axillary surgical c lips are redemonstrated. There is partial visualization of left sided internal jugular Mediport catheter with tip terminating in SVC on current study. LIVER/GB: Cholecystectomy clips are redemonstrated. PANCREAS: Pancreas felt within normal limits on current study. SPLEEN: No significant abnormality is seen. ADRENALS: No significant abnormality is seen. KIDNEYS: Redemonstration of multiple cortical defects or areas of old infarct in the bilateral kidney s with more prominent involvement of the left kidney redemonstrated. There is persistent moderate to severe left-sided hydronephrosis with diffuse uroepithelial thickening and abrupt change to nondilate d ureter and UPJ. A simple appearing 2.0 cm cyst upper pole level left kidney is redemonstrated. Laye ring calculi lower pole level left kidney are again seen felt stable axial image 75 series 3. BOWEL: Oral contrast reaches level of hepatic flexure on current study. There is no suspicious small or large bowel dilatation. There are diverticula throughout the colon most prominent in the sigmoid c olon. There is persistent left pelvic peridiverticular abscess axial image 1 1 not significantly gaviria ged from most recent study containing focus of air. GENITAL ORGANS: Uterus is surgically absent or atrophic in appearance. There is redemonstration of la rge 8.1 x 7.7 cm low dense lesion right ovary axial image 104 with Hounsfield units averaging 2 consi stent with exophytic simple cyst. This is not significantly changed in size or appearance from prior studies. LYMPH NODES: No greater than 1cm abdominal or pelvic lymph nodes are appreciated. OSSEOUS STRUCTURES: S-shaped scoliosis is present. Sclerotic metastatic disease throughout the spine with focal lesion inferior right T12 level and larger lesions T8 level noted for reference is redemon strated. There is posterior left fifth rib lesion redemonstrated coronal image 75. Additional areas o f involvement in the pelvis are redemonstrated without significant change. Small sternal sclerotic le sions are noted. OTHER: Moderate aftereffect change of aorta extends into pelvic branch vessels. IMPRESSION: 1. Stable osseous metastatic disease. Stable 4 mm left lower lobe nodule. No new masses or adenopath y identified. 2. Chronic sigmoid diverticulitis with stable small left lateral peridiverticular abscess. 3. 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 4. Stable large right adnexal or ovarian 8 to 9 cm cystic mass or cyst. Abnormal finding. Cystic neop lasm cannot be excluded.
== END | disposition home or self-care (01) ==
LOC: RADCTMAIN 13:49
PROVIDERS: ATTEND Internal Medicine Hematology & Oncology
DX: C50.311 Malignant neoplasm of lower-inner quadrant of right female breast (principal); C79.51 Secondary malignant neoplasm of bone; K57.20 Diverticulitis of large intestine with perforation and abscess without bleeding; Z88.0 Allergy status to penicillin; Z88.2 Allergy status to sulfonamides
CPT/HCPCS: 82565; 84520; 71260; 74177; 36415; Q9967

== ENCOUNTER → 2018-08-18 | Outpatient (CLI) | payer MEDICARE, OTHER ==
--- NOTE | 2018-08-18 15:36 | MR ---
EXAMINATION TYPE: MR brain wo/w con DATE OF EXAM: 08/18/2018 COMPARISON: 05/11/2017 CT brain HISTORY: Breast cancer, Chemo, POST TECHNIQUE: Multiplanar, multisequence images of the brain and brainstem is performed without and with IV contras t, utilizing 9 mL intravenous Gadavist . FINDINGS: Diffusion weighted images demonstrate no evidence of a recent infarct or other diffusion ab normality. There is no extra-axial fluid collection. There are numerous supratentorial and few infra tentorial T2/FLAIR hyperintense foci. Infratentorial foci involve the anastacio and left cerebellar hemisp here and supratentorial foci are scattered predominantly in a subcortical location with few periventr icular foci. There are approximately 24 within the left cerebral hemisphere and greater than 30 withi n the right cerebral hemisphere. The largest measures 5 mm. The ventricular system and cisternal spaces are normal in size and appearance. The brain volume is a ge appropriate. Midline structures demonstrate normal morphology. Incidental note is made of a partially empty sella turcica. The craniocervical junction appears within normal limits. Post contrast images demonstrate no abnormal enhancement. The dural venous sinuses appear patent. The visualized sinuses demonstrate minimal mucosal thickening within the ethmoid sinuses and moderate mucosal thickening of the sphenoid sinuses. Remaining paranasal sinuses are well aerated. Scant fluid is seen within the right mastoid air cells. Left mastoid air cells are well aerated. Globes maintain a rounded morphology. Punctate fo cus of T1 hyperintense fat is seen on sagittal T1 nonfat sat image 7 within the left lateral ventricl e in the choroid plexus within localized on the coronal and axial images. IMPRESSION: 1. No evidence of abnormal intracranial enhancement to suggest intracranial metastasis. 2. Moderate burden of supratentorial and mild burden infratentorial nonspecific white matter change, most commonly on the basis of chronic microangiopathy given the distribution. 3. Paranasal sinus disease is moderate within the sphenoid sinus and mild in the ethmoid sinuses. Sca nt fluid in the right mastoid air cells could clinically correlate with mastoiditis. Correlate for po int tenderness.
--- NOTE | 2018-08-19 18:55 | ECHOF ---
Referral Reason:C50.311 Breast cancer Z01.818 Chemo MEASUREMENTS -------- HEIGHT: 160.0 cm WEIGHT: 88.5 kg BP: RVIDd: 3.7 cm (< 3.3) IVSd: 1.4 cm (0.6 - 1.1) LVIDd: 4.6 cm (3.9 - 5.3) LVPWd: 1.4 cm (0.6 - 1.1) IVSs: 1.5 cm LVIDs: 3.3 cm LVPWs: 1.5 cm LAESV Index (A-L): 18.80 ml/m Ao Diam: 3.2 cm (2.0 - 3.7) AV Cusp: 1.7 cm (1.5 - 2.6) LA Diam: 3.2 cm (2.7 - 3.8) MV E Harsha: 0.64 m/s MV DecT: 292 ms MV A Harsha: 0.86 m/s MV E/A Ratio: 0.75 RAP: 5.00 mmHg RVSP: 40.49 mmHg FINDINGS -------- Resting bradycardia (HR<60bpm). This was a technically adequate study. The left ventricular size is normal. There is moderate concentric left ventricular hypertrophy. O verall left ventricular systolic function is low-normal with, an EF between 50 - 55 %. The right ventricle is mildly enlarged. Normal LA size by volume 22+/-6 ml/m2. RA appears enlarged. There is mild aortic valve sclerosis. There is no evidence of aortic regurgitation. There is no e vidence of aortic stenosis. The mitral valve leaflets are mildly thickened. There is trace to mild mitral regurgitation. Mild tricuspid regurgitation present. There is mild pulmonary hypertension. The right ventricular systolic pressure, as measured by Doppler, is 40.49mmHg. Moderate pulmonic regurgitation. The aortic root size is normal. Normal inferior vena cava with normal inspiratory collapse consistent with estimated right atrial pre ssure of 5 mmHg. There is no pericardial effusion. CONCLUSIONS -------- 1. Resting bradycardia (HR<60bpm). 2. This was a technically adequate study. 3. The left ventricular size is normal. 4. There is moderate concentric left ventricular hypertrophy. 5. Overall left ventricular systolic function is low-normal with, an EF between 50 - 55 %. 6. The right ventricle is mildly enlarged. 7. Normal LA size by volume 22+/-6 ml/m2. 8. RA appears enlarged. 9. There is mild aortic valve sclerosis. 10. The mitral valve leaflets are mildly thickened. 11. There is trace to mild mitral regurgitation. 12. Mild tricuspid regurgitation present. 13. There is mild pulmonary hypertension. 14. The right ventricular systolic pressure, as measured by Doppler, is 40.49mmHg. 15. Moderate pulmonic regurgitation. 16. The aortic root size is normal. 17. There is no pericardial effusion. BARREL REPAIRER: Milton Weeks RDCS
== END | disposition home or self-care (01) ==
LOC: RADECHMAIN 13:31
PROVIDERS: ATTEND Internal Medicine Hematology & Oncology
DX: C50.311 Malignant neoplasm of lower-inner quadrant of right female breast (principal); I08.3 Combined rheumatic disorders of mitral, aortic and tricuspid valves; R90.89 Other abnormal findings on diagnostic imaging of central nervous system; R51 Headache; I27.20 Pulmonary hypertension, unspecified; I73.9 Peripheral vascular disease, unspecified
CPT/HCPCS: 93306; 82565; 70553; 36415; A9585

== ENCOUNTER → 2018-11-08 | Outpatient (CLI) | payer MEDICARE, OTHER ==
--- NOTE | 2018-11-08 19:47 | ECHOF ---
Referral Reason:C50.311 Breast cancer; Z01.818 Chemo MEASUREMENTS -------- HEIGHT: 162.6 cm WEIGHT: 90.3 kg BP: 110/60 IVSd: 1.4 cm (0.6 - 1.1) LVIDd: 4.5 cm (3.9 - 5.3) LVPWd: 1.4 cm (0.6 - 1.1) IVSs: 1.9 cm LVIDs: 2.8 cm LVPWs: 2.0 cm LA Diam: 3.1 cm (2.7 - 3.8) RVIDd: 3.6 cm (< 3.3) LAESV Index (A-L): 20.37 ml/m Ao Diam: 3.3 cm (2.0 - 3.7) AV Cusp: 2.0 cm (1.5 - 2.6) EPSS: 0.5 cm MV E Harsha: 0.78 m/s MV DecT: 259 ms MV A Harsha: 1.01 m/s MV E/A Ratio: 0.77 RAP: 5.00 mmHg RVSP: 58.58 mmHg MV EF SLOPE: 87.20 mm/s (70 - 150) MV EXCURSION: 13.88 mm (> 18.000) FINDINGS -------- Sinus rhythm. This was a technically adequate study. The left ventricular size is normal. There is moderate concentric left ventricular hypertrophy. O verall left ventricular systolic function is normal with, an EF between 60 - 65 %. The right ventricle is mildly enlarged. Normal LA size by volume 22+/-6 ml/m2. The right atrium is normal in size. Interatrial and interventricular septum intact. The aortic valve is trileaflet and appears structurally normal. The mitral valve is normal. Severe tricuspid regurgitation present. There is moderate to severe pulmonary hypertension. The r ight ventricular systolic pressure, as measured by Doppler, is 58.58mmHg. Moderate pulmonic regurgitation. The aortic root size is normal. Normal inferior vena cava with normal inspiratory collapse consistent with estimated right atrial pre ssure of 5 mmHg. There is no pericardial effusion. CONCLUSIONS -------- 1. Sinus rhythm. 2. This was a technically adequate study. 3. The left ventricular size is normal. 4. There is moderate concentric left ventricular hypertrophy. 5. Overall left ventricular systolic function is normal with, an EF between 60 - 65 %. 6. The right ventricle is mildly enlarged. 7. Normal LA size by volume 22+/-6 ml/m2. 8. The right atrium is normal in size. 9. Interatrial and interventricular septum intact. 10. The aortic valve is trileaflet and appears structurally normal. 11. The mitral valve is normal. 12. Severe tricuspid regurgitation present. 13. There is moderate to severe pulmonary hypertension. 14. The right ventricular systolic pressure, as measured by Doppler, is 58.58mmHg. 15. Moderate pulmonic regurgitation. 16. The aortic root size is normal. 17. Normal inferior vena cava with normal inspiratory collapse consistent with estimated right atrial pressure of 5 mmHg. 18. There is no pericardial effusion. BEHAVIORAL INSTRUCTOR: Jaky Hassan RDCS
--- NOTE | 2018-11-09 15:28 | CT ---
"EXAMINATION TYPE: CT ChestAbdPelvis wo con DATE OF EXAM: 11/08/2018 COMPARISON: CT chest abdomen and pelvis June 08, 2018 and older CTs. HISTORY: f/u breast ca originally diagnosed 2016. CT DLP: 1504 mGycm. Automated Exposure Control for Dose Reduction was Utilized. TECHNIQUE: CT scan of the thorax, abdomen and pelvis is performed with oral but without IV contrast. FINDINGS: Within the limitations of a noncontrast study, following observations are made. LUNGS: The lungs are grossly clear, there is no new or enlarging parenchymal mass or nodule identifie d. Stable small 2 to 3 mm nodule medial left lung base axial image 41 for reference. There is no ple ural effusion or pneumothorax seen. The tracheobronchial tree is patent. MEDIASTINUM: There are no greater than 1 cm hilar or mediastinal lymph nodes. No pericardial effusi on is seen. Moderate coronary artery calcification is redemonstrated. Heart size is mildly enlarged. Main pulmonary artery measures 3.2 cm axial image 24, CT findings consistent with underlying pulmona ry artery hypertension. OTHER: Right breast lumpectomy changes redemonstrated near axial image 26 with numerous clips in the right axilla. No significant new mass or adenopathy identified. Partial visualization of left interna l jugular Mediport catheter terminating in SVC similar to prior. LIVER/GB: Cholecystectomy clips are redemonstrated. PANCREAS: No significant abnormality is seen. SPLEEN: No significant abnormality is seen. ADRENALS: No significant abnormality is seen. KIDNEYS: Lobulation of right renal cortex with slight thinning is redemonstrated. There is stable 2 t o 3 mm calculus upper pole level axial image 63. Left kidney shows marked cortical thinning with pers istent severe hydronephrosis and numerous layering calculi lower pole level redemonstrated. There is asymmetric mild diffuse left-sided hydroureter redemonstrated. Bladder is poorly distended on current study without obstructing calculus clearly seen. BOWEL: The oral contrast reaches level of the mid transverse colon. There is no suspicious small or l arge bowel dilatation. Evaluation distal bowel slightly suboptimal. There are diverticula in the left and sigmoid colon. There is moderate wall thickening in the sigmoid colon with mild surrounding fat stranding seen slightly more prominent on current study suspicious for acute diverticulitis. There is persistent extraluminal fluid left lateral aspect axial image 100 which was present on prior study c ould reflect walled off fluid collection. GENITAL ORGANS: Uterus is surgically absent or markedly atrophic. There is stable right ovarian 8.4 x 7.1 cm low dense mass axial image 104. LYMPH NODES: No greater than 1cm abdominal or pelvic lymph nodes are appreciated. OSSEOUS STRUCTURES: Slight underlying scoliotic curvature. Loss of normal curvature on sagittal image s. Numerous round sclerotic foci consistent with osseous metastatic disease throughout the spine are redemonstrated. There are lesions in the bilateral ribs redemonstrated. Right scapula lesion is again seen. Sternal metastatic disease is redemonstrated. Pelvic and sacral sclerotic metastatic foci are again identified. Left superior pelvic ramus sclerotic lesion redemonstrated. OTHER: No significant additional abnormality is seen. IMPRESSION: Diffuse osseous metastatic disease redemonstrated without significant interval progressio n. No new mass or adenopathy. Persistent moderate to severe left-sided hydronephrosis. Persistent la rge right ovarian mass or neoplasm. Persistent sigmoid diverticulitis with stable small adjacent flui d collection, cannot exclude acute diverticulitis as inflammatory change is slightly more prominent v ersus prior. A Yellow level critical message alert has been initiated for Lisandro Wheat MD via the [employer] 36 0 | Critical Results System on 11/09/2018 3:25 PM. This message alert has been sent to Lisandro Wheat MD via the preferences provided by the clinician for the receipt of Radiology Critical Findings. [facility] ID [id number]."
== END | disposition home or self-care (01) ==
LOC: RADCTMAIN 14:03
PROVIDERS: ATTEND Internal Medicine Hematology & Oncology
DX: Z03.89 Encounter for observation for other suspected diseases and conditions ruled out (principal); C50.311 Malignant neoplasm of lower-inner quadrant of right female breast; C79.51 Secondary malignant neoplasm of bone; N13.30 Unspecified hydronephrosis; I27.20 Pulmonary hypertension, unspecified; I07.1 Rheumatic tricuspid insufficiency; I37.1 Nonrheumatic pulmonary valve insufficiency; K57.32 Diverticulitis of large intestine without perforation or abscess without bleeding; Z88.2 Allergy status to sulfonamides; Z88.0 Allergy status to penicillin
CPT/HCPCS: 36415; 71250; 74176; 82565; 84520; 93306

== ENCOUNTER → 2019-03-29 | Outpatient (CLI) | payer MEDICARE, OTHER ==
--- NOTE | 2019-03-30 09:57 | CT ---
EXAMINATION TYPE: CT ChestAbdPelvis wo con DATE OF EXAM: 03/29/2019 COMPARISON: 11/08/2018 HISTORY: Breast CA CT DLP: 1222.4mGycm Unenhanced CT of the Chest, Abdomen and Pelvis Unenhanced CT of the chest ,abdomen and pelvis is performed. The lack of intravenous contrast limits evaluation of the solid and hollow viscera. Oral contrast: Yes CT Chest: LUNGS: The lungs are clear and free of infiltrate or atelectasis. No pulmonary nodule or mass is det ected. No pleural effusion or CT evidence of interstitial lung disease. MEDIASTINUM: Thoracic aorta is of normal caliber. The heart is not enlarged. No evidence for media stinal mass or adenopathy. HILAR STRUCTURES: No evidence for mass. No hilar adenopathy is appreciated. OTHER: Nephrectomy changes right breast. Right axillary dissection. CONTRAST CT ABDOMEN AND PELVIS: LIVER/GB: No space occupying hepatic lesion. Biliary tree is of normal caliber. PANCREAS: No inflammation. No distinct mass. SPLEEN: No splenic enlargement. No lesion seen. ADRENALS: No nodule. No thickening. KIDNEYS/BLADDER: Stable severe left-sided hydronephrosis is unchanged. Multiple left-sided renal calc santino. Renal cystic changes noted unchanged. No nephrolithiasis. BOWEL: Normal appendix. Normal bowel caliber. Changes of sigmoid diverticulosis. Noted is loss of fa t plane with the dome of the urinary bladder with 2 foci of air within the urinary bladder. She was c ommunication is difficult to exclude. No definite evidence for active acute diverticulitis at this ti me. GENITAL ORGANS: Cystic mass right ovary measures 8.5 x 6.7 cm versus 8.4 x 7.0 cm previously. The absentee-shawnee juan appears surgically absent. Left ovary is unremarkable. LYMPH NODES: No greater than 1cm abdominal or pelvic lymph nodes are appreciated. AORTA: No significant abnormality. OSSEOUS STRUCTURES: A few sclerotic bony metastases remain stable. OTHER: No significant additional abnormality is seen. IMPRESSION: 1. Chronic diverticular disease. Correlate for fistula study indication between the sigmoid colon and urinary bladder as noted above. 2. No evidence for metastatic disease at this time on this unenhanced study. 3. Severe left-sided hydronephrosis persists. Left-sided nephrolithiasis. 4 stable cystic mass right ovary.
--- NOTE | 2019-03-30 11:40 | ECHOF ---
Referral Reason:C50.311 Breast Cancer,Z03.89 observation for mets MEASUREMENTS -------- HEIGHT: 162.6 cm WEIGHT: 88.5 kg BP: RVIDd: 3.1 cm (< 3.3) IVSd: 1.2 cm (0.6 - 1.1) LVIDd: 4.6 cm (3.9 - 5.3) LVPWd: 1.3 cm (0.6 - 1.1) IVSs: 1.8 cm LVIDs: 2.9 cm LVPWs: 1.6 cm Ao Diam: 3.4 cm (2.0 - 3.7) AV Cusp: 1.5 cm (1.5 - 2.6) LA Diam: 3.5 cm (2.7 - 3.8) MV EXCURSION: 15.228 mm (> 18.000) MV EF SLOPE: 145 mm/s (70 - 150) EPSS: 0.5 cm MV E Harsha: 0.98 m/s MV DecT: 280 ms MV A Harsha: 0.99 m/s MV E/A Ratio: 0.99 RAP: 5.00 mmHg RVSP: 71.38 mmHg TAPSE: 18.35 mm FINDINGS -------- Sinus rhythm. This was a technically adequate study. The left ventricular size is normal. There is mild concentric left ventricular hypertrophy. Overa ll left ventricular systolic function is normal with, an EF between 55 - 60 %. The right ventricle is normal in size. The left atrial size is normal. The right atrial size is normal. Interatrial and interventricular septum intact. The aortic valve is trileaflet and appears structurally normal. The mitral valve is normal. Mild mitral regurgitation is present. Moderate tricuspid regurgitation present. There is moderate pulmonary hypertension. The right michaela tricular systolic pressure, as measured by Doppler, is 71.38mmHg. Trace/mild (physiologic) pulmonic regurgitation. The aortic root size is normal. Normal inferior vena cava with normal inspiratory collapse consistent with estimated right atrial pre ssure of 5 mmHg. There is no pericardial effusion. CONCLUSIONS -------- 1. Sinus rhythm. 2. This was a technically adequate study. 3. The left ventricular size is normal. 4. There is mild concentric left ventricular hypertrophy. 5. Overall left ventricular systolic function is normal with, an EF between 55 - 60 %. 6. The right ventricle is normal in size. 7. The left atrial size is normal. 8. The right atrial size is normal. 9. Interatrial and interventricular septum intact. 10. The aortic valve is trileaflet and appears structurally normal. 11. The mitral valve is normal. 12. Mild mitral regurgitation is present. 13. Moderate tricuspid regurgitation present. 14. There is moderate pulmonary hypertension. 15. The right ventricular systolic pressure, as measured by Doppler, is 71.38mmHg. 16. Trace/mild (physiologic) pulmonic regurgitation. 17. The aortic root size is normal. 18. Normal inferior vena cava with normal inspiratory collapse consistent with estimated right atrial pressure of 5 mmHg. 19. There is no pericardial effusion. CLOTH PACKER: Kim Landa RDCS
== END ==
LOC: RADCTMAIN 16:08
PROVIDERS: ATTEND Internal Medicine Hematology & Oncology
DX: K57.90 Diverticulosis of intestine, part unspecified, without perforation or abscess without bleeding (principal); N13.2 Hydronephrosis with renal and ureteral calculous obstruction; N83.201 Unspecified ovarian cyst, right side; I08.1 Rheumatic disorders of both mitral and tricuspid valves; I27.20 Pulmonary hypertension, unspecified; I37.1 Nonrheumatic pulmonary valve insufficiency; C50.311 Malignant neoplasm of lower-inner quadrant of right female breast
CPT/HCPCS: 36415; 71250; 74176; 82565; 84520; 93306

== ENCOUNTER 2019-07-20 21:09 | Emergency (ER) | payer MEDICARE, OTHER ==
[2019-07-20] MEDS ORDERED: HYDROmorphone 1 MG/ML 1 ML SYRINGE IM STA (21:53)
[2019-07-20] MEDS ORDERED: HYDROmorphone 1 MG/ML 1 ML SYRINGE IVP STA ×2 (22:01→23:09)
[2019-07-20] MEDS ORDERED: ONDANSETRON 4 MG/2 ML VIAL IVP STA (22:02)
--- NOTE | 2019-07-20 22:09 | ED ---
General Adult HPI - General Source: patient, EMS, RN notes reviewed, old records reviewed Mode of arrival: EMS Limitations: no limitations <Enio Adams - Last Filed: 07/21/19 00:56> <Rosi Fonseca - Last Filed: 07/24/19 05:41> - General Chief complaint: Extremity Problem,Nontraumatic Stated complaint: Rt Leg Pain Time Seen by Provider: 07/20/19 21:25 - History of Present Illness Initial comments: 64-year-old female patient past history significant for breast cancer, COPD, type 2 diabetes, hyperlipidemia, renal calculi, presents to ED for chief complaint of right leg pain. Patient reports that her right lower extremity has been causing her pain without injury for the last 2 weeks. Reports that is the posterior aspect of the hamstring region calf region. Denies any chest pain shortness of breath. Denies any other complaints. Systemic: Pt denies fatigue, fever/chills, rash. Pt denies weakness, night sweats, weight loss. Neuro: Pt denies headache, visual disturbances, syncope or pre-syncope. HEENT: Pt denies ocular discharge or irritation, otalgia, rhinorrhea, pharyngitis or notable lymphadenopathy. Cardiopulmonary: Pt denies chest pain, SOB, heart palpitations, dyspnea on exertion. Abdominal/GI: Pt denies abdominal pain, n/v/d. : Pt denies dysuria, burning w/ urination, frequency/urgency. Denies new onset urinary or bowel incontinence. MSK: Pt denies myalgia, loss of strength or function in extremities. Neuro: Pt denies new onset weakness, paresthesias. (Enio Adams) - Related Data Home Medications Medication Instructions Recorded Confirmed Atorvastatin Calcium [Lipitor] 20 mg PO HS 06/13/16 04/01/18 Zolpidem [Ambien] 10 mg PO HS 04/12/17 04/01/18 Anastrozole [Arimidex] 1 mg PO DAILY 05/20/17 04/01/18 Prochlorperazine [Compazine] 10 mg PO Q8H PRN 05/20/17 04/01/18 Cholecalciferol (Vitamin D3) 2,000 unit PO DAILY 04/01/18 04/01/18 [Vitamin D3] Cranberry Fruit Extract [Cranberry] 200 mg PO DAILY 04/01/18 04/01/18 Insulin Glargine,Hum.rec.anlog 70 unit SQ HS 04/01/18 04/01/18 [Porfirio Cliffmartell U-100] Multivitamins, Thera [Multivitamin 1 tab PO DAILY 04/01/18 04/01/18 (formulary)] Previous Rx's Medication Instructions Recorded HYDROcodone/APAP 7.5-325MG [[place] 1 each PO Q6H PRN tab 04/06/18 7.5-325] Moxifloxacin HCl 400 mg PO DAILY #10 tab 04/06/18 methylPREDNISolone Dose Pack 4 mg PO DIRECTED #21 package 07/21/19 [Medrol Dose Pack] Allergies Allergy/AdvReac Type Severity Reaction Status Date / Time gentamicin [From Garamycin] Allergy Rash/Hives Verified 07/20/19 21:22 Penicillins Allergy Rash/Hives Verified 07/20/19 21:22 Sulfa (Sulfonamide Allergy Rash/Hives Verified 07/20/19 21:22 Antibiotics) morphine AdvReac Nausea Verified 07/20/19 21:22 Review of Systems ROS Other: All systems not noted in ROS Statement are negative. <Enio Adams - Last Filed: 07/21/19 00:56> ROS Other: All systems not noted in ROS Statement are negative. <Rosi Fonseca - Last Filed: 07/24/19 05:41> ROS Statement: Those systems with pertinent positive or pertinent negative responses have been documented in the HPI. Past Medical History Past Medical History: Cancer, Heart Failure, COPD, Diabetes Mellitus, Hyperlipidemia Additional Past Medical History / Comment(s): KIDNEY STONES, CATARACT LEFT EYE History of Any Multi-Drug Resistant Organisms: None Reported Past Surgical History: Section, Cholecystectomy, Hernia Repair, Hysterectomy Additional Past Surgical History / Comment(s): R breast biopsy, x3, cystocscopies, multiple lithotripsies, percutaneous stone removals, double J stents (none in at this time per pt), umbilical hernia repairs x 2. CATARACT SURGERY RIGHT EYE , RIGHT LUMPECTOMY 2017, MEDIPORT PLACEMENT Past Anesthesia/Blood Transfusion Reactions: No Reported Reaction Past Psychological History: Anxiety, Depression Smoking Status: Current every day smoker - Past Family History Father Family Medical History: Renal Disease Additional Family Medical History / Comment(s): Father of renal failure in his 90's. Mother Family Medical History: COPD Additional Family Medical History / Comment(s): Mother of COPD at the age of 62 yrs. Sister(s) Family Medical History: Cancer Additional Family Medical History / Comment(s): BREAST CANCER Brother(s) Family Medical History: Cancer <Enio Adams - Last Filed: 07/21/19 00:56> General Exam Limitations: no limitations <Enio Adams - Last Filed: 07/21/19 00:56> - General Exam Comments Initial Comments: Constitutional: NAD, AOX3, Pt has pleasant affect. HEENT: NC/AT, trachea midline, neck supple, no lymphadenopathy. Posterior pharynx non erythematous, without exudates. External ears appear normal, without discharge. Mucous membranes moist. Eyes PERRLA, EOM intact. There is no scleral icterus. No pallor noted. Cardiopulmonary: RRR, no murmurs, rubs or gallops, no JVD noted. Lungs CTAB in anterior and posterior sims. No peripheral edema. Abdominal exam: Abdomen soft and non-distended. Abdomen non-tender to palpation in all 4 quadrants. Bowel sounds active in LLQ. No hepatosplenomegaly. No ecchymosis Neuro: CN II-XII grossly intact. No nuchal rigidity. No raccon eyes, no seymour sign, no hemotympanum. No cervical spinal tenderness. MSK: Right posterior calf region mildly tender to palpation, right posterior Region Nontender to Palpation. No Skin Changes. Neurovascularly Intact., homans sign negative bilaterally. Posterior tibialis and radial pulse +2 bilaterally. Sensation intact in upper and lower extremities. Full active ROM in upper and lower extremities. (Enio Adams) Course Vital Signs 07/20/19 07/20/19 07/21/19 21:16 23:46 01:07 Temperature 97.7 F 97.9 F Pulse Rate 89 80 82 Respiratory 18 18 16 Rate Blood Pressure 114/83 141/73 137/85 O2 Sat by Pulse 100 98 94 L Oximetry Medical Decision Making - Lab Data Result diagrams: 07/20/19 22:10 07/20/19 22:10 <Enio Adams - Last Filed: 07/21/19 00:56> - Lab Data Result diagrams: 07/20/19 22:10 07/20/19 22:10 <Rosi Fonseca - Last Filed: 07/24/19 05:41> - Medical Decision Making 64-year-old female patient past history significant for breast cancer, COPD, type 2 diabetes, hyperlipidemia, renal calculi, presents to ED for chief complaint of right leg pain. Patient reports that her right lower extremity has been causing her pain without injury for the last 2 weeks. Reports that is the posterior aspect of the hamstring region calf region. Denies any chest pain shortness of breath. Denies any other complaints. Pt VSS, afebrile. Physical exam displayed posterior calf and hamstring region mildly tender to palpation, distal pulses intact and equal. Laboratory investigations were obtained, creatinine around baseline. Pt is a type II diabetic, did have hypoglycemia which had resolved upon discharge. US was negative for DVT. Plain films are negative. Patient pain is well controlled. Pt does have history for lower extremity neuropathy which may be causing this pain. Patient also reports that she has had degenerative disc disease and believes that this pain could be sciatica-like pain. Denies any back pain this time. Patient discharged with a Medrol Dosepak and primary care follow-up tomorrow. Return to ER if condition worsens. Case discussed with Dr. Fonseca. (Enio Adams) I was available for consultation in the emergency department. The history and physical exam were done by the midlevel provider. I was consulted for this patients care. I reviewed the case with the midlevel provider and based on their presentation of the patient, I agree with the assessment, medical decision making and plan of care as documented. Chart was dictated using [employer] dictation software. Attempts were made to correct any dictation errors however some typographical errors may persist. (Rosi Fonseca) - Lab Data Lab Results 07/20/19 07/20/19 07/20/19 Range/Units 22:10 22:10 22:10 WBC 7.6 (3.8-10.6) k/uL RBC 4.55 (3.80-5.40) m/uL Hgb 11.5 (11.4-16.0) gm/dL Hct 37.7 (34.0-46.0) % MCV 82.8 (80.0-100.0) fL MCH 25.4 (25.0-35.0) pg MCHC 30.6 L (31.0-37.0) g/dL RDW 17.5 H (11.5-15.5) % Plt Count 338 (150-450) k/uL Neutrophils % 76 % Lymphocytes % 16 % Monocytes % 4 % Eosinophils % 2 % Basophils % 0 % Neutrophils # 5.8 (1.3-7.7) k/uL Lymphocytes # 1.2 (1.0-4.8) k/uL Monocytes # 0.3 (0-1.0) k/uL Eosinophils # 0.2 (0-0.7) k/uL Basophils # 0.0 (0-0.2) k/uL Hypochromasia Slight Anisocytosis Slight PT 9.3 (9.0-12.0) sec INR 0.9 (<1.2) APTT 22.9 (22.0-30.0) sec Sodium 140 (137-145) mmol/L Potassium 4.5 (3.5-5.1) mmol/L Chloride 111 H (98-107) mmol/L Carbon Dioxide 22 (22-30) mmol/L Anion Gap 7 mmol/L BUN 23 H (7-17) mg/dL Creatinine 1.34 H (0.52-1.04) mg/dL Est GFR (CKD-EPI)AfAm 48 (>60 ml/min/1.73 sqM) Est GFR (CKD-EPI)NonAf 41 (>60 ml/min/1.73 sqM) Glucose 57 L (74-99) mg/dL POC Glucose (mg/dL) (75-99) mg/dL POC Glu Rn Lactation Consultant ID Calcium 10.0 (8.4-10.2) mg/dL Total Bilirubin 0.3 (0.2-1.3) mg/dL AST 26 (14-36) U/L ALT 14 (4-34) U/L Alkaline Phosphatase 155 H (38-126) U/L Total Protein 6.7 (6.3-8.2) g/dL Albumin 3.5 (3.5-5.0) g/dL 07/20/19 07/20/19 07/20/19 Range/Units 23:32 23:54 23:56 WBC (3.8-10.6) k/uL RBC (3.80-5.40) m/uL Hgb (11.4-16.0) gm/dL Hct (34.0-46.0) % MCV (80.0-100.0) fL MCH (25.0-35.0) pg MCHC (31.0-37.0) g/dL RDW (11.5-15.5) % Plt Count (150-450) k/uL Neutrophils % % Lymphocytes % % Monocytes % % Eosinophils % % Basophils % % Neutrophils # (1.3-7.7) k/uL Lymphocytes # (1.0-4.8) k/uL Monocytes # (0-1.0) k/uL Eosinophils # (0-0.7) k/uL Basophils # (0-0.2) k/uL Hypochromasia Anisocytosis PT (9.0-12.0) sec INR (<1.2) APTT (22.0-30.0) sec Sodium (137-145) mmol/L Potassium (3.5-5.1) mmol/L Chloride (98-107) mmol/L Carbon Dioxide (22-30) mmol/L Anion Gap mmol/L BUN (7-17) mg/dL Creatinine (0.52-1.04) mg/dL Est GFR (CKD-EPI)AfAm (>60 ml/min/1.73 sqM) Est GFR (CKD-EPI)NonAf (>60 ml/min/1.73 sqM) Glucose (74-99) mg/dL POC Glucose (mg/dL) 53 L 210 H 157 H (75-99) mg/dL POC Glu Rn Lactation Consultant ID Zaida Gamboa, Zaida Coles Calcium (8.4-10.2) mg/dL Total Bilirubin (0.2-1.3) mg/dL AST (14-36) U/L ALT (4-34) U/L Alkaline Phosphatase (38-126) U/L Total Protein (6.3-8.2) g/dL Albumin (3.5-5.0) g/dL Disposition Is patient prescribed a controlled substance at d/c from ED?: No <Enio Adams - Last Filed: 07/21/19 00:56> <Rosi Fonseca - Last Filed: 07/24/19 05:41> Clinical Impression: Myalgia Disposition: HOME SELF-CARE Condition: Stable Instructions (If sedation given, give patient instructions): Musculoskeletal Pain (ED) Additional Instructions: Follow-up with primary care provider tomorrow. Return to ER if condition worsens in any way. Prescriptions: methylPREDNISolone Dose Pack [Medrol Dose Pack] 4 mg PO DIRECTED #21 package Referrals: Lilly Ruvalcaba MD [Primary Care Provider] - 1-2 days
[2019-07-20] MEDS ORDERED: SODIUM CHLORIDE 0.9% 1,000 ML IV ONE (22:16)
[2019-07-20 22:21] LABS: Anisocytosis Slight; Basophils % (A) 0 %; Eosinophils # (A) 0.2 k/uL (0-0.7); Eosinophils % (A) 2 %; HCT 37.7 % (34.0-46.0); HGB 11.5 gm/dL (11.4-16.0); Hypochromasia Slight; Lymphocytes # (A) 1.2 k/uL (1.0-4.8); Lymphocytes % (A) 16 %; MCH 25.4 pg (25.0-35.0); MCHC 30.6 g/dL (31.0-37.0); MCV 82.8 fL (80.0-100.0); Monocytes # (A) 0.3 k/uL (0-1.0); Monocytes % (A) 4 %; Neutrophils # (A) 5.8 k/uL (1.3-7.7); Neutrophils % (A) 76 %; Platelet Count 338 k/uL (150-450); RBC 4.55 m/uL (3.80-5.40); RDW 17.5 % (11.5-15.5); WBC 7.6 k/uL (3.8-10.6)
[2019-07-20 22:29] LABS: Albumin 3.5 g/dL (3.5-5.0); Potassium 4.5 mmol/L (3.5-5.1); Total Bilirubin 0.3 mg/dL (0.2-1.3); Total Protein 6.7 g/dL (6.3-8.2)
[2019-07-20 22:40] LABS: INR 0.9 (<1.2); Partial Thromboplastin Time 22.9 sec (22.0-30.0); Prothrombin Time 9.3 sec (9.0-12.0)
--- NOTE | 2019-07-20 22:55 | US ---
EXAMINATION TYPE: US venous doppler duplex LE RT DATE OF EXAM: 07/20/2019 10:42 PM COMPARISON: NONE CLINICAL HISTORY: RLE pain. RLE pain x 2 weeks. No hx of DVT. Patient is not taking blood thinners. SIDE PERFORMED: Right TECHNIQUE: The lower extremity deep venous system is examined utilizing real time linear array sonog elsy with graded compression, doppler sonography and color-flow sonography. VESSELS IMAGED: External Iliac Vein (EIV) Common Femoral Vein Deep Femoral Vein Greater Saphenous Vein * Femoral Vein Popliteal Vein Small Saphenous Vein * Proximal Calf Veins (* superficial vessels) Right Leg: No evidence of DVT in veins imaged at this time from prox calf veins to EIV. IMPRESSION: Negative exam. No evidence of right leg deep vein thrombosis.
[2019-07-20 23:34] LABS: Glucose,Whole Blood 53 mg/dL (75-99)
[2019-07-20] MEDS ORDERED: DEXTROSE 50% SYRINGE 50 ML IVP STA (23:37)
[2019-07-21 00:07] LABS: Glucose,Whole Blood 157 mg/dL (75-99)
[2019-07-21 00:07] LABS: Glucose,Whole Blood 210 mg/dL (75-99)
--- NOTE | 2019-07-21 00:21 | XR ---
EXAMINATION TYPE: XR femur RT DATE OF EXAM: 07/21/2019 COMPARISON: NONE HISTORY: Pain TECHNIQUE: 4 views FINDINGS: I see no fracture nor dislocation. Knee joint and hip joint appear intact. There are no pat hologic calcifications. Joint spaces are fairly normal. IMPRESSION: Negative right femur exam.
--- NOTE | 2019-07-21 00:23 | XR ---
EXAMINATION TYPE: XR tibia fibula RT DATE OF EXAM: 07/21/2019 COMPARISON: NONE HISTORY: Pain TECHNIQUE: 4 views FINDINGS: Knee joint is intact. Ankle joint is intact. I see no fracture nor dislocation. There are s mall Achilles calcaneal spur. IMPRESSION: Mild calcaneal spurring. No evidence of tibia and fibula fracture.
[2019-07-21] MEDS ORDERED: ACET/COD 300 MG/30 MG STARTER PACK 6 TAB BTL PO STA (00:58)
[2019-07-21 01:10] VITALS: BP 137/85; PULSE 82; RESP 16; TEMP 97.9
== END 2019-07-21 01:09 | disposition home or self-care (01) ==
LOC: EC 21:09
DX: M79.18 Myalgia, other site (principal); M79.661 Pain in right lower leg; E78.5 Hyperlipidemia, unspecified; E11.649 Type 2 diabetes mellitus with hypoglycemia without coma; E11.40 Type 2 diabetes mellitus with diabetic neuropathy, unspecified; M48.8X9 Other specified spondylopathies, site unspecified; F17.200 Nicotine dependence, unspecified, uncomplicated; Z79.4 Long term (current) use of insulin; Z79.811 Long term (current) use of aromatase inhibitors; Z85.3 Personal history of malignant neoplasm of breast; Z80.3 Family history of malignant neoplasm of breast; Z88.0 Allergy status to penicillin; Z88.1 Allergy status to other antibiotic agents; Z88.2 Allergy status to sulfonamides; Z88.5 Allergy status to narcotic agent; Z98.890 Other specified postprocedural states; Z53.9 Procedure and treatment not carried out, unspecified reason
CPT/HCPCS: 99285 ×2; 96374 ×2; 96375 ×3; 96376 ×2; 96361 ×2; 36415; 80053; 85025; 85610; 85730; 73552; 73590; 93971; J2405; J1170

== ENCOUNTER 2019-08-01 18:45 | Emergency (ER) | payer MEDICARE, OTHER ==
[2019-08-01 19:30] VITALS: BP 136/73; PULSE 93; RESP 19; TEMP 98.6
[2019-08-01] MEDS ORDERED: HYDROmorphone 0.5 MG/0.5 ML SYRINGE IVP STA (19:41)
--- NOTE | 2019-08-01 19:59 | ED ---
General Adult HPI - General Chief complaint: Extremity Problem,Nontraumatic Stated complaint: right leg pain Time Seen by Provider: 08/01/19 19:13 Source: EMS, RN notes reviewed Mode of arrival: EMS Limitations: physical limitation - History of Present Illness Initial comments: 64-year-old female presents to the emergency department for a chief complaint of right leg pain. Patient has a past medical history of heart failure, COPD, diabetes, hyperlipidemia. Patient states she has had pain in her right leg for the past month. States that she was seen in the emergency department had negative studies performed. States she is taking [place] 10 chronically from her primary care doctor. Patient denies any back pain associated with this. States it starts in her foot and radiates up her leg. Denies anything that worsens the pain. Denies walking worsening the pain. States she is able to walk without difficulty. Denies flexion of the hip knee or ankle worsening the pain. Patient states the pain has not changed in character at all over the past month. Denies fevers or chills. Denies swelling of the right lower extremity. Patient has no other complaints at this time including shortness of breath, chest pain, abdominal pain, nausea or vomiting, headache, or visual changes. - Related Data Home Medications Medication Instructions Recorded Confirmed Atorvastatin Calcium [Lipitor] 20 mg PO HS 06/13/16 04/01/18 Zolpidem [Ambien] 10 mg PO HS 04/12/17 04/01/18 Anastrozole [Arimidex] 1 mg PO DAILY 05/20/17 04/01/18 Prochlorperazine [Compazine] 10 mg PO Q8H PRN 05/20/17 04/01/18 Cholecalciferol (Vitamin D3) 2,000 unit PO DAILY 04/01/18 04/01/18 [Vitamin D3] Cranberry Fruit Extract [Cranberry] 200 mg PO DAILY 04/01/18 04/01/18 Insulin Glargine,Hum.rec.anlog 70 unit SQ HS 04/01/18 04/01/18 [Basaglar Kwikpen U-100] Multivitamins, Thera [Multivitamin 1 tab PO DAILY 04/01/18 04/01/18 (formulary)] Previous Rx's Medication Instructions Recorded HYDROcodone/APAP 7.5-325MG [[place] 1 each PO Q6H PRN tab 04/06/18 7.5-325] Moxifloxacin HCl 400 mg PO DAILY #10 tab 04/06/18 methylPREDNISolone Dose Pack 4 mg PO DIRECTED #21 package 07/21/19 [Medrol Dose Pack] Allergies Allergy/AdvReac Type Severity Reaction Status Date / Time gentamicin [From Garamycin] Allergy Rash/Hives Verified 07/20/19 21:22 Penicillins Allergy Rash/Hives Verified 07/20/19 21:22 Sulfa (Sulfonamide Allergy Rash/Hives Verified 07/20/19 21:22 Antibiotics) morphine AdvReac Nausea Verified 07/20/19 21:22 Review of Systems ROS Statement: Those systems with pertinent positive or pertinent negative responses have been documented in the HPI. ROS Other: All systems not noted in ROS Statement are negative. Past Medical History Past Medical History: Cancer, Heart Failure, COPD, Diabetes Mellitus, Hyperlipidemia Additional Past Medical History / Comment(s): KIDNEY STONES, CATARACT LEFT EYE History of Any Multi-Drug Resistant Organisms: None Reported Past Surgical History: Section, Cholecystectomy, Hernia Repair, Hy sterectomy Additional Past Surgical History / Comment(s): R breast biopsy, x3, cystocscopies, multiple lithotripsies, percutaneous stone removals, double J stents (none in at this time per pt), umbilical hernia repairs x 2. CATARACT SURGERY RIGHT EYE , RIGHT LUMPECTOMY 2017, MEDIPORT PLACEMENT Past Anesthesia/Blood Transfusion Reactions: No Reported Reaction Past Psychological History: Anxiety, Depression Smoking Status: Current every day smoker Past Alcohol Use History: None Reported Past Drug Use History: None Reported - Past Family History Father Family Medical History: Renal Disease Additional Family Medical History / Comment(s): Father of renal failure in his 90's. Mother Family Medical History: COPD Additional Family Medical History / Comment(s): Mother of COPD at the age of 62 yrs. Sister(s) Family Medical History: Cancer Additional Family Medical History / Comment(s): BREAST CANCER Brother(s) Family Medical History: Cancer General Exam Limitations: physical limitation General appearance: alert, in no apparent distress Head exam: Present: atraumatic, normocephalic, normal inspection Eye exam: Present: normal appearance, PERRL, EOMI. Absent: scleral icterus, conjunctival injection, periorbital swelling ENT exam: Present: normal exam, mucous membranes moist Neck exam: Present: normal inspection, full ROM. Absent: tenderness, meningismus, lymphadenopathy Respiratory exam: Present: normal lung sounds bilaterally. Absent: respiratory distress, wheezes, rales, rhonchi, stridor Cardiovascular Exam: Present: regular rate, normal rhythm, normal heart sounds. Absent: systolic murmur, diastolic murmur, rubs, gallop, clicks GI/Abdominal exam: Present: soft, normal bowel sounds. Absent: distended, tenderness, guarding, rebound, rigid Extremities exam: Present: normal inspection (Normal skin exam), full ROM (Patient has full range motion of the right lower extremity including the right hip the right knee and the right ankle.), tenderness (Subjective generalized tenderness of the entire right lower extremity), normal capillary refill (Capillary refill less than 2 seconds, DP pulse 2+ in the right lower extremity and equal to the left.). Absent: pedal edema, joint swelling (There is no swelling whatsoever in the right lower external he. No erythema. Sensation is intact.), calf tenderness Course Vital Signs 08/01/19 08/01/19 18:46 19:29 Temperature 98.3 F 98.6 F Pulse Rate 88 93 Respiratory 17 19 Rate Blood Pressure 138/87 136/73 O2 Sat by Pulse 99 100 Oximetry Medical Decision Making - Medical Decision Making 64-year-old female presents for right lower extremity pain times one month. Patient reports pain has been consistent. Denies any aggravating factors including moving the leg or walking. Patient has full range of motion in the emergency department and is ambulating without difficulty. No antalgic gait. Neurovascular status intact in the right lower extremity. DP pulses 2+. Sensation is intact. Capillary refill less than 2 seconds. No erythema. Ultrasound was performed on July 20 which showed a negative exam. No evidence of DVT in the right leg. Femur x-ray revealed a negative right femur exam. X-ray of the right tibia and fibula at that time also showed a negative exam. Patient was supposed to follow-up with her primary care but states she canceled her appointment and did not go because of the weather. Patient neglected to reschedule. Patient is requesting Dilaudid here in the emergency department. Already takes [place] 10. When RN brought dilaudid, patient states she wants two milligrams instead of the dose I ordered her. She was yelling at the nurses and being verbally abusive. She is showing drug-seeking tendencies and she will not be given additional doses of Dilaudid. I did offer to write her Neurontin as she has diabetic neuropathy and this could be related however she refuses this stating she wants prescription for Dilaudid. I did tell her that unfortunately I am not comfortable writing her this medication. I d iscussed she needs to follow up with orthopedics. Unfortunately patient eloped from the emergency department before I could do any of her paperwork or give her the name to orthopedics because she did not get her requested dose of Dilaudid Disposition Clinical Impression: Leg pain, right, Drug-seeking behavior Disposition: Left Against Medical Advice Condition: Good Instructions (If sedation given, give patient instructions): Leg Pain (ED) Additional Instructions: Please continue to take your pain medication as prescribed by your primary care provider. Return to the emergency department if you have any worsening symptoms. Is patient prescribed a controlled substance at d/c from ED?: No Referrals: Lilly Ruvalcaba MD [Primary Care Provider] - 1-2 days Time of Disposition: 20:03
== END 2019-08-01 20:25 | disposition left against medical advice (07) ==
LOC: EC 18:45
DX: M79.604 Pain in right leg (principal); Z76.5 Malingerer [conscious simulation]; M79.671 Pain in right foot; E11.40 Type 2 diabetes mellitus with diabetic neuropathy, unspecified; E78.5 Hyperlipidemia, unspecified; F17.200 Nicotine dependence, unspecified, uncomplicated; Z88.0 Allergy status to penicillin; Z88.1 Allergy status to other antibiotic agents; Z88.2 Allergy status to sulfonamides; Z88.5 Allergy status to narcotic agent; Z79.4 Long term (current) use of insulin; Z79.811 Long term (current) use of aromatase inhibitors; Z79.891 Long term (current) use of opiate analgesic; Z79.899 Other long term (current) drug therapy; Z53.29 Procedure and treatment not carried out because of patient's decision for other reasons
CPT/HCPCS: 99283; 96374; J1170